=== PATIENT | female | born 1940 | race Caucasian/White ===

== ENCOUNTER 2018-03-05 08:48 | Inpatient (IN) | payer OTHER, SELFPAY ==
[2018-03-05] VITALS (18 sets, daily range): BP systolic 125–211; BP diastolic 62–101; PULSE 65–90; RESP 11–24; TEMP 36.2–37.3; O2SAT 85–99
[2018-03-05] MEDS: Lactated Ringers 1,000 ML 80 ML IV (10:02)
[2018-03-05] MEDS: Lactated Ringers 1,000 ML 1000 ML IV (10:36)
[2018-03-05] MEDS: Hydrogen Peroxide 3% 480 ML BTL (11:59)
[2018-03-05] MEDS: Labetalol 100 MG/20 ML VIAL IVP (13:06)
[2018-03-05] MEDS: HYDROmorphone 2 MG/ML VIAL IVP ×2 (13:24→13:48)
[2018-03-05] MEDS: Normal Saline Flush 10 ML SYR IV ×2 (13:25→15:28)
--- NOTE | 2018-03-05 14:20 | ROE_ITS ---
DATE OF SURGERY: March 05, 2018 PREOPERATIVE DIAGNOSIS: Infected right total knee arthroplasty. POSTOPERATIVE DIAGNOSIS: Same. PROCEDURE: Irrigation and debridement, right total knee arthroplasty with polyethylene exchange. SURGEON: Thaddeus Lakhani M.D. MORTUARY OPERATIONS MANAGER: Moisés Elkins ANESTHETIC: General endotracheal by Tory Flores C.R.N.A. PREP: ChloraPrep. INDICATIONS: This patient is 3 weeks and 2 days, S/P Right total knee arthroplasty. She had an unr emarkable postoperative course. However, approximately 5 days ago, she started draining from her inc ision at the junction of the proximal and middle thirds. This was after her coleen had been removed approximately 5-6 days before. I saw her in the office 48 hours ago. The drainage was clear sero us fluid but it was worrisome that it represented a deep-seated infection. There was minimal celluli tic changes in the incision. Nonetheless, I felt that the wound needed to be opened in order to try to salvage the knee as it is under the 4-week time frame which the [facility] has demonstrated can b e successfully managed with irrigation, debridement and polyethylene exchange. I discussed the pro cedure with the patient 2 days ago and reiterated it this morning with her and her . They un derstood and wished to proceed. The patient had culture results from the drainage through the skin and despite my attempts to cleanse the skin and then try to get a arborist representative deep-seated culture, the fluid showed Group B Strep bu t also other skin contaminants. I did not know if this was a legitimate infection by Group B Strep o r could have been some other organism. My plan was therefore to have the patient have deep cultures , including sending tissue to be cultured to guide appropriate antibiotic therapy. I also plan to u se Vancomycin powder as it has recently been shown to have good success topically on total joints. The patient was taken to the operating suite and underwent successful induction of general anesthesia by endotracheal tube. She had stopped her Plavix just 4 hours ago and therefore it was felt that s he could not have an adductor canal block, nor could she have a spinal anesthetic. The previous in cision really had a fairly benign appearance but there was a small opening about 2 millimeter where s ynovial fluid was leaking. The incision was opened after prepping the entire right lower extremity w ith ChloraPrep. A pneumatic tourniquet was applied to the proximal thigh. Prior to inflating the t ourniquet, the leg was elevated to exsanguinate it. The previous incision was opened without diffic ulty. At first it was felt that the infection was just in the subcutaneous tissues but at the juncti on of the proximal 1/3 of the quadriceps tendon and the distal 2/3's, there was an opening into the j oint. This confirmed a deep seated infection. The wound was carefully debrided with sharp and blunt technique, using large rongeurs and instruments. The patella was everted and the knee was flexed t o 90 degrees. All synovium which appeared to have any type of potential infection was debrided to elen ham tissue. I then sent tissue out for culture and sensitivity. I also did a tissue swab and a naerobic cultures. The swab was in case there were any problems with culturing the synovial tissue t hat was sent. The patient was then given 2 grams of Ancef so as to not have any false negative cult ures. We proceeded then to irrigate the wound, first with 3000 cc's of Betadine and saline solution, accord ing to protocol. Dilute Betadine was placed, 100 cc's in 3000 ml of saline and irrigated throughout the wound in a pulsatile jet lavage. This was followed by 6000 cc's of sterile saline in a pulsatile jet lavage technique. The tissues looked healthy following irrigation. At this point, the tourniquet was deflated. Hemostasis was under good control. I waited an appropr iate amount of time to make sure that there was no untoward bleeding. I then used Vancomycin powder topically throughout the incision. This was 1 gram according to protocol. The arthrotomy was then closed with sutures of # 1 Vicryl in a [id number]-[id number] fashion. Subcutaneous tissues were closed wi th 2-0 Vicryl and the skin was closed with 3-0 Ethilon placed in alternating simple sutures and near- far, far-near retention sutures. The wound was dressed with Xeroform gauze 4 x 4's, ABD pads, 6 conforming gauze bandage, a 6 Reece wr ap and a Cryo/Cuff . The patient will be admitted to the inpatient service. Culture results will be checked daily. I am going to keep her provisionally on Ancef. I felt that the Vancomycin powder would cover Group B St rep and I may ultimately switch her to IV Vancomycin but I want to make sure the deep cultures correl ate with the appropriate antibiotic therapy. Estimated blood loss was approximately 75-100 cc's. The patient's vital signs were stable throughout the procedure.
[2018-03-05] MEDS: Acetaminophen 325 MG TAB 650 MG PO (15:27)
[2018-03-05] MEDS: oxyCODONE 5 MG TAB PO ×3 (15:28→22:22)
[2018-03-05] MEDS: POTASSIUM CHLORIDE/0.9% NACL 1,000 ML 100 MEQ IV (15:30)
[2018-03-05] MEDS: Atorvastatin 10 MG TAB PO (20:08)
[2018-03-05] MEDS: Gabapentin 600 MG TAB PO (20:09)
[2018-03-05] MEDS: traMADol 50 MG TAB PO (21:48)
[2018-03-05] MEDS: Mirtazapine 15 MG TAB PO (21:49)
[2018-03-05] MEDS: Oxybutynin 5 MG TAB PO (21:49)
[2018-03-05] MEDS: DULoxetine 30 MG CAP 90 MG PO (21:49)
[2018-03-06] VITALS (7 sets, daily range): BP systolic 124–160; BP diastolic 67–77; PULSE 90–110; RESP 17–20; TEMP 36.6–38.1; O2SAT 88–94
[2018-03-06] MEDS: POTASSIUM CHLORIDE/0.9% NACL 1,000 ML 100 MEQ IV ×2 (01:44→18:07)
--- NOTE | 2018-03-06 07:10 | PDOC.CMIN ---
Care Management Initial Assess REASON FOR HOSPITALIZATION:: Infection R TKA PAST MEDICAL HISTORY/PAST SURGICAL HISTORY:: Status post Angelito fundoplication, s/p left ORIF of femur fracture, s/p lumber laminectomy with fusion of 3,4, 5, s/p left great toe surgery, s/p L TKA, dilation and curettage, laparascopic paraesophageal hernia repair, three TIAs last one 12 years ago, asthma, anxiety and depression, migraines, idiopathic peripheral neuropathy, hearing loss, fibromyalgia, RLS attends [facility] infusion for iron, GERD, Prophylaxis. PREVIOUS FUNCTIONAL STATUS/SOCIAL/FAMILY SUPPORTS:: Aster resides in [place] with her Anish. Aster shares when she Anish she inherited 2 sons, now also has 2 daughter in-laws and 5 grandchildren. Aster does not have family in the area but reports having many good friends. 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 The couple remain independent in the community, drives and manages their own needs. She attends the [facility] [employer] [facility] in [place] on Tuesdays and and also does independent PT at [facility] on Mondays and Fridays. She enjoys quilting and knitting. CURRENT FUNCTIONAL STATUS:: Aster was sitting up in her chair when CM met with her. She was pleasant and reported being in good spirits. CM reviewed options for penitentiary IV ABX, if needed. Aster reported she would prefer attending [facility] infusion room if possible. CM will await determination of sensitivities of culture and MD recommendations to inform discharge needs. ADVANCE DIRECTIVES:: On file at [facility]: Anish as Agent. Has patient been provided with information about the portal?: Yes Did the patient sign up for the portal?: Yes (Previously) CODE STATUS:: Full Code INSURANCE COVERAGE / FINANCIAL ISSUES:: Aetna, Medicare replacement policy. CURRENT HOME/COMMUNITY SERVICES/EQUIPMENT:: Walker, rollator, shower chair, raised toilet, as well as a stair chair that will assist her in getting to the second floor of her house. Aster reports she attends OP/PT at [facility] which includes [place]. She also reports going to the local pool with her friend on Wednesdays. PRIMARY CARE PHYSICIAN:: Romel Torres MD. POTENTIAL DISCHARGE NEEDS:: Follow up appointment with PCP, Surgical services. PATIENT/FAMILY EDUCATION NEEDS:: Review of discharge instructions, Ask Me Three. ANTICIPATED BARRIERS TO DISCHARGE:: None identfied at this time. TRANSPORTATION:: Via private vehicle with Anish. PLAN:: Aster will be evaluated for further needs. She may need penitentiary IV ABX for which her insurance will not cover in the home setting, Aster may attend Infusion room at [facility] or transfer to [facility] dependent on sensitivities of her infection and frequency of IV ABX. CM will continue to monitor clinical progress and support discharge planning considerations.
[2018-03-06 07:15] LABS: HCT 32.2 % (36.0-46.0); HGB 9.9 g/dL (12.0-15.5); Mean Corp. HGB Concentration 30.7 g/dL (32.0-36.0); Mean Corpuscular Hemoglobin 29.4 pg (27.0-33.0); Mean Corpuscular Volume 95.5 fL (80-95); Mean Platelet Volume 10.6 fL (8.0-11.0); Platelet Count 153 x1000/uL (130-400); RBC 3.37 m/cumm (4.00-5.20); RBC Distribution Width 18.5 % (11.7-14.6); White Blood Cell Count 8.04 k/cumm (4.4-10.8)
--- NOTE | 2018-03-06 07:15 | INITIAL_ITS ---
Care Management Initial Assess REASON FOR HOSPITALIZATION:: Infection R TKA PAST MEDICAL HISTORY/PAST SURGICAL HISTORY:: Status post Angelito fundoplication, s/p left ORIF of femur fracture, s/p lumber laminectomy with fusion of 3,4, 5, s /p left great toe surgery, s/p L TKA, dilation and curettage, laparascopic paraesophageal hernia repair, three TIAs last one 12 years ago, asthma, anxiety and depression, migraines, idiopathic peripheral neuropathy, hearing loss, fibromyalgia, RLS attends [facility] infusion for iron, GERD, Prophylaxis. PREVIOUS FUNCTIONAL STATUS/SOCIAL/FAMILY SUPPORTS:: Aster resides in [place] with her Anish. Aster shares when she Anish she inherited 2 sons , now also has 2 daughter in-laws and 5 grandchildren. Aster does not have family in the area but reports having many good friends. 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 The couple remain independent in the community, drives and manages their own needs. She attends the [facility] [employer] group in [place] on Tuesdays and and also does independent PT at [facility] on Mondays and Fridays. She enjoys quilting and knitting. CURRENT FUNCTIONAL STATUS:: Aster was sitting up in her chair when CM met with her. She was pleasant and reported being in good spirits. CM reviewed options for retirement IV ABX, if needed. Aster reported she would prefer attending [facility] infusion room if possible. CM will await determination of sensitivities of culture and MD recommendations to inform discharge needs. ADVANCE DIRECTIVES:: On file at [facility]: Anish as Agent. Has patient been provided with information about the portal?: Yes Did the patient sign up for the portal?: Yes (Previously) CODE STATUS:: Full Code INSURANCE COVERAGE / FINANCIAL ISSUES:: Aetna, Medicare replacement policy. CURRENT HOME/COMMUNITY SERVICES/EQUIPMENT:: Walker, rollator, shower chair, raised toilet, as well as a stair chair that will assist her in getting to the second floor of her house. Aster reports she attends OP/PT at [facility] which includes [facility] [employer] [facility] on Mondays. She also reports going to the local pool with her friend on Wednesdays. PRIMARY CARE PHYSICIAN:: Romel Torres MD. POTENTIAL DISCHARGE NEEDS:: Follow up appointment with PCP, Surgical services. PATIENT/FAMILY EDUCATION NEEDS:: Review of discharge instructions, Ask Me Three . ANTICIPATED BARRIERS TO DISCHARGE:: None identfied at this time. TRANSPORTATION:: Via private vehicle with Anish. PLAN:: Aster will be evaluated for further needs. She may need terminal clerk IV ABX for which her insurance will not cover in the home setting, Aster may attend Infusion room at [facility] or transfer to [facility] dependent on sensitivities of her infection and frequency of IV ABX. CM will continue to monitor clinical progress and support discharge planning considerations.
[2018-03-06 07:21] LABS: Anion Gap 6.8 mmol/L (3-11); BUN 13 mg/dL (7-18); CO2 28.2 mmol/L (21.0-32.0); CREATININE 1.01 mg/dL (0.55-1.02); Calcium 8.5 mg/dL (8.5-10.1); Chloride 104 mmol/L (98-107); Estimated GFR 53.01 (mL/min/1.73m2); Glucose 186 mg/dL (70-100); Potassium 4.9 mmol/L (3.5-5.1); Sodium 139 mmol/L (136-145)
[2018-03-06] MEDS: Acetaminophen 325 MG TAB 650 MG PO (07:46)
[2018-03-06] MEDS: Multivitamin w/Minerals TAB 1 TAB PO (07:48)
[2018-03-06] MEDS: Hyoscyamine 0.125 MG SL/ORAL/CHEW PO (07:48)
[2018-03-06] MEDS: Docusate Sodium 100 MG CAP PO (07:48)
[2018-03-06] MEDS: Gabapentin 300 MG CAP PO (07:48)
[2018-03-06] MEDS: oxyCODONE 5 MG TAB PO ×3 (07:48→22:06)
[2018-03-06] MEDS: Pantoprazole 40 MG TABCR PO (07:49)
--- NOTE | 2018-03-06 09:55 | PGE_ITS ---
Date of Service: 03/06/2018 Subjective: Feeling remarkably well despite having had significant surgery without the assist of adjunctive nerve blocks because the patient was on Plavix 48 hours prior to the surgery. She is sitting in the chair . The catheter is bothering her. Objective: Temperature max of 37.8; she is 37.3. Blood pressure 138/70, pulse 93. Pain score of 8. Oxygen sat uration 94%. Hemoglobin is 9.9, platelet count 153,000. Chemistries unremarkable other than a mildl y elevated glucose. Culture results from the lab show no growth on the cultures which are approximately 22 hours old. Pr evious cultures in the office from 03/03/2018 show group B strep. No further workup is done but I am going to have the lab send them off to see whether or not there is clindamycin resistance. If that is the case, then the patient would need treatment with vancomycin even though current cultures are n ot growing anything. She did have vancomycin powder placed in the wound and I will continue her on A ncef. Overall status post irrigation and debridement of infected total knee arthroplasty with current cultu re negative results which were taken without any antibiotic coverage. I will continue her Ancef and perhaps change her antibiotic regimen depending on what the culture results reveal. Patient understa nds current treatment plan. She is awake and alert and oriented. Will check her CBC and chemistries again tomorrow. Will discontinue the King today.
--- NOTE | 2018-03-06 09:55 | PHARADMIT ---
Addendum entered by Nahomy Cooper 03/08/18 12:06: Pharmacy Note Subjective Objective VS ok, pain 06/11, Micro: R knee shows Clostirium Perfringes-?contaminent Assessment dc'd Cefazolin and changing to 2 weeks of Ceftriaxone no other med changes, OxyIR, Tramadol, Gabapentin and APAP for pain Plan Plan is for 2 weeks of Anbx..possibly in our infusion room with discharge planned for Friday 03/09 Central line being placed today Follow C-reactive protein level Original Note: Addendum entered by Celeste Dominguez 03/07/18 10:09: Pharmacy Note Subjective pt ambulating, eating well, Objective pain 04/11, vs ok, Assessment morphine IV prn active, IVF stopped, cefazolin continues awaiting culture results Plan awaiting final culture results and switch to all PO meds Original Note: Admission Pharmacy Clinical Review INFECTION RIGHT TKA Code Status Full Code Current Weight 74.8 kg Renally Cleared and Narrow Therapeutic Index Meds CRCL ~40ML/MIN QTc Value / Action Taken 425 BP Control, Fever 138/70 AFEBRILE Electrolytes reviewed OK DVT Prophylaxis NO Opiate Usage / Scheduled Bowel Regimen Ordered PRN/PRN Plt/SCr for Heparin / Enoxaparin 153/1.01 INR for Warfarin NA H/H stable, WBC/Bands 9.9/32.2 WBC 8.04 Antibiotic appropriateness CEFAZOLIN Cultures and Sensitivities PENDING Surgical ABX d/c within 24 hr NO DM control / Insulin Dosing NA Heart Failure (Check EF%) (ROXANNE's, B-Block, Diuretics) NA IV to PO Switch Home Meds Reviewed Home Meds Not Ordered Albuterol Sulfate [Proair Hfa] 2 puff IH PRN PRN 11/13/15 Celecoxib [CeleBREX] 200 mg PO DAILY 11/13/15 Clopidogrel Bisulfate [Plavix] 75 mg PO HS 11/13/15 L.acidoph,Paracasei, B.lactis [Probiotic] 1 each PO DAILY 11/13/15 Topricin 1 ea TP DAILY PRN 11/13/15 Calcium Carbonate/Vitamin D3 [Calcium 600-Vit D3 200 Tablet] Phenylephrine HCl [Nasal Decongestant PE] 10 mg PO PRN PRN 05/27/17 Sulfameth/Trimeth Ds [Bactrim Ds Tablet] 1 each PO BID 03/04/18 Comments
--- NOTE | 2018-03-06 10:38 | IN_ITS ---
INPATIENT PHYSICAL THERAPY EVALUATION Date: 03/06/18 Referring Doctor: Thaddeus Lakhani MD PT Orders:Manage Follow per spec Precautions: WBAT on Right, Standard PATIENT PROFILE/ADMITTING DIAGNOSIS: Patient is a 77 year old female admitted to this facility on orders of Dr. Lakhani after receiving I and D and poly swab for her right TKA, s/p 3 weeks. Patient had been doing quite well for the first 2 weeks after surgery but a few days ago she was noted to have significant serous drainage from the wound where it had opened slightly. It was recommended by Dr. Lakhani and per current treatment guidelines to proceed with Irrigation, debridement and poly swab. She has been admitted for recovery and rehab. PMHX: Left TKA, Fibromyalgia, Distal clavicle resection, Hearing loss, mild cognitive impairment, Depression, Migraines, GERD Social History/Home Situation: Patient lives with in 2 level home that she does not need to utilize the 2nd floor currently. She is independent at baseline without assistive device. Current Functional Limitations: Use of 4 wheel walker prior to admission with limited ambulation tolerance. Equipment owned/DME: 2 WW, 4WW SUBJECTIVE: I was just up with nursing and sat up for awhile and I can not get back out of bed today. OBJECTIVE: General Observation: Tired elderly woman who looks of stated age lying supine in bed with HOB to 10 degrees. King catheter just removed from nursing and IV lines in place on left UE. Cryo cuff to right knee. Mental Status: Alert and oriented x 3 to person, place, and time Pain: 8/10 currently at right knee Vital Signs: stable ROM: RUE WNL LUE WNL RLE WFL LLE Right hip to 90 degrees, Right knee to 45 degrees of flexion and she comes to 10 degrees of full extension before pain limits further active or passive motion. STRENGTH: RUE 5/5 grossly LUE 5/5 grossly RLE Hip flexion 4/5, quads 3/5 (pain) , HS 4/5, DF and PF 5/5 LLE 5/5 grossly SENSATION: Patient intact to light touch and sensation through upper and lower extremity dermatomes. Motor control appears intact to functional myotomes and patient demonstrates appropriate proprioception and kinesthetic awareness. BED MOBILITY/TRANSFERS: Patient was able to demonstrate light bed rolling with min assistance. She refused out of bed, however per nursing she required min assist. GAIT: Refused out of bed, per nursing min assist to chair this morning with 2 WW. SPECIAL TESTS: Mobility Limitations Standardized Measure [facility] AM -PAC 6 clicks Basic Mobility Inpatient Short Form: raw score: 16 standardized score: 40.78 CMS score: 54.16% [facility] modifier: CK Patient performed quad sets x 10, hamstring sets x 10, gluteal sets x 10. Ankle pumps for 1 min, and shoulder flexion and shoulder rows for 2 sets of 10 INFORMED CONSENT/EDUCATION: Pt instructed in purpose of PT Consult and plan of care ASSESSMENT: Patient is a 77 year old female referred to physical therapy services with diagnosis of being s/p 3 weeks TKA with recent evidence of possible infection and subsequent I and D with poly swab from right knee . Patient presents with clinical signs and symptoms consistent with this diagnosisi as demonstrated by the following impairment level findings: deficits with transfers, pain limiting out of bed activity, ambulation intolerance, Decreased ROM and decreased strength through the right. . Impairments are contributing to the following functional limitations: AMPAC score 54.16% Patient is assessed as a Low 74268 Moderate 10682 __X__ high 77397 complexity based on the following: History: See above PHM Examination: See above impairment findings. Presentation: Evolving Decision Making: Moderate based on AMPAC of 54.16% Skilled physical therapy services are required for this patient in order to address and remediate her functional limitations and return to pre-morbid level of function. GOALS Goals x1 week 1. Supine-sit SUpervision with 2. Sit-Supine SUpervision with 3. Sit-Stand SUpervision with 4. Stand-sit SUpervision with 5. Bed-chair SUpervision with 6. Chair-bed SUpervision with 7. Gait With 2WW up to 200 feet and with SUpervision with PLAN OF CARE/TREATMENT PLAN: 1-2x/day, 7 days/ week x 1 week Plan of care has been reviewed with the PRESCHOOL ASSISTANT providing the service under Physical therapy direction. Initiate physical therapy intervention for strengthening, bed mobility, transfers, gait, stairs, balance training, use of assistive device. DISCHARGE RECOMMENDATIONS To home once medically stable in care of . TREATMENT TIME/MINUTES/[place]ES [place] [address] 15 min 1015am G Codes in the area mobility of walking and moving around: current status [id number] ___CK____projected status GP [id number]___SV .
[2018-03-06] MEDS: Gabapentin 600 MG TAB PO (19:40)
[2018-03-06] MEDS: Atorvastatin 10 MG TAB PO (19:40)
[2018-03-06] MEDS: DULoxetine 30 MG CAP 90 MG PO (22:05)
[2018-03-06] MEDS: Mirtazapine 15 MG TAB PO (22:06)
[2018-03-06] MEDS: Oxybutynin 5 MG TAB PO (22:06)
[2018-03-07 04:14] VITALS: BP 133/67; PULSE 110; RESP 22; TEMP 36.8; O2SAT 95
--- NOTE | 2018-03-07 07:25 | CMPROGNOTE_ITS ---
Date of Service: 03/07/18 Time of Service: 07:23 Care Management Progress Note SO: CM met with patient, and reviewed clinical chart. Pt continues to be treated with IV antibiotics for the next 48 hours, is monitoring cultures to determine ongoing antibiotic treatment. A Aster is a 77-year-old woman admitted with infected right TKA. P:Aster will be evaluated for further needs. She may need marine oil terminal superintendent IV ABX for which her insurance will not cover in the home setting, Aster may attend Infusion room at [facility] or transfer to [facility] dependent on sensitivities of her infection and frequency of IV ABX. CM will continue to monitor clinical progress and support discharge planning considerations.
[2018-03-07 07:31] VITALS: BP 130/62; PULSE 88; RESP 18; TEMP 36.2; O2SAT 93
[2018-03-07 07:41] LABS: HCT 32.2 % (36.0-46.0); HGB 9.9 g/dL (12.0-15.5); Mean Corp. HGB Concentration 30.7 g/dL (32.0-36.0); Mean Corpuscular Hemoglobin 29.5 pg (27.0-33.0); Mean Corpuscular Volume 95.8 fL (80-95); Mean Platelet Volume 11.5 fL (8.0-11.0); Platelet Count 119 x1000/uL (130-400); RBC 3.36 m/cumm (4.00-5.20); RBC Distribution Width 18.1 % (11.7-14.6); White Blood Cell Count 7.07 k/cumm (4.4-10.8)
[2018-03-07] MEDS: Gabapentin 300 MG CAP PO (07:42)
[2018-03-07] MEDS: traMADol 50 MG TAB PO ×2 (07:43→23:20)
[2018-03-07] MEDS: Pantoprazole 40 MG TABCR PO (07:43)
[2018-03-07] MEDS: Multivitamin w/Minerals TAB 1 TAB PO (07:43)
[2018-03-07] MEDS: Hyoscyamine 0.125 MG SL/ORAL/CHEW PO (07:43)
[2018-03-07 07:59] LABS: BUN 15 mg/dL (7-18); CREATININE 1.07 mg/dL (0.55-1.02); Calcium 8.7 mg/dL (8.5-10.1); Chloride 105 mmol/L (98-107); Glucose 154 mg/dL (70-100); Potassium 4.5 mmol/L (3.5-5.1); Sodium 140 mmol/L (136-145)
[2018-03-07] MEDS: Docusate Sodium 100 MG CAP PO ×2 (08:02→21:17)
[2018-03-07] MEDS: oxyCODONE 5 MG TAB PO ×2 (09:10→10:07)
[2018-03-07] MEDS: Polyethylene Glycol 3350 17 GM PACKET PO (10:08)
--- NOTE | 2018-03-07 10:42 | PGE_ITS ---
DATE: March 07, 2018 ASSESSMENT: Overall the patient is definitely improved. She is still not as good as she was before surgery, but she is alert, oriented, and showing no signs of postanesthesia confusion or delirium, an d is aware of the clinical situation including the bacteriology. PLAN: Continue with IV Ancef for at least 48 more hours until more definitive cultures are obtained. SUBJECTIVE: Feeling better today. Sitting up in a chair, comfortably eating breakfast. OBJECTIVE: She has been afebrile. T-max was 37.8, currently 36.2. Blood pressure 130/62. Saturati ons are 93% on room air. Respirations 18. Hemoglobin unchanged at 9.9. Platelet count 115,000. Electrolytes are normal except for slightly el evated glucose. The wound is carefully examined today. There is no unusual swelling. No drainage on the gauze. She has no changes in her neurovascular exam of both lower extremity. I went to the lab and reviewed the bacteriology. There is no growth on the routine broth or plates. On the anaerobic culture there is one colony on the blood which perhaps could represent a potential pathogen, although an anaerobic infection of a total knee is uncommon. It is going to be Gram staine d today and I will have further identification tomorrow. I think because this is a relatively unusua l cause for infection, I am going to forego holding off of using Flagyl. The patient obviously canno t take penicillin which covers more anaerobes. I also noted that the group B Strep, specifically Str ep agalactiae has the ability to be a facilitative anaerobe. However, the technologist does not feel that this has the appearance of a Strep agalactiae on the anaerobic plates.
--- NOTE | 2018-03-07 11:10 | INPTTR_ITS ---
PHYSICAL THERAPY PROGRESS NOTE Date: 03/07/18 PRECAUTIONS: WBAT on right SUBJECTIVE: Indicated she was willing to walk to commode and chair but does not want to walk any further, too sore. Stated just doing the little activities that she performed causes her knee to ache. OBJECTIVE PAIN: Aching in right knee with activity. BED MOBILITY/TRANSFERS Supine-sit: SBA Sit-supine: SBA Sit-stand: SBA Stand-sit: SBA Bed-Chair: SBA with FWW Chair-bed: SBA with FWW GAIT Assistive Device FWW Weightbearing WBAT on the right Assist: SBA Distance: 3 steps to bed to commode, 8 steps commode to recliner THEREX: Performed AP, QS,GS, seated hip flexion, seated hip abduction, bilateral UE horizontal abd/add and shoulder flexion to 90 degrees, as per flow sheet. Actively flexing knee to approximately 70 degrees and extending to 15 degrees while in seated position. ASSESSMENT: Tolerated transfers very well and appeared comfortable while up in chair with right leg resting on stool and pillow as per her instructions via Dr. Lakhani. PLAN: Continue with strengthening and functional mobility training as per supervising PT's POC. TREATMENT CODES/TIME: TP, GT, 11:10 to 11:40 (30 minutes)
[2018-03-07] MEDS: Normal Saline Flush 10 ML SYR IV ×3 (11:33→23:20)
[2018-03-07 11:40] VITALS: BP 113/70; PULSE 96; RESP 18; TEMP 36; O2SAT 95
[2018-03-07] MEDS: Acetaminophen 325 MG TAB 650 MG PO (13:09)
[2018-03-07 16:30] VITALS: BP 113/65; PULSE 88; RESP 18; TEMP 36.5; O2SAT 93
[2018-03-07] MEDS: Atorvastatin 10 MG TAB PO (19:19)
[2018-03-07] MEDS: Gabapentin 600 MG TAB PO (19:19)
[2018-03-07 19:38] VITALS: BP 117/66; PULSE 91; RESP 18; TEMP 36.7; O2SAT 92
[2018-03-07] MEDS: DULoxetine 30 MG CAP 90 MG PO (21:16)
[2018-03-07] MEDS: Mirtazapine 15 MG TAB PO (21:17)
[2018-03-07] MEDS: Oxybutynin 5 MG TAB PO (21:17)
[2018-03-07 23:53] VITALS: BP 161/76; PULSE 92; RESP 20; TEMP 36.8; O2SAT 93
[2018-03-08] MEDS: oxyCODONE 5 MG TAB PO ×5 (00:20→23:48)
[2018-03-08 04:09] VITALS: BP 142/79; PULSE 105; RESP 19; TEMP 37.1; O2SAT 94
[2018-03-08] MEDS: Normal Saline Flush 10 ML SYR IV ×3 (06:17→13:02)
[2018-03-08] MEDS: Acetaminophen 325 MG TAB 650 MG PO ×2 (06:56→11:41)
[2018-03-08 07:15] VITALS: BP 125/75; PULSE 82; RESP 19; TEMP 36.7; O2SAT 95
--- NOTE | 2018-03-08 07:50 | PGE_ITS ---
DATE: MARCH 08, 2018 @07:50 ASSESSMENT: I reviewed all her culture results in the lab this morning. There was one colony on the anaerobic plate which was gram stain. It did not appear to be a Propionibacterium species but rather a Clostridium species. This is does not fit clinically with the patient's examination or clinical course and I suspect that this could be a contaminant. The other plates are all negative including the tissue that was harvested deep prior to giving the patient her antibiotic Ancef. PLAN: According to Up To Date protocol, I am going to treat this with two weeks of IV Rocephin. If the patient is doing well and her C-reactive protein is close to normal range, then I would switch her to oral antibiotics. If not I would keep her on IV Rocephin until C-reactive protein normalizes. I have discussed this with the patient in detail and with her via the speaker phone in her room today. I have discussed the case in detail with Marsha Jefferson who is going to be doing the Central Line and she will assist me with that along with calculation of the appropriate dosing of Rocephin which will be done every 24 hours with the patient's transporting the patient to [facility]. SUBJECTIVE: She is feeling well. She had a good night. She is able to do a straight leg raise. OBJECTIVE: She has been afebrile with maximum temperature of 37.8 at midnight on 03/06. Last night her T-max was 37.1. Blood pressure 142/79, pulse 105 ranging from 90 to 105. Sat is 94% on room air. Overall feels pain is better.
[2018-03-08] MEDS: Gabapentin 300 MG CAP PO (07:56)
[2018-03-08] MEDS: Pantoprazole 40 MG TABCR PO (07:56)
[2018-03-08] MEDS: Multivitamin w/Minerals TAB 1 TAB PO (07:57)
[2018-03-08] MEDS: Hyoscyamine 0.125 MG SL/ORAL/CHEW PO (07:57)
[2018-03-08] MEDS: Docusate Sodium 100 MG CAP PO (08:03)
--- NOTE | 2018-03-08 09:06 | INPTTR_ITS ---
PHYSICAL THERAPY PROGRESS NOTE Date: 03/08/18 PRECAUTIONS: WBAT R LE SUBJECTIVE: Pt sitting in chair after breakfast, states she has only been walking bed to commode over weekend. Pt agreeable to PT session and encouraged to mobilize to bathroom and hallway this morning. OBJECTIVE: PAIN c/o pain right knee, not rated. cryocuff applied post session BED MOBILITY/TRANSFERS Sit-supine: independent, pt able to lift R leg into bed Sit-stand: independent from chair and toilet with FWW Stand-sit: independent Bed-Chair: supervision with FWW Chair-bed: supervision with FWW GAIT Assistive Device FWW Weightbearing as tolerated Assist: supervision Distance: 35ftx2 Deviation step to gait pattern with decreased stride and promise, pt able to mobilize out in hallway and use regular bathroom for toileting this morning. Pt returned to bed after session completed with cryocuff applied to right knee THEREX: Pt independent with TKA exercise program, this morning focused on quad sets to increase right knee extension. R knee AROM ~ -15-70. ASSESSMENT: Improved gait mobility with FWW, improved transfers. R knee ROM a concern, needs continued focus on extension, hopefully this will improve with continued treatment. Pt states plan is for her to go home tomorrow, pt issued a tube worker to assist with picking items up from floor. PLAN: Progress gait distance Progress R knee ROM Progress strengthening TREATMENT CODES/TIME: 23min TAx1 TP x1 [address] Mon PT
--- NOTE | 2018-03-08 10:45 | DI.REPORT_ITS ---
SYMPTOMS/DIAGNOSIS: POST PICC INSERTION PORTABLE AP CHEST: Comparison 02/04/18. The heart size and pulmonary vasculature are within normal limits. No infiltrates or effusions are seen. There has been interval placement of a left PICC line. The tip of the catheter is in good position in the superior vena cava. IMPRESSION: Left PICC line placement. The tip of the catheter is seen in the superior vena cava.
[2018-03-08 11:25] VITALS: BP 128/76; PULSE 90; RESP 20; TEMP 36.3; O2SAT 93
--- NOTE | 2018-03-08 12:35 | PDOC.CMPRO ---
Care Management Progress Note S/O: Aster was laying in bed, her at her side when JUAN ALBERTO met with her. She was pleasant in interaction and reported no concerns at this time. She was well aware of her discharge plan-liz met with Dr. Campbell this morning. Aster will discharge home tomorrow after her IV ABX. She will have a PICC line placed today and on Thursday will return to [facility] to attend the Infusion room for her daily IV ABX treatment of her infected R TKA. A: 77 female admitted to [facility] 03/05/18 for infection (R) TKA P: Aster will likely discharge home tomorrow. She will have a PICC line placed today. She will discharge home, and return to [facility] daily for infusion of her IV ABX. Aster will transport home via private vehicle with her .
--- NOTE | 2018-03-08 12:40 | CMPROGNOTE_ITS ---
Care Management Progress Note S/O: Aster was laying in bed, her at her side when JUAN ALBERTO met with her. She was pleasant in interaction and reported no concerns at this time. She was well aware of her discharge plan-liz met with Dr. Campbell this morning. Aster will discharge home tomorrow after her IV ABX. She will have a PICC line placed today and on Thursday will return to [facility] to attend the Infusion room for her daily IV ABX treatment of her infected R TKA. A: 77 female admitted to [facility] 03/05/18 for infection (R) TKA P: Aster will likely discharge home tomorrow. She will have a PICC line placed today. She will discharge home, and return to [facility] daily for infusion of her IV ABX. Aster will transport home via private vehicle with her .
--- NOTE | 2018-03-08 14:43 | INPTTR_ITS ---
PHYSICAL THERAPY PROGRESS NOTE Date: 03/08/18 PRECAUTIONS: WBAT R LE SUBJECTIVE: Pt in bed visiting with , agreeable to PT Session. OBJECTIVE: PAIN c/o pain right knee, not rated. cryocuff applied post session BED MOBILITY/TRANSFERS Supine-sit: independent Sit-supine: independent, pt able to lift R leg into bed Sit-stand: independent Stand-sit: independent GAIT Assistive Device FWW Weightbearing as tolerated Assist: supervision Distance: 35ftx2 Deviation step to gait pattern with decreased stride and promise THEREX: Bilateral ankle pumps, quad sets, glute sets x 20, R SLR x 10 ASSESSMENT: Able to perform second gait session to hallway today, using bathroom consistently instead of bedside commode. Treatment focused on quad contraction R LE and knee extension. Pt plans to go home tomorrow, recommend continued PT at discharge to improve ROM, strength and functional mobility. PLAN: Progress gait distance Progress R knee ROM Progress strengthening TREATMENT CODES/TIME: 24min TAx1 TP x1 [address] Mon PT
[2018-03-08 15:45] VITALS: BP 110/70; PULSE 86; RESP 19; TEMP 36.1; O2SAT 92
[2018-03-08] MEDS: Atorvastatin 10 MG TAB PO (19:34)
[2018-03-08] MEDS: Gabapentin 600 MG TAB PO (19:34)
[2018-03-08 19:39] VITALS: BP 134/77; PULSE 93; RESP 18; TEMP 36.5; O2SAT 92
[2018-03-08] MEDS: DULoxetine 30 MG CAP 90 MG PO (21:02)
[2018-03-08] MEDS: Oxybutynin 5 MG TAB PO (21:02)
[2018-03-08] MEDS: Mirtazapine 15 MG TAB PO (21:02)
[2018-03-09 00:18] VITALS: BP 159/84; PULSE 94; RESP 20; TEMP 36.9; O2SAT 94
[2018-03-09 03:56] VITALS: BP 165/81; PULSE 96; RESP 18; TEMP 37.6; O2SAT 93
[2018-03-09 07:20] VITALS: BP 143/82; PULSE 87; RESP 17; TEMP 36.6; O2SAT 93
--- NOTE | 2018-03-09 08:02 | PGE_ITS ---
DATE: MARCH 09, 2018 @08:02 PLAN: Will send her home on IV Rocephin and will follow a minimum of two week IV course depending on clinical response and any further bacteriological work-up. I will obtain a C-reactive protein at that time. Arrangements were made to have her IVs and Rocephin given 2 grams every 24 hours through her PICC line which was successfully inserted yesterday. The chest x-ray post PICC line insertion was normal with the line in good position. SUBJECTIVE: She had a good night. She is able to straight leg raise. Currently sitting in a chair waiting for breakfast. OBJECTIVE: She has been afebrile. T-max was 37.6 at 4:00 a.m. Blood pressure 165/81. Pulse 96 and sat is 93% on room air. I reviewed culture plates from the lab. There has been no further growth of the anaerobic resub from broth. All aerobic plates are negative. There is one colony of possible Clostridium perfringens which I think is not likely to be valid but I am having it worked up anyway. The Group B Strep was Clindamycin resistant. This was from drainage on the skin taken on 03/03/18.
--- NOTE | 2018-03-09 08:03 | DISCHARGE ---
Discharge - Discharge Orders - Discharge Plan Disposition: HOME Condition: Improving Diet:: Carb Counting Equipment/Supplies:: Walker Activity:: Activity as Tolerated - Instructions Additional Instructions: CONTINUE TO USE YOUR NEW KNEE. IN ADDITION TO FLEXION, WORK ON EXTENSION BY PLACING YOUR HEEL ON A PILLOW OR BOLSTER TO TRY TO ENCOURAGE KNEE EXTENSION. YOU MAY GET YOUR STITCHES WET IN THE SHOWER WITH SOAP AND WATER. GENTLY PAT THE STITCHES DRY AND LEAVE THEM OPEN TO THE AIR. IF THE STITCHES CATCH ON YOUR CLOTHING, YOU MAY COVER THEM WITH A LIGHT LAYER OF GAUZE AND PAPER TAPE. RESUME YOUR REGULAR MEDICATIONS BEFORE. THIS INCLUDES USING YOUR PLAVIX TODAY. TAKE TYLENOL FOR MILDER PAIN. TAKE OXYCODONE 5MG 1-2 EVERY 4 -6 HOUR FOR MORE SERIOUS PAIN. [facility] STATE REGULATIONS LIMIT THE AMOUNT OF OXYCODONE THAT CAN BE PRESCRIBED. RETURN EVERY DAY AT NOON FOR INFUSIONS OF ROCEPHIN THRU YOUR PICC LINE. FOLLOW-UP WITH DR. EVANS IN 7-10 DAYS FOR STITCH REMOVAL.
--- NOTE | 2018-03-09 08:09 | PDOC.DISCH_ITS ---
Discharge - Discharge Orders - Discharge Plan Disposition: HOME Condition: Improving Diet:: Carb Counting Equipment/Supplies:: Walker Activity:: Activity as Tolerated - Instructions Additional Instructions: CONTINUE TO USE YOUR NEW KNEE. IN ADDITION TO FLEXION, WORK ON EXTENSION BY PLACING YOUR HEEL ON A PILLOW OR BOLSTER TO TRY TO ENCOURAGE KNEE EXTENSION. YOU MAY GET YOUR STITCHES WET IN THE SHOWER WITH SOAP AND WATER. GENTLY PAT THE STITCHES DRY AND LEAVE THEM OPEN TO THE AIR. IF THE STITCHES CATCH ON YOUR CLOTHING, YOU MAY COVER THEM WITH A LIGHT LAYER OF GAUZE AND PAPER TAPE. RESUME YOUR REGULAR MEDICATIONS BEFORE. THIS INCLUDES USING YOUR PLAVIX TODAY. TAKE TYLENOL FOR MILDER PAIN. TAKE OXYCODONE 5MG 1-2 EVERY 4 -6 HOUR FOR MORE SERIOUS PAIN. [facility] STATE REGULATIONS LIMIT THE AMOUNT OF OXYCODONE THAT CAN BE PRESCRIBED. RETURN EVERY DAY AT NOON FOR INFUSIONS OF ROCEPHIN THRU YOUR PICC LINE. FOLLOW-UP WITH DR. EVANS IN 7-10 DAYS FOR STITCH REMOVAL.
[2018-03-09] MEDS: Acetaminophen 325 MG TAB 650 MG PO (08:17)
[2018-03-09] MEDS: Gabapentin 300 MG CAP PO (08:17)
[2018-03-09] MEDS: Multivitamin w/Minerals TAB 1 TAB PO (08:17)
[2018-03-09] MEDS: Pantoprazole 40 MG TABCR PO (08:17)
[2018-03-09] MEDS: Hyoscyamine 0.125 MG SL/ORAL/CHEW PO (08:17)
[2018-03-09] MEDS: Docusate Sodium 100 MG CAP PO (08:21)
--- NOTE | 2018-03-09 09:24 | DSE_ITS ---
DATE OF ADMISSION: March 05, 2018 DATE OF DISCHARGE: March 09, 2018 HISTORY: See written History. PHYSICAL EXAM: See written Physical Exam. HOSPITAL COURSE: Mrs. Kumar was discharged from [facility] on 02/15/18 after undergoing a right total kn ee arthroplasty. Her initial postoperative course post-discharge was unremarkable. However she deve loped drainage from her wound approximately a week ago. I saw her in the office and she had serous f luid coming from a 3 mm opening in the central portion of her incision at the junction of the proxima l and distal thirds. This was cultured, but I felt that it was an ominous sign which would require d ebridement. The culture showed some contamination and ultimately grew a Group B Strep. It was worke d up for sensitivities and was found to be resistant to Clindamycin. No other sensitivities are done normally on Strep. I felt that this was not probably insurance follow up representative of her true infection. I recom mended to the patient and her that she undergo irrigation and debridement of the total knee i ncision, polyethylene exchange and placement on IV antibiotics until definitive deep cultures were pe rformed. The patient and her consented. She was taken to surgery in the a.m. of 03/05/18 where she underwent arthrotomy of the right total knee and explantation of the polyethylene component. There was no overt pus within the knee. Complete d ebridement was done. Tissue from the debridement was sent to a lab for culture and sensitivities, in cluding aerobic and anaerobic cultures. She was then given 2 grams of Ancef. The knee was irrigated out with three liters of Betadine solution, followed by six liters of sterile saline. Vancomycin po wder was then placed on the arthrotomy site and the wound was closed. All of her routine deep cultures done at the time of surgery on 03/05/18 have shown no growth so far. There was one colony on the anaerobic culture that looked like a possible Clostridium perfringens. T his did not clinically fit with the patient's picture. The material was re-subbed onto broth for a r epeat anaerobic culture and nothing has grown at this point. Nonetheless the suspected Clostridium species will be worked up at the [facility]. Based on the most-recent up-to-date literat ure, my plan is to keep the patient at a minimum on two weeks of Rocephin 2 grams every 24 hours. Th is was done via a PICC line, which was inserted on 03/08/2018. During her hospital course following the polyethylene exchange and irrigation and debridement, the bobbi bishop's course was essentially unremarkable. She had the procedure done under general anesthesia, bu t showed no obvious consequences of the general anesthesia, such as postoperative delirium. She had serial hemoglobin and hematocrit studies for 48 hours; they were unchanged with a hemoglobin of 9.1, platelet count was within normal limits; electrolytes were essentially within normal limits. Blood s ugars were slightly elevated, reflecting the patient's mild diabetes. She resumed PT and made good progress. After PICC line insertion she will receive her second dose of Rocephin today and then will be discharged home and return every 24 hours. DISCHARGE DIAGNOSIS: 1. 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 2. Status post successful left total knee arthroplasty in 2015. 3. Status post right rotator cuff repair in 2016. 4. 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 5. History of depression. 6. Restless leg syndrome. 7. Migraines with aura. 8. Idiopathic peripheral neuropathy. 9. Fibromyalgia. 10. Chronic back pain with sciatica from spinal stenosis. OPERATIONS AND PROCEDURES: 1. Previous Angelito fundoplication. 2. D and C. 3. Hysteroscopy. 4. Left ankle fracture. 5. Great toe surgery. 6. Open reduction of femoral neck fracture. 7. Total knee arthroplasty on the left. 8. Rotator cuff repair on the right. 9. Distal clavicle resection on the right with the rotator cuff repair. 10. Lumbar decompression and laminectomy in 2000. MEDICATIONS: 1. Oxycodone 5 to 10 mg every 4 to 6 hours for serious pain. 2. Protonix 40 mg daily. 3. Celebrex 200 mg daily. 4. Neurontin 300 mg in the a.m., 600 mg q.p.m. 5. Calcium 600 mg daily. 6. Colace 100 mg daily. 7. Oxybutynin 5 mg daily. 8. Cymbalta 90 mg q.p.m. 9. Plavix 75 mg daily to resume today. 10. Tizanidine 2 mg for muscle spasms. 11. Lipitor 10 mg q.h.s. 12. Remeron 15 mg for insomnia and depression. 13. Albuterol inhaler two puffs q4-6h p.r.n. 14. Hyoscyamine 125 mg p.r.n. stomach cramping. 15. Ultram 50 mg p.o. t.i.d. 16. Tylenol p.r.n.
[2018-03-09] MEDS: traMADol 50 MG TAB PO (09:51)
--- NOTE | 2018-03-09 10:25 | INPTTR_ITS ---
PHYSICAL THERAPY PROGRESS NOTE Date: 03/09/18 PRECAUTIONS: WBAT on R SUBJECTIVE: Aster states that she is feeling good today and feels that she is ready to return home this afternoon. She also reports that she has been moving around her room independently, which she feels safe doing so. OBJECTIVE PAIN: Patient c/o discomfort in her R knee with gait training, she reports her pain as a 6/10. BED MOBILITY/TRANSFERS Supine-sit: I Sit-supine: I Sit-stand: I Stand-sit: I Chair-bed: I GAIT Assistive Device FWW Weightbearing WBAT on R Assist: I Distance: 100' THEREX: Patient completed a seated ther ex program for LE strength and stabilization, as per flow sheet. ASSESSMENT: Patient demonstrates independence and safety with transfers and short-distance gait training. Patient would benefit from continued gait training to improve endurance, as well as continued participation in a ther ex program for LE strengthening. PLAN: As per primary PT TREATMENT CODES/TIME: 25 minutes; TAx1, TPx1
[2018-03-09] MEDS: oxyCODONE 5 MG TAB PO (10:40)
[2018-03-09 11:00] VITALS: BP 132/73; PULSE 87; RESP 18; TEMP 36.4; O2SAT 93
[2018-03-09] MEDS: Normal Saline Flush 10 ML SYR IV (11:49)
--- NOTE | 2018-03-09 13:06 | PDOC.CMDIS ---
LACE Index Scoring Tool - Questions: Length of Stay (in days): 4 - 6 Acuity (Admit via E.D.?): No E.D. Visits: 1 - Answers: Total Score: 5 Risk of Readmission: Low Risk Care Management Discharge Reason for Hospitalization: Infection R TKA Discharge Plan: Aster will return home when ready per MD. She will discharge after her dose of IV ABX and return tomorrow to [facility] Infusion room to continue her daily treatment of IV ABX. She will also attend OP/PT at [facility]. She will transport home via private vehicle with her , Anish. Patient/Family Education Needs: Review of discharge instructions, discussed Ask Me Three. Services Needed at Discharge: Infusion Therapy ([facility]; Daily. ), Physical Therapy (Outpatient with [facility] )
--- NOTE | 2018-03-09 13:10 | CMDISCH_ITS ---
LACE Index Scoring Tool - Questions: Length of Stay (in days): 4 - 6 Acuity (Admit via E.D.?): No E.D. Visits: 1 - Answers: Total Score: 5 Risk of Readmission: Low Risk Care Management Discharge Reason for Hospitalization: Infection R TKA Discharge Plan: Aster will return home when ready per MD. She will discharge after her dose of IV ABX and return tomorrow to [facility] Infusion room to continue her daily treatment of IV ABX. She will also attend OP/PT at [facility]. She will transport home via private vehicle with her , Anish. Patient/Family Education Needs: Review of discharge instructions, discussed Ask Me Three. Services Needed at Discharge: Infusion Therapy ([facility]; Daily. ), Physical Therapy (Outpatient with [facility] )
--- NOTE | 2018-03-11 07:50 | INDS_ITS ---
PHYSICAL THERAPY INPATIENT DISCHARGE NOTE Date:03/11/18 for Dates of Service: 03/06/18-03/09/18 SUBJECTIVE: NT OBJECTIVE 03/06/18-03/09/18 BED MOBILITY/TRANSFERS: Supine-sit independent Sit-supine independent Sit-stand independent Stand-sit independent Bed-Chair independent Chair-bed independent GAIT: independent with FWW 100ft BALANCE: Static sitting normal Dynamic sitting normal Static standing good Dynamic standing good ASSESSMENT: Pt was seen for 6 PT visits. Progressed from SBA transfers to independent, from SBA gait with FWW 3 steps to independent gait with FWW 100ft. Pt was discharged to home setting, outpatient PT recommended. GOALS Goals x1 week 1. Supine-sit SUpervision with 2. Sit-Supine SUpervision with 3. Sit-Stand SUpervision with 4. Stand-sit SUpervision with 5. Bed-chair SUpervision with 6. Chair-bed SUpervision with 7. Gait With 2WW up to 200 feet and with SUpervision with Pt met goals # 1-7 DISCHARGE RECOMMENDATIONS home, outpatient PT recommended G Codes in the area mobility of walking and moving around: _projected status GP [id number]___[id number]___, discharges status GP [id number] based on functional mobility Court Mon PT
--- NOTE | 2018-03-12 11:20 | PDOC.CMPRO ---
Date of Service: 03/12/18 Time of Service: 11:20 Care Management Progress Note CM contacted patient she has decided to have home health PT services due to pain and weakness related to acute illness. PT is scheduled to meet with patient today at 4:00 pm this afternoon. CM contacted home health and spoke with Malaika in intake confirmed that pt is a patient through [facility].
--- NOTE | 2018-03-12 11:23 | CMPROGNOTE_ITS ---
Date of Service: 03/12/18 Time of Service: 11:20 Care Management Progress Note CM contacted patient she has decided to have home health PT services due to pain and weakness related to acute illness. PT is scheduled to meet with patient today at 4:00 pm this afternoon. CM contacted home health and spoke with Malaika in intake confirmed that pt is a patient through [facility].
--- NOTE | 2018-03-18 13:23 | PDOC.CMPRO ---
Care Management Progress Note CM rec'd call from Tracey: RNCM at [facility] who reported Tracey was requesting home infusion as she feels it has become a hardship since discharge to commute to [facility] daily for her infusions. Aster shared that JUAN ALBERTO reviewed process and prior discharge planning, and offered to coordinate this service with [facility], [facility] or [facility] (requested Tracey confirm in network providers), and Dr. Lakhani. Tracey reported she would connect with Aster tomorrow morning to confirm she would like home infusion coordinated, and will follow up with this newspaper writer.
--- NOTE | 2018-03-18 13:34 | CMPROGNOTE_ITS ---
Care Management Progress Note CM rec'd call from Tracey: RNCM at [facility] who reported Tracey was requesting home infusion as she feels it has become a hardship since discharge to commute to [facility] daily for her infusions. Aster shared that JUAN ALBERTO reviewed process and prior discharge planning, and offered to coordinate this service with [facility], [facility] or [facility] (requested Tracey confirm in network providers), and Dr. Lakhani. Tracey reported she would connect with Aster tomorrow morning to confirm she would like home infusion coordinated, and will follow up with this freelance writer.
== END 2018-03-09 13:05 | disposition home or self-care (01) | DRG 465 ==
PROVIDERS: Admitting Provider Orthopaedic Surgery; Visit Provider Orthopaedic Surgery
DX: T84.53XA Infection and inflammatory reaction due to internal right knee prosthesis, initial encounter (principal); B95.1 Streptococcus, group B, as the cause of diseases classified elsewhere; Z16.29 Resistance to other single specified antibiotic; Z96.652 Presence of left artificial knee joint; F32.9 Major depressive disorder, single episode, unspecified; G25.81 Restless legs syndrome; G60.9 Hereditary and idiopathic neuropathy, unspecified; M48.00 Spinal stenosis, site unspecified; Z79.02 Long term (current) use of antithrombotics/antiplatelets
CPT/HCPCS: 27486; 36415; 36569; 71045; 80048; 85027; 87070; 87181; 97110; 97116; 97162; 97530; 87075; 87205; G8978; J0131; J0360; J0690; J0696; J2405; J3010; J3490

== ENCOUNTER 2018-06-24 13:30 | Outpatient (RCR) | payer OTHER, SELFPAY ==
--- NOTE | 2018-06-01 11:11 | PTTR_ITS ---
DATE: 06/01/18 SUBJECTIVE: Aster stating that her pain is a 4/10 improved from a 5/10 and continues to be localized to the (L) low back. Her knee is feeling well and she decided to ambulate without a cane today and she went to the grocery store today and decided to use just the cart where she normally utilizes the scooter. She got through 10 minutes of her grocery shopping before she had to rest. OBJECTIVE: Manual therapy: ([id number]). (B) double knee to chest mobilizations (L) lumbosacral stretching via double knee to chest and rotation as well as (L) supine twist and figure 4 stretching. (R) side lying log roll and grade 4 -- oscillations. STM throughout the (L) lumbar paraspinals, lumbar fascia, (L) QL and iliac brim. She was then seen by Cat Garg PTA per my instruction for completion of intrinsic stabilization as well as total knee rehab. Direct treatment time: 30 minutes Total treatment time: 30 minutes
--- NOTE | 2018-06-08 11:11 | PTTR_ITS ---
DATE: 06/08/18 SUBJECTIVE: Aster stating that she had been doing well up until today for some reson she is experiencing a 5/10 pain in the (L) QL. She has been trying to go without her cane as much as she can. OBJECTIVE: * X_ Neuro Re-education - (14422 x2): Due to pt persistent (L) QL strain complete further intrinsic assessment today: * Intrinsic Strength of TrA: poor with inability to maintain stable pelvis with hooklying march and requires great deal of instruction for proper TrA contraction. * Glute Strength: (B) 3+/5 strength with over recruitment of paraspinals, inability to activate lower trap assist due to shoulder mobility deficits. 1.Hooklying TrA lower trap, glute, deep neck flexor, isometrics x 3 minutes cueing throughout for proper recruitment. 2. Number 1 repeated with isometric glute contraction x 10 secs x 2 3. Posterior pelvic tilt with isolation of glutes to perform rock x 20 4. Prone alternate leg extension x 10 with proper intrinsic recruitment. Exercises added to HEP please see chart. Pt then completes 20 minutes of Nustep activity for (R) knee loosening otherwise, she is very fatigued. Her (R) knee is very achy today so she requires request of not completing further ther ex. Direct treatment time: 30 minutes Total treatment time: 30 minutes ASSESSMENT: Aster demonstrating very poor intrinsic body awareness and strength likely allowing for over strain of her QL as she also accommodates to the (R) TKR. Her movement pattern and core recruitment is likely contributing to over strain and I am hopeful that with initiation of intrinsic core strengthening today that this will allow for a more permanent relief while soft tissue efforts offer good symptomatic relief. Intrinsic strengthening will be more important today in hopes that it will inhibit the (L) QL. She responded favorably to this and was very optimistic by end of tx. PLAN: Proceed per POC for both (R) knee mobilization strengthening, intrinsic strengthening with soft tissue efforts to (L) QL and spinal mobilization as needed.
--- NOTE | 2018-06-10 10:54 | PTTR_ITS ---
DATE: 06/10/18 SUBJECTIVE: Practicing her Kegel activities compliantly and of high frequency. Her L QL has diminished to a 3/10, and she feels working her core has helped reduce her pain. Her knee is feeling stiff today. OBJECTIVE: KX applied to all codes N/A Manual therapy: ([id number]). R knee: TF mobilization, AP/PA, grade 4 PF mobs all planes Extension over pressure proximally at the distal femur and proximal tibia, grade 4, as well as via hyperextension lever at the ankle. SLR extension over pressure with prolonged HS stretch ROM: pre rx 10* extension, post rx 2* Back: Supine twist of L LE, for QL stretch. Restricted initially to 20* adduction, progressing to 40* as QL discomfort allows. R sidelying, log roll mobilization with cavitation, and then with more force for QL fascia stretching. R sidelying, myokinematic QL stretch, via L thoracic rotation, L glute med activation and L leg lengthening, kegel activation. This was added to her HEP. She was then seen by Cat Garg PTA for treatment per directions, see her note. Direct treatment time: 30 minutes Total treatment time: 30 minutes Assessment: Reduced QL discomfort, with positive response to intrinsic stabilization efforts. Plan: Proceed with strengthening and mobilization of R knee, intrinsic strengthening, and mobilization of the spine and QL fascia.
--- NOTE | 2018-06-10 11:04 | PTTR_ITS ---
DATE: 06/10/18 OBJECTIVE: Co Treatment with PT Coleen Brown Manual therapy: ([id number]). Pt received DTM and trigger point release techniques throughout the left QL and glute med region while in prone. Therapeutic procedures ([id number]). * X Provided skilled instruction in proper exercise performance: Pt completed intrinsic core stabilization ther ex consisting of kegal with leg fall out, iso ABD/ADD, marching, and iso glute/ham. This was completed 5 reps/ 10sec Pt then completed the remainder of her program with the wellness with Nils Arevalo as per stuart. Direct treatment time: 30 Total treatment time: 60
--- NOTE | 2018-06-15 09:48 | PTTR_ITS ---
DATE: 06/15/18 SUBJECTIVE: Pt reports that on she wasn't paying attention to where she was walking and missed a step and fell. She states that her right knee hurts and isn't able to bend as well from it and her back is sore as well. She states that she has been in contact with ortho and she is going to see if they will x-ray it. OBJECTIVE: Manual therapy: ([id number]). I reported the new info to PT Coleen Brown and she would like to have pt hold on ther ex and just complete light pain relief therapy today. Pt while in supine received single knee to chest, hamstring stretching, ITB stretching, and double knee to chest stretching. Pt then transitioned into the prone position and received STM and light trigger point release techniques throughout the lower lumbar para spinals,QL, and glute med regions. Pt ended today's session with MHP to the entire back while in the prone position for 10 min un attended. Direct treatment time: 30 Total treatment time: 40
--- NOTE | 2018-06-17 12:07 | PTTR_ITS ---
DATE: 06/17/18 OBJECTIVE: Co-treatment with primary therapist, GORDON Field. Please see her note for specifics. Therapeutic procedures ([id number]). * [X] See flow sheet: Patient completed a LE strengthening and stabilization program with a focus on improved ROM in extension on R, as well as glute strengthening, as per flow sheet. Patient tolerated a progression in her program today, modifications made to exercises and reps are noted on flow sheet. * [X] Provided skilled instruction in proper exercise performance * [X] Provided skilled manual cues to facilitate proper muscle recruitment and/or movement pattern: Consistent tactile cuing for TrA and core activation throughout, as well as for glute activation with standing exercsies. * [X] Other: Patient ends with NuStep biking via [facility]. Direct treatment time: 30 minutes Total treatment time: 40 minutes
--- NOTE | 2018-06-17 13:50 | PTTR_ITS ---
DATE: 06/17/18 SUBJECTIVE: Aster stating she has been having alot of R ribcage pain since the time of a fall that she took about 1 week ago. Otherwise, has no complaints. Her L low back is not bothering her today and overall is 50% improved since starting PT. R knee is about a 3-4/10 more along the medial and lateral joint compartment, but this is consistent for her, she feels her knee continues to make gains weekly. OBJECTIVE: Manual therapy: ([id number]).Complete R knee tibiofemoral anterior and posterior mobilizations of grade IV, patellofemoral mobes all planes. Knee extension overpressure with towel roll under the ankle of a grade IV, followed by prolonged hamstring stretching to about 80 degrees. She then goes into knee extension to almost 0 degrees. 90/90 knee flexion oscillations of grade IV+ reaching 120 degrees. Complete supine twist for stretching of the L lumbosacral fascia, allowing for QL isolation stretch. Attempt to put her into R side lying to complete some mobilization of her L low back, but her R ribcage could not handle this with palpation to the ribcage. She is tender but demonstrating no other pathologies. If she continues to have persistent pain through the R ribcage, which just started today, we will seek out PT consult, but I anticipate that if we wait 1 or 2 days, this will resolve on its own. Pt is in agreement with this plan. She is then seen by Karley Bowers PTA for intrinsic lumbopelvic femoral strengthening and R LE strengthening per my instruction. Please see her note. Direct treatment time: 30 min Total treatment time: 30 min JOE/jennifer
--- NOTE | 2018-06-22 13:30 | PTTR_ITS ---
DATE: 06/22/18 SUBJECTIVE: Aster stating no longer having rib pain. Her knee has been feeling well. Her L thoracic pain has also remarkably improved with pain rating to a 2-3/10 currently a 0/10. This is episodic. Manual therapy: ([id number]). STM throughout the L QL in shortened as well as tension position to manipulate the tissue as best I can, complete L QL stretching and over pressure mobilization through her L flank. She is then seen by Cat Garg PTA for treatment per my direction (see her note for specifics) Direct treatment time: 10 mins Total treatment time: 10 mins, no charge. JOE/triston
--- NOTE | 2018-06-22 14:31 | PTTR_ITS ---
DATE: 06/22/18 OBJECTIVE: Co Treatment with PT Coleen Brown Therapeutic procedures ([id number]). * X Provided skilled instruction in proper exercise performance: Pt completed core stabilization ther ex, glute strengthening, LE strengthening, and cardio on the Nu Step. Pt was able to tolerate a slight increase in her program today. Please see flow sheet for specifics. Direct treatment time: 25 Total treatment time: 35
--- NOTE | 2018-06-24 13:30 | PTTR_ITS ---
DATE: 06/24/18 SUBJECTIVE: Aster stating that she was very sore following last treatment mainly due to soft tissue work, this was quite helpful, however she continues to report 3/10 pain today. R knee is really unchanged, but does feel week to week she continues to have slow improvement. She is now ascending and descending stairs reciprocally, 2 steps in and out of her home. She uses her mechanical chair lift to do her flight of stairs as she always has. Has no pain essentially in the a.m. hours, pain in the back, presents more throughout the day and the more she weight bears. OBJECTIVE: In supine, complete L lumbosacral soft tissue stretching with supine twist mobilization, L unilateral knee to chest, cross body stretching L knee to R shoulder. Prolonged SLR. R sidelying I complete long roll mobilization, retraction overpressure which isolates the L QL tissue well, as well as 90/90 leg drop over edge of the plinth. Manual therapy: ([id number]). Neuro Re-education - (47792 x1): Assess hip girdle strength with very weak R glut identified with only 3/5 strength compared to 4+/5 at the L. She is demonstrating better intrinsic activation of her TRA and gluts, but continues to require some cueing to breath while performing this. Due to my findings today, I proceed with hook lying intrinsic isometric activation with R glut isometric with R heel push. Her program is then continued with Cat Garg PTA for further R glut isolation activity as well as L oblique isolation activities all designed to inhibit the L QL * Direct treatment time: 30 mins Total treatment time: 30 mins A: Strength testing today revealing L QL maybe over facilitated due to weakness through its synergistic R glut. This certainly makes sense considering her R TKA which would allow for shut down of her R glut. The shut down of the R glut has likely allowed for over facilitation of the L QL, also initiated some anterior sling strengthening exercises for inhibition of L QL as well. Will see how she responds to this, and hopefully she has improved R glut control contributing to L QL inhibition. P: Proceed with neuromuscular reeducation of above mentioned muscles, general core strengthening and TKA rehab. JOE/triston
--- NOTE | 2018-06-24 14:49 | PTTR_ITS ---
DATE: 06/24/18 OBJECTIVE: Co Treatment with PT Coleen Brown Therapeutic procedures ([id number]). * X Provided skilled instruction in proper exercise performance: Pt completed glute strengthening, core stabilization ther ex, and open and closed chain LE strengthening. We focussed more on R glute strengthening today as per PT Coleen Dumas request. Pt completed the Nu Step for cardio. Direct treatment time: 30 Total treatment time: 40
== END 2018-07-02 23:59 | disposition home or self-care (01) ==
LOC: PT 13:30
PROVIDERS: Referring Provider Internal Medicine; Visit Provider Internal Medicine
DX: M54.5 Low back pain (principal); Z96.651 Presence of right artificial knee joint; Z47.1 Aftercare following joint replacement surgery
CPT/HCPCS: 97110; 97112; 97140

== ENCOUNTER → 2018-07-08 12:57 | Outpatient (BNVA) | payer OTHER, SELFPAY | PROVIDERS: Visit Provider Psychiatry & Neurology Neurology | DX: G25.81 Restless legs syndrome (principal); G43.009 Migraine without aura, not intractable, without status migrainosus; G60.9 Hereditary and idiopathic neuropathy, unspecified | CPT/HCPCS: 99214 ==

== ENCOUNTER 2018-10-11 14:14 | Outpatient (CLI) | payer OTHER, SELFPAY ==
--- NOTE | 2018-10-11 14:23 | DI.RAD_ITS ---
SYMPTOMS/DIAGNOSIS: PAIN, S/P RT TOTAL KNEE RIGHT KNEE: Comparison is made with [id number]. There has been no change in the appearance of the right total knee prosthesis or surrounding bone.
== END 2018-10-11 14:34 ==
PROVIDERS: Visit Provider Orthopaedic Surgery
DX: G89.18 Other acute postprocedural pain (principal); M25.561 Pain in right knee; Z96.651 Presence of right artificial knee joint
CPT/HCPCS: 99211; 99213; 73560

== ENCOUNTER → 2018-11-23 10:57 | Outpatient (BNVA) | payer OTHER, SELFPAY | PROVIDERS: Visit Provider Orthopaedic Surgery | DX: Z47.1 Aftercare following joint replacement surgery (principal); Z96.651 Presence of right artificial knee joint; M25.561 Pain in right knee | CPT/HCPCS: 99213 ==

== ENCOUNTER → 2019-01-06 14:03 | Outpatient (BNVA) | payer OTHER, SELFPAY | PROVIDERS: Visit Provider Psychiatry & Neurology Neurology | DX: G25.81 Restless legs syndrome (principal); G43.009 Migraine without aura, not intractable, without status migrainosus; G60.9 Hereditary and idiopathic neuropathy, unspecified; R41.3 Other amnesia; G47.00 Insomnia, unspecified; E11.40 Type 2 diabetes mellitus with diabetic neuropathy, unspecified | CPT/HCPCS: 99214 ==

== ENCOUNTER → 2019-04-12 10:29 | Outpatient (BNVA) | payer OTHER, SELFPAY | PROVIDERS: Visit Provider Orthopaedic Surgery | DX: M79.7 Fibromyalgia (principal); G43.009 Migraine without aura, not intractable, without status migrainosus; E11.9 Type 2 diabetes mellitus without complications | CPT/HCPCS: 99211; 99213 ==

== ENCOUNTER 2019-04-22 14:14 | Outpatient (REF) | payer OTHER, SELFPAY ==
[2019-04-22 21:46] LABS: Anion Gap 15.5 mmol/L (3-11); BUN 31 mg/dL (7-18); CO2 21.5 mmol/L (21.0-32.0); CREATININE 1.17 mg/dL (0.55-1.02); Calcium 9.5 mg/dL (8.5-10.1); Chloride 101 mmol/L (98-107); Estimated GFR 44.62 (mL/min/1.73m2); Glucose 128 mg/dL (70-100); Sodium 138 mmol/L (136-145)
== END 2019-04-22 14:34 ==
LOC: NCHCN 14:14
PROVIDERS: Visit Provider Internal Medicine
DX: E11.9 Type 2 diabetes mellitus without complications (principal); I10 Essential (primary) hypertension; M79.7 Fibromyalgia; F32.9 Major depressive disorder, single episode, unspecified; R13.13 Dysphagia, pharyngeal phase
CPT/HCPCS: 80048

== ENCOUNTER 2019-05-03 01:10 | Outpatient (CLI) | payer OTHER, SELFPAY ==
--- NOTE | 2019-05-03 09:39 | DI.RAD_ITS ---
SYMPTOM/DIAGNOSIS: DYSPHAGIA PHARYNGEAL PHASE RT 13.13 GERD REFLEX K21.9 BARIUM SWALLOW: The registered nurse maternity view of the chest is compared with 08 Mar 2018. The heart size is normal. There is minimal scarring or atelectasis at the left lung base. The lateral registered nurse maternity view of the neck shows severe degenerative changes at C5-6 and C6-7. The patient swallowed barium without difficulty. No aspiration was identified. There is mild narrowing of the upper esophagus due to a prominent cricopharyngeus impression. There is a small hiatal hernia. No para esophageal hernia is seen on today's exam. There is narrowing of the distal esophagus. The barium tablet stuck at this location was washed down with additional swallows of water. There is severe gastroesophageal reflux. Tertiary contractions were also seen after the swallow. IMPRESSION: Small hiatal hernia, narrowing of the GE junction and severe gastroesophageal reflux.
[2019-05-03] MEDS: Barium Sulfate 60% W/V 355 ML BTL PO (09:49)
[2019-05-03] MEDS: Barium Sulfate 700 MG TAB PO (09:51)
== END 2019-05-03 01:30 ==
PROVIDERS: Visit Provider Internal Medicine
DX: R13.10 Dysphagia, unspecified (principal); K21.9 Gastro-esophageal reflux disease without esophagitis; K44.9 Diaphragmatic hernia without obstruction or gangrene; K22.4 Dyskinesia of esophagus
CPT/HCPCS: 74220; J3490

== ENCOUNTER → 2019-06-23 11:12 | Outpatient (BNVA) | payer OTHER, SELFPAY | PROVIDERS: Visit Provider Orthopaedic Surgery | DX: Z47.1 Aftercare following joint replacement surgery (principal); Z96.653 Presence of artificial knee joint, bilateral | CPT/HCPCS: 99211; 99213 ==

== ENCOUNTER 2019-07-21 15:28 | Outpatient (CLI) | payer OTHER, SELFPAY ==
--- NOTE | 2019-07-21 12:35 | DI.CT_ITS ---
EXAM: CT HEAD WO CLINICAL HISTORY: CONCUSSION WITHOUT LOC, S06.0X0A, RECENT HEAD TRAUMA, HEADACHE, BLURRED VISION. COMPARISON: HEAD AND C SPINE W/O CONTRAST from 02/22/2016 FINDINGS: Noncontrast cranial CT was performed. There is moderate generalized cerebral atrophy particularly inv olving the frontal lobes. There are mild patchy areas of decreased attenuation in periventricular whi te matter consistent with microvascular ischemic changes. No evidence of acute intracranial hemorrhag e, mass effect or midline shift. The orbital and temporal bone structures appear intact. Paranasal si nuses and mastoid air cells appear clear as visualized. IMPRESSION: No evidence of acute intracranial process.
== END 2019-07-21 15:48 ==
PROVIDERS: PCP Internal Medicine; Visit Provider Internal Medicine
DX: R51 Headache (principal); S06.0X0A Concussion without loss of consciousness, initial encounter; H53.8 Other visual disturbances
CPT/HCPCS: 70450

== ENCOUNTER 2019-07-25 13:22 | Outpatient (REF) | payer OTHER, SELFPAY ==
[2019-07-27 11:44] LABS: Campylobacter PCR SEE COMMENTS; Salmonella PCR SEE COMMENTS; Shiga Toxin PCR SEE COMMENTS; Shigella/Enteroinvasive Ecoli SEE COMMENTS
== END 2019-07-25 13:42 ==
LOC: NCHCN 13:22
PROVIDERS: PCP Internal Medicine; Visit Provider Internal Medicine
DX: R19.7 Diarrhea, unspecified (principal)
CPT/HCPCS: 87329; 87505; 83630; 87324

== ENCOUNTER 2019-07-28 00:38 | Observation (INO) | payer OTHER, SELFPAY ==
[2019-07-28] VITALS (49 sets, daily range): BP systolic 79–134; BP diastolic 37–100; PULSE 72–84; RESP 16–18; TEMP 36.6–37.3; O2SAT 90–100
--- NOTE | 2019-07-28 00:48 | ED.GENADUL_ITS ---
Discharge Plan Disposition Patient Disposition: [facility] INPATIENT Condition: Stable Discharge Details Chief Complaint: Orthopedic Clinical Impression: Closed fracture of left distal femur, Dehydration Primary Care Provider: Romel Torres ED Provider: Vinay Vides [place] Meds and New Rx's Prescriptions: No Action calcium carbonate-vitamin D3 1 EACH tablet 1 ea PO BID RF: 0 tizanidine 4 MG capsule 2 mg PO HS PRN (Reason: muscle spasticity) Qty: 0.5 RF: 3 clopidogrel [Plavix] 75 MG tablet 75 mg PO HS RF: 0 tramadol [Ultram] 50 MG tablet 50 mg PO TID PRN PRNRF: 0 celecoxib [Celebrex] 200 MG capsule 200 mg PO DAILY RF: 0 albuterol sulfate [ProAir HFA] 8.5 GM HFA aerosol inhaler 2 puff Inhalation PRN PRNRF: 0 L.acidoph, paracasei,B. lactis 1 EACH capsule 1 ea PO DAILY RF: 0 Topricin 1 ea Topical DAILY PRNRF: 0 duloxetine [Cymbalta] 30 mg capsule,delayed release(DR/EC) 60 mg PO HS RF: 0 acetaminophen 500 MG tablet 2 tab PO Q6H PRNRF: 0 atorvastatin [Lipitor] 10 MG tablet 10 mg PO QPM Qty: 30 RF: 0 docusate sodium 100 mg capsule 100 mg PO BID RF: 0 gabapentin 300 MG capsule 600 mg PO HS RF: 0 pantoprazole [Protonix] 20 MG tablet,delayed release (DR/EC) 40 mg PO DAILY RF: 0 gabapentin [Neurontin] 300 MG capsule 300 mg PO QAM RF: 0 hyoscyamine sulfate 125 MCG/5 ML elixir 125 mg PO PRN PRNRF: 0 Phenylephrine HCl [Nasal Decongestant PE] 10 MG tablet 10 mg PO PRN PRNRF: 0 oxycodone 5 MG tablet 1 - 2 tab PO PRN PRNRF: 0 metformin 500 mg Tablet 500 mg PO DAILY RF: 0 duloxetine [Cymbalta] 30 mg Capsule,Delayed Release(Dr/Ec) 30 mg PO DAILY RF: 0 magnesium oxide 400 mg magnesium Tablet 400 mg PO DAILY RF: 0 Medical Decision Making Patient here status post fall at home due to lightheadedness, presumably from some dehydration due to all the diarrhea. She did not have chest pain or syncope. She did strike her head but had no loss of consciousness, has no headache or neck pain and is neuro intact. Suspect distal femur fracture possibly involving her prosthetic knee given location of pain and deformity on exam.. She is neurovascularly intact distal with DP pulse found with Doppler. IV in place and she did receive fentanyl in route. Will treat with aliquots of morphine here. Laboratory studies, EKG, chest x-ray, femur/knee x-ray all ordered. Patient's EKG with some T wave inversion in 1 and aVL. Laboratory studies show an anemia with a hemoglobin of 10.8. Chemistries significant for some mild renal insufficiency with a creatinine up to 1.76. Electrolytes are okay. Calcium when corrected for albumin is within normal range. Troponin is negative. X-rays reveal a comminuted distal femur fracture just above the prosthesis. Hip is intact. Chest x-ray unremarkable. Patient has had some soft blood pressures but after about a liter and a half of normal saline between EMS and us her systolics are now above 110. She has required morphine for pain control. She remains neurovascularly intact. Call placed to orthopedics, Dr. Morgan. He has reviewed the films. His recommendation is transfer to a tertiary center as the fracture is very low and near the prosthesis leaving him no real room to plate. Patient and aware of the need for transfer. I spoke to orthopedics, Dr. Awan, at [facility]. They will accept the patient in transfer but will need to have her later this morning. They do not have a bed available right now. She is in a knee immobilizer. She has had a King placed. Will keep NPO and hold her Plavix. She did take that last night. Case discussed with hospitalist here, Dr. Dixon. Patient will go upstairs until bed available at [facility] to transfer. In regards to the patient's diarrhea, she had provided a sample to primary care. I have reviewed the results from lab. She is C. difficile negative, bacterial PCR all negative and Giardia/Cryptosporidium antigens negative. Lab Data Lab results reviewed: Yes I reviewed the patient's lab results. ECG Data Attestation: I personally reviewed and interpreted this ECG (s) as follows: Prior ECG tracings: available for review Interpretation: Sinus rhythm at 78. Normal axis. Normal intervals. T wave inversions in I and aVL which are new compared to EKG 02/04/2018. No acute ST elevation or depression. HPI General Mode of arrival: EMS . Date/Time Provider Initiated Documentation: 07/28/19 00:47 . Limitations to Documentation: no limitations . Information obtained by: patient, EMS and RN notes reviewed . HPI Narrative: Patient presents to ED with complaint of left leg pain status post fall at home. Patient has been dealing with diarrhea for the last week. She is not having abdominal pain. She has not having nausea/vomiting. She has seen her primary care and has had stool samples sent for study. She continues to have diarrhea but is able to hydrate. However, tonight she was lightheaded while trying to go to the bathroom. She did not pass out but she did fall. She got up, felt lightheaded and fell again and this time had pain in the left leg. She hit her head but did not have loss of consciousness. She is on Plavix but not anticoagulation. She does not have head pain or neck pain. She has no neuro changes. She had no chest pain, syncope, shortness of breath. She is transported in by ambulance and is received a couple of doses of fentanyl. Related Data Home Medications Medication Instructions Recorded Confirmed L.acidoph, paracasei,B. lactis 1 ea PO DAILY 11/13/15 07/28/19 Topricin 1 ea TOPICAL DAILY PRN 11/13/15 07/28/19 albuterol sulfate [ProAir HFA] 2 puff INHALATION PRN PRN 11/13/15 07/28/19 celecoxib [Celebrex] 200 mg PO DAILY 11/13/15 07/28/19 clopidogrel [Plavix] 75 mg PO HS 11/13/15 07/28/19 tramadol [Ultram] 50 mg PO TID PRN PRN 11/13/15 07/28/19 acetaminophen 2 tab PO Q6H PRN 02/22/16 07/28/19 calcium carbonate-vitamin D3 1 ea PO BID 02/26/16 07/28/19 gabapentin [Neurontin] 300 mg PO QAM 04/03/17 07/28/19 pantoprazole [Protonix] 40 mg PO DAILY 04/03/17 07/28/19 Phenylephrine HCl [Nasal 10 mg PO PRN PRN 05/27/17 07/28/19 Decongestant PE] hyoscyamine sulfate 125 mg PO PRN PRN 05/27/17 07/28/19 oxycodone 1 - 2 tab PO PRN PRN 05/27/17 04/12/19 tizanidine 4 mg capsule 2 mg PO HS PRN #0.5 tab-cap 07/14/17 07/28/19 atorvastatin [Lipitor] 10 mg PO QPM #30 tab 12/07/17 07/28/19 gabapentin 600 mg PO HS 02/04/18 07/28/19 docusate sodium 100 mg capsule 100 mg PO BID 07/08/18 07/28/19 duloxetine 30 mg capsule,delayed 60 mg PO HS cap 01/06/19 07/28/19 release duloxetine [Cymbalta] 30 mg PO DAILY 07/28/19 07/28/19 magnesium oxide 400 mg PO DAILY 07/28/19 07/28/19 metformin 500 mg PO DAILY 07/28/19 07/28/19 Previous Rx's Medication Instructions Recorded tizanidine 4 mg capsule 2 mg PO HS PRN #0.5 tab-cap 07/14/17 atorvastatin [Lipitor] 10 mg PO QPM #30 tab 12/07/17 Allergies Allergy/AdvReac Type Severity Reaction Status Date / Time codeine AdvReac Intermediate Nausea Unverified 07/28/19 00:41 Penicillins AdvReac Intermediate Skin Rash Unverified 07/28/19 00:41 Latex, Natural Rubber AdvReac Unverified 07/28/19 00:41 shellfish AdvReac Intermediate Uncoded 07/28/19 00:41 Band Aids AdvReac Skin Rash Uncoded 07/28/19 00:41 General Stated Complaint: Orthopedic ESEQUIEL: 2 Review of Systems Review of Systems Narrative: 08/15 Review of Systems completed and is negative except as stated above in HPI (Systems reviewed: Const, Eyes, ENT, Resp, CV, GI, , MSK, Skin, Neuro) PFSH Medical History Depression (Chronic) Fibromyalgia (Chronic) GERD (gastroesophageal reflux disease) (Chronic) 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 (Chronic) Idiopathic peripheral neuropathy (Chronic 06/24/16) Insomnia (Chronic) Low back pain (Chronic) Lumbar stenosis without neurogenic claudication (Chronic) Memory loss (Chronic 06/24/16) Migraine without aura and without status migrainosus, not intractable (Chronic 06/15/17) Osteoarthritis of knee (Chronic 10/06/13) Restless leg syndrome (Chronic 08/11/17) Sensorineural hearing loss, bilateral (Chronic 11/27/16) TIA (transient ischemic attack) (Chronic) Type 2 diabetes mellitus (Chronic) Urinary frequency (Chronic) Surgical History Fracture of left hip requiring operative repair (Chronic) 2011 H/O toe surgery (Chronic) H/O total knee replacement (Chronic) H/O: hysterectomy (Chronic) History of ankle surgery (Chronic) History of cataract extraction (Chronic) May 2018 at [facility], complicated by increased IOP 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 EVASN; right; right TKA cleaned out in 2018 due to infection S/P dilatation and curettage (Chronic) S/P rotator cuff repair (Chronic) 2017 Status post lumbar spine surgery for decompression of spinal cord (Chronic) L4-S1 decompression and fusion; 2000 Social History Smoking/Tobacco Use Status: Never Alcohol Intake: never Drug use: Never Substance use type: does not use Household members: spouse Housing: house Do you feel safe at home: Yes Do you feel safe in your relationship?: Yes Additional Social history: She was born in [place]. 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 She is to her second Demarco (since ~1989?). She has 2 stepsons. She drinks one glass of wine per week. Exam Narrative Exam Narrative: Vitals: Afebrile. Elevated blood pressure but normal heart rate. Room air saturation a little low in the 90s so placed on supplemental oxygen. Const: WDWN elderly female in NAD. HEENT: NC/AT. Normal facial exam. Eyes: Normal conjunctiva and sclera. Neck: Supple. Trachea midline. Normal ROM without tenderness. Lungs: Normal respiratory effort. Lungs are clear. No chest wall tenderness. Cor: RRR without murmur/gallop. Good radial pulses. GI: Soft. NT/ND. No guarding or rebound. Neuro: A+O x 3. CN grossly in tact. Good strength and no focal deficit. Ext: No C/C/E. LLE rotated and under RLE. LLE pulled out to extension with crepitus/crunching felt distal femur/knee. LLE is angulated and externally rotated just above the knee. DP pulse found with doppler. Motor in tact distal. Chronic numbness previously. Skin: Warm and dry without wounds. Course Vital Signs Vital signs: Vital Signs Temperature 98.1 F 07/28/19 00:28 Pulse 79 07/28/19 00:28 Respiratory Rate 18 07/28/19 00:28 Blood Pressure 132/100 H 07/28/19 00:28 Temperature 98.1 F 07/28/19 00:28 Temperature Source Skin 07/28/19 00:28 Pulse 79 07/28/19 00:28 Respiratory Rate 18 07/28/19 00:28 Blood Pressure 132/100 H 07/28/19 00:28 Blood Pressure Position Supine 07/28/19 00:28 Oxygen Delivery Method Room Air 07/28/19 00:28 Oxygen Flow Rate 0 07/28/19 00:28 Pain Level 7 07/28/19 00:28
[2019-07-28] MEDS: Normal Saline 1,000 ML 150 ML IV (01:11)
[2019-07-28] MEDS: MORPHine 10 MG/ML VIAL 2 MG IVP ×7 (01:11→04:40)
[2019-07-28 01:12] LABS: Abs Immature Grans 0.02 k/cumm (0.0-0.09); HCT 34.4 % (36.0-46.0); HGB 10.8 g/dL (12.0-15.5); Mean Corp. HGB Concentration 31.4 g/dL (32.0-36.0); Mean Corpuscular Hemoglobin 27.8 pg (27.0-33.0); Mean Corpuscular Volume 88.4 fL (80-95); Mean Platelet Volume 11.5 fL (8.0-11.0); Platelet Count 167 x1000/uL (130-400); RBC 3.89 m/cumm (4.00-5.20); RBC Distribution Width 14.9 % (11.7-14.6); White Blood Cell Count 11.97 k/cumm (4.4-10.8)
[2019-07-28 01:22] LABS: ALT 19 U/L (14-59); AST 24 U/L (15-37); Albumin 3.1 g/dL (3.4-5.0); Alkaline Phosphatase 82 U/L (46-116); BUN 19 mg/dL (7-18); Bilirubin, Total 0.5 mg/dL (0.2-1.0); CREATININE 1.76 mg/dL (0.55-1.02); Calcium 7.7 mg/dL (8.5-10.1); Chloride 104 mmol/L (98-107); Estimated GFR 27.85 (mL/min/1.73m2); Glucose 151 mg/dL (70-100); Potassium 3.6 mmol/L (3.5-5.1); Sodium 138 mmol/L (136-145); Total Protein 6.8 g/dL (6.4-8.2)
[2019-07-28 01:27] LABS: Absolute Lymphocyte Count 1.44 k/cumm (1.2-3.4); Absolute Neutrophil Count 9.22 k/cumm (1.2-6.7)
[2019-07-28 01:28] LABS: Absolute Monocyte Count 1.32 k/cumm (0.11-0.7); Diff Comment Manual Differential; RBC Morphology Normal
[2019-07-28 01:37] LABS: INR 1.1 (0.9-1.1); PTT Activated 22.4 sec (21.0-31.4)
[2019-07-28] MEDS: Normal Saline 500 ML IV (01:54)
--- NOTE | 2019-07-28 02:15 | NUR.NOTE ---
07/28/19 0130-Dr Vides notified of low BP (see vital sign flow sheet) NS bolus administered as ordered. pt with no sx of hypotension noted. pt taken to xray via stretcher. Nursing Note:
--- NOTE | 2019-07-28 02:22 | DI.RAD_ITS ---
EXAM: XR KNEE LT 2V AP,LAT INDICATION: trauma/fall. COMPARISON: XR knee RT 2V AP,lat from 10/11/2018 TECHNIQUE: 2D digital imaging was performed. FINDINGS: A comminuted impacted distal left femoral fracture involves the distal shaft and supracondylar region . The soft tissues are normal.
--- NOTE | 2019-07-28 02:22 | DI.RAD_ITS ---
EXAM: XR FEMUR LT INDICATION: trauma/fall. COMPARISON: XR KNEE LT 2V AP,LAT from 07/28/2019 TECHNIQUE: 2D digital imaging was performed. FINDINGS: Femoral neck screws are noted in position. There is a comminuted impacted and slightly displaced frac ture of the distal left femur above the level of the femoral component of a total left knee prosthesi s. The soft tissues are unremarkable. IMPRESSION: Comminuted, impacted, slightly displaced fracture of the distal femur at the level of the femoral com ponent of a total left knee prosthesis.
--- NOTE | 2019-07-28 02:22 | DI.RAD_ITS ---
EXAM: XR CHEST 1V IN DI DEPT INDICATION: trauma/fall. COMPARISON: RF barium swallow from 05/03/2019 TECHNIQUE: 2D digital imaging was performed. FINDINGS: AP chest: The lungs are well expanded and free of infiltrate. There is no evidence of a pleural effu dennis or pneumothorax. Heart is not enlarged. No acute bony abnormality is seen. IMPRESSION: No evidence of acute cardiopulmonary disease.
[2019-07-28 02:30] LABS: Troponin I < 0.05 ng/mL (0.00-0.06)
--- NOTE | 2019-07-28 02:55 | DI.VRAD_ITS ---
PROCEDURE INFORMATION: Exam: XR Left Femur Exam date and time: 07/28/2019 2:17 AM Clinical history: 78 years old, female; Injury or trauma; Fall; Initial encounter; Blunt trauma; Knee; Left; Injury date: 07/28/2019; Prior surgery; Surgery date: 6+ months; Surgery type: Hip nail, tkr TECHNIQUE: Imaging protocol: XR Left femur. Views: 2 views. COMPARISON: CR LEFT KNEE LIMITED 1 OR 2 VIEWS 11/21/2015 10:30 AM FINDINGS: Bones/joints: Femoral neck screws in place Comminuted impacted and slightly displaced fracture of the distal left femur above the level of the femoral component of a total left knee replacement. Soft tissues: Unremarkable. IMPRESSION: Comminuted impacted and slightly displaced fracture of the distal left femur above the level of the femoral component of a total left knee replacement. Dictated and Authenticated by: Jus Myrick MD. Ordering:JAX Mclean MD
--- NOTE | 2019-07-28 03:01 | DI.VRAD_ITS ---
PROCEDURE INFORMATION: Exam: XR Chest, 1 View Exam date and time: 07/28/2019 2:17 AM Clinical history: 78 years old, female; Injury or trauma; Fall; Initial encounter; Blunt trauma (contusions or hematomas); Injury date: 07/28/2019 TECHNIQUE: Imaging protocol: XR of the chest Views: 1 view. COMPARISON: No relevant prior studies available. FINDINGS: Lungs: Unremarkable. No consolidation. Pleural space: Unremarkable. No pleural effusion. No pneumothorax. Heart/Mediastinum: Unremarkable. No cardiomegaly. Bones/joints: Unremarkable. IMPRESSION: No acute findings. Dictated and Authenticated by: Jus Myrick MD. Ordering:JAX Mclean MD
--- NOTE | 2019-07-28 03:03 | DI.VRAD_ITS ---
PROCEDURE INFORMATION: Exam: XR Left Knee Exam date and time: 07/28/2019 2:17 AM Clinical history: 78 years old, female; Injury or trauma; Fall; Initial encounter; Blunt trauma; Knee; Left; Injury date: 07/28/2019; Prior surgery; Surgery date: 6+ months; Surgery type: Tkr TECHNIQUE: Imaging protocol: XR Left knee. Views: 1 or 2 views. COMPARISON: CR LEFT KNEE LIMITED 1 OR 2 VIEWS 11/21/2015 10:30 AM FINDINGS: Bones/joints: Comminuted impacted distal left femoral fracture involves the distal shaft and supracondylar region. Soft tissues: Normal. IMPRESSION: Comminuted impacted distal left femoral fracture involves the distal shaft and supracondylar region. Dictated and Authenticated by: Jus Myrick MD. Ordering:JAX Mclean MD
--- NOTE | 2019-07-28 05:13 | NUR.NOTE ---
Pt has been NPO while in ED. Nursing Note:
[2019-07-28] MEDS: MORPHine 2 MG/ML SYR IVP ×5 (05:55→17:48)
--- NOTE | 2019-07-28 09:34 | PDOC.CMIN ---
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 Past Surgical History: Fracture of left hip requiring operative repair, 2011, h/o toe surgery, h/o total knee replacement, h/o hysterectomy, history of ankle surgery, history of cataract extraction, May 2018 at [facility], complicated by increased IOP, replacement of total knee joint, LEFT/DR. EVANS; right; right TKA cleaned out in 2017 due to infection, S/P dilatation and curettage, S/P rotator cuff repair, 2016, status post lumbar spine surgery for decompression of spinal cord, L4-S1 decompression and fusion, 2000. PREVIOUS FUNCTIONAL STATUS/SOCIAL/FAMILY SUPPORTS:: Aster resides in [place] with her Anish. Aster shares when she Anish she inherited 2 sons, now also has 2 daughter in-laws and 5 grandchildren. Aster does not have family in the area but reports having many good friends. 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 The couple remain independent in the community, drives and manages their own needs. She enjoys quilting and knitting. CURRENT FUNCTIONAL STATUS:: Aster is lying in bed when meets with her. Her , Anish, is present in the room. Aster is pleasant and wonders when she will be transferred to [facility]. She talks about a recent trip for her anniversary during which she became ill with stomach issues. ADVANCE DIRECTIVES:: On file at [facility]: Kalen as Agent. Has patient been provided with information about the portal?: Yes Did the patient sign up for the portal?: Yes CODE STATUS:: Full Code INSURANCE COVERAGE / FINANCIAL ISSUES:: [employer], Medicare replacement policy. CURRENT HOME/COMMUNITY SERVICES/EQUIPMENT:: Per previous assessment: walker, rollator, shower chair, raised toilet, as well as a stair chair that will assist her in getting to the second floor of her house. Aster reports she attends OP/PT at [facility] which includes [facility] [employer] on Mondays. She also reports going to the local pool with her friend on Wednesdays. PRIMARY CARE PHYSICIAN:: Romel Torres MD. POTENTIAL DISCHARGE NEEDS:: None at this time as Aster is transferring to [facility] for orthopedic needs. PATIENT/FAMILY EDUCATION NEEDS:: Discuss transfer recommendations. ANTICIPATED BARRIERS TO DISCHARGE:: Bed availability. TRANSPORTATION:: Via ambulance. PLAN:: Aster is transferring to [facility] for orthopedic follow-up.
[2019-07-28] MEDS: Normal Saline 1,000 ML 125 ML IV (09:49)
--- NOTE | 2019-07-28 10:42 | HPE_ITS ---
Date of service: 07/28/19 Time of Service: 10:42 Assessment and Plan Assessment and plan (1) Femur fracture, left: Status: Acute Assessment and plan: Comminuted, impacted fracture of the distal left fe mur. This is just above the total knee replacement. It is a complicated repair and the recommendation is to transfer to a tertiary care center. Knee immobilizer is placed. She has IV morphine for pain control. She is in p.o. The plan is to transfer to [facility] when a bed becomes available which is presumed to occur around noontime today. (2) S/p total knee replacement, bilateral: Status: Acute Assessment and plan: She has had both knees replaced. The right knee replacement was complicated by a postop infection. She underwent a cleanout and replacement of the spacers. There is no sign of infection of the right knee at this time. The left knee is immobilized because of the acute fracture. (3) Type 2 diabetes mellitus: Status: Chronic Assessment and plan: Type II diabetic. She should be on a diabetic diet and manage her blood sugars closely. History of Present Illness History of Present Illness Chief Complaint: Left comminuted distal femur fracture/diarrhea with dehydration Narrative: This is a 78-year-old woman who lives in [place] with her . She has been troubled by severe diarrhea for about a week now. The work-up has thus far been negative for a significant pathogen. This last evening she was getting up to go to the bathroom when she fell onto her left knee. She was complaining of severe left knee pain and EMS was summoned. In the emergency room x-rays revealed a compacted, comminuted fracture of the distal left femur at the level of the total knee replacement. Dr. Vides discussed the case with Dr. Neves from orthopedics who reviewed the films. The feeling was this was a complicated fracture that may require rebuilding/replacing the knee replacement. It was recommended that this be treated at a tertiary care center. Dr. Vides contacted [facility] and they accepted her in transfer but the transfer is delayed until later today. Review of Systems Constitutional Constitutional: Denies excessive sweating, Denies frequent falls, Denies headache(s) and Reports weight loss (9 pounds) ENT Ears, Nose, Mouth, and Throat: Denies dizziness, Denies headache(s) and Denies throat swelling Cardiovascular Cardiovascular: Denies chest pain, Denies edema, Denies lightheadedness, Denies dyspnea, Denies dyspnea on exertion and Denies orthopnea Respiratory Respiratory: Denies change in phlegm color, Denies cough, Denies excessive phlegm production, Denies dyspnea and Denies dyspnea on exertion Gastrointestinal Gastrointestinal: Denies hematochezia, Reports change in bowel habits, Reports diarrhea, Denies nausea and Denies vomiting Comments: Stool has been black in color since using Pepto-Bismol. She is also tried Imodium without help. Stool studies have been negative including C. difficile, bacterial PCR, Giardia, Cryptosporidium. Genitourinary Genitourinary: Denies urinary frequency and Reports urinary incontinence Musculoskeletal Musculoskeletal: Reports back pain (Chronic back pain including spinal stenosis with a fusion of L4-L5) and Denies deformity Integumentary/Breasts Skin/Breast: Denies rash, Denies sores and Denies wounds Neurologic Neurologic: Denies confusion, Denies dizziness, Denies frequent falls, Denies headache(s), Denies focal weakness, Denies sensory deficit and Denies paresthesias Psychiatric Psychiatric: Denies confusion, Reports depression and Denies suicidal ideation Endocrine Endocrine: Denies cold intolerance and Denies excessive sweating Hematologic/Lymphatic Hematologic/Lymphatic: Denies easy bleeding and Denies easy bruising Allergic/Immunologic Allergic/Immunologic: Denies urticaria and Denies throat swelling [facility] Medical History Depression (Chronic) Fibromyalgia (Chronic) GERD (gastroesophageal reflux disease) (Chronic) 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 (Chronic) Idiopathic peripheral neuropathy (Chronic 06/24/16) Insomnia (Chronic) Low back pain (Chronic) Lumbar stenosis without neurogenic claudication (Chronic) Memory loss (Chronic 06/24/16) Migraine without aura and without status migrainosus, not intractable (Chronic 06/15/17) Osteoarthritis of knee (Chronic 10/06/13) Restless leg syndrome (Chronic 08/11/17) Sensorineural hearing loss, bilateral (Chronic 11/27/16) TIA (transient ischemic attack) (Chronic) Type 2 diabetes mellitus (Chronic) Urinary frequency (Chronic) Surgical History Fracture of left hip requiring operative repair (Chronic) 2012 H/O toe surgery (Chronic) H/O total knee replacement (Chronic) H/O: hysterectomy (Chronic) History of ankle surgery (Chronic) History of cataract extraction (Chronic) May 2018 at [facility], complicated by increased IOP 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 EVANS; right; right TKA cleaned out in 2018 due to infection S/P dilatation and curettage (Chronic) S/P rotator cuff repair (Chronic) 2017 Status post lumbar spine surgery for decompression of spinal cord (Chronic) L4-S1 decompression and fusion; 2000 Family History Mother Alzheimer disease Father Stroke Social History Smoking/Tobacco Use Status: Never Alcohol Intake: never Drug use: Never Substance use type: does not use Household members: spouse Housing: house Do you feel safe at home: Yes Do you feel safe in your relationship?: Yes Additional Social history: She was born in [place]. 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 She is to her second Demarco (since ~1989?). She has 2 stepsons. She drinks one glass of wine per week. Meds Home Medications and Allergies Home Medications Medication Instructions Recorded Confirmed Type natividad Soto B. lactis 1 ea PO DAILY 11/13/15 07/28/19 History Topricin 1 ea TOPICAL DAILY PRN 11/13/15 07/28/19 History albuterol sulfate [ProAir HFA] 2 puff INHALATION PRN PRN 11/13/15 07/28/19 History celecoxib [Celebrex] 200 mg PO DAILY 11/13/15 07/28/19 History clopidogrel [Plavix] 75 mg PO HS 11/13/15 07/28/19 History tramadol [Ultram] 50 mg PO TID PRN PRN 11/13/15 07/28/19 History acetaminophen 2 tab PO Q6H PRN 02/22/16 07/28/19 History calcium carbonate-vitamin D3 1 ea PO BID 02/26/16 07/28/19 History gabapentin [Neurontin] 300 mg PO QAM 04/03/17 07/28/19 History pantoprazole [Protonix] 40 mg PO DAILY 04/03/17 07/28/19 History Phenylephrine HCl [Nasal 10 mg PO PRN PRN 05/27/17 07/28/19 History Decongestant PE] hyoscyamine sulfate 125 mg PO PRN PRN 05/27/17 07/28/19 History oxycodone 1 - 2 tab PO PRN PRN 05/27/17 04/12/19 History tizanidine 4 mg capsule 2 mg PO HS PRN #0.5 tab-cap 07/14/17 07/28/19 Rx atorvastatin [Lipitor] 10 mg PO QPM #30 tab 12/07/17 07/28/19 Rx gabapentin 600 mg PO HS 02/04/18 07/28/19 History docusate sodium 100 mg capsule 100 mg PO BID 07/08/18 07/28/19 History duloxetine 30 mg capsule,delayed 60 mg PO HS cap 01/06/19 07/28/19 History release duloxetine [Cymbalta] 30 mg PO DAILY 07/28/19 07/28/19 History magnesium oxide 400 mg PO DAILY 07/28/19 07/28/19 History metformin 500 mg PO DAILY 07/28/19 07/28/19 History Allergies Allergy/AdvReac Type Severity Reaction Status Date / Time codeine AdvReac Intermediate Nausea Unverified 07/28/19 00:41 Penicillins AdvReac Intermediate Skin Rash Unverified 07/28/19 00:41 Latex, Natural Rubber AdvReac Unverified 07/28/19 00:41 shellfish AdvReac Intermediate Uncoded 07/28/19 00:41 Band Aids AdvReac Skin Rash Uncoded 07/28/19 00:41 Exam Narrative Exam Narrative: She is alert, mildly sedated, fully oriented. Const General: cooperative, no acute distress (Pain 7 out of 10 after getting medicated) and well groomed Nutritional Appearance: overweight Orientation: alert, awake and oriented x3 HENMT Head: normal to inspection Ears: hearing grossly normal bilaterally General nose exam: external nose normal Face and sinus: face symmetric Mouth: oropharynx normal Eyes General: appearance normal, both eyes and all related structures Neck Neck: normal visual inspection Thyroid: symmetrical Lymphatic: no lymphadenopathy noted Chest Chest: normal inspection of the chest Resp Effort & Inspection: normal respiratory effort Auscultation: clear to auscultation bilaterally Cardio Jugular venous pressure: no JVD Rate: regular rate Rhythm: regular rhythm Heart Sounds: S1 normal, S2 normal and no murmurs GI Inspection: normal to inspection Palpation: soft, no hepatosplenomegaly and nontender External Female Exam: external appearance normal Back/Spine/Pelvis Back: no CVA tenderness Cervical Spine: normal cervical lordosis Thoracic/Lumbar Spine: thoracic and lumbar spine normal to inspection Skin General skin exam: no rashes or lesions noted Wounds: no wounds Neuro General: alert, awake, oriented x3, moves all extremities and no focal motor deficits Cranial Nerves: CN's II-XI intact bilaterally Cognition: normal cognition Speech: speech normal Extrem General: normal to inspection and no clubbing, cyanosis or edema Left lower extremity: normal to inspection (Knee immobilizer in place, distal pulse is adequate) Psych Appearance: grossly normal Mental Status: mental status grossly normal Speech and Movement: speech and movement normal Mood: congruent mood Affect: normal affect Attitude: cooperative Thought Process: normal Thought Content: normal Insight: insight good Results Labs Result diagrams: 07/28/19 00:50 07/28/19 00:50 Labs: Laboratory Results - last 24 hr 07/28/19 07/28/19 07/28/19 00:50 00:50 00:50 WBC 11.97 H RBC 3.89 L Hgb 10.8 L Hct 34.4 L MCV 88.4 MCH 27.8 MCHC 31.4 L RDW 14.9 H Plt Count 167 MPV 11.5 H Immature Gran % 0.0 Neutrophils % 62.0 Band Neutrophils % 15.0 Lymphocytes % 12.0 Monocytes % 11.0 Eosinophils % 0.0 Basophils % 0.0 Absolute Neutrophils 9.22 H Absolute Lymphocytes 1.44 Absolute Monocytes 1.32 H Absolute Eosinophils 0.00 Absolute Basophils 0.00 Differential Comment Manual differential RBC Morphology Normal PT INR APTT Sodium 138 Potassium 3.6 Chloride 104 Carbon Dioxide 22.0 Anion Gap 12.0 H BUN 19 H Creatinine 1.76 H Estimated GFR/1.73 m2 27.85 Glucose 151 H Calcium 7.7 L Total Bilirubin 0.5 AST 24 ALT 19 Alkaline Phosphatase 82 Troponin I Total Protein 6.8 Albumin 3.1 L Patient ABO/Rh O Positive Antibody Screen Negative 07/28/19 07/28/19 07/28/19 00:50 00:50 04:30 WBC RBC Hgb Hct MCV MCH MCHC RDW Plt Count MPV Immature Gran % Neutrophils % Band Neutrophils % Lymphocytes % Monocytes % Eosinophils % Basophils % Absolute Neutrophils Absolute Lymphocytes Absolute Monocytes Absolute Eosinophils Absolute Basophils Differential Comment RBC Morphology PT 11.0 INR 1.1 APTT 22.4 Sodium Potassium Chloride Carbon Dioxide Anion Gap BUN Creatinine Estimated GFR/1.73 m2 Glucose Calcium Total Bilirubin AST ALT Alkaline Phosphatase Troponin I < 0.05 Cancelled Total Protein Albumin Patient ABO/Rh Antibody Screen Last Vital Signs Temp 37.3 C 07/28/19 08:38 Pulse 84 07/28/19 08:38 Resp 18 07/28/19 08:38 BP 134/87 07/28/19 08:38 Pulse Ox 98 07/28/19 08:38
--- NOTE | 2019-07-28 11:45 | DI.CT_ITS ---
EXAM: CT HEAD WO CLINICAL HISTORY: s/p multiple falls, confusion. TECHNIQUE: COMPARISON: No exams were available for comparison FINDINGS: There is moderate generalized cerebral atrophy. There is no evidence of acute intracranial hemorrhag e, mass effect, or midline shift. The orbital and temporal bone structures appear intact. Visualize d paranasal sinuses and mastoid air cells are clear. IMPRESSION: No evidence of acute process
--- NOTE | 2019-07-28 12:35 | PHARADMIT ---
Admission Pharmacy Clinical Review DISTAL LEFT FEMUR FRACTURE Code Status Full Code Current Weight 69.853 kg Renally Cleared and Narrow Therapeutic Index Meds CrCl ~30.5 based on ABW QTc Value / Action Taken QTc 460 BP Control, Fever BP 134/87, afebrile Electrolytes reviewed Na 138, k+ 3.6, Mag -- DVT Prophylaxis None Opiate Usage / Scheduled Bowel Regimen Ordered Morphine prn, NO Plt/SCr for Heparin / Enoxaparin Plt 167, Scr 1.76 INR for Warfarin H/H stable, WBC/Bands H/H 10.8/34.4 Antibiotic appropriateness Cultures and Sensitivities Surgical ABX d/c within 24 hr DM control / Insulin Dosing Heart Failure (Check EF%) (ROXANNE's, B-Block, Diuretics) IV to PO Switch Home Meds Reviewed Home Meds Not Ordered Currently NPO Atorvastatin, Celebrex, clopidogrel, duloxetine, gabapentin, magnesium, metformin, protonix, tizanidine, tramadol, hyoscyamine Comments Complicated repair -- awaiting bed at tertiary facility but per morning meeting, surgeon may take on case here
--- NOTE | 2019-07-28 14:45 | W.ORTHOCONSU ---
Date of service: 07/28/19 Time of Service: 14:45 History of Present Illness Narrative: Chief complaint: Left knee pain 78-year-old female status post mechanical fall at home overnight with sudden onset left thigh and knee pain. Unable to bear weight. Evaluated in the emergency room and found to have a periprosthetic distal femur fracture. Surgical history includes left hip cannulated screw internal fixation for prior femoral neck fracture and left knee replacement both by Dr. Evans. Consults Consult date: 07/28/19 Requesting physician: Humberto Dixon Consult Reason Orthopedic evaluation Assessment and Plan Assessment and plan (1) Periprosthetic fracture around internal prosthetic left knee joint, initial encounter: Status: Acute Assessment and plan: 78-year-old female with a new periprosthetic distal femoral shaft fracture. Unfortunately, this fracture is complicated by significant comminution and extension nearly adjacent to the femoral component of her prior knee replacement. I had the pleasure of meeting the patient and her . I explained to them the complexity of her fracture. They both voiced understanding and agree with the plan for transfer to a tertiary care facility, likely [facility], for surgical management of this fracture. I discussed that this may involve an open reduction internal fixation with specialized hardware that can be secured to the small amount of bone that remains attached to her femoral knee prosthesis. I also discussed the option for a distal femoral replacement which may be done if her implant is loose or there is not enough bone for stable fixation. The appropriate management will be determined by her orthopedic surgeon. I recommend CT for more precise visualization of fracture lines above her knee prosthesis to be done at the facility providing definitive surgical management. The patient is remarkably comfortable as she awaits transfer to [facility]. There are no signs of acute distress or compartment syndrome. I gave the patient and my business card so that they can arrange for postoperative care with me here at [facility] if they wish as it is more convenient. All questions were answered. The patient and are very happy with the above treatment plan. 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) Idiopathic peripheral neuropathy (Chronic 06/24/16) Insomnia (Chronic) Low back pain (Chronic) Lumbar stenosis without neurogenic claudication (Chronic) Memory loss (Chronic 06/24/16) Migraine without aura and without status migrainosus, not intractable (Chronic 06/15/17) Osteoarthritis of knee (Chronic 10/06/13) Restless leg syndrome (Chronic 08/11/17) Sensorineural hearing loss, bilateral (Chronic 11/27/16) TIA (transient ischemic attack) (Chronic) Type 2 diabetes mellitus (Chronic) Urinary frequency (Chronic) Surgical History Fracture of left hip requiring operative repair (Chronic) 2011 H/O toe surgery (Chronic) H/O total knee replacement (Chronic) H/O: hysterectomy (Chronic) History of ankle surgery (Chronic) History of cataract extraction (Chronic) May 2018 at [facility] [place], complicated by increased IOP 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 EVANS; right; right TKA cleaned out in 2018 due to infection S/P dilatation and curettage (Chronic) S/P rotator cuff repair (Chronic) 2017 Status post lumbar spine surgery for decompression of spinal cord (Chronic) L4-S1 decompression and fusion; 2000 Family History Mother Alzheimer disease Father Stroke Social History Smoking/Tobacco Use Status: Never Alcohol Intake: never Drug use: Never Substance use type: does not use Household members: spouse Housing: house Do you feel safe at home: Yes Do you feel safe in your relationship?: Yes Additional Social history: She was born in [place]. 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 She is to her second Demarco (since ~1989?). She has 2 stepsons. She drinks one glass of wine per week. Exam Narrative Exam Narrative: Awake, alert, comfortable, cooperative, and in no distress Left thigh with well-padded long-leg knee immobilizer in place. Brisk cap refill to all toes. Motor grossly intact to pain, gastrocsoleus, EHL, FHL. Sensation diminished throughout bilateral legs ankles and feet secondary to diabetic neuropathy. All thigh and leg compartments soft. No wounds or skin breakdown. Results Last Vital Signs Temp 37.3 C 07/28/19 08:38 Pulse 84 07/28/19 08:38 Resp 16 07/28/19 13:18 BP 134/87 07/28/19 08:38 Pulse Ox 98 07/28/19 08:38 Labs Result diagrams: 07/28/19 00:50 07/28/19 00:50 Labs: Laboratory Results - last 24 hr 07/28/19 07/28/19 07/28/19 00:50 00:50 00:50 WBC 11.97 H RBC 3.89 L Hgb 10.8 L Hct 34.4 L MCV 88.4 MCH 27.8 MCHC 31.4 L RDW 14.9 H Plt Count 167 MPV 11.5 H Immature Gran % 0.0 Neutrophils % 62.0 Band Neutrophils % 15.0 Lymphocytes % 12.0 Monocytes % 11.0 Eosinophils % 0.0 Basophils % 0.0 Absolute Neutrophils 9.22 H Absolute Lymphocytes 1.44 Absolute Monocytes 1.32 H Absolute Eosinophils 0.00 Absolute Basophils 0.00 Differential Comment Manual differential RBC Morphology Normal PT INR APTT Sodium 138 Potassium 3.6 Chloride 104 Carbon Dioxide 22.0 Anion Gap 12.0 H BUN 19 H Creatinine 1.76 H Estimated GFR/1.73 m2 27.85 Glucose 151 H Calcium 7.7 L Total Bilirubin 0.5 AST 24 ALT 19 Alkaline Phosphatase 82 Troponin I Total Protein 6.8 Albumin 3.1 L Patient ABO/Rh O Positive Antibody Screen Negative 07/28/19 07/28/19 07/28/19 00:50 00:50 04:30 WBC RBC Hgb Hct MCV MCH MCHC RDW Plt Count MPV Immature Gran % Neutrophils % Band Neutrophils % Lymphocytes % Monocytes % Eosinophils % Basophils % Absolute Neutrophils Absolute Lymphocytes Absolute Monocytes Absolute Eosinophils Absolute Basophils Differential Comment RBC Morphology PT 11.0 INR 1.1 APTT 22.4 Sodium Potassium Chloride Carbon Dioxide Anion Gap BUN Creatinine Estimated GFR/1.73 m2 Glucose Calcium Total Bilirubin AST ALT Alkaline Phosphatase Troponin I < 0.05 Cancelled Total Protein Albumin Patient ABO/Rh Antibody Screen Imaging Additional studies: Left femur and knee x-rays reviewed and independently interpreted: Mildly displaced highly comminuted distal femur fracture at the level of a prior knee replacement prosthesis. Prior cannulated screws and washer femoral neck hardware fixation. The fracture line extends very distal and close to the femoral component of her knee replacement. Her knee replacement appears stable.
[2019-07-28 15:31] LABS: Creatine Kinase 60 U/L (26-192)
--- NOTE | 2019-07-28 15:56 | W.PM.PROGNOT ---
Date of Service Date of service: 07/28/19 Time of Service: 15:56 Subjective Subjective Interval history since last seen: Patient is accepted at [facility] by Dr Woods on the hospitalist service with orthopedics in consultation. There is now a bed. The patient is medically stable for transfer. Objective Objective Clinical Data: Abnormal lab results 07/28/19 07/28/19 Range/Units 00:50 00:50 WBC 11.97 H (4.4-10.8) k/cumm RBC 3.89 L (4.00-5.20) m/cumm Hgb 10.8 L (12.0-15.5) g/dL Hct 34.4 L (36.0-46.0) % MCHC 31.4 L (32.0-36.0) g/dL RDW 14.9 H (11.7-14.6) % MPV 11.5 H (8.0-11.0) fL Absolute Neutrophils 9.22 H (1.2-6.7) k/cumm Absolute Monocytes 1.32 H (0.11-0.7) k/cumm Anion Gap 12.0 H (3-11) mmol/L BUN 19 H (7-18) mg/dL Creatinine 1.76 H (0.55-1.02) mg/dL Glucose 151 H (70-100) mg/dL Calcium 7.7 L (8.5-10.1) mg/dL Albumin 3.1 L (3.4-5.0) g/dL Vital Signs Temperature 37.3 C 07/28/19 08:38 Temperature Source Tympanic 07/28/19 08:38 Pulse 84 07/28/19 08:38 Pulse Rhythm Regular 07/28/19 07:50 Respiratory Rate 16 07/28/19 13:18 Respiratory Effort Non-Labored 07/28/19 07:50 Respiratory Depth Normal 07/28/19 07:50 Respiratory Pattern Normal 07/28/19 07:50 Blood Pressure 134/87 07/28/19 08:38 Blood Pressure Mean 67 07/28/19 04:46 Blood Pressure Position Supine 07/28/19 00:28 Pulse Oximetry 98 07/28/19 08:38 Oxygen Delivery Method Nasal Cannula 07/28/19 08:38 Oxygen Flow Rate 3 07/28/19 08:38 Pain Level 4 07/28/19 13:18 Intake & Output 07/27/19 07/28/19 07/28/19 23:59 11:59 23:59 Intake Total 1500.0 / 1500.0 Output Total 200 / 200 Balance 1300.0 / 1300.0 Weight 69.853 kg Intake: IV 1500.0 / 1500.0 Output: Urine 200 / 200 Other: Urine Color Yellow Urine Appearance Clear Laboratory Results WBC 11.97 k/cumm (4.4-10.8) H 07/28/19 00:50 RBC 3.89 m/cumm (4.00-5.20) L 07/28/19 00:50 Hgb 10.8 g/dL (12.0-15.5) L 07/28/19 00:50 Hct 34.4 % (36.0-46.0) L 07/28/19 00:50 MCV 88.4 fL (80-95) 07/28/19 00:50 MCH 27.8 pg (27.0-33.0) 07/28/19 00:50 MCHC 31.4 g/dL (32.0-36.0) L 07/28/19 00:50 RDW 14.9 % (11.7-14.6) H 07/28/19 00:50 Plt Count 167 x1000/uL (130-400) 07/28/19 00:50 MPV 11.5 fL (8.0-11.0) H 07/28/19 00:50 Immature Gran % 0.0 07/28/19 00:50 Neutrophils % 62.0 07/28/19 00:50 Band Neutrophils % 15.0 % 07/28/19 00:50 Lymphocytes % 12.0 07/28/19 00:50 Monocytes % 11.0 07/28/19 00:50 Eosinophils % 0.0 07/28/19 00:50 Basophils % 0.0 07/28/19 00:50 Absolute Neutrophils 9.22 k/cumm (1.2-6.7) H 07/28/19 00:50 Absolute Lymphocytes 1.44 k/cumm (1.2-3.4) 07/28/19 00:50 Absolute Monocytes 1.32 k/cumm (0.11-0.7) H 07/28/19 00:50 Absolute Eosinophils 0.00 k/cumm (0.0-0.7) 07/28/19 00:50 Absolute Basophils 0.00 k/cumm (0.0-0.2) 07/28/19 00:50 Differential Comment Manual differential 07/28/19 00:50 RBC Morphology Normal 07/28/19 00:50 PT 11.0 sec (9.3-11.0) 07/28/19 00:50 INR 1.1 (0.9-1.1) 07/28/19 00:50 APTT 22.4 sec (21.0-31.4) 07/28/19 00:50 Sodium 138 mmol/L (136-145) 07/28/19 00:50 Potassium 3.6 mmol/L (3.5-5.1) 07/28/19 00:50 Chloride 104 mmol/L (98-107) 07/28/19 00:50 Carbon Dioxide 22.0 mmol/L (21.0-32.0) 07/28/19 00:50 Anion Gap 12.0 mmol/L (3-11) H 07/28/19 00:50 BUN 19 mg/dL (7-18) H 07/28/19 00:50 Creatinine 1.76 mg/dL (0.55-1.02) H 07/28/19 00:50 Estimated GFR/1.73 m2 27.85 (mL/min/1.73m2) 07/28/19 00:50 Glucose 151 mg/dL (70-100) H 07/28/19 00:50 Calcium 7.7 mg/dL (8.5-10.1) L 07/28/19 00:50 Total Bilirubin 0.5 mg/dL (0.2-1.0) 07/28/19 00:50 AST 24 U/L (15-37) 07/28/19 00:50 ALT 19 U/L (14-59) 07/28/19 00:50 Alkaline Phosphatase 82 U/L (46-116) 07/28/19 00:50 Creatine Kinase 60 U/L (26-192) 07/28/19 00:50 Troponin I Cancelled 07/28/19 04:30 Total Protein 6.8 g/dL (6.4-8.2) 07/28/19 00:50 Albumin 3.1 g/dL (3.4-5.0) L 07/28/19 00:50 Patient ABO/Rh O Positive 07/28/19 00:50 Antibody Screen Negative 07/28/19 00:50
--- NOTE | 2019-07-29 15:01 | CHAPLAIN ---
Yesterday when I visited Aster, she told me about her fall and plans to be [place] [facility] [place]. She said her pain was controlled and she was comfortable. Her Anish was with her. Aster was optimistic about getting through the surgery and recovering smoothly.
== END 2019-07-28 18:30 | disposition short-term general hospital (02) ==
LOC: ER 04:03 → MS 05:37
PROVIDERS: Admitting Provider Family Medicine; Emergency Provider Emergency Medicine; PCP Internal Medicine; Visit Provider Family Medicine
DX: S72.352A Displaced comminuted fracture of shaft of left femur, initial encounter for closed fracture (principal); M97.12XA Periprosthetic fracture around internal prosthetic left knee joint, initial encounter; W19.XXXA Unspecified fall, initial encounter; Y92.019 Unspecified place in single-family (private) house as the place of occurrence of the external cause; R19.7 Diarrhea, unspecified; E86.0 Dehydration; K21.9 Gastro-esophageal reflux disease without esophagitis; G25.81 Restless legs syndrome; E11.42 Type 2 diabetes mellitus with diabetic polyneuropathy; F32.9 Major depressive disorder, single episode, unspecified
CPT/HCPCS: 36415; 73552; 80053; 82550; 86850; 86900; 86901; 93005; 96361; 96374; 96376; 99215; 99220; 99285; NC; 70450; 71045; 73560; 84484; 85025; 85610; 85730; 93010; G0378; J2270; L1830

== ENCOUNTER 2019-08-17 13:15 | Outpatient (CLI) | payer OTHER, SELFPAY ==
--- NOTE | 2019-08-17 11:30 | DI.RAD_ITS ---
EXAM: XR FEMUR LT INDICATION: f/u surgery. COMPARISON: XR KNEE LT 2V AP,LAT from 07/28/2019 XR FEMUR LT from 07/28/2019 TECHNIQUE: 2D digital imaging was performed. FINDINGS: A fixation plate is noted along the lateral aspect of the mid through distal femur for fixation of t he previously noted fracture. Pre-existing knee prosthesis is again noted.
== END 2019-08-17 13:35 ==
PROVIDERS: PCP Internal Medicine; Referring Provider Internal Medicine; Visit Provider Student in an Organized Health Care Education/Training Program
DX: M97.12XA Periprosthetic fracture around internal prosthetic left knee joint, initial encounter (principal); Z96.652 Presence of left artificial knee joint; E11.9 Type 2 diabetes mellitus without complications; Z79.84 Long term (current) use of oral hypoglycemic drugs
CPT/HCPCS: 73552; 99214

== ENCOUNTER 2019-08-23 12:34 | Outpatient (REF) | payer OTHER, SELFPAY ==
[2019-08-23 13:46] LABS: HCT 38.2 % (36.0-46.0); HGB 11.7 g/dL (12.0-15.5); Mean Corp. HGB Concentration 30.6 g/dL (32.0-36.0); Mean Corpuscular Hemoglobin 28.6 pg (27.0-33.0); Mean Corpuscular Volume 93.4 fL (80-95); Platelet Count 229 x1000/uL (130-400); RBC 4.09 m/cumm (4.00-5.20); RBC Distribution Width 18.2 % (11.7-14.6); White Blood Cell Count 8.21 k/cumm (4.4-10.8)
== END 2019-08-23 12:54 ==
LOC: NCHCN 12:34
PROVIDERS: PCP Internal Medicine; Visit Provider Internal Medicine
DX: E11.9 Type 2 diabetes mellitus without complications (principal); I10 Essential (primary) hypertension; K21.9 Gastro-esophageal reflux disease without esophagitis; G89.29 Other chronic pain
CPT/HCPCS: 85027

== ENCOUNTER → 2019-09-14 | Outpatient (CLI) | payer OTHER, SELFPAY ==
--- NOTE | 2019-09-14 10:32 | DI.RAD_ITS ---
EXAM: XR FEMUR LT INDICATION: f/u and pain. COMPARISON: XR FEMUR LT from 07/28/2019 XR FEMUR LT from 08/17/2019 TECHNIQUE: 2D digital imaging was performed. FINDINGS: There is again seen a sideplate and screws transfixing the comminuted fracture of the distal femoral metaphysis. There is no change in alignment of the fracture or orthopedic hardware. There are again seen 3 screws transfixing the subcapital fracture of the left femur. The patient has a left total k nee replacement. Atherosclerosis.
== END ==
PROVIDERS: PCP Internal Medicine; Visit Provider Student in an Organized Health Care Education/Training Program
DX: Z96.652 Presence of left artificial knee joint; M97.12XD Periprosthetic fracture around internal prosthetic left knee joint, subsequent encounter
CPT/HCPCS: 73552; 99214

== ENCOUNTER → 2019-09-27 13:02 | Outpatient (BNVA) | payer OTHER, SELFPAY | PROVIDERS: PCP Internal Medicine; Referring Provider Internal Medicine; Visit Provider Student in an Organized Health Care Education/Training Program | DX: Z47.89 Encounter for other orthopedic aftercare (principal); M97.12XD Periprosthetic fracture around internal prosthetic left knee joint, subsequent encounter | CPT/HCPCS: 99213 ==

== ENCOUNTER 2019-10-11 13:25 | Outpatient (CLI) | payer OTHER, SELFPAY ==
--- NOTE | 2019-10-11 13:25 | DI.RAD_ITS ---
EXAM: XR FEMUR LT INDICATION: f/u fracture. COMPARISON: XR FEMUR LT from 09/14/2019 TECHNIQUE: 2D digital imaging was performed. FINDINGS: There has been no change in the alignment of the orthopedic hardware or distal femoral fracture. The re has been some increased healing when compared with the previous exam. No new abnormalities are se en.
== END 2019-10-11 13:45 ==
PROVIDERS: PCP Internal Medicine; Referring Provider Internal Medicine; Visit Provider Student in an Organized Health Care Education/Training Program
DX: M97.12XD Periprosthetic fracture around internal prosthetic left knee joint, subsequent encounter (principal); Z96.652 Presence of left artificial knee joint
CPT/HCPCS: 73552; 99213

== ENCOUNTER → 2019-11-15 13:07 | Outpatient (BNVA) | payer OTHER, SELFPAY | PROVIDERS: PCP Internal Medicine; Referring Provider Internal Medicine; Visit Provider Nurse Practitioner Adult Health | DX: R26.81 Unsteadiness on feet (principal); G62.9 Polyneuropathy, unspecified; H53.2 Diplopia | CPT/HCPCS: 99213 ==

== ENCOUNTER 2019-11-25 11:49 | Outpatient (REF) | payer OTHER, SELFPAY ==
[2019-11-25 20:30] LABS: Anion Gap 11.8 mmol/L (3-11); BUN 28 mg/dL (7-18); CO2 22.2 mmol/L (21.0-32.0); CREATININE 1.21 mg/dL (0.55-1.02); Calcium 9.1 mg/dL (8.5-10.1); Chloride 101 mmol/L (98-107); Estimated GFR 42.92 (mL/min/1.73m2); Glucose 203 mg/dL (74-106); Potassium 5.3 mmol/L (3.5-5.1); Sodium 135 mmol/L (136-145)
== END 2019-11-25 12:09 ==
LOC: NCHCN 11:49
PROVIDERS: PCP Internal Medicine; Visit Provider Internal Medicine
DX: E11.9 Type 2 diabetes mellitus without complications (principal); I10 Essential (primary) hypertension
CPT/HCPCS: 80048

== ENCOUNTER 2019-11-29 13:34 | Outpatient (CLI) | payer OTHER, SELFPAY ==
--- NOTE | 2019-11-29 13:55 | DI.RAD_ITS ---
EXAM: XR FEMUR LT INDICATION: F/U FRACTURE. COMPARISON: XR FEMUR LT from 10/11/2019 TECHNIQUE: 2D digital imaging was performed. FINDINGS: Three partially threaded screws are again noted in the left femoral neck. A fixation plate is again noted along the mid to distal femur for fracture fixation. There has been increased healing at the d istal femoral fracture. The knee prosthesis appears unchanged.
== END 2019-11-29 13:54 ==
PROVIDERS: PCP Internal Medicine; Referring Provider Internal Medicine; Visit Provider Student in an Organized Health Care Education/Training Program
DX: Z96.652 Presence of left artificial knee joint; M97.12XD Periprosthetic fracture around internal prosthetic left knee joint, subsequent encounter; I10 Essential (primary) hypertension; E11.9 Type 2 diabetes mellitus without complications; Z79.84 Long term (current) use of oral hypoglycemic drugs
CPT/HCPCS: 73552; 99213

== ENCOUNTER 2020-03-20 12:26 | Outpatient (CLI) | payer OTHER, SELFPAY ==
--- NOTE | 2020-03-20 12:10 | DI.RAD_ITS ---
EXAM: XR FEMUR LT CLINICAL HISTORY: fu healing fracture. TECHNIQUE: 2D digital imaging was performed. COMPARISON: CR XR FEMUR LT from 11/29/2019 FINDINGS: BONES: There are again seen 3 partially threaded screws transfixing the subcapital left femoral neck fracture. There has been no change in alignment of the orthopedic hardware or fracture components. There is also again seen a sideplate and screws transfixing the distal left femoral fracture. No peggy nge in alignment of the orthopedic hardware or fracture components is noted. Note is made of a left total knee replacement which is partially visualized on this examination. No new fracture or disloca tion is seen. SOFT TISSUE: Vascular calcifications are seen in the soft tissues. IMPRESSION: Stable appearance of the left femur. DATA REPOSITORY: RADIATION DOSE DELIVERED:
== END 2020-03-20 12:46 ==
PROVIDERS: PCP Internal Medicine; Referring Provider Internal Medicine; Visit Provider Student in an Organized Health Care Education/Training Program
DX: S72.352D Displaced comminuted fracture of shaft of left femur, subsequent encounter for closed fracture with routine healing (principal); Z96.652 Presence of left artificial knee joint; M97.12XD Periprosthetic fracture around internal prosthetic left knee joint, subsequent encounter; R29.6 Repeated falls; I10 Essential (primary) hypertension; E11.9 Type 2 diabetes mellitus without complications
CPT/HCPCS: 73552; 99213

== ENCOUNTER → 2020-05-15 12:26 | Outpatient (BNVA) | payer OTHER, SELFPAY | PROVIDERS: PCP Internal Medicine; Referring Provider Internal Medicine; Visit Provider Nurse Practitioner Adult Health | DX: G31.84 Mild cognitive impairment of uncertain or unknown etiology; E11.43 Type 2 diabetes mellitus with diabetic autonomic (poly)neuropathy | CPT/HCPCS: 99213 ==

== ENCOUNTER 2020-06-05 00:58 | Outpatient (CLI) | payer OTHER, SELFPAY ==
--- NOTE | 2020-06-05 | DI.RAD_ITS ---
EXAM: RF BARIUM SWALLOW CLINICAL HISTORY: DYSPHAGIA, R13.10 TECHNIQUE: COMPARISON: No exams were available for comparison FINDINGS: Preliminary films of chest and cervical region show no specific abnormality apart from prominent hype rtrophic degenerative changes of lower cervical spine. Barium was ingested and showed predominantly normal esophageal motility and mucosal appearance with no evidence of obstruction.. However, at the gastroesophageal junction there appear to be a couple small areas of mucosal irregularity which may l ie in the distal most portion of the esophagus or the gastric fundus, possibility of ulceration is r aised, additional evaluation with endoscopy recommended. IMPRESSION: RADIATION DOSE DELIVERED: Total DLP
[2020-06-05] MEDS: Barium Sulfate 60% W/V 355 ML BTL 300 ML PO (09:28)
== END 2020-06-05 01:18 ==
PROVIDERS: PCP Internal Medicine; Visit Provider Internal Medicine
DX: R13.10 Dysphagia, unspecified (principal); K22.8 Other specified diseases of esophagus
CPT/HCPCS: 74221

== ENCOUNTER 2020-09-26 01:33 | Outpatient (RCR) | payer OTHER, SELFPAY ==
[2020-09-26] MEDS: Normal Saline Flush 10 ML SYR IVP (12:30)
[2020-09-26] MEDS: IRON SUCROSE COMPLEX 300 MG in Normal Saline 250 ML 176.667 MG IVPB (12:30)
== END 2020-10-01 23:59 | disposition home or self-care (01) ==
LOC: INF 01:33
PROVIDERS: PCP Internal Medicine; Visit Provider Nurse Practitioner Family
DX: D50.9 Iron deficiency anemia, unspecified (principal)
CPT/HCPCS: 96365; J1756

== ENCOUNTER 2020-10-08 17:04 | Outpatient (REF) | payer OTHER, SELFPAY ==
[2020-10-08 18:52] LABS: HCT 26.3 % (36.0-46.0); HGB 7.7 g/dL (11.2-15.7)
== END 2020-10-08 17:24 ==
LOC: NCHCN 17:04
PROVIDERS: PCP Internal Medicine; Visit Provider Internal Medicine
DX: Z47.33 Aftercare following explantation of knee joint prosthesis (principal); M17.0 Bilateral primary osteoarthritis of knee; Z96.652 Presence of left artificial knee joint
CPT/HCPCS: 85014; 85018

== ENCOUNTER → 2020-11-13 07:52 | Outpatient (BNVA) | payer OTHER, SELFPAY | PROVIDERS: PCP Internal Medicine; Referring Provider Internal Medicine; Visit Provider Nurse Practitioner Adult Health | DX: G31.84 Mild cognitive impairment of uncertain or unknown etiology (principal); E11.42 Type 2 diabetes mellitus with diabetic polyneuropathy; Z79.84 Long term (current) use of oral hypoglycemic drugs | CPT/HCPCS: 99212; 99213 ==

== ENCOUNTER 2020-11-26 10:42 | Emergency (ER) | payer OTHER, SELFPAY ==
[2020-11-26 10:54] VITALS: BP 137/81; PULSE 90; RESP 18; TEMP 36.4; O2SAT 96
--- NOTE | 2020-11-26 11:25 | ED.GENADUL_ITS ---
Discharge Plan Disposition Patient Disposition: HOME Condition: Stable Discharge Details Clinical Impression: Fall, Foot sprain Primary Care Provider: Romel Torres ED Provider: Mary Allen Home Meds and New Rx's Prescriptions: Continued mirtazapine 15 mg tablet 15 mg PO DAILY RF: 0 acetaminophen 650 mg tablet extended release 650 mg PO Q12H RF: 0 Probiotic 20 billion cell capsule 30,000 cell PO DAILY RF: 0 calcium carbonate-vitamin D3 1 EACH tablet 1 ea PO DAILY RF: 0 tramadol 50 mg tablet 50 mg PO TID PRNRF: 0 clopidogrel [Plavix] 75 MG tablet 75 mg PO HS RF: 0 albuterol sulfate [ProAir HFA] 8.5 GM HFA aerosol inhaler 2 puff Inhalation PRN PRNRF: 0 celecoxib [Celebrex] 200 mg capsule 200 mg PO .qod RF: 0 duloxetine [Cymbalta] 30 mg capsule,delayed release(DR/EC) 60 mg PO DAILY RF: 0 atorvastatin [Lipitor] 10 MG tablet 10 mg PO QPM Qty: 30 RF: 0 docusate sodium 100 mg capsule 100 mg PO BID RF: 0 pantoprazole [Protonix] 20 MG tablet,delayed release (DR/EC) 40 mg PO BID RF: 0 hyoscyamine sulfate 125 MCG/5 ML elixir 0.125 mg PO PRN PRNRF: 0 duloxetine [Cymbalta] 30 mg Capsule,Delayed Release(Dr/Ec) 30 mg PO DAILY RF: 0 metformin 500 mg tablet 1,000 mg PO BID RF: 0 magnesium oxide 400 mg magnesium tablet 500 mg PO DAILY RF: 0 Discharge Instructions Instructions: Foot Sprain (ED), Fall Prevention (ED) Additional Instructions: Follow up with primary care provider in 3-5 days. Return to ED sooner if any worsening or concerns. Increase oral fluids. Please take Tylenol with food every 4-6 hours as needed for pain and swelling. Thank you for allowing us to be involved in your care today. May alternate ice and heat if needed. Referrals: Romel Torres MD [Primary Care Provider] - Medical Decision Making 79-year-old female presents the ER with chief complaint of left foot pain, left knee pain, tailbone pain, and headache status post fall 2 days ago. Patient states that she had a mechanical fall falling backwards onto her tailbone, hitting the back of her head. She has some distal phalanges tenderness to her left toes and foot, some left knee tenderness, toxic tenderness and reports mild headache since the fall. She is on Plavix, she is alert and oriented upon arrival she did take some Tylenol prior to arrival. She is status post left k nee replacement at [facility] on July 2019. X-ray of foot, knee, coccyx and head CT ordered to rule out fracture or internal bleeding. There is no evidence of acute fracture or diastasis of the Reny ellie joint. There is wedge-shaped radiopaque density in the lateral aspect of the metatarsophalangeal joint of the great toe with evidence of resection of the base of the proximal phalanx of the great toe. There are no prominent osteophytes at the metatarsophalangeal joint. Degenerative changes are noted in the interphalangeal joint. Other toes appear unremarkable with exception of flexion deformities at interphalangeal joints. Benign-appearing protrude) of navicular tuberosity on the medial aspect of foot is noted. There are no lytic osseous lesions identified. EXAM: XR KNEE LT 3V AP,LAT,MIGDALIA CLINICAL HISTORY: Pain, s/p knee surgery. TECHNIQUE: 2D digital imaging was performed. COMPARISON: CR XR FEMUR LT from 08/17/2019 FINDINGS: There has been interval revision with resection the distal femur and replacement of the components of the knee prosthesis, now replaced by longer components. There is a single circumferential wire around the femur diaphysis component. Recently placed components appear to be in satisfactory position. No fractures. EXAM: XR SACRUM COCCYX CLINICAL HISTORY: fall, pain. TECHNIQUE: 2D digital imaging was performed. COMPARISON: No exams were available for comparison FINDINGS: There are 3 screws in the left femoral neck. No evidence of obvious sacral fracture. No obvious coccyx fracture. Anterolisthesis of L4 upon L5 with advanced disc space narrowing at this level as well as L5-S1 disc space level. Amount of slippage of L4 upon L5 is 1.5 cm. Sacroiliac joints appear age-appropriate. There appears to be possible bone graft material in the lower lumbar spine. EXAM: CT HEAD WO CLINICAL HISTORY: Fall, on blood thinner. TECHNIQUE: Imaging Protocol: Axial computed tomography images with coronal and sagittal reformatted images were created and reviewed COMPARISON: CT CT HEAD WO from 07/28/2019 FINDINGS: There are no skull fractures. However, there is now significant mucosal disease and fluid in the left maxillary sinus and what appears to be a surgical defect in the medial wall the left submaxillary sinus. Opposite-right maxillary sinus is clear as are the sphenoid and frontal sinuses and ethmoidal air cells. Mastoid air cells are also well aerated as are the middle ear cavities. There is no evidence of intracranial hemorrhage, mass effect, or shift of midline structures. There are no extra-axial fluid collections. The ventricles are not enlarged or shifted and there is no blood within the ventricular system nor within the basal cisterns. Bifrontal atrophy is again noted, unchanged. Heavy calcification in the internal carotid arteries at the skull base is again noted.. IMPRESSION: No acute intracranial findings on this noninfused CT scan of the brain. Compared to the prior CT scan July 1019 there is now abundant mucosal thickening and some fluid in the left maxillary sinus, not previously present. There appears to be a surgical defect in the medial wall of the left maxillary sinus. Called to ER provider Discussed imaging results with patient who verbalized understanding. To request radiology department to forward the knee x-rays to her orthopedic doctor Dr. Keys at [facility]. Patient remains hemodynamically stable alert and oriented discuss strict return instructions and home care, verbalized understanding. HPI General Mode of arrival: wheelchair . Date/Time Provider Initiated Documentation: 11/26/20 11:18 . Limitations to Documentation: no limitations . Information obtained by: patient . HPI Narrative: 79-year-old female presents the ER with chief complaint of left foot pain, left knee pain, tailbone pain, and headache status post fall 2 days ago. Patient states that she had a mechanical fall falling backwards onto her tailbone, hitting the back of her head. She has some distal phalanges tenderness to her left toes and foot, some left knee tenderness, toxic tenderness and reports mild headache since the fall. She is on Plavix, she is alert and oriented upon arrival she did take some Tylenol prior to arrival. She is status post left knee replacement at [facility] on July 2019. Related Data Home Medications Medication Instructions Recorded Confirmed albuterol sulfate [ProAir HFA] 2 puff INHALATION PRN PRN 11/13/15 11/26/20 clopidogrel [Plavix] 75 mg PO HS 11/13/15 11/26/20 calcium carbonate-vitamin D3 1 ea PO DAILY 02/26/16 11/26/20 pantoprazole [Protonix] 40 mg PO BID 04/03/17 11/26/20 hyoscyamine sulfate 0.125 mg PO PRN PRN 05/27/17 11/26/20 atorvastatin [Lipitor] 10 mg PO QPM #30 tab 12/07/17 11/26/20 docusate sodium 100 mg capsule 100 mg PO BID 07/08/18 11/26/20 duloxetine [Cymbalta] 30 mg PO DAILY 07/28/19 11/26/20 tramadol 50 mg tablet 50 mg PO TID PRN 11/03/19 11/26/20 acetaminophen 650 mg 650 mg PO Q12H 11/15/19 11/26/20 tablet,extended release lactobacillus comb no.10 20 30,000 cell PO DAILY cap 11/15/19 11/26/20 billion cell capsule metformin 500 mg tablet 1,000 mg PO BID tab 03/20/20 11/26/20 celecoxib 200 mg capsule 200 mg PO .qod cap 11/13/20 11/26/20 duloxetine 30 mg capsule,delayed 60 mg PO DAILY cap 11/13/20 11/26/20 release magnesium oxide 500 mg PO DAILY tab 11/13/20 11/26/20 mirtazapine 15 mg tablet 15 mg PO DAILY 11/13/20 11/26/20 Previous Rx's Medication Instructions Recorded atorvastatin [Lipitor] 10 mg PO QPM #30 tab 12/07/17 Allergies Allergy/AdvReac Type Severity Reaction Status Date / Time glucosamine Allergy Intermediate Verified 11/26/20 11:00 codeine AdvReac Intermediate Nausea Verified 11/26/20 11:00 Penicillins AdvReac Intermediate Skin Rash Verified 11/26/20 11:00 Latex, Natural Rubber AdvReac Verified 11/26/20 11:00 shellfish AdvReac Intermediate Uncoded 11/26/20 11:00 Band Aids AdvReac Skin Rash Uncoded 11/26/20 11:00 General Stated Complaint: Orthopedic ESEQUIEL: 3 Review of Systems Narrative: Constitutional: Negative for weight loss, alert and oriented, well groomed, normal body habitus, appears comfortable. HEENT: Denies blurry vision, nasal discharge, sore throat, trouble swallowing. Reports hitting the back of her head approximately 2 days ago and having a frontal and posterior headache. Chest: Denies chest pain, palpitations, irregular rhythm, hypertension. Respiratory: Denies Shortness of breath, cough, hemoptysis. GI: Denies abdominal pain, nausea, vomiting, diarrhea, constipation. : Denies dysuria, hematuria, flank pain, rectal bleeding. Neuro: Denies dizziness, blurry vision, weakness, syncope, or facial numbness. Musculoskeletal: Complaining of left foot pain and left knee pain. She is status post left knee replacement in July 2019. She does have a healing scar noted. Also complains of tailbone pain. Hematologic: Denies easy bruising, intolerance to heat or cold, hair loss. 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 Hiatal hernia Hypertension Idiopathic peripheral neuropathy (06/24/16) Insomnia Low back pain Lumbar stenosis without neurogenic claudication Macrocytosis Memory loss (06/24/16) Migraine without aura and without status migrainosus, not intractable (06/15/17) Mild cognitive impairment Monocular diplopia of both eyes Osteoarthritis of knee (10/06/13) Osteopenia Peripheral neuropathy Restless leg syndrome (08/11/17) Sensorineural hearing loss, bilateral (11/27/16) Skin lesion TIA (transient ischemic attack) Type 2 diabetes mellitus Urinary frequency Surgical History Fracture of left hip requiring operative repair 2011 H/O toe surgery H/O total knee replacement H/O: hysterectomy History of ankle surgery History of cataract extraction May 2018 at [facility], complicated by increased IOP Periprosthetic fracture around internal prosthetic left knee joint, initial encounter (07/28/19) S/P ORIF 07/28/2019 Replacement of total knee joint (11/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 EVANS; right; right TKA cleaned out in 2018 due to infection S/P dilatation and curettage S/P rotator cuff repair 2017 Status post lumbar spine surgery for decompression of spinal cord L4-S1 decompression and fusion; 2000 Family History Mother Alzheimer disease Father Stroke Social History Smoking/Tobacco Use Status: Never Smoking risk assessment performed?: Yes Alcohol Intake: never Drug use: Never Substance use type: does not use Household members: spouse Housing: house Current gender identity: female Do you feel safe at home: Yes Do you feel safe in your relationship?: Yes Additional Social history: She was born in [place]. 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 She is to her second Demarco (since ~1989?). She has 2 stepsons. She drinks one glass of wine per week. Exam Narrative Exam Narrative: Constitutional: Alert and oriented x3. Appears stated age. Normal body habitus. Head: Normocephalic, small hematoma noted to posterior occipital scalp. Eyes: Pupils PERRLA, Red reflex noted, EOM's intact. Eyelids symmetrical without lesions, discharge, or swelling. ENT: Bilateral TM's WNL, External ear normal to inspection, no mastoid TTP, swelling, or erythema, Nasal turbinates WNL, no nasal discharge. Normal dentition, Posterior pharynx WNL, no exudate. Chest: RRR, Normal S1, S2, distal pulses intact. Resp: Lungs clear to auscultation bilaterally, no wheezes, rales, or rhonchi. Musculoskeletal: Left healing surgical scar noted to left knee, has some tenderness and contusion noted to the distal foot, fourth toe is swollen. Skin: No suspicious rashes or lesions. Capillary refill less than 2 sec. Neurologic: Cranial nerves II-XII intact. Alert and oriented x 3. DTR's intact. Hematologic/Lymphatic: No ecchymosis, no lymphadenopathy. Course Vital Signs Vital signs: Vital Signs Temperature 36.4 C L 11/26/20 10:54 Pulse 90 11/26/20 10:54 Respiratory Rate 18 11/26/20 10:54 Blood Pressure 137/81 11/26/20 10:54 Pulse Oximetry 96 11/26/20 10:54 Temperature 36.4 C L 11/26/20 10:54 Temperature Source Temporal Artery Scan 11/26/20 10:54 Pulse 90 11/26/20 10:54 Respiratory Rate 18 11/26/20 10:54 Respiratory Effort Non-Labored 11/26/20 11:00 Blood Pressure 137/81 11/26/20 10:54 Blood Pressure Position Sitting 11/26/20 10:54 Pulse Oximetry 96 11/26/20 10:54 Oxygen Delivery Method Room Air 11/26/20 10:54 Oxygen Flow Rate 0 11/26/20 10:54 Pain Level 5 11/26/20 10:54
--- NOTE | 2020-11-26 11:57 | DI.CT_ITS ---
EXAM: CT HEAD WO CLINICAL HISTORY: Fall, on blood thinner. TECHNIQUE: Imaging Protocol: Axial computed tomography images with coronal and sagittal reformatted images were created and reviewed COMPARISON: CT CT HEAD WO from 07/28/2019 FINDINGS: There are no skull fractures. However, there is now significant mucosal disease and fluid in the le ft maxillary sinus and what appears to be a surgical defect in the medial wall the left submaxillary sinus. Opposite-right maxillary sinus is clear as are the sphenoid and frontal sinuses and ethmoidal air cells. Mastoid air cells are also well aerated as are the middle ear cavities. There is no evidence of intracranial hemorrhage, mass effect, or shift of midline structures. There are no extra-axial fluid collections. The ventricles are not enlarged or shifted and there is no blo od within the ventricular system nor within the basal cisterns. Bifrontal atrophy is again noted, unchanged. Heavy calcification in the internal carotid arteries at the skull base is again noted.. IMPRESSION: No acute intracranial findings on this noninfused CT scan of the brain. Compared to the prior CT scan July 1019 there is now abundant mucosal thickening and some fluid in the left maxillary sinus, not previously present. There appears to be a surgical defect in the me dial wall of the left maxillary sinus. Called to ER provider RADIATION DOSE DELIVERED: 711.76mGy.cm Total DLP DATA REPOSITORY: All CT scans at this facility are submitted to the National Radiology Data Registry (NRDR) Dose Index Registry (DIR) with the [employer] ([employer]). RADIATION OPTIMIZATION: All CT scans at this facility use at least one of these dose optimization te chniques: automated exposure control; mA and/or kV adjustment per patient size (includes targeted exa ms where dose is matched to clinical indication); or iterative reconstruction.
--- NOTE | 2020-11-26 12:46 | DI.RAD_ITS ---
EXAM: XR FOOT LT COMPLETE CLINICAL HISTORY: Fall. TECHNIQUE: 2D digital imaging was performed. COMPARISON: No exams were available for comparison FINDINGS: There is no evidence of acute fracture or diastasis of the Reny ellie joint. There is wedge-shaped ra diopaque density in the lateral aspect of the metatarsophalangeal joint of the great toe with evidenc e of resection of the base of the proximal phalanx of the great toe. There are no prominent osteophy yaniv at the metatarsophalangeal joint. Degenerative changes are noted in the interphalangeal joint. Other toes appear unremarkable with exception of flexion deformities at interphalangeal joints. Satish gn-appearing protrude) of navicular tuberosity on the medial aspect of foot is noted. There are no l ytic osseous lesions identified. IMPRESSION: DATA REPOSITORY: RADIATION DOSE DELIVERED:
--- NOTE | 2020-11-26 12:46 | DI.RAD_ITS ---
EXAM: XR SACRUM COCCYX CLINICAL HISTORY: fall, pain. TECHNIQUE: 2D digital imaging was performed. COMPARISON: No exams were available for comparison FINDINGS: There are 3 screws in the left femoral neck. No evidence of obvious sacral fracture. No obvious dia cyx fracture. Anterolisthesis of L4 upon L5 with advanced disc space narrowing at this level as well as L5-S1 disc space level. Amount of slippage of L4 upon L5 is 1.5 cm. Sacroiliac joints appear ag e-appropriate. There appears to be possible bone graft material in the lower lumbar spine. IMPRESSION: DATA REPOSITORY: RADIATION DOSE DELIVERED:
--- NOTE | 2020-11-26 12:47 | DI.RAD_ITS ---
EXAM: XR KNEE LT 3V AP,LAT,MIGDALIA CLINICAL HISTORY: Pain, s/p knee surgery. TECHNIQUE: 2D digital imaging was performed. COMPARISON: CR XR FEMUR LT from 08/17/2019 FINDINGS: There has been interval revision with resection the distal femur and replacement of the components of the knee prosthesis, now replaced by longer components. There is a single circumferential wire arou nd the femur diaphysis component. Recently placed components appear to be in satisfactory position. No fractures. IMPRESSION: DATA REPOSITORY: RADIATION DOSE DELIVERED:
[2020-11-26 13:12] VITALS: BP 111/78; PULSE 86; RESP 18; O2SAT 95
== END 2020-11-26 13:45 | disposition home or self-care (01) ==
PROVIDERS: Emergency Provider Registered Nurse Emergency; PCP Internal Medicine
DX: S93.692A Other sprain of left foot, initial encounter (principal); M25.562 Pain in left knee; M53.3 Sacrococcygeal disorders, not elsewhere classified; R51.9 Headache, unspecified; W19.XXXA Unspecified fall, initial encounter; Z96.652 Presence of left artificial knee joint; I10 Essential (primary) hypertension; E11.9 Type 2 diabetes mellitus without complications; Z79.84 Long term (current) use of oral hypoglycemic drugs
CPT/HCPCS: 73562; 99284; 70450; 72220; 73630

== ENCOUNTER 2021-01-17 10:38 | Outpatient (REF) | payer OTHER, SELFPAY ==
[2021-01-17 13:53] LABS: HCT 34.4 % (36.0-46.0); HGB 10.2 g/dL (11.2-15.7); MCH 23.9 pg (27.0-33.0); MCHC 29.7 % (32.0-36.0); MCV 80.8 fL (80-95); Platelet Count 247 10^3/uL (130-400); RBC 4.26 10^6/uL (3.93-5.22); RDW 16.2 % (11.7-14.6); RDW-SD 47.3 fL
[2021-01-17 14:12] LABS: Anion Gap 11.8 mmol/L (3-11); BUN 22 mg/dL (7-18); CO2 23.2 mmol/L (21.0-32.0); CREATININE 1.1 mg/dL (0.55-1.02); Calcium 9.3 mg/dL (8.5-10.1); Chloride 100 mmol/L (98-107); Estimated GFR 47.67 (mL/min/1.73m2); Glucose 257 mg/dL (74-106); Potassium 4.7 mmol/L (3.5-5.1); Sodium 135 mmol/L (136-145)
[2021-01-17 14:19] LABS: Hemoglobin A1C 9.7 % (<5.7)
== END 2021-01-17 10:39 | disposition home or self-care (01) ==
LOC: NCHCN 10:38
PROVIDERS: PCP Internal Medicine; Visit Provider Internal Medicine
DX: E11.9 Type 2 diabetes mellitus without complications (principal); I10 Essential (primary) hypertension
CPT/HCPCS: 80048; 85027; 83036

== ENCOUNTER → 2021-11-28 13:09 | Outpatient (BNVA) | payer OTHER, SELFPAY | PROVIDERS: PCP Internal Medicine; Referring Provider Internal Medicine; Visit Provider Psychiatry & Neurology Neurology | DX: G60.9 Hereditary and idiopathic neuropathy, unspecified (principal); G31.84 Mild cognitive impairment of uncertain or unknown etiology; G47.00 Insomnia, unspecified | CPT/HCPCS: 99214 ==

== ENCOUNTER 2022-01-27 14:54 | Outpatient (REF) | payer OTHER, SELFPAY ==
[2022-01-27 20:48] LABS: HCT 34.3 % (36.0-46.0); HGB 9.6 g/dL (11.2-15.7); MCH 21.8 pg (27.0-33.0); MPV 10.3 fL (8.0-11.0); Platelet Count 306 10^3/uL (130-400); RDW 18.4 % (11.7-14.6); RDW-SD 51.6 fL; WBC 8.92 10^3/uL (4.4-10.8)
[2022-01-27 21:13] LABS: ALT 18 U/L (14-59); AST 11 U/L (15-37); Albumin 4.2 g/dL (3.4-5.0); Alkaline Phosphatase 84 U/L (46-116); Anion Gap 13.8 mmol/L (3-11); BUN 33 mg/dL (7-18); Bilirubin, Total 0.3 mg/dL (0.2-1.0); CO2 20.2 mmol/L (21.0-32.0); CREATININE 1.5 mg/dL (0.55-1.02); Calcium 9.4 mg/dL (8.5-10.1); Chloride 103 mmol/L (98-107); Estimated GFR 33.25 (mL/min/1.73m2); Ferritin 12 ng/mL (8-252); Glucose 105 mg/dL (74-106); Potassium 5.4 mmol/L (3.5-5.1); Sodium 137 mmol/L (136-145); Total Protein 8.1 g/dL (6.4-8.2)
== END 2022-01-27 14:55 | disposition home or self-care (01) ==
LOC: NCHCN 14:54
PROVIDERS: PCP Internal Medicine; Visit Provider Family Medicine
DX: D50.9 Iron deficiency anemia, unspecified (principal); I10 Essential (primary) hypertension
CPT/HCPCS: 80053; 85027; 82728; 85025

== ENCOUNTER 2022-02-18 01:23 | Outpatient (RCR) | payer OTHER, SELFPAY ==
[2022-02-07] MEDS: Normal Saline Flush 10 ML SYR IVP (11:14)
[2022-02-07] MEDS: IRON SUCROSE COMPLEX 200 MG in Normal Saline 100 ML 440 MG IVPB (11:24)
[2022-02-11] MEDS: IRON SUCROSE COMPLEX 200 MG in Normal Saline 100 ML 440 MG IVPB (11:25)
[2022-02-14] MEDS: Normal Saline Flush 10 ML SYR IVP (13:12)
[2022-02-14] MEDS: IRON SUCROSE COMPLEX 200 MG in Normal Saline 100 ML 440 MG IVPB (13:14)
[2022-02-18] MEDS: Normal Saline Flush 10 ML SYR IVP (11:06)
[2022-02-18] MEDS: IRON SUCROSE COMPLEX 200 MG in Normal Saline 100 ML 440 MG IVPB (11:10)
== END 2022-03-01 23:59 | disposition home or self-care (01) ==
LOC: INF 01:23
PROVIDERS: PCP Internal Medicine; Visit Provider Internal Medicine
DX: D50.9 Iron deficiency anemia, unspecified (principal)
CPT/HCPCS: 96365; J1756

== ENCOUNTER 2022-04-23 17:40 | Outpatient (REF) | payer OTHER, SELFPAY ==
[2022-04-23 20:42] LABS: HCT 40.1 % (36.0-46.0); HGB 12.6 g/dL (11.2-15.7); MCH 29.5 pg (27.0-33.0); MCHC 31.4 % (32.0-36.0); MCV 94 fL (80-95); MPV 11.3 fL (8.0-11.0); Platelet Count 212 10^3/uL (130-400); RBC 4.27 10^6/uL (3.93-5.22); RDW 19.1 % (11.7-14.6); RDW-SD 67.2 fL; WBC 6.75 10^3/uL (4.4-10.8)
[2022-04-23 21:06] LABS: Ferritin 97 ng/mL (8-252)
== END 2022-04-23 17:41 | disposition home or self-care (01) ==
LOC: NCHCN 17:40
PROVIDERS: PCP Internal Medicine; Visit Provider Family Medicine
DX: D50.9 Iron deficiency anemia, unspecified (principal)
CPT/HCPCS: 85027; 82728

== ENCOUNTER 2022-06-20 10:32 | Outpatient (CLI) | payer OTHER, SELFPAY ==
[2022-06-20 10:48] LABS: ESR 41 mm/hr (0-30)
[2022-06-20 10:55] LABS: C-Reactive Protein 0.32 mg/dL (0.0-0.3)
== END 2022-06-20 10:33 | disposition home or self-care (01) ==
LOC: LBO 10:32
PROVIDERS: PCP Internal Medicine; Visit Provider Orthopaedic Surgery Foot and Ankle Surgery
DX: S72.402K Unspecified fracture of lower end of left femur, subsequent encounter for closed fracture with nonunion (principal)
CPT/HCPCS: 36415; 85652; 86140

== ENCOUNTER 2022-07-25 15:38 | Inpatient (IN) | payer OTHER, SELFPAY ==
--- NOTE | 2022-07-25 | DI.RAD_ITS ---
Exam(s) XR PORTABLE CHEST AP EXAM: XR PORTABLE CHEST AP CLINICAL HISTORY: preop clearance. TECHNIQUE: 2D digital imaging was performed. COMPARISON: CR RF BARIUM SWALLOW from 06/05/2020 FINDINGS: LUNGS: Clear. No pleural abnormality seen. HEART: Normal. MEDIASTINUM: Normal. OTHER FINDINGS: None. IMPRESSION: No acute pulmonary findings. DATA REPOSITORY: RADIATION DOSE DELIVERED: Total DLP
[2022-07-25 15:36] VITALS: BP 137/62; PULSE 79; RESP 18; TEMP 36.8; O2SAT 97
--- NOTE | 2022-07-25 15:45 | DI.RAD_ITS ---
Exam(s) XR FEMUR RT XR HIP RT COMPLETE AP PELVIS EXAM: XR FEMUR RT CLINICAL HISTORY: Fall, lateral pain. TECHNIQUE: 2D digital imaging was performed. AP and lateral views COMPARISON: CR XR knee RT 2V AP,lat from 10/11/2018 FINDINGS: BONES: There is a subcapital fracture of the right proximal femur with slight impaction and a few adj acent comminuted fragments. No significant angulation. No additional acute fractures are noted dist ally. There is a right total knee prosthesis which appears unchanged from the prior exam. Screws ar e noted in the left proximal femur. There are degenerative changes in the SI joints and lower lumbar spine. The sacrum is not well seen due to overlying stool and bowel gas as well as osteopenia. IMPRESSION: Subcapital fracture of the right proximal femur. DATA REPOSITORY: RADIATION DOSE DELIVERED:
--- NOTE | 2022-07-25 15:47 | ED.GENADUL_ITS ---
Discharge Plan Disposition Patient Disposition: [facility] INPATIENT Condition: Improving Discharge Details Chief Complaint: Orthopedic Clinical Impression: Closed right hip fracture Primary Care Provider: Romel Torres ED Provider: Leonardo Mckenzie Home Meds and New Rx's Prescriptions: No Action mirtazapine 15 mg tablet 15 mg PO DAILY Farxiga 5 mg tablet 5 mg PO DAILY acetaminophen 650 mg tablet extended release 650 mg PO Q12H Probiotic 20 billion cell capsule 30,000 cell PO DAILY calcium carbonate-vitamin D3 1 EACH tablet 1 ea PO DAILY tramadol 50 mg tablet 50 mg PO TID PRN clopidogrel [Plavix] 75 MG tablet 75 mg PO HS albuterol sulfate [ProAir HFA] 8.5 GM HFA aerosol inhaler 2 puff Inhalation PRN PRN celecoxib [Celebrex] 200 mg capsule 200 mg PO .qod duloxetine [Cymbalta] 30 mg capsule,delayed release(DR/EC) 60 mg PO DAILY atorvastatin [Lipitor] 10 MG tablet 10 mg PO QPM Qty: 30 0RF docusate sodium 100 mg capsule 100 mg PO BID pantoprazole [Protonix] 20 MG tablet,delayed release (DR/EC) 40 mg PO BID duloxetine [Cymbalta] 30 mg Capsule,Delayed Release(Dr/Ec) 30 mg PO DAILY metformin 500 mg tablet 1,000 mg PO BID magnesium oxide 400 mg magnesium tablet 500 mg PO DAILY Medical Decision Making 81-year-old female presents from home via EMS. She moved her cane to stop a blowing piece of garbage when she fell on her right side striking her hip and thigh. She had pain with attempts at standing. EMS was called and the patient was brought to the ER. She did not have a loss of consciousness or other injury. She has had previous knee arthroplasty. On exam she is tender at the mid to distal femur on the right. Patient given acetaminophen and referred for x-ray: There is a subcapital fracture of the proximal femur with slight impaction. Case discussed with Dr. Mag ZARATE General Mode of arrival: EMS . Date/Time Provider Initiated Documentation: 07/25/22 15:45 . Limitations to Documentation: no limitations . Information obtained by: patient and EMS . History of Present Illness 81 year old F presents to the emergency department with the chief complaint of Right hip and thigh pain after ground-level fall, described as moderate, Quality is described as dull and constant, and is localized to the right and lower extremity. Patient reports no radiation. Patient started experiencing this hour(s) and it has been constant. Rest improves symptom(s), Patient notes denies chest pain, headaches, shortness of breath and syncope. Patient did receive the following treatments prior to arrival, none Related Data Home Medications Medication Instructions Recorded Confirmed albuterol sulfate 90 mcg/actuation 2 puff inhalation PRN PRN 11/13/15 07/25/22 aerosol inhaler (ProAir HFA) clopidogrel 75 mg tablet (Plavix) 75 mg PO HS 11/13/15 07/25/22 calcium carbonate 600 mg-vitamin 1 ea PO DAILY 02/26/16 07/25/22 D3 5 mcg (200 unit) tablet pantoprazole 20 mg tablet,delayed 40 mg PO BID 04/03/17 07/25/22 release (Protonix) atorvastatin 10 mg tablet (Lipitor) 10 mg PO QPM #30 tabs 12/07/17 07/25/22 docusate sodium 100 mg capsule 100 mg PO BID 07/08/18 07/25/22 duloxetine 30 mg capsule,delayed 30 mg PO DAILY 07/28/19 07/25/22 release (Cymbalta) tramadol 50 mg tablet 50 mg PO TID PRN 11/03/19 07/25/22 acetaminophen 650 mg 650 mg PO Q12H 11/15/19 07/25/22 tablet,extended release lactobacillus comb no.10 20 30,000 cell PO DAILY 11/15/19 07/25/22 billion cell capsule (Probiotic) metformin 500 mg tablet 1,000 mg PO BID 03/20/20 07/25/22 celecoxib 200 mg capsule (Celebrex) 200 mg PO .qod 11/13/20 07/25/22 duloxetine 30 mg capsule,delayed 60 mg PO DAILY 11/13/20 07/25/22 release (Cymbalta) magnesium oxide 500 mg PO DAILY 11/13/20 07/25/22 mirtazapine 15 mg tablet 15 mg PO DAILY 11/13/20 07/25/22 dapagliflozin 5 mg tablet (Farxiga) 5 mg PO DAILY 11/28/21 07/25/22 Previous Rx's Medication Instructions Recorded atorvastatin 10 mg tablet (Lipitor) 10 mg PO QPM #30 tabs 12/07/17 Allergies Allergy/AdvReac Type Severity Reaction Status Date / Time Penicillins AdvReac Intermediate Skin Rash Verified 11/28/21 13:14 General Stated Complaint: Orthopedic ESEQUIEL: 3 Review of Systems Narrative: No loss of conscious, no neck or back pain. No motor weakness. Pain with movement. 7 systems reviewed and otherwise negative. PFSH All Active Problems (Updated 07/25/22 @ 16:29 by Leonardo Mckenzie MD) Closed right hip fracture (Acute) Mild cognitive impairment (Acute) Periprosthetic fracture around internal prosthetic left knee joint, initial encounter (Acute 07/28/19) S/P ORIF 07/28/2019 Peripheral neuropathy (Acute) Monocular diplopia of both eyes (Acute) Femur fracture, left (Acute) S/p total knee replacement, bilateral (Acute) History of cataract extraction (Chronic) May 2018 at [facility] [place], complicated by increased IOP S/P rotator cuff repair (Chronic) 2016 History of ankle surgery (Chronic) H/O toe surgery (Chronic) Fracture of left hip requiring operative repair (Chronic) 2011 Status post lumbar spine surgery for decompression of spinal cord (Chronic) L4-S1 decompression and fusion; 2000 H/O: hysterectomy (Chronic) S/P dilatation and curettage (Chronic) H/O total knee replacement (Chronic) Urinary frequency (Chronic) Type 2 diabetes mellitus (Chronic) Insomnia (Chronic) TIA (transient ischemic attack) (Chronic) GERD (gastroesophageal reflux disease) (Chronic) Fibromyalgia (Chronic) Depression (Chronic) Low back pain (Chronic) Lumbar stenosis without neurogenic claudication (Chronic) 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) Medical History Anemia, iron deficiency Dysphagia Hiatal hernia Hypertension Macrocytosis Osteopenia Skin lesion Family History Mother Alzheimer disease Father Stroke Social History Smoking/Tobacco Use Status: Never Smoking risk assessment performed?: Yes Alcohol Intake: never Drug use: Never Substance use type: does not use Household members: spouse Housing: house Current gender identity: female Do you feel safe at home: Yes Do you feel safe in your relationship?: Yes Additional Social history: She was born in [place]. 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 She is to her second Demarco (since ~1989?). She has 2 stepsons. She drinks one glass of wine per week. Exam Narrative Exam Narrative: GEN: awake, alert, oriented 3. Pleasant, well groomed, interactive. HEAD: Normocephalic, atraumatic ENT: Mucous membranes moist, External ear exam unremarkable EYES: PERRL, EOMI NECK: Full ROM, no RAEGAN, no menigismus CHEST/RESP: Nontender, clear to auscultation bilateral, no wheeze/rhonchi/rales CARDIOVASCULAR: RRR, no murmur, rub joseline. 2+ Rad pulse bilateral ABDOMEN: Soft, nontender, no mass. +Bowel sounds EXT: Tenderness right mid to distal femur. Patient's demonstrates 5 out of 5 motor function of the lower extremity. Sensation is intact throughout. Neuro: Grossly normal neurologic exam, conversant, interactive. Psych: Speech fluent, thoughts congruent, affect normal Course Vital Signs Vital signs: Vital Signs Temperature 36.8 C 07/25/22 15:36 Pulse 79 07/25/22 15:36 Respiratory Rate 18 07/25/22 15:36 Blood Pressure 137/62 07/25/22 15:36 Pulse Oximetry 97 07/25/22 15:36 Temperature 36.8 C 07/25/22 15:36 Temperature Source Temporal Artery Scan 07/25/22 15:36 Pulse 79 07/25/22 15:36 Respiratory Rate 18 07/25/22 15:36 Blood Pressure 137/62 07/25/22 15:36 Blood Pressure Position Supine 07/25/22 15:36 Pulse Oximetry 97 07/25/22 15:36 Oxygen Delivery Method Room Air 07/25/22 15:36 Oxygen Flow Rate 0 07/25/22 15:36 Pain Level 6 07/25/22 15:36
--- NOTE | 2022-07-25 16:15 | RT.EKG_ITS ---
APPROVED REPORT Exam: Resting ECG Reason for Exam: Hip fracture, pain Patient Location: E HR:72 bpm ECG Measurements Heart Rate 72 AXIS MA 142 P 28 QRSd 83 QRS -30 QT 397 T 79 QTc 436 Conclusion Sinus rhythm
[2022-07-25] MEDS: Acetaminophen 500 MG TAB 1000 MG PO ×2 (16:16→23:14)
--- NOTE | 2022-07-25 16:59 | W.PM.HP.N ---
Date of service: 07/25/22 Time of Service: 16:59 Assessment and Plan Assessment and plan (1) Closed right hip fracture: Status: Acute Assessment and plan: C/s orthopedic surgery. C/s anesthesia for a regional nerve block. Andrade. Encourage pulmonary toilet. Pain control: scheduled tylenol, prn ultram and morphine. NPO after midnight. (2) Type 2 diabetes mellitus: Status: Chronic Assessment and plan: Hold oral medications. Cover with SSI. (3) H/O TIA (transient ischemic attack) and stroke: Status: Chronic Assessment and plan: On plavix. Hold in anticipation of surgery. (4) Anemia, iron deficiency: Assessment and plan: Will monitor H/H cecelia/post-operatively (5) DVT prophylaxis: Status: Acute Assessment and plan: SC heparin in anticipation of surgery (6) Discharge planning issues: Status: Acute Assessment and plan: Full code History of Present Illness History of Present Illness Chief Complaint: Fall, hip pain Narrative: Ms Kumar is an 81 year old female with PMHx of NIDDM2 with neuropathy, TIAs on plavix, anemia, depression, who had sustained a mechanical fall today while in her garden when trying to catch a fly-away napkin and suffered a subcapital fracture of the right proximal femur. Hospitalist admission was requested in anticipation of surgery tomorrow morning. Review of Systems All systems reviewed & are unremarkable except as noted in HPI and below PFSH All Active Problems (Updated 07/25/22 @ 20:12 by Karen Ferreira MD) H/O TIA (transient ischemic attack) and stroke (Chronic) Discharge planning issues (Acute) DVT prophylaxis (Acute) Closed right hip fracture (Acute) Mild cognitive impairment (Acute) Periprosthetic fracture around internal prosthetic left knee joint, initial encounter (Acute 07/28/19) S/P ORIF 07/28/2019 Peripheral neuropathy (Acute) Monocular diplopia of both eyes (Acute) Femur fracture, left (Acute) S/p total knee replacement, bilateral (Acute) History of cataract extraction (Chronic) [place] [facility] [place] by increased IOP S/P rotator cuff repair (Chronic) 2016 History of ankle surgery (Chronic) H/O toe surgery (Chronic) Fracture of left hip requiring operative repair (Chronic) 2011 Status post lumbar spine surgery for decompression of spinal cord (Chronic) L4-S1 decompression and fusion; 2000 H/O: hysterectomy (Chronic) S/P dilatation and curettage (Chronic) H/O total knee replacement (Chronic) Urinary frequency (Chronic) Type 2 diabetes mellitus (Chronic) Insomnia (Chronic) TIA (transient ischemic attack) (Chronic) GERD (gastroesophageal reflux disease) (Chronic) Fibromyalgia (Chronic) Depression (Chronic) Low back pain (Chronic) Lumbar stenosis without neurogenic claudication (Chronic) 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) Medical History Anemia, iron deficiency Dysphagia Hiatal hernia Hypertension Macrocytosis Osteopenia Skin lesion Family History Mother Alzheimer disease Father Stroke Social History Smoking/Tobacco Use Status: Never Smoking risk assessment performed?: Yes Alcohol Intake: never Drug use: Never Substance use type: does not use Household members: spouse Housing: house Current gender identity: female Do you feel safe at home: Yes Do you feel safe in your relationship?: Yes Additional Social history: She was born in [place]. 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 She is to her second Demarco (since ~1989?). She has 2 stepsons. She drinks one glass of wine per week. Meds Allergies and Home Medications Allergies Allergy/AdvReac Type Severity Reaction Status Date / Time Penicillins AdvReac Intermediate Skin Rash Verified 11/28/21 13:14 Home Medications Medication Instructions Recorded Confirmed Type albuterol sulfate 90 mcg/actuation 2 puff inhalation PRN PRN 11/13/15 07/25/22 History aerosol inhaler (ProAir HFA) clopidogrel 75 mg tablet (Plavix) 75 mg PO HS 11/13/15 07/25/22 History calcium carbonate 600 mg-vitamin 1 ea PO DAILY 02/26/16 07/25/22 History D3 5 mcg (200 unit) tablet pantoprazole 20 mg tablet,delayed 40 mg PO BID 04/03/17 07/25/22 History release (Protonix) atorvastatin 10 mg tablet (Lipitor) 10 mg PO QPM #30 tabs 12/07/17 07/25/22 Rx docusate sodium 100 mg capsule 100 mg PO BID 07/08/18 07/25/22 History duloxetine 30 mg capsule,delayed 30 mg PO DAILY 07/28/19 07/25/22 History release (Cymbalta) tramadol 50 mg tablet 50 mg PO TID PRN 11/03/19 07/25/22 History acetaminophen 650 mg 650 mg PO Q12H 11/15/19 07/25/22 History tablet,extended release lactobacillus comb no.10 20 30,000 cell PO DAILY 11/15/19 07/25/22 History billion cell capsule (Probiotic) metformin 500 mg tablet 1,000 mg PO BID 03/20/20 07/25/22 History celecoxib 200 mg capsule (Celebrex) 200 mg PO .qod 11/13/20 07/25/22 History duloxetine 30 mg capsule,delayed 60 mg PO DAILY 11/13/20 07/25/22 History release (Cymbalta) magnesium oxide 500 mg PO DAILY 11/13/20 07/25/22 History mirtazapine 15 mg tablet 15 mg PO DAILY 11/13/20 07/25/22 History dapagliflozin 5 mg tablet (Farxiga) 5 mg PO DAILY 11/28/21 07/25/22 History Exam Narrative Exam Narrative: General: Pleasant elderly female who appears to be relatively comfortable laying flat in bed Neurological: A&Ox3, no focal deficits Psychiatric: Appropriate speech pattern/content Skin: Visible skin intact HEENT: Atraumatic, normocephalic, EOMI, MMM, clear oropharynx, no submandibular or cervical lymphadenopathy, no goiter or JVD Cardiovascular: RRR, no m/r/g Lungs: CTAB Gastrointestinal: soft, nontender, nondistended Genitourinary: has a andrade Extremities: shortened and externally rotated RLE; +1 pedal pulses B, no lesions on B feet Results Imaging Additional studies: XR R hip/femur; Subcapital fracture of the right proximal femur. CXR: official read pending. Per my read, normal. EKG: HR 72, NSR, no acute ischemia Labs Result diagrams: 07/25/22 16:53 07/25/22 16:53 Last Vital Signs Temp 36.8 C 07/25/22 15:36 Pulse 79 07/25/22 15:36 Resp 18 07/25/22 15:36 BP 137/62 07/25/22 15:36 Pulse Ox 97 07/25/22 15:36
[2022-07-25 17:01] LABS: Abs Immature Grans 0.06 10^3/uL (0.0-0.06); Absolute Basophil Count 0.04 10^3/uL (0.0-0.2); Absolute Eosinophil Count 0.19 10^3/uL (0.0-0.7); Absolute Monocyte Count 0.57 10^3/uL (0.1-0.8); Absolute Neutrophil Count 5.37 10^3/uL (1.2-6.7); Basophils % 0.5; Eosinophils % 2.4; HCT 38.2 % (36.0-46.0); HGB 12.1 g/dL (11.2-15.7); Immature Grans % 0.8; Lymphocytes % 20.4; MCH 31.9 pg (27.0-33.0); MCHC 31.7 % (32.0-36.0); MCV 101 fL (80-95); MPV 10.3 fL (8.0-11.0); Monocytes % 7.3; Neutrophils % 68.6; Platelet Count 211 10^3/uL (130-400); RBC 3.79 10^6/uL (3.93-5.22); RDW 13.6 % (11.7-14.6); RDW-SD 50.4 fL; WBC 7.83 10^3/uL (4.4-10.8)
[2022-07-25 17:19] LABS: ALT 29 U/L (14-59); AST 16 U/L (15-37); Albumin 3.8 g/dL (3.4-5.0); Alkaline Phosphatase 81 U/L (46-116); Anion Gap 10.8 mmol/L (3-11); BUN 36 mg/dL (7-18); Bilirubin, Total 0.1 mg/dL (0.2-1.0); CO2 26.2 mmol/L (21.0-32.0); CREATININE 1.3 mg/dL (0.55-1.02); Calcium 9.7 mg/dL (8.5-10.1); Chloride 102 mmol/L (98-107); Estimated GFR 41.06 (mL/min/1.73m2); Glucose 143 mg/dL (74-106); Potassium 4.5 mmol/L (3.5-5.1); Sodium 139 mmol/L (136-145); Total Protein 7.9 g/dL (6.4-8.2)
[2022-07-25] MEDS: traMADol 50 MG TAB PO ×2 (17:24→23:16)
[2022-07-25 17:50] LABS: Source Nasal/Nares
[2022-07-25 18:10] VITALS: BP 132/78; PULSE 80; RESP 18; TEMP 37; O2SAT 98
[2022-07-25 18:15] VITALS: BP 129/66; PULSE 73; RESP 18; TEMP 36.5; O2SAT 97
[2022-07-25 18:22] LABS: COVID-19 PCR Negative (Negative)
[2022-07-25 18:26] VITALS: BP 129/66; PULSE 73; RESP 15; TEMP 36.5; O2SAT 97
--- NOTE | 2022-07-25 18:27 | NUR.NOTE ---
Nursing Note: Admitted from ER due to fall at dinner, A?O x4, pleasant, pain on movement, slid over to bed from stretcher using hover mat, tolerated well, andrade intact, patent, draining clear yellow urine. VSS. tolerating clear liquids at this time
--- NOTE | 2022-07-25 19:51 | DI.VRAD_ITS ---
PROCEDURE INFORMATION: Exam: XR Chest Exam date and time: 07/25/2022 7:08 PM Age: 81 years old Clinical indication: Screening exam; Pre-operative exam; Other: FX hip TECHNIQUE: Imaging protocol: Radiologic exam of the chest. Views: 1 view. COMPARISON: XR CHEST 1V IN DI DEPT 07/28/2019 2:03 AM FINDINGS: Lungs: Clear lungs Pleural spaces: clear pleural space. Heart/Mediastinum: Normal heart size. Bones/joints: Degenerative thoracic spine changes. Previous right shoulder rotator cuff reattachment surgery. IMPRESSION: 1. Clear lungs and pleural space. 2. Degenerative thoracic spine. 3. Previous right shoulder rotator cuff reattachment surgery. Dictated and Authenticated by: Lenny Miranda MD. Ordering:ESTELLE Jones MD
[2022-07-25] MEDS: Heparin 5,000 UNITS/ML VIAL 5000 UNITS SC (20:03)
[2022-07-25] MEDS: Docusate Sodium 100 MG CAP PO (20:04)
[2022-07-25] MEDS: Atorvastatin 10 MG TAB PO (20:04)
[2022-07-25] MEDS: Normal Saline Flush 10 ML SYR IVP (20:04)
[2022-07-25] MEDS: Pantoprazole 20 MG TABCR 40 MG PO (20:10)
[2022-07-25] MEDS: MORPHine 2 MG/ML SYR IVP (20:11)
--- NOTE | 2022-07-25 21:34 | OCONE_ITS ---
Date of service: 07/25/22 Time of Service: 18:30 History of Present Illness History of Present Illness Chief Complaint: Right Hip Pain Narrative: Tracey is an 81-year-old active female who fell earlier today. It was mechanical fall she denies any lightheadedness or loss of consciousness. She does use a cane at her baseline due to issues with the left leg, status post distal femoral periprosthetic fracture which eventually required distal femoral replacement. She fell directly onto the right side. She had immediate pain. She tried to stand up and had pain and then at that point decided to seek care. She was seen in the emergency department and diagnosed with an impacted, subcapital femoral neck fracture of the right side. She denies any numbness or tingling. She reports minimal pain if not moving. She denies any premorbid right hip pain. She does report some baseline peripheral neuropathy and numbness in her feet. S he also has had a knee replacement on the right side which was complicated by infection with multiple procedures but according to x-rays at least no secondary revision. She is on no suppressive antibiotics. Consults Consult date: 07/25/22 Requesting physician: Leonardo Mckenzie Consult Reason Right femoral neck fracture Assessment and Plan Assessment and plan (1) Closed right hip fracture: Status: Acute Assessment and plan: Aster is a 81-year-old active female who has a valgus impacted femoral neck fracture, Garden 1. There may be some subtle signs of early arthritis on the right hip. However, she denies any significant premorbid pain. I am concerned about the fracture fragments which are adjacent to the femoral neck but I do not see any significant angulation. In reviewing the literature posterior angulation is a poor prognostic indicator for success with cannulated screw fixation but otherwise she theoretically could be treated with cannulated screws. This is her dominant leg and therefore we want to try to avoid any potential complication or need for further intervention. However, with a history of periprosthetic fracture of the left distal femur and the infection on the right knee I think less may be more. My plan would be to move forward with cannulated screw fixation of the right hip. However, I would thoroughly evaluate this on the fracture table to ensure there is no sign of posterior angulation, increased displacement, or fragmentation of the femoral head. If none of that is present I will proceed with cannulated screw fixation. However, if any of those poor prognostic indicators are visible on the x-rays on the fracture table then I would proceed to an anterior hip replaced. I discussed both these options with Aster. She is agreeable to both and just wants the hip fixed so that she may be able to ambulate and go home. I discussed the risk of both procedures. I reviewed these in detail to include bleeding, infection, pain, stiffness, shortening or malunion, hardware prominence, heart failure, hardware loosening, dislocation, instability, weakness, damage nerves and vessels, blood clot. Despite these risk, she elects to proceed. Review of Systems All systems reviewed & are unremarkable except as noted in HPI and below PFSH All Active Problems H/O TIA (transient ischemic attack) and stroke (Chronic) Discharge planning issues (Acute) DVT prophylaxis (Acute) Closed right hip fracture (Acute) Mild cognitive impairment (Acute) Periprosthetic fracture around internal prosthetic left knee joint, initial encounter (Acute 07/28/19) S/P ORIF 07/28/2019 Peripheral neuropathy (Acute) Monocular diplopia of both eyes (Acute) Femur fracture, left (Acute) S/p total knee replacement, bilateral (Acute) History of cataract extraction (Chronic) May 2018 at [facility] [place], complicated by increased IOP S/P rotator cuff repair (Chronic) 2016 History of ankle surgery (Chronic) H/O toe surgery (Chronic) Fracture of left hip requiring operative repair (Chronic) 2011 Status post lumbar spine surgery for decompression of spinal cord (Chronic) L4-S1 decompression and fusion; 2000 H/O: hysterectomy (Chronic) S/P dilatation and curettage (Chronic) H/O total knee replacement (Chronic) Urinary frequency (Chronic) Type 2 diabetes mellitus (Chronic) Insomnia (Chronic) TIA (transient ischemic attack) (Chronic) GERD (gastroesophageal reflux disease) (Chronic) Fibromyalgia (Chronic) Depression (Chronic) Low back pain (Chronic) Lumbar stenosis without neurogenic claudication (Chronic) 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) Medical History Anemia, iron deficiency Dysphagia Hiatal hernia Hypertension Macrocytosis Osteopenia Skin lesion Family History Mother Alzheimer disease Father Stroke Social History Smoking/Tobacco Use Status: Never Smoking risk assessment performed?: Yes Alcohol Intake: never Drug use: Never Substance use type: does not use Household members: spouse Housing: house Current gender identity: female Do you feel safe at home: Yes Do you feel safe in your relationship?: Yes Additional Social history: She was born in [place]. 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 She is to her second Demarco (since ~1989?). She has 2 stepsons. She drinks one glass of wine per week. Exam Narrative Exam Narrative: Supine in the hospital bed. No acute distress. Alert and oriented x3. Right leg shows some mild external rotation. No significant shortening. There are no overlying skin abrasions or lacerations about the right leg. No ecchymosis. No significant swelling. She is able to tolerate some internal and external rotation of the right hip with minimal pain except for the extremes. Further range of motion testing was not performed. She does have sensitivity along the IT band down the lateral aspect of the right thigh. However, manipulation of the distal femur does not necessarily cause her any pain. She is able to actively flex and extend the toes and ankle without limitation. She does report dysesthesias of the feet. No pain to palpation of the knee with a well-healed incision about the midline of the right knee. Results Labs Result diagrams: 07/26/22 05:31 07/26/22 05:31 Labs: Laboratory Results - last 24 hr 07/25/22 07/25/22 07/25/22 16:53 16:53 16:53 WBC 7.83 RBC 3.79 L Hgb 12.1 Hct 38.2 MCV 101 H MCH 31.9 MCHC 31.7 L RDW 13.6 Plt Count 211 MPV 10.3 Immature Gran % 0.8 Neutrophils % 68.6 Lymphocytes % 20.4 Monocytes % 7.3 Eosinophils % 2.4 Basophils % 0.5 Nucleated RBC % 0.0 Absolute Neutrophils 5.37 Absolute Lymphocytes 1.60 Absolute Monocytes 0.57 Absolute Eosinophils 0.19 Absolute Basophils 0.04 Sodium 139 Potassium 4.5 Chloride 102 Carbon Dioxide 26.2 Anion Gap 10.8 BUN 36 H Creatinine 1.3 H Est GFR (CKD-EPI 2020) 41.06 Glucose 143 H Calcium 9.7 Magnesium Total Bilirubin 0.1 L AST 16 ALT 29 Alkaline Phosphatase 81 Total Protein 7.9 Albumin 3.8 COVID-19 Source SARS-CoV-2 (PCR) Patient ABO/Rh O Positive Antibody Screen NEGATIVE 07/25/22 17:45 WBC RBC Hgb Hct MCV MCH MCHC RDW Plt Count MPV Immature Gran % Neutrophils % Lymphocytes % Monocytes % Eosinophils % Basophils % Nucleated RBC % Absolute Neutrophils Absolute Lymphocytes Absolute Monocytes Absolute Eosinophils Absolute Basophils Sodium Potassium Chloride Carbon Dioxide Anion Gap BUN Creatinine Est GFR (CKD-EPI 2020) Glucose Calcium Magnesium Total Bilirubin AST ALT Alkaline Phosphatase Total Protein Albumin COVID-19 Source Nasal/Nares SARS-CoV-2 (PCR) Negative Patient ABO/Rh Antibody Screen Imaging Imaging Studies: X-ray of the right femur and pelvis reviewed. This demonstrates an valgus impacted subcapital femoral neck fracture on the right side. There is no appreciable angulation in the lateral view to suggest posterior rolloff. There is some fragmentation seen from the shortening in the periphery of the femoral neck. The fracture appears to exit obliquely through the midportion of the femoral neck. She has significant valgus angles to both hips. Previous fixation of the left hip fracture is seen on the left side.
[2022-07-25 23:25] VITALS: BP 133/69; PULSE 86; RESP 16; TEMP 36.6; O2SAT 94
[2022-07-26] VITALS (15 sets, daily range): BP systolic 105–170; BP diastolic 54–77; PULSE 71–85; RESP 12–18; TEMP 36.4–37; O2SAT 92–97; BMI 24.3
[2022-07-26] MEDS: MORPHine 2 MG/ML SYR IVP (06:19)
[2022-07-26] MEDS: Normal Saline Flush 10 ML SYR IVP ×3 (06:19→12:05)
[2022-07-26 06:41] LABS: Abs Immature Grans 0.02 10^3/uL (0.0-0.06); Absolute Basophil Count 0.05 10^3/uL (0.0-0.2); Absolute Eosinophil Count 0.27 10^3/uL (0.0-0.7); Absolute Lymphocyte Count 1.73 10^3/uL (1.2-3.4); Absolute Monocyte Count 0.64 10^3/uL (0.1-0.8); Absolute Neutrophil Count 4.15 10^3/uL (1.2-6.7); Basophils % 0.7; Eosinophils % 3.9; HCT 34.9 % (36.0-46.0); HGB 11.1 g/dL (11.2-15.7); Immature Grans % 0.3; Lymphocytes % 25.2; MCH 31.4 pg (27.0-33.0); MCHC 31.8 % (32.0-36.0); MCV 99 fL (80-95); MPV 10.4 fL (8.0-11.0); Monocytes % 9.3; Neutrophils % 60.6; Platelet Count 188 10^3/uL (130-400); RBC 3.54 10^6/uL (3.93-5.22); RDW 13.4 % (11.7-14.6); RDW-SD 48.7 fL; WBC 6.86 10^3/uL (4.4-10.8)
[2022-07-26 06:57] LABS: Anion Gap 10.1 mmol/L (3-11); BUN 32 mg/dL (7-18); CO2 24.9 mmol/L (21.0-32.0); CREATININE 1.1 mg/dL (0.55-1.02); Calcium 9.4 mg/dL (8.5-10.1); Chloride 101 mmol/L (98-107); Estimated GFR 50.17 (mL/min/1.73m2); Glucose 128 mg/dL (74-106); Magnesium 2.3 mg/dL (1.8-2.4); Potassium 4.5 mmol/L (3.5-5.1); Sodium 136 mmol/L (136-145)
--- NOTE | 2022-07-26 07:15 | DI.RAD_ITS ---
Exam(s) XR HIP RT IN OR EXAM: XR HIP RT IN OR CLINICAL HISTORY: RIGHT HIP FRACTURE TECHNIQUE: 2D and realtime digital imaging was performed. COMPARISON: CR XR HIP RT COMPLETE AP PELVIS from 07/25/2022 CR XR FEMUR RT from 07/25/2022 FINDINGS: C-arm fluoroscopy was utilized by Dr. Hathaway during open reduction and internal fixation of right f emoral fracture. Hard copy shows 3 lag screws transfixing the fracture fragments. IMPRESSION: RADIATION DOSE DELIVERED: victorino Curtis=6.59 mGy
--- NOTE | 2022-07-26 07:17 | W.ANESPRE ---
General Info Date of Service Date Performed: 07/26/22 Height: 5 ft 4 in Weight: 64.4 kg Body Mass Index (BMI): 24.3 Surgical Procedure: Operation Date: 07/26/22 08:00 Proposed Procedure Side Surgeon p Hip Cannulated Fx Right Omar Hathaway MD Meds Allergies and Home Medications Allergies Allergy/AdvReac Type Severity Reaction Status Date / Time Penicillins AdvReac Intermediate Skin Rash Verified 11/28/21 13:14 Home Medication Medication Instructions Recorded albuterol sulfate 90 mcg/actuation 2 puff inhalation PRN PRN 11/13/15 aerosol inhaler (ProAir HFA) clopidogrel 75 mg tablet (Plavix) 75 mg PO HS 11/13/15 calcium carbonate 600 mg-vitamin 1 ea PO DAILY 02/26/16 D3 5 mcg (200 unit) tablet pantoprazole 20 mg tablet,delayed 40 mg PO BID 04/03/17 release (Protonix) atorvastatin 10 mg tablet (Lipitor) 10 mg PO QPM #30 tabs 12/07/17 docusate sodium 100 mg capsule 100 mg PO BID 07/08/18 duloxetine 30 mg capsule,delayed 30 mg PO DAILY 07/28/19 release (Cymbalta) tramadol 50 mg tablet 50 mg PO TID PRN 11/03/19 acetaminophen 650 mg 650 mg PO Q12H 11/15/19 tablet,extended release lactobacillus comb no.10 20 30,000 cell PO DAILY 11/15/19 billion cell capsule (Probiotic) metformin 500 mg tablet 1,000 mg PO BID 03/20/20 celecoxib 200 mg capsule (Celebrex) 200 mg PO .qod 11/13/20 duloxetine 30 mg capsule,delayed 60 mg PO DAILY 11/13/20 release (Cymbalta) magnesium oxide 500 mg PO DAILY 11/13/20 mirtazapine 15 mg tablet 15 mg PO DAILY 11/13/20 dapagliflozin 5 mg tablet (Farxiga) 5 mg PO DAILY 11/28/21 Current Visit Medications: Current Medications Generic Name Dose Route Start Last Admin Trade Name Freq PRN Reason Stop Dose Admin Acetaminophen 1,000 mg 07/26/22 00:00 07/25/22 23:14 Acetaminophen 500 Mg Tab PO 1,000 mg Q8H DALE Administration Acidophilus/Pectin 1 cap 07/26/22 08:30 Lactobacillus Acidophilus Cap PO DAILY DALE Al Hydrox/Mg Hydrox/Simethicone 30 ml 07/25/22 16:54 Mylanta Suspension 30 Ml Cup PO Q2H PRN PRN Albuterol Sulfate 2 puff 07/25/22 19:49 Albuterol Hfa 8 Gm 60 Puff Inh IH PRN PRN Atorvastatin Calcium 10 mg 07/25/22 20:00 07/25/22 20:04 Atorvastatin 10 Mg Tab PO 10 mg QPM DALE Administration Calcium/Vitamin D 1 tab 07/26/22 08:30 Calcium 600mg/Vit D 200u Tab PO DAILY [facility] Celecoxib 200 mg 07/26/22 08:30 Celecoxib 200 Mg Cap PO DAILY [facility] Device 1 each 07/25/22 20:00 Inhaler, Assist Device MC DIRECTED [facility] Dextrose 0 gm 07/25/22 16:57 Glucose 40% Oral Solution 15 Gm/37.5 Gm Tube PO DIRECTED PRN Dextrose/Water 0 gm 07/25/22 16:57 Dextrose 50%-Water 25 Gm/50 Ml Syr IVP DIRECTED PRN Dimethicone/Zinc Oxide 0 gm 07/25/22 16:54 John Protect Cream 142 Gm Tube TP PRN PRN Docusate Sodium 100 mg 07/25/22 16:54 Docusate Sodium 100 Mg Cap PO TID PRN PRN Docusate Sodium 100 mg 07/25/22 20:00 07/25/22 20:04 Docusate Sodium 100 Mg Cap PO 100 mg BID DALE Administration Duloxetine HCl 90 mg 07/26/22 08:30 Duloxetine 30 Mg Cap PO DAILY [facility] Heparin Sodium (Porcine) 5,000 units 07/25/22 20:00 07/25/22 20:03 Heparin 5,000 Units/Ml Vial SC 5,000 units Q8H DALE Administration Sodium Chloride 500 mls @ 0 mls/hr 07/25/22 16:54 Saline 500ml Bag IV PRN PRN As Directed Tranexamic Acid 1,000 mg/ 60 mls @ 360 mls/hr 07/26/22 06:00 Sodium Chloride IVPB PREOP [facility] Cefazolin Sodium/Dextrose 2 gm in 50 mls @ 100 mls/hr 07/26/22 06:00 Ancef Duplex IVPB PREOP [facility] IV Miscellaneous Supplies 1 each 07/25/22 17:00 Iv Access IV DIRECTED [facility] Insulin Aspart 0 units 07/25/22 17:00 07/25/22 21:33 Insulin Aspart 300 Units/3 Ml Pen SC Not Given 0800,1200,1700,2200 [facility] Protocol Magnesium Hydroxide 30 ml 07/25/22 16:54 Milk Of Magnesia 30 Ml Cup PO DAILY PRN PRN Mirtazapine 15 mg 07/26/22 08:30 Mirtazapine 15 Mg Tab PO DAILY DALE Morphine Sulfate 2 mg 07/25/22 19:48 07/26/22 06:19 Morphine 2 Mg/Ml Syr IVP 2 mg Q4H PRN PRN Administration Non-Formulary Medication 650 mg 07/25/22 20:00 Acetaminophen PO Q12H DALE Non-Formulary Medication 500 mg 07/26/22 08:30 Magnesium Oxide PO DAILY DALE Pantoprazole Sodium 40 mg 07/25/22 20:00 07/25/22 20:10 Pantoprazole 20 Mg Tabcr PO 40 mg BID DALE Administration Sodium Chloride 0 ml 07/25/22 16:54 07/26/22 06:19 Normal Saline Flush 10 Ml Syr IVP 10 ml PRN PRN Administration Tramadol HCl 50 mg 07/25/22 19:49 07/25/22 23:16 Tramadol 50 Mg Tab PO 50 mg TID PRN PRN Administration PFSH Active Problems Active Problems: Problem Status Onset Code H/O TIA (transient ischemic attack) and stroke Z86.73 Discharge planning issues Z02.9 DVT prophylaxis Z29.9 Closed right hip fracture S72.001A Mild cognitive impairment G31.84 Periprosthetic fracture around internal prosthetic left knee joint, initial encounter 07/28/19 M97.12XA Peripheral neuropathy G62.9 Monocular diplopia of both eyes H53.2 Femur fracture, left S72.92XA S/p total knee replacement, 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 History of cataract extraction Z98.49 S/P rotator cuff repair Z98.890 History of ankle surgery Z98.890 H/O toe surgery Z98.890 Fracture of left hip requiring operative repair S72.002A Status post lumbar spine surgery for decompression of spinal cord Z98.890 H/O: hysterectomy Z90.710 S/P dilatation and curettage Z98.890 H/O total knee replacement Z96.659 Urinary frequency R35.0 Type 2 diabetes mellitus E11.9 Insomnia G47.00 TIA (transient ischemic attack) G45.9 GERD (gastroesophageal reflux disease) K21.9 Fibromyalgia M79.7 Depression F32.9 Low back pain M54.5 Lumbar stenosis without neurogenic claudication M48.061 Replacement of total knee joint 11/21/15 Sensorineural hearing loss, bilateral 11/27/16 H90.3 Restless leg syndrome 08/11/17 G25.81 Osteoarthritis of knee 10/06/13 M17.10 Migraine without aura and without status migrainosus, not intractable 06/15/17 G43.009 Memory loss 06/24/16 R41.3 Idiopathic peripheral neuropathy 06/24/16 G60.9 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 M51.24 Medical History Medical History Anemia, iron deficiency Dysphagia Hiatal hernia Hypertension Macrocytosis Osteopenia Skin lesion Tobacco Smoking/Tobacco Use Status: Never Alcohol Alcohol Intake: never Substance Use Substance use: Never Substance use type: does not use Vital Signs and Lab Results Vital Signs Most Recent Vital Signs in EMR: Most Recent Vital Signs Temp Pulse Resp BP Pulse Ox 37 C 79 16 132/73 94 07/26/22 06:35 07/26/22 06:35 07/26/22 06:35 07/26/22 06:35 07/26/22 06:35 Point of Care Results Point of Care Results: Finger Stick Blood Glucose 139 07/25/22 21:33 Lab Results Result Diagrams: 07/26/22 05:31 07/26/22 05:31 Blood Type / Crossmatch: Patient ABO/Rh O Positive 07/25/22 Antibody Screen NEGATIVE 07/25/22 Complete Blood Count: White Blood Count 6.86 10^3/uL (4.4-10.8) 07/26/22 05:31 Red Blood Count 3.54 10^6/uL (3.93-5.22) L 07/26/22 05:31 Hemoglobin 11.1 g/dL (11.2-15.7) L 07/26/22 05:31 Hematocrit 34.9 % (36.0-46.0) L 07/26/22 05:31 Platelet Count 188 10^3/uL (130-400) 07/26/22 05:31 Complete Metabolic Panel: Sodium Level 136 mmol/L (136-145) 07/26/22 05:31 Potassium Level 4.5 mmol/L (3.5-5.1) 07/26/22 05:31 Chloride Level 101 mmol/L (98-107) 07/26/22 05:31 Carbon Dioxide Level 24.9 mmol/L (21.0-32.0) 07/26/22 05:31 Blood Urea Nitrogen 32 mg/dL (7-18) H 07/26/22 05:31 Creatinine 1.1 mg/dL (0.55-1.02) H 07/26/22 05:31 Magnesium Level 2.3 mg/dL (1.8-2.4) 07/26/22 05:31 Calcium Level 9.4 mg/dL (8.5-10.1) 07/26/22 05:31 Albumin 3.8 g/dL (3.4-5.0) 07/25/22 16:53 Glucose Level 128 mg/dL (74-106) H 07/26/22 05:31 Liver Function Panel: Alanine Aminotransferase (ALT/SGPT) 29 U/L (14-59) 07/25/22 16:53 Aspartate Amino Transf (AST/SGOT) 16 U/L (15-37) 07/25/22 16:53 Coagulation Panel: No Data to Display Cardiac Panel: No Data to Display Arterial Blood Gas: No Data to Display Venous Blood Gas: No Data to Display Pancreas Panel: No Data to Display Thyroid Panel: No Data to Display Infectious Disease: Coronavirus (COVID-19)(PCR) Negative (Negative) 07/25/22 17:45 Coronavirus 2019 Source Nasal/Nares 07/25/22 17:45 Blood Cultures: No Data to Display Toxicology Panel: No Data to Display Imaging and Studies Imaging and Studies Study information below may be from another EMR and interpreted by another provider. Please see original notes in EMR for more complete details. EKG Summary: 07/25/2022: Exam: Resting ECG Reason for Exam: Hip fracture, pain Patient Location: E HR:72 bpm ECG Measurements Heart Rate 72 AXIS KS 142 P 28 QRSd 83 QRS -30 QT 397 T79 QTc 436 Conclusion Sinus rhythm Echocardiogram Summary: 04/23/2017: *STUDY CONCLUSIONS* Summary: 1. Left ventricle: The cavity size was normal. Wall thickness was increased in a pattern of mild LVH. Systolic function was hyperdynamic. The estimated ejection fraction was 65-70%. Wall motion was normal; there were no regional wall motion abnormalities. The outflow tract showed mild obstruction, 36 mmHg rest, 38 mmHg valsava. 2. Aortic valve: There was mild regurgitation. 3. Right ventricle: The cavity size was normal. Wall thickness was normal. Systolic function was normal. 4. Atrial septum: No defect or patent foramen ovale was identified. 5. Pulmonary arteries: Pulmonary systolic pressure was in the range of 20mm Hg to 30mm Hg. 6. Inferior vena cava: The vessel was normal in size. The respirophasic diameter changes were in the normal range (greater than or equal to 50%), consistent with normal central venous pressure. Carotid Artery Summary:: 06/23/2017: Exam(s) [id number] US:Carotid SYMPTOMS/DIAGNOSIS: RIGHT VISION LOSS, H53.121, TRANSIENT VISUAL LOSS, SHADE DRAWN OVER EYE, ? AMAUROSIS FUGAX CAROTID ULTRASOUND: A mild amount of calcific plaque is seen in the distal right common carotid artery and common carotid bulb. Minimal plaque is visible in the left common carotid bulb. The velocity measurements in the internal and common carotid arteries are within the normal range. There is mildly elevated systolic velocity in both external carotid arteries. The vertebral arteries show antegrade flow. IMPRESSION: Mild plaque in the common carotid bulbs. No significant internal carotid artery stenosis. Anesthesia Assessment and Plan Anesthesia History Personal History: No History of Anesthesia Complications Family History: No Family History of Anesthesia Complications Exercise Tolerance Exercise Tolerance: Metabolic Equivalents>4 Pertinent Negatives Pertinent Negatives: No Symptoms of GERD Cardiac & Pulmonary Exam Cardiac Exam: Normal S1/S2 Heart Sounds Pulmonary Exam: Clear Bilateral Breath Sounds Implantable Cardiac Device Does patient have a Pacemaker or an ICD?: No Airway Exam Known Difficult Airway: No Mallampati Class: 3 Mouth Opening: Narrow (< 3cm) Thyromental Distance: Greater than 3 cm Neck Range of Motion: Full ROM Neck Circumference: Normal Teeth Condition: Normal Dentition and Removable Dentures/Plates Lower ASA Classification ASA Score: ASA 3 Emergency Case?: Yes NPO Status NPO Status: NPO Clears >2 hours, Solids >8 hours Anesthesia Plan Resuscitation Status: Full Code Anesthesia Technique: General Anesthesia Airway Planned: Endotracheal Tube Monitors Used: Standard Monitors
--- NOTE | 2022-07-26 07:49 | PGE_ITS ---
Date of Service Date of service: 07/26/22 Time of Service: 07:20 Assessment and Plan Assessment and plan (1) Closed right hip fracture: Status: Acute Assessment and plan: Aster is an 81-year-old with a subcapital femoral neck fracture of the right side. Once again I reviewed the treatment plan with Aster. I recommend operative treatment and she agrees to proceed with this. I do think she is amenable to percutaneous cannulated screw fixation but it does have its risk, most notably would be a vast necrosis, shortening, worsening arthritis, all of which would need revision surgery. While this is her dominant side I am slightly reluctant to proceed straight to a total or Simon arthroplasty of the hip given her history of periprosthetic fracture as well as periprosthetic infection. Furthermore, her valgus angle of the hip makes caodaism of offset and leg length challenging, a difficulty which would not be present for cannulated screw fixation. I reviewed all this with her once again and she agrees to proceed with surgery today with the plan for cannulated screw fixation unless radiographic findings when she is positioned indicate that a replacement would be a better option. Consent for both procedures was obtained and we will proceed this morning for surgical fixation. Subjective Subjective Interval history since last seen: Tracey is doing well. She was able to rest some last night. She reports no significant change in her symptoms. She denies chest pain or shortness of breath. She is anxious to proceed with surgery. Exam Narrative Exam Narrative: Right leg is externally rotated. No other changes are seen. Pain with manipulation of the right hip. Objective Last Vital Signs Temp 37.0 C 07/26/22 07:28 Pulse 85 07/26/22 07:28 Resp 16 07/26/22 07:28 BP 125/77 07/26/22 07:28 Pulse Ox 93 07/26/22 07:28 Laboratory Results - last 24 hr 07/25/22 07/25/22 07/25/22 16:53 16:53 16:53 WBC 7.83 RBC 3.79 L Hgb 12.1 Hct 38.2 MCV 101 H MCH 31.9 MCHC 31.7 L RDW 13.6 Plt Count 211 MPV 10.3 Immature Gran % 0.8 Neutrophils % 68.6 Lymphocytes % 20.4 Monocytes % 7.3 Eosinophils % 2.4 Basophils % 0.5 Nucleated RBC % 0.0 Absolute Neutrophils 5.37 Absolute Lymphocytes 1.60 Absolute Monocytes 0.57 Absolute Eosinophils 0.19 Absolute Basophils 0.04 Sodium 139 Potassium 4.5 Chloride 102 Carbon Dioxide 26.2 Anion Gap 10.8 BUN 36 H Creatinine 1.3 H Est GFR (CKD-EPI 2020) 41.06 Glucose 143 H Calcium 9.7 Magnesium Total Bilirubin 0.1 L AST 16 ALT 29 Alkaline Phosphatase 81 Total Protein 7.9 Albumin 3.8 COVID-19 Source SARS-CoV-2 (PCR) Patient ABO/Rh O Positive Antibody Screen NEGATIVE 07/25/22 07/26/22 07/26/22 17:45 05:31 05:31 WBC 6.86 RBC 3.54 L Hgb 11.1 L Hct 34.9 L MCV 99 H MCH 31.4 MCHC 31.8 L RDW 13.4 Plt Count 188 MPV 10.4 Immature Gran % 0.3 Neutrophils % 60.6 Lymphocytes % 25.2 Monocytes % 9.3 Eosinophils % 3.9 Basophils % 0.7 Nucleated RBC % 0.0 Absolute Neutrophils 4.15 Absolute Lymphocytes 1.73 Absolute Monocytes 0.64 Absolute Eosinophils 0.27 Absolute Basophils 0.05 Sodium 136 Potassium 4.5 Chloride 101 Carbon Dioxide 24.9 Anion Gap 10.1 BUN 32 H Creatinine 1.1 H Est GFR (CKD-EPI 2020) 50.17 Glucose 128 H Calcium 9.4 Magnesium 2.3 Total Bilirubin AST ALT Alkaline Phosphatase Total Protein Albumin COVID-19 Source Nasal/Nares SARS-CoV-2 (PCR) Negative Patient ABO/Rh Antibody Screen
[2022-07-26] MEDS: Lactated Ringers 1,000 ML 30 ML IV (08:05)
--- NOTE | 2022-07-26 09:13 | W.PM.OP ---
Date of service: 07/26/22 Time of Service: 09:00 Operative Note Operative Note DATE OF PROCEDURE: 07/26/22 PRE-OP DIAGNOSIS: Right Femoral Neck Femur Fracture POST-OP DIAGNOSIS: same PROCEDURE: Cannulated Screw Fixation of Proximal Femur Fracture - RIGHT SURGEON: Oamr Hathaway TECHNICIAN SUPPORT [employer]IATION: Karley Gore Refer to Anesthesia Record ESTIMATED BLOOD LOSS: 10 PATHOLOGY: none sent COMPLICATIONS: None Patient was transported to: PACU Patient's condition: stable Implants: Synthes 7.3mm cannulated screws (x3) Indications: Aster is a 81 year old female who presented to the Emergency Department after a fall. X-rays confirmed the diagnosis of a femoral neck fracture of the proximal femur without significant displacement or comminution. I reviewed the possible treatment options and given the fracture of the femur, I recommended operative fixation. I discussed the technical details of the surgery. I reviewed the risks such as bleeding, infection, pain, stiffness, malunion, nonunion, hardware prominence, hardware faiilure, malrotation, avascular necrosis, blood clot. Despite these risks, she agreed to proceed. Findings: A femoral neck fracture was confirmed to be stable and thus secured with 3 7.3mm cannulated screws in a percutaneous fashion. Procedure Description: Aster was taken back to the operating room. A genearl anesthetic was administered. The feet were wrapped with cast padding and Coban and then placed into the boot liners and then into the boots. Care was taken to protect the skin and make sure the heels were fully down and the boots were stable. The patient was then positioned onto the HANA table. Both legs were held in a neutral position. SCDs were applied. The patient was then slid down onto a perineal post. The arm of the operative side was then placed across the chest and secured. The nonoperative leg was scissored. Fluoroscopy was utilized to evaluate the femoral neck fracture. It was confirmed to be of a stable variety without significant posterior rotation or angulation nor fragmentation. Prophylactic antibiotics in the form of Cefazolin were administered. The right leg was then prepped with Chloraprep and draped in a standard fashion with shower-curtain type drape with Iodine impregnated skin protection. A timeout to confirm correct identity, side and site, procedure, allergies, anesthesia, and medical concerns was performed. Using fluoroscopy, the starting point was marked over the lateral hip. The first pin was placed into a posterior?inferior position to form an inverted triangle. This was made sure to start proximal of the lesser trochanter. It was advanced into the femoral head and confirmed to be in a good position both on the AP and the lateral. 2 additional pins from the 7.3 mm cannulated system replaced, both superior, 1 anterior 1 posterior. These were once again confirmed to be in good position on fluoroscopy. They were advanced to the appropriate position in the path of the pin was cut with a knife. The pin length was measured and the lateral cortex was opened with a drill. The appropriate sized screws were then placed loosely. Once all 3 were in position I then proceeded circumferentially tightening each screw by 1 or 2 turns into each were tightened. These had excellent fixation. There is no screw penetration in the head and no penetration within the lateral cortex. AP and lateral x-rays were once again obtained to confirm appropriate positioning throughout both planes and without displacement nor fracture propagation. The wounds were thoroughly irrigated. A cocktail consisting of 123mg of Ropivacaine, 0.25mg of Epinephrine, 0.04mg of Clonidine, and 15mg of Ketorolac, diluted to 50cc was injected throughout the wounds both deep and superficially. The deep fascia of the proximal two wounds was reapproximated with a 0 Vicryl. The deep tisses were closed with a 2-0 Vicryl and the skin was closed with a running subcuticular Monocryl. The wounds were dressed with a Mepilex silver dressing. At the end of the case, all counts were correct. Aster tolerated the procedure well without known complication and was taken to the PACU for recovery. Physical therapy will start post-operatively, weigh-bearing as tolerated with assistive devices. Anticoagulation will start within 12-24 hours. 3 doses of post-operative antibitiocis for prophylaxis will be administered.
--- NOTE | 2022-07-26 09:56 | INITIAL_ITS ---
- If Service Date Differs Date of service: 07/26/22 Time of Service: 09:56 Care Management Initial Assess REASON FOR HOSPITALIZATION:: Closed right hip fracture PAST MEDICAL HISTORY/PAST SURGICAL HISTORY:: All Active Problems (Updated 07/25/22 @ 20:12 by Karen Ferreira MD). H/O TIA (transient ischemic attack) and stroke (Chronic). Discharge planning issues (Acute). DVT prophylaxis (Acute). Closed right hip fracture (Acute). Mild cognitive impairment (Acute). Periprosthetic fracture around internal prosthetic left knee joint, initial encounter (Acute 07/28/19). S/P ORIF 07/28/2019. Peripheral neuropathy (Acute). Monocular diplopia of both eyes (Acute). Femur fracture, left (Acute). S/p total knee replacement, bilateral (Acute). History of cataract extraction (Chronic). May 2018 at [facility], complicated by increased IOP. S/P rotator cuff repair (Chronic). 2016. History of ankle surgery (Chronic). H/O toe surgery (Chronic). Fracture of left hip requiring operative repair (Chronic). 2011. Status post lumbar spine surgery for decompression of spinal cord (Chronic). L4-S1 decompression and fusion; 2000. H/O: hysterectomy (Chronic). S/P dilatation and curettage (Chronic). H/O total knee replacement (Chronic). Urinary frequency (Chronic). Type 2 diabetes mellitus (Chronic). Insomnia (Chronic). TIA (transient ischemic attack) (Chronic). GERD (gastroesophageal reflux disease) (Chronic). Fibromyalgia (Chronic). Depression (Chronic). Low back pain (Chronic). Lumbar stenosis without neurogenic claudication (Chronic). 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 LEFT/DR. EVANS; right; right TKA cleaned out in 2018 due to infection. Sensorineural hearing loss, bilateral (Chronic 11/27/16). Restless leg syndrome (Chronic 08/11/17). Osteoarthritis of knee (Chronic 10/06/13). Migraine without aura and without status migrainosus, not intractable (Chronic 06/15/17). Memory loss (Chronic 06/24/16). Idiopathic peripheral neuropathy (Chronic 06/24/16). 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 (Chronic). Medical History . Anemia, iron deficiency. Dysphagia. Hiatal hernia. Hypertension. Macrocytosis. Osteopenia. Skin lesion PREVIOUS FUNCTIONAL STATUS/SOCIAL/FAMILY SUPPORTS:: Aster resides in [place] with her Anish. Aster shares when she Anish she inherited 2 sons. She is very proud of her grandchildren and their academic achievements. 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 The couple remain independent in the community, drives and manages their own needs. Aster routinely goes to outpatient PT at [facility]. Aster enjoys quilting and knitting. CURRENT FUNCTIONAL STATUS:: Aster was lying in bed with the HOB elevated when CM met with her. She is accompanied by her Anish. She was pleasant and reported being in good spirits and doing quite well for being in her 80's. ADVANCE DIRECTIVES:: On file at [facility]: [facility] is Demar[facility] Has patient been provided with info about the portal/API?: Yes Did the patient sign up for the portal?: Yes (Prior to admission) CODE STATUS:: Full Code INSURANCE COVERAGE / FINANCIAL ISSUES:: [employer] CURRENT HOME/COMMUNITY SERVICES/EQUIPMENT:: Walker, rollator, shower chair, raised toilet, as well as a stair chair that will assist her in getting to the second floor of her house. Uses [employer] for meals. Aster goes to [facility]. PRIMARY CARE PHYSICIAN:: Romel Torres MD. POTENTIAL DISCHARGE NEEDS:: Follow up appointment with PCP, New [facility] services, if indicated. RX's: [facility] (Mail Order), [facility](local). PATIENT/FAMILY EDUCATION NEEDS:: Review discharge instructions, limitations, medications and plan to follow up with community providers. Review ask me three. ANTICIPATED BARRIERS TO DISCHARGE:: None identified TRANSPORTATION:: Via private vehicle with Anish. PLAN:: Aster went to the OR today for R hip fracture fixation. Anticipate, she will discharge home via privte vehicle with when medically ready. Per Dr. Hathaway, Aster will need new home health services. Aster is agreeable to [facility] PT, initally however she is a patient of [facility] and wants schedule there when when able.
[2022-07-26] MEDS: Docusate Sodium 100 MG CAP PO ×2 (10:09→21:57)
[2022-07-26] MEDS: Mirtazapine 15 MG TAB PO (10:09)
[2022-07-26] MEDS: Calcium 600mg/Vit D 200U TAB 1 TAB PO (10:09)
[2022-07-26] MEDS: Pantoprazole 20 MG TABCR 40 MG PO ×2 (10:09→21:46)
[2022-07-26] MEDS: traMADol 50 MG TAB PO (10:10)
[2022-07-26] MEDS: Lactobacillus Acidophilus CAP 1 CAP PO (10:10)
[2022-07-26] MEDS: DULoxetine 30 MG CAP 90 MG PO (10:10)
[2022-07-26] MEDS: Celecoxib 200 MG CAP PO (10:15)
--- NOTE | 2022-07-26 10:49 | W.ANESPOSTOP ---
Postoperative Evaluation Date, Time and Location Date Performed: 07/26/22 Time Performed: 09:37 Patient Location: PACU Vital Signs Most Recent Imported Vital Signs: Most Recent Vital Signs Temp Pulse Resp BP Pulse Ox 36.4 C L 80 16 138/74 97 07/26/22 10:30 07/26/22 10:30 07/26/22 10:30 07/26/22 10:30 07/26/22 10:30 Pain Score Most Recent Pain Score: Most Recent Pain Score Pain Level 6 07/26/22 10:30 Assessment Mental Status: Awake (Alert & Oriented to Patient Baseline) Airway and Respiratory Function: Patent airway with normal (patient baseline) respiratory exam Cardiovascular Function: Hemodynamically Stable Hydration Status: Adequately Hydrated Nausea & Vomiting: No Nausea or Vomiting Pain: Pain is tolerable per patient Peripheral Nerve Block: Patient did not receive a nerve block
--- NOTE | 2022-07-26 11:27 | IN_ITS ---
PT Notes Visit Reasons: Subcapital fracture R proximal femur Physical Therapy Inpatient Initial Evaluation Date: 07/26/22 Referring Doctor: Omar Hathaway MD PT Orders: PT CONSULT: s/p ortho surgery Precautions: Fall. Standard. R LE WBAT. Patient Profile/Admitting Diagnosis: Aster is an 81 yo female that presented to the ER on 07/25/22 after fall in parking lot. She reports napkins blew off the pizza box and she tried to stop with cane, but fell forward. Suffered right hip fracture and underwent cannulated screw fixation of right femoral neck fracture. Patient is POD 0. PMHX: See EMR Social History/Home Situation: Lives in 2 story home with Anish. Has stair lift inside. 2 BAIRON from garage. Uses FWW and cane or 4WW outside. Prior left femur fracture with pooe surgical outcomes. Right shoulder has been hurting recently. Equipment Owned/DME: Cane, FWW, 4WW, stair lift Subjective: Cleared by nursing to see patient and patient is agreeable to PT. Patient is resting in bed at time of consult with King catheter and IV. Objective: General Observation: Pleasant Mental Status: A&O x3 Pain: 6/10 right hip with burning sensation ROM: Right Upper Extremity: Shoulder Flexion WFL. Shoulder abduction WFL. Elbow flexion WFL. Wrist flexion WFL. Opening and closing of hand WFL. Left Upper Extremity: Shoulder Flexion Moderate. Shoulder abduction Moderate. Elbow flexion WFL. Wrist flexion WFL. Opening and closing of hand WFL. Right Lower Extremity: Hip flexion WFL. Hip abduction WFL. Knee flexion WFL. Knee extension Moderate. Ankle dorsiflexion WFL. Ankle plantarflexion WFL. Left Lower Extremity: Hip flexion Moderate. Hip abduction Moderate. Knee flexion WFL. Knee extenison Mild. Ankle dorsiflexion WFL. Ankle plantarflexion WFL. Strength: Right Upper Extremity: Shoulder flexors 5/5. Shoulder abductors 5/5. Elbow flexors 5/5. Elbow extensors 5/5. Tester Rocket Engine strong. Left Upper Extremity: Shoulder flexors 4/5. Shoulder abductors 4/5. Elbow flexors 5/5. Elbow extensors 5/5. Tester Rocket Engine strong. Right Lower Extremity: Hip flexors 5/5. Knee flexors 5/5. Knee extensors 5/5. Ankle dorsiflexors 5/5. Ankle plantarflexors 5/5. Left Lower Extremity: Hip flexors 2/5. Knee flexors 3/5. Knee extensors 3/5. Ankle dorsiflexors 5/5. Ankle plantarflexors 5/5. Sensation: Intact as to pain and pressure on bilateral lower extremities. Bed Mobility/Transfers: Supine to sit: SBA Sit to supine: Min A - needs help to get higher in bed Sit to stand: Min A Stand to sit: SBA Gait: 3 side steps to right toward head of bed with FWW Stairs: Not assessed Balance: Static Sitting: Normal Dynamic Sitting: Good Static Standing: Good Dynamic Standing: Poor Special Tests: Mobility Limitations Standardized Measure [facility]-P[facility] 6 clicks Basic Mobility Inpatient Short Form: Raw Score: 9 CMS Score: 81% Informed Consent/Education: Patient instructed in purpose of PT consult and plan of care. Assessment: Patient presents with clinical signs and symptoms consistent with curren t/admitting diagnoses that have resulted to mobility limitations, gait instability, generalized weakness, and impairment of motor control as demonstrated by the following impairment level findings: 1. Decreased strength to right hip and shoulder major muscle groups 2. Impaired sitting/standing balance 3. Impaired activity tolerance 4. Limitation of joint range of motion in right hip and shoulder Impairments are contributing to the following functional limitations: 1. Dependent bed mobility skills 2. Increased dependence with transfers 3. Inability to safely ambulate without assistive device and physical assistance 4. Increase completion time for mobility ADL performance 5. Increased fall risk 6. Inability to negotiate steps alone safely Patient slow, but fairly independent with bed mobility today. Some assist needed with sit to stand. Did not ambulate this session. Patient is assessed as a Low complexity based on the following: History: 81 year old female with impairment level findings, functional limitations, and past medical history as indicated above Examination: Demonstrable impairment in strength, balance, and mobility level with underlying impairments and functional limitations as documented above Presentation: Stable Decision Making: Low complexity Goals: Goals x1 week 1. Supine-Sit: independent 2. Sit-Supine: independent 3. Sit-Stand: independent 4. Stand-Sit: independent 5. Bed-Chair: independent 6. Chair-Bed: independent 7. Independent gait on level surface with use of least restrictive device for at least 300 feet without report of pain nor dyspnea 8. Good static and dynamic standing balance/tolerance 9. Independent with home exercise program 10. Independent stair negotiation while holding onto bilateral rails for at least 4 steps without report of pain nor dyspnea Plan of Care/Treatment Plan: 1-2x/day, 7 days/week x1 week. Plan of care has been reviewed with the BRANCH MECHANIC providing the service under Physical Therapy direction. Initiate Physical Therapy intervention for strengthening, bed mobility, transfers, gait, stairs, balance training, and use of assistive device. Discharge Plan DISCHARGE RECOMMENDATIONS: Home with outpatient PT TREATMENT CODE/TIME: 10:52-11:25 (33 minutes), [id number] Thank you for the opportunity to participate in the care of this patient. Laney Cabrera, PT, DPT, OCS [facility] [place], [place]
[2022-07-26] MEDS: ceFAZolin 1 GM/50 ML BAG IVPB ×2 (12:04→21:47)
[2022-07-26] MEDS: Acetaminophen 500 MG TAB PO ×2 (12:04→21:46)
[2022-07-26] MEDS: Magnesium Oxide 400 MG TAB PO (12:04)
[2022-07-26] MEDS: Ketorolac 15 MG/ML VIAL IVP (12:05)
[2022-07-26] MEDS: Insulin Aspart 300 UNITS/3 ML PEN SC ×3 (13:30→21:47)
--- NOTE | 2022-07-26 14:20 | W.PM.PROGNOT ---
Date of Service Date of service: 07/26/22 Time of Service: 14:21 Assessment and Plan Assessment and plan (1) Closed right hip fracture: Status: Acute Assessment and plan: S/p cannulated screw fixation today, tolerated well. Continue andrade. PT. IS. Bowel regimen. Defer post-op care to orthopedics. (2) Type 2 diabetes mellitus: Status: Chronic Assessment and plan: Hold oral medications. Cover with SSI. (3) H/O TIA (transient ischemic attack) and stroke: Status: Chronic Assessment and plan: Plavix to be resumed tonight. (4) Anemia, iron deficiency: Assessment and plan: Will monitor H/H cecelia/post-operatively (5) DVT prophylaxis: Status: Acute Assessment and plan: SCDS while chemical DVT ppx on hold. Will discuss with Dr Hathaway when it is safe to resume. (6) Discharge planning issues: Status: Acute Assessment and plan: Full code Continues to require hospitalization Subjective Subjective Interval history since last seen: Ms Kumar is s/p cannulated Screw Fixation of right proximal femoral fracture today, uncomplicated. The patient states that she feels well. She denies dizziness, chest pain, shortness of breath, nausea. Her pain is controlled. She already got up with PT and sat the edge of the bed. Exam Narrative Exam Narrative: General: Pleasant elderly female, resting comfortably in bed, does look pale HEENT: EOMI, MMM Cardiovascular: RRR, no m/r/g Lungs: CTAB Gastrointestinal: soft, nontender, nondistended Genitourinary: has a andrade Extremities: able to move both BLEs, Does keep R foot externally rotated Objective Last Vital Signs Temp 36.7 C 07/26/22 11:11 Pulse 82 07/26/22 11:11 Resp 16 07/26/22 11:11 BP 127/75 07/26/22 11:11 Pulse Ox 94 07/26/22 11:11 Laboratory Results - last 24 hr 07/25/22 07/25/22 07/25/22 16:53 16:53 16:53 WBC 7.83 RBC 3.79 L Hgb 12.1 Hct 38.2 MCV 101 H MCH 31.9 MCHC 31.7 L RDW 13.6 Plt Count 211 MPV 10.3 Immature Gran % 0.8 Neutrophils % 68.6 Lymphocytes % 20.4 Monocytes % 7.3 Eosinophils % 2.4 Basophils % 0.5 Nucleated RBC % 0.0 Absolute Neutrophils 5.37 Absolute Lymphocytes 1.60 Absolute Monocytes 0.57 Absolute Eosinophils 0.19 Absolute Basophils 0.04 Sodium 139 Potassium 4.5 Chloride 102 Carbon Dioxide 26.2 Anion Gap 10.8 BUN 36 H Creatinine 1.3 H Est GFR (CKD-EPI 2020) 41.06 Glucose 143 H Calcium 9.7 Magnesium Total Bilirubin 0.1 L AST 16 ALT 29 Alkaline Phosphatase 81 Total Protein 7.9 Albumin 3.8 COVID-19 Source SARS-CoV-2 (PCR) Patient ABO/Rh O Positive Antibody Screen NEGATIVE 07/25/22 07/26/22 07/26/22 17:45 05:31 05:31 WBC 6.86 RBC 3.54 L Hgb 11.1 L Hct 34.9 L MCV 99 H MCH 31.4 MCHC 31.8 L RDW 13.4 Plt Count 188 MPV 10.4 Immature Gran % 0.3 Neutrophils % 60.6 Lymphocytes % 25.2 Monocytes % 9.3 Eosinophils % 3.9 Basophils % 0.7 Nucleated RBC % 0.0 Absolute Neutrophils 4.15 Absolute Lymphocytes 1.73 Absolute Monocytes 0.64 Absolute Eosinophils 0.27 Absolute Basophils 0.05 Sodium 136 Potassium 4.5 Chloride 101 Carbon Dioxide 24.9 Anion Gap 10.1 BUN 32 H Creatinine 1.1 H Est GFR (CKD-EPI 2020) 50.17 Glucose 128 H Calcium 9.4 Magnesium 2.3 Total Bilirubin AST ALT Alkaline Phosphatase Total Protein Albumin COVID-19 Source Nasal/Nares SARS-CoV-2 (PCR) Negative Patient ABO/Rh Antibody Screen
[2022-07-26] MEDS: Heparin 5,000 UNITS/ML VIAL 5000 UNITS SC (18:35)
[2022-07-26] MEDS: Clopidogrel 75 MG TAB PO (21:46)
[2022-07-26] MEDS: Atorvastatin 10 MG TAB PO (21:46)
[2022-07-27 03:13] VITALS: BP 114/67; PULSE 77; RESP 16; TEMP 36.7; O2SAT 94
[2022-07-27] MEDS: ceFAZolin 1 GM/50 ML BAG IVPB (06:08)
[2022-07-27] MEDS: Acetaminophen 500 MG TAB PO ×2 (06:09→13:03)
[2022-07-27] MEDS: Heparin 5,000 UNITS/ML VIAL 5000 UNITS SC (06:09)
[2022-07-27 06:43] LABS: Abs Immature Grans 0.05 10^3/uL (0.0-0.06); Absolute Basophil Count 0.04 10^3/uL (0.0-0.2); Absolute Eosinophil Count 0.36 10^3/uL (0.0-0.7); Absolute Lymphocyte Count 1.66 10^3/uL (1.2-3.4); Absolute Monocyte Count 0.55 10^3/uL (0.1-0.8); Absolute Neutrophil Count 6.33 10^3/uL (1.2-6.7); Basophils % 0.4; HCT 32.2 % (36.0-46.0); HGB 10.3 g/dL (11.2-15.7); Immature Grans % 0.6; Lymphocytes % 18.5; MCH 31.4 pg (27.0-33.0); MCV 98 fL (80-95); MPV 10.4 fL (8.0-11.0); Monocytes % 6.1; Neutrophils % 70.4; Platelet Count 144 10^3/uL (130-400); RBC 3.28 10^6/uL (3.93-5.22); RDW 13.2 % (11.7-14.6); RDW-SD 47.3 fL; WBC 8.99 10^3/uL (4.4-10.8)
[2022-07-27 06:49] LABS: Anion Gap 8.7 mmol/L (3-11); BUN 30 mg/dL (7-18); CO2 26.3 mmol/L (21.0-32.0); CREATININE 1.3 mg/dL (0.55-1.02); Calcium 8.8 mg/dL (8.5-10.1); Chloride 100 mmol/L (98-107); Estimated GFR 41.06 (mL/min/1.73m2); Glucose 166 mg/dL (74-106); Magnesium 2.3 mg/dL (1.8-2.4); Potassium 4.5 mmol/L (3.5-5.1); Sodium 135 mmol/L (136-145)
[2022-07-27 07:33] VITALS: BP 113/70; PULSE 73; RESP 16; TEMP 36.9; O2SAT 94
[2022-07-27] MEDS: Lactobacillus Acidophilus CAP 1 CAP PO (08:17)
[2022-07-27] MEDS: Calcium 600mg/Vit D 200U TAB 1 TAB PO (08:17)
[2022-07-27] MEDS: Pantoprazole 20 MG TABCR 40 MG PO (08:17)
[2022-07-27] MEDS: DULoxetine 30 MG CAP 90 MG PO (08:18)
[2022-07-27] MEDS: Celecoxib 200 MG CAP PO (08:18)
[2022-07-27] MEDS: Docusate Sodium 100 MG CAP PO (08:18)
[2022-07-27] MEDS: Magnesium Oxide 400 MG TAB PO (08:18)
[2022-07-27] MEDS: Mirtazapine 15 MG TAB PO (08:18)
--- NOTE | 2022-07-27 08:46 | DSE_ITS ---
Date of service: 07/27/22 Time of Service: 08:47 DS: Diagnosis Discharge Diagnosis (1) Closed right hip fracture: Status: Acute (2) Type 2 diabetes mellitus: Status: Chronic (3) H/O TIA (transient ischemic attack) and stroke: Status: Chronic (4) Anemia, iron deficiency: (5) DVT prophylaxis: Status: Acute (6) Discharge planning issues: Status: Acute (7) Blood loss anemia: Status: Acute Discharge Plan Disposition Patient Disposition: HOME W/HOME HEALTH SERVICE Condition: Improving Discharge Details Reason For Visit: Subcapital fracture R proximal femur Admit Date/Time: 07/25/22 16:55 Admit Provider: Karen Ferreira Attending Provider: Karen Ferreira Primary Care Provider: Romel Torres Hospital Course Hospital Course: Patient was admitted to the medical/surgical floor from the ED for management of her right subcapital femoral neck fracture. She underwent surgery on HD#2 and was brought back to the med/surg floor following the procedure. The surgery was tolerated well without any notable medical, surgical, or anesthetic complications. Mobilization began postoperatively. She was voiding spontaneously. Vitals were stable. Physical therapy worked with the patient and was cleared for discharge home. No acute medical issues. Pain was controlled on oral regimen. Home Meds and New Rx's Prescriptions: Continued mirtazapine 15 mg tablet 15 mg PO DAILY Farxiga 5 mg tablet 5 mg PO DAILY Probiotic 20 billion cell capsule 30,000 cell PO DAILY calcium carbonate-vitamin D3 1 EACH tablet 1 ea PO DAILY clopidogrel [Plavix] 75 MG tablet 75 mg PO HS albuterol sulfate [ProAir HFA] 8.5 GM HFA aerosol inhaler 2 puff Inhalation PRN PRN duloxetine [Cymbalta] 30 mg capsule,delayed release(DR/EC) 60 mg PO DAILY atorvastatin [Lipitor] 10 MG tablet 10 mg PO QPM Qty: 30 0RF docusate sodium 100 mg capsule 100 mg PO BID tramadol 50 mg tablet 50 mg PO TID PRNQty: 10 0RF pantoprazole [Protonix] 20 MG tablet,delayed release (DR/EC) 40 mg PO BID duloxetine [Cymbalta] 30 mg Capsule,Delayed Release(Dr/Ec) 30 mg PO DAILY metformin 500 mg tablet 1,000 mg PO BID magnesium oxide 400 mg magnesium tablet 500 mg PO DAILY Changed acetaminophen 650 mg tablet extended release 650 mg PO Q6H PRN (Reason: Pain) Qty: 0 0RF celecoxib [Celebrex] 200 mg capsule 200 mg PO BID PRN (Reason: Pain) Qty: 60 0RF Rx Instructions: Take once or twice per day as needed for acute post-operative pain. Discharge Instructions Additional Instructions: Hip Fracture Discharge Instructions Activity: The most important activity is to move. You should try to take short walks a few times a day or at least move your leg while you are in a chair or in bed. You have no restrictions on movement or positioning, but do not try to force what you do and don't try to advance too quickly. The fracture must heal. You will find some stiffness and weakness with hip flexion (lifting your knee), this is normal. Utilize the walker to assist with your ambulation. - Home health physical therapy can be helpful to help return you to a normal gait and improve your flexibility and strength, so this has been ordered. You may require outpatient physical therapy following this. - You should wear the TRAY hose on both legs for 2 weeks. Dressing: Keep the surgical dressing in place for at least one week. After the first week it may be removed and replace with light gauze and tape or nothing. You may take a shower starting tomorrow (07/28/22), but I recommend you cover the dressing with a ClingWrap. If it gets soaked wit will need to be removed and replaced with gauze or bandaid. Medications: - You should take Tylenol and an anti-inflammatory Celebrex as your primary pain control medications. You may increase your frequency of the Tylenol and Celebrex for this acute pain period (up to 4 times per day for the Tylenol 650mg ER and 2 times per day for the Celebrex 200mg). - You have been prescribed a stronger pain medication Tramadol for breakthrough pain, take as needed as prescribed. - You should continue your stomach acid reduction agent [Pantoprozole] to help reduce stomach acid and reflux. - You will continue to take Plavix as per baseline. - If you have constipation you should take Colace or Miralax (both [id number]). It takes most people 3-4 days to have a bowel movement. Follow-up: 2 weeks If you have any acute concerns or questions, please do not hesitate to contact the office at [phone]. You may contact Dr. Hathaway with any questions after hours through the hospital at [phone] or on his cell phone at [phone]. 1. Encounter Date and Reason I certify that Aster Kumar was seen by Omar Hathaway MD on 07/27/22 and that I had a [id number] encounter with this patient that meets the physician face to face encounter requirements. 2. Clinical Findings Supporting Skilled Need and Homebound Status I certify that home health services are medically necessary, include either intermittent custodial and/or physical/speech therapy, and that this patient is homebound in that absences from the home require considerable and taxing effort and are infrequent or of short duration, or are attributable to the need to receive medical care. [X] (a) Attached documentation from encounter provides clinical findings supporting skilled need and homebound status (including what assistance patient requires to leave the home). The encounter with the patient was in whole, or in part, for the following medical condition, which is the primary reason for home health care: Subcapital fracture R proximal femur Assisted: Physical Therapy: Aster will benefit from home health physical therapy due to her weakness and ambulatory dysfunction following a right hip fracture. She is s/p cannulated screw fixation of the fracture and is weight bearing as tolerated with assisitve devices and wihtout restriction. She has long-standing dysfnction of the left leg which will impair recovery of the right side. Speech Therapy: Homebound: Aster is unable to leave her home unassisted. She has weakness, pain, and gait dysfunction preventing her from leaving unassisted. 3. Certification and Authentication I certify that I composed the above information based on my clinical judgement relating to this patient's medical condition and, if applicable, clinical findings communicated to me by the NPP or inpatient physician who performed the Home Health Referral. All further orders will be obtained through Dr. Hathaway Referrals: Omar Hathaway MD [ [facility] STAFF PHYSICIAN] - Activity:: Activity as Tolerated Equipment/Supplies:: Walker Diet:: Carb Counting Discharge Orders Discharge Orders: Discharge Order (Routine); Ordered 07/27/22 Ordered By: Omar Hathaway DS: Summary Time Spent with Patient providing and/or coordinating discharge services: Less than 30 minutes Status at Discharge Functional status at discharge: uses cane/walker Overall status at discharge: patient is progressing back to baseline Mental Status: mental status grossly normal Speech and Movement: speech and movement normal Mood: congruent mood Affect: normal affect Exam Narrative Exam Narrative: Sitting up in the chair. NAD. AAOx3. R hip dressing with a small area of sanguinous discharge. Minimal swelling and mild ecchymosis. No significant pain with ER/IR of the right hip. Able to extend the right knee with minimal discomfort. +ADF/APF/EHL/FHL. Psych Mental Status: mental status grossly normal Speech and Movement: speech and movement normal Mood: congruent mood Affect: normal affect DS: Data Vitals/I&O Vitals and I&O: Vital Signs Temperature 36.9 C 07/27/22 07:33 Temperature Source Tympanic 07/27/22 07:33 Pulse 73 07/27/22 07:33 Pulse Rhythm Regular 07/27/22 00:20 Respiratory Rate 16 07/27/22 07:33 Respiratory Effort Non-Labored 07/27/22 00:20 Respiratory Depth Normal 07/27/22 00:20 Respiratory Pattern Normal 07/27/22 00:20 Blood Pressure 113/70 07/27/22 07:33 Blood Pressure Position Supine 07/25/22 15:36 Pulse Oximetry 94 07/27/22 07:33 Respiratory End-tidal CO2 34 07/26/22 09:37 Oxygen Delivery Method Room Air 07/27/22 07:33 Oxygen Flow Rate 0 07/27/22 07:33 Pain Level 5 07/27/22 07:33 Intake & Output 07/26/22 07/26/22 07/27/22 11:59 23:59 11:59 Intake Total 700 / 1250 550 / 1250 Output Total 1600 / 2450 850 / 2450 1400 / 1400 Balance -900 / -1200 -300 / -1200 -1400 / -1400 Weight 64.4 kg Intake: IV 300 / 450 150 / 450 Oral 400 / 800 400 / 800 Output: Urine 1600 / 2450 850 / 2450 1400 / 1400 Other: Urine Color Yellow Light Erendria Yellow Urine Appearance Clear Clear Clear Emesis Description None Data Completed and Pending Labs on day of discharge: Labs from last 24 hours 07/27/22 07/27/22 07/27/22 06:08 06:08 06:08 WBC 8.99 RBC 3.28 L Hgb 10.3 L Hct 32.2 L MCV 98 H MCH 31.4 MCHC 32.0 RDW 13.2 Plt Count 144 MPV 10.4 Immature Gran % 0.6 Neutrophils % 70.4 Lymphocytes % 18.5 Monocytes % 6.1 Eosinophils % 4.0 Basophils % 0.4 Nucleated RBC % 0.0 Absolute Neutrophils 6.33 Absolute Lymphocytes 1.66 Absolute Monocytes 0.55 Absolute Eosinophils 0.36 Absolute Basophils 0.04 Sodium 135 L Potassium 4.5 Chloride 100 Carbon Dioxide 26.3 Anion Gap 8.7 BUN 30 H Creatinine 1.3 H Est GFR (CKD-EPI 2020) 41.06 Glucose 166 H Calcium 8.8 Magnesium 2.3 Cancelled PFSH All Active Problems (Updated 07/27/22 @ 09:01 by Omar Hathaway MD) Blood loss anemia (Acute) H/O TIA (transient ischemic attack) and stroke (Chronic) Discharge planning issues (Acute) DVT prophylaxis (Acute) Closed right hip fracture (Acute) Mild cognitive impairment (Acute) Periprosthetic fracture around internal prosthetic left knee joint, initial encounter (Acute 07/28/19) S/P ORIF 07/28/2019 Peripheral neuropathy (Acute) Monocular diplopia of both eyes (Acute) Femur fracture, left (Acute) S/p total knee replacement, bilateral (Acute) History of cataract extraction (Chronic) May 2018 at [facility], complicated by increased IOP S/P rotator cuff repair (Chronic) 2016 History of ankle surgery (Chronic) H/O toe surgery (Chronic) Fracture of left hip requiring operative repair (Chronic) 2011 Status post lumbar spine surgery for decompression of spinal cord (Chronic) L4-S1 decompression and fusion; 2000 H/O: hysterectomy (Chronic) S/P dilatation and curettage (Chronic) H/O total knee replacement (Chronic) Urinary frequency (Chronic) Type 2 diabetes mellitus (Chronic) Insomnia (Chronic) TIA (transient ischemic attack) (Chronic) GERD (gastroesophageal reflux disease) (Chronic) Fibromyalgia (Chronic) Depression (Chronic) Low back pain (Chronic) Lumbar stenosis without neurogenic claudication (Chronic) 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) Medical History Anemia, iron deficiency Dysphagia Hiatal hernia Hypertension Macrocytosis Osteopenia Skin lesion Family History Mother Alzheimer disease Father Stroke Social History Smoking/Tobacco Use Status: Never Smoking risk assessment performed?: Yes Alcohol Intake: never Drug use: Never Substance use type: does not use Household members: spouse Housing: house Current gender identity: female Do you feel safe at home: Yes Do you feel safe in your relationship?: Yes Additional Social history: She was born in [place]. 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 She is to her second Demarco (since ~1989?). She has 2 stepsons. She drinks one glass of wine per week.
[2022-07-27] MEDS: traMADol 50 MG TAB PO (09:45)
[2022-07-27 11:40] VITALS: BP 100/64; PULSE 87; RESP 16; TEMP 36.8; O2SAT 93
--- NOTE | 2022-07-27 13:37 | PTTR_ITS ---
PT Notes Visit Reasons: Subcapital fracture R proximal femur SUBJECTIVE: Pt in recliner when approached for therapy this morning. Pt reports 7/10 for rhip and knee pain this morning. pt agreed to participating with therapy. pt reports that she feels strong enough to go home. OBJECTIVE: ? PAIN: 7/10 for right hip and knee pain ? BED MOBILITY/TRANSFERS? Sit-stand: CGA? Stand-sit: CGA ? GAIT? Assistive Device: FWW ? Weight bearing: Full Assist: CGA ? Distance: 70'x2? Deviation: slight antalgic gait STAIRS: Up/down 2x6 step and 3x4 step using B rails and a step-to pattern with CGA? THEREX: Patient was instructed in a LE strengthening program, to include: seated marching, hip ab/ad, knee flexion/extension, ankle dorsi/plantar, inversion/eversion [id number], seated bilateral UE shoulder flexion/extension, abduaction/adduction, internal/external rotation, elbow flexion/extension, pronation/supination, wrist flexion/extension, radial/ulnar deviation [id number], sit to stand from room chair 5x1set, static standing 30secs x2.? ? ? ASSESSMENT:? Pt tolerated activity well with pt reportiung pain has gone down from 7/10 to 5/10 for pain. hospice spiritual care coordinator informed and updated of pt status post therapy session. PLAN: Pt is going home this afternoon and will continue with HHPT. TREATMENT CODE/TIME: Session 1: 40 minutes; 33634 x3 (11:55)
--- NOTE | 2022-07-27 14:36 | CMDISCH_ITS ---
- If Service Date Differs Date of service: 07/27/22 Time of Service: 14:36 LACE Index Scoring Tool - Questions: Length of Stay (in days): 2 Acuity (Admit via E.D.?): Yes Comorbidities: Cerebrovascular Disease (HX of TIA), Diabetes w/o Complication E.D. Visits: 1 - Answers: Total Score: 8 Risk of Readmission: Low Risk Care Management Discharge Reason for Hospitalization: Closed right hip fracture Discharge Plan: Aster is discharged home via private vehicle with family. Aster will follow up with community providers and discharge plan of care as prescribed. Aster will call the office of Dr. Hathaway on Thursday to schedule a 2 week follow up appointment. In addition, new [facility] PT services are ordered. Patient/Family Education Needs: Review discharge instructions, limitations, medications and plan to follow up with community providers. Discuss ask me three. Services Needed at Discharge: Home Health Care Services (H PT, CM Faxed D/C summary which includes face to face and order. CM notified Ally from .)
== END 2022-07-27 14:07 | disposition home health service (06) | DRG 481 ==
LOC: ER 16:29 → MS 18:05
PROVIDERS: Student in an Organized Health Care Education/Training Program; Admitting Provider Internal Medicine; Emergency Provider Emergency Medicine; PCP Internal Medicine; Visit Provider Internal Medicine
PROC: 0QS634Z Reposition Right Upper Femur with Internal Fixation Device, Percutaneous Approach (ICD-10-PCS; CPT 27235; principal; 2022-07-26 08:00)
DX: S72.001A Fracture of unspecified part of neck of right femur, initial encounter for closed fracture (principal); D62 Acute posthemorrhagic anemia; Z86.73 Personal history of transient ischemic attack (TIA), and cerebral infarction without residual deficits; D50.9 Iron deficiency anemia, unspecified; Z79.01 Long term (current) use of anticoagulants; W18.39XA Other fall on same level, initial encounter; G31.84 Mild cognitive impairment of uncertain or unknown etiology; E11.42 Type 2 diabetes mellitus with diabetic polyneuropathy; R35.0 Frequency of micturition; K21.9 Gastro-esophageal reflux disease without esophagitis; M79.7 Fibromyalgia; F32.A Depression, unspecified; G25.81 Restless legs syndrome; G43.009 Migraine without aura, not intractable, without status migrainosus; Z96.653 Presence of artificial knee joint, bilateral; F51.04 Psychophysiologic insomnia; I10 Essential (primary) hypertension; K44.9 Diaphragmatic hernia without obstruction or gangrene; M85.80 Other specified disorders of bone density and structure, unspecified site; M48.061 Spinal stenosis, lumbar region without neurogenic claudication
CPT/HCPCS: 27235; 36415; 51702; 73552; 80048; 80053; 86850; 86900; 86901; 87635; 93005; 97161; 99223; 99284; 99285; 71045; 73501; 73502; 83735; 85025; 93010; 99232; J0690; J1100; J1644; J1885; J2270; J2370; J2405

== ENCOUNTER 2022-08-11 12:04 | Outpatient (CLI) | payer OTHER, SELFPAY ==
--- NOTE | 2022-08-11 10:15 | DI.RAD_ITS ---
Exam(s) XR HIP RT AP LAT ONLY EXAM: XR HIP RT AP LAT ONLY INDICATION: R hip fx. COMPARISON: CR XR FEMUR LT from 08/17/2019 CR XR FEMUR RT from 07/25/2022 XA XR HIP RT IN OR from 07/26/2022 TECHNIQUE: 2D digital imaging was performed. Two views. FINDINGS: There has been no change in alignment of the hardware or subcapital fracture. No new abnormalities a re seen. DATA REPOSITORY: RADIATION DOSE DELIVERED:
== END 2022-08-11 12:05 | disposition home or self-care (01) ==
LOC: DIORS 12:05
PROVIDERS: PCP Internal Medicine; Referring Provider Internal Medicine; Visit Provider Physician Assistant
DX: S72.001A Fracture of unspecified part of neck of right femur, initial encounter for closed fracture (principal); Z47.89 Encounter for other orthopedic aftercare; X58.XXXA Exposure to other specified factors, initial encounter
CPT/HCPCS: 73502

== ENCOUNTER 2022-08-28 10:59 | Outpatient (CLI) | payer OTHER, SELFPAY ==
--- NOTE | 2022-08-28 10:30 | DI.RAD_ITS ---
Exam(s) XR HIP RT AP LAT ONLY EXAM: XR HIP RT AP LAT ONLY CLINICAL HISTORY: RIGHT HIP PAIN. TECHNIQUE: 2D digital imaging was performed. Two images were obtained. AP and lateral views were ob tained. COMPARISON: CR XR HIP RT AP LAT ONLY from 08/11/2022 FINDINGS: BONES: There are stable post operative changes present. No new fracture or dislocation. JOINTS: The joint spaces are well maintained. No joint effusion is present. SOFT TISSUE: Atherosclerosis is present. IMPRESSION: Stable postoperative changes. DATA REPOSITORY: RADIATION DOSE DELIVERED:
== END 2022-08-28 11:00 | disposition home or self-care (01) ==
LOC: DIORS 10:59
PROVIDERS: PCP Family Medicine; Referring Provider Family Medicine; Visit Provider Student in an Organized Health Care Education/Training Program
DX: S72.001D Fracture of unspecified part of neck of right femur, subsequent encounter for closed fracture with routine healing (principal); X58.XXXD Exposure to other specified factors, subsequent encounter
CPT/HCPCS: 73502

== ENCOUNTER 2022-09-22 11:12 | Outpatient (CLI) | payer OTHER, SELFPAY ==
--- NOTE | 2022-09-22 10:45 | DI.RAD_ITS ---
Exam(s) XR HIP RT AP LAT ONLY EXAM: XR HIP RT AP LAT ONLY INDICATION: F/U R HIP FRACTURE. COMPARISON: CR XR HIP RT AP LAT ONLY from 08/28/2022 TECHNIQUE: 2D digital imaging was performed. Two views. FINDINGS: Three partially threaded screws are again noted through the proximal right femur for fracture fixati on. There has been no change in fracture alignment. No new abnormalities are seen. DATA REPOSITORY: RADIATION DOSE DELIVERED:
--- NOTE | 2022-09-22 11:00 | DI.RAD_ITS ---
Exam(s) XR KNEE RT 2V AP,LAT EXAM: XR KNEE RT 2V AP,LAT INDICATION: pain of both knees. COMPARISON: CR XR FEMUR RT from 07/25/2022 TECHNIQUE: 2D digital imaging was performed. Two views. FINDINGS: There is a total knee prosthesis. The alignment appears satisfactory. There are no abnormal surroun ding bony lucencies. DATA REPOSITORY: RADIATION DOSE DELIVERED:
--- NOTE | 2022-09-22 11:00 | DI.RAD_ITS ---
Exam(s) XR KNEE LT 2V AP,LAT EXAM: XR KNEE LT 2V AP,LAT INDICATION: pain of both knees. COMPARISON: CR XR FEMUR LT from 03/20/2020 CR XR KNEE LT 3V AP,LAT,MIGDALIA from 11/26/2020 TECHNIQUE: 2D digital imaging was performed. Two views. FINDINGS: There has been no change in the appearance of the left knee prosthesis. No suspicious surrounding hui ny lucencies. The inferior portion of the tibial component superior portion of the femoral component are not included in the field of view. DATA REPOSITORY: RADIATION DOSE DELIVERED:
== END 2022-09-22 11:13 | disposition home or self-care (01) ==
LOC: DIORS 11:12
PROVIDERS: PCP Family Medicine; Referring Provider Family Medicine; Visit Provider Student in an Organized Health Care Education/Training Program
DX: S72.001D Fracture of unspecified part of neck of right femur, subsequent encounter for closed fracture with routine healing (principal); Z96.653 Presence of artificial knee joint, bilateral; R60.0 Localized edema; X58.XXXD Exposure to other specified factors, subsequent encounter
CPT/HCPCS: 73502; 73560

== ENCOUNTER 2022-09-22 12:54 | Observation (INO) | payer MEDICARE, SELFPAY ==
[2022-09-22] VITALS (50 sets, daily range): BP systolic 102–162; BP diastolic 50–91; PULSE 70–97; RESP 14–30; TEMP 36.6–38.1; O2SAT 90–99
--- NOTE | 2022-09-22 12:45 | RT.EKG_ITS ---
APPROVED REPORT Exam: Resting ECG Reason for Exam: sob Patient Location: E HR:85 bpm ECG Measurements Heart Rate 85 AXIS ND 127 P 25 QRSd 86 QRS -42 QT 351 T 58 QTc 418 Conclusion Sinus rhythm...normal P axis, V-rate 60- 99 Ventricular premature complex...V complex w/ short R-R interval Aberrant conduction of SV complex(es)...aberrant shape, ND 80-220 Left axis deviation...QRS axis (-30,-90) sinus rhythm at 85, left axis, no STEMI, nondiagnostic EKG
--- NOTE | 2022-09-22 13:36 | ED.GENADUL_ITS ---
Discharge Plan Discharge Details Chief Complaint: Chest Pain Primary Care Provider: Riky Gaitan ED Provider: Gina Hernandez Home Meds and New Rx's Prescriptions: No Action mirtazapine 15 mg tablet 15 mg PO DAILY Farxiga 5 mg tablet 5 mg PO DAILY Probiotic 20 billion cell capsule 30,000 cell PO DAILY calcium carbonate-vitamin D3 1 EACH tablet 1 ea PO DAILY tramadol 50 mg tablet 50 mg PO TID PRN (Reason: pain) Qty: 10 0RF clopidogrel [Plavix] 75 MG tablet 75 mg PO HS albuterol sulfate [ProAir HFA] 8.5 GM HFA aerosol inhaler 2 puff Inhalation PRN PRN duloxetine [Cymbalta] 30 mg capsule,delayed release(DR/EC) 60 mg PO DAILY atorvastatin [Lipitor] 10 MG tablet 10 mg PO QPM Qty: 30 0RF docusate sodium 100 mg capsule 100 mg PO BID acetaminophen 650 mg tablet extended release 650 mg PO Q6H PRN (Reason: Pain) Qty: 0 0RF celecoxib [Celebrex] 200 mg capsule 200 mg PO BID PRN (Reason: Pain) Qty: 60 0RF Rx Instructions: Take once or twice per day as needed for acute post-operative pain. pantoprazole [Protonix] 20 MG tablet,delayed release (DR/EC) 40 mg PO BID duloxetine [Cymbalta] 30 mg Capsule,Delayed Release(Dr/Ec) 30 mg PO DAILY metformin 500 mg tablet 1,000 mg PO BID magnesium oxide 400 mg magnesium tablet 500 mg PO DAILY Medical Decision Making Concern for bacterial pneumonia, viral pneumonia, metabolic/electrolyte derangement, DVTs, PE, other. Doubt acute coronary syndrome. Exam/history at this time is not consistent with acute aortic pathology, acute arterial pathology, CVA, spinal cord compression/pathology, sepsis. Plan for EKG, chest x-ray, screening labs, flu/COVID/RSV swab, telemetry. Will monitor and reassess. Labs reviewed, WBC 11.23, hemoglobin 11.7, D-dimer 1630, sodium 133, anion gap 11.8, creatinine 1.3, troponin negative. Plan for CT chest, ultrasound bilateral lower extremities. I discussed patient with Dr. Darby for admission given that patient has been unable to walk on her own for the past 3 days and has been getting around her house in a wheelchair which is a sudden significant change from her baseline of the past few weeks which has been walking either on her own or with assistance of a walker. Dr. Darby requests call back after ultrasound/CT chest resulted. Patient signed out to Dr. Melendez at time of shift change with CT chest, ultrasound pending, UA, anticipate admission. Medical Records Medical records reviewed: Yes I reviewed the patient's medical records. Lab Data Lab results reviewed: Yes I reviewed the patient's lab results. ECG Data Attestation: I personally reviewed and interpreted this ECG (s) as follows: Interpretation: EKG shows sinus rhythm at 85, left axis, no STEMI, nondiagnostic EKG Sign Out Yes HPI General Mode of arrival: ambulatory . Date/Time Provider Initiated Documentation: 09/22/22 13:05 . Limitations to Documentation: no limitations . Information obtained by: patient, RN/MD, RN notes reviewed and old records reviewed . HPI Narrative: Aster Kumar is an 81-year-old woman with a history of peripheral neuropathy, diabetes, TIA, GERD, mild cognitive impairment, anemia, hypertension, status post bilateral knee replacements and 6 weeks status post right hip fracture repair presenting to emergency department with bilateral leg pain. Dr. Hathaway called, and reported that patient was seen in his office this morning for bilateral leg pain. He states that she has been doing very well after surgery until several days ago and pain is unlikely to be related to postoperative course. He reports that he sent patient to her PCP today for evaluation of possible viral illness/systemic process resulting in diffuse bilateral leg pain. Patient reports that her PCP sent her to the emergency department to rule out a pulmonary embolism. Patient reports that after surgery she has been doing quite well and has had minimal pain. She reports that 3 days ago she developed diffuse bilateral leg pain from bilateral hips to bilateral ankles. She reports that pain is worse in different areas at different times, and is currently worse in both knees. Patient reports that she has had intermittent joint pain in the past, but it is unusual for her to have concurrent bilateral pain. She reports that she has also had cough that began 3 days ago, as well as generalized weakness. She reports that she has central chest pain with coughing, otherwise has no chest pain. She denies any pain other than leg pain as previously described. Denies fevers, vomiting, diarrhea, shortness of breath, focal weakness. She reports chronic numbness in her feet that is unchanged, denies any other numbness. Reports decreased appetite since 3 days ago. Denies trauma or known inciting event, other than the fact the patient used her rolling walker through snow just prior to symptom onset (this was more physical work for her than his typical). Related Data Home Medications Medication Instructions Recorded Confirmed albuterol sulfate 90 mcg/actuation 2 puff inhalation PRN PRN 11/13/15 09/22/22 aerosol inhaler (ProAir HFA) clopidogrel 75 mg tablet (Plavix) 75 mg PO HS 11/13/15 09/22/22 calcium carbonate 600 mg-vitamin 1 ea PO DAILY 02/26/16 09/22/22 D3 5 mcg (200 unit) tablet pantoprazole 20 mg tablet,delayed 40 mg PO BID 04/03/17 09/22/22 release (Protonix) atorvastatin 10 mg tablet (Lipitor) 10 mg PO QPM #30 tabs 12/07/17 09/22/22 docusate sodium 100 mg capsule 100 mg PO BID 07/08/18 09/22/22 duloxetine 30 mg capsule,delayed 30 mg PO DAILY 07/28/19 09/22/22 release (Cymbalta) lactobacillus comb no.10 20 30,000 cell PO DAILY 11/15/19 09/22/22 billion cell capsule (Probiotic) metformin 500 mg tablet 1,000 mg PO BID 03/20/20 09/22/22 duloxetine 30 mg capsule,delayed 60 mg PO DAILY 11/13/20 09/22/22 release (Cymbalta) magnesium oxide 500 mg PO DAILY 11/13/20 09/22/22 mirtazapine 15 mg tablet 15 mg PO DAILY 11/13/20 09/22/22 dapagliflozin 5 mg tablet (Farxiga) 5 mg PO DAILY 11/28/21 09/22/22 acetaminophen 650 mg 650 mg PO Q6H PRN Pain #0 tabs 07/27/22 09/22/22 tablet,extended release celecoxib 200 mg capsule (Celebrex) 200 mg PO BID PRN Pain #60 caps 07/27/22 09/22/22 tramadol 50 mg tablet 50 mg PO TID PRN pain #10 tabs 08/27/22 09/22/22 Previous Rx's Medication Instructions Recorded atorvastatin 10 mg tablet (Lipitor) 10 mg PO QPM #30 tabs 12/07/17 acetaminophen 650 mg 650 mg PO Q6H PRN Pain #0 tabs 07/27/22 tablet,extended release celecoxib 200 mg capsule (Celebrex) 200 mg PO BID PRN Pain #60 caps 07/27/22 tramadol 50 mg tablet 50 mg PO TID PRN pain #10 tabs 08/27/22 Allergies Allergy/AdvReac Type Severity Reaction Status Date / Time No Known Drug Allergies Allergy Verified 09/22/22 13:40 General Stated Complaint: Chest Pain ESEQUIEL: 2 Review of Systems Narrative: Constitutional: denies fevers, reports generalized weakness Eyes: denies eye pain ENT: denies ear pain, dental pain, sore throat Cardiovascular: denies edema, reports chest pain only with coughing Respiratory: denies SOB, reports cough GI: denies abdominal pain, vomiting, diarrhea : denies flank pain MSK: denies back pain, neck pain, joint swelling reports diffuse arthralgias and myalgias Skin: denies rash Neuro: denies headaches, numbness, focal weakness PFSH All Active Problems Nail dystrophy (Acute) Blood loss anemia (Acute) Closed right hip fracture (Acute 07/25/22) S/P cannulated screw fixation: 07/26/2022 Mild cognitive impairment (Acute) Periprosthetic fracture around internal prosthetic left knee joint, initial encounter (Acute 07/28/19) S/P ORIF 07/28/2019 Peripheral neuropathy (Acute) Monocular diplopia of both eyes (Acute) Femur fracture, left (Acute) S/p total knee replacement, bilateral (Acute) History of cataract extraction (Chronic) May 2018 at [facility] [place], complicated by increased IOP S/P rotator cuff repair (Chronic) 2016 History of ankle surgery (Chronic) H/O toe surgery (Chronic) Fracture of left hip requiring operative repair (Chronic) 2011 Status post lumbar spine surgery for decompression of spinal cord (Chronic) L4-S1 decompression and fusion; 2000 H/O: hysterectomy (Chronic) S/P dilatation and curettage (Chronic) H/O total knee replacement (Chronic) Urinary frequency (Chronic) Type 2 diabetes mellitus (Chronic) Insomnia (Chronic) TIA (transient ischemic attack) (Chronic) GERD (gastroesophageal reflux disease) (Chronic) Fibromyalgia (Chronic) Depression (Chronic) Low back pain (Chronic) Lumbar stenosis without neurogenic claudication (Chronic) 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) Medical History Anemia, iron deficiency Dysphagia H/O TIA (transient ischemic attack) and stroke Hiatal hernia Hypertension Macrocytosis Osteopenia Skin lesion Family History Mother Alzheimer disease Father Stroke Social History Smoking/Tobacco Use Status: Never Smoking risk assessment performed?: Yes Alcohol Intake: never Drug use: Never Substance use type: does not use Household members: spouse Housing: house Current gender identity: female Do you feel safe at home: Yes Do you feel safe in your relationship?: Yes Additional Social history: She was born in [place]. 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 She is to her second Demarco (since ~1989?). She has 2 stepsons. She drinks one glass of wine per week. Exam Narrative Exam Narrative: Constitutional: well and [id number], pleasant, conversing normally HENT: head atraumatic/normocephalic/normal inspection, mucous membranes moist Eyes: conjunctiva normal, sclera normal, pupils 3mm b/l Neck: no stridor, normal ROM, trachea midline Chest: normal inspection, mild tenderness to palpation over the sternum without deformity/crepitus/overlying skin changes Resp: normal work of breathing, speaking in full sentences Cardio: normal rate, normal rhythm GI: abdomen soft, non-tender, non-distended Skin: warm, dry, normal color, no rash Neuro: alert, not altered, grossly non-focal, normal tone Ext: no edema Psych: normal mood, normal affect, normal behavior Course Vital Signs Vital signs: Vital Signs Temperature 36.8 C 09/22/22 12:59 Pulse 86 09/22/22 12:59 Respiratory Rate 16 09/22/22 12:59 Blood Pressure 146/65 H 09/22/22 12:59 Pulse Oximetry 96 09/22/22 12:59 Temperature 36.8 C 09/22/22 12:59 Temperature Source Oral 09/22/22 12:59 Pulse 86 09/22/22 12:59 Respiratory Rate 16 09/22/22 12:59 Respiratory Effort Non-Labored 09/22/22 13:06 Blood Pressure 146/65 H 09/22/22 12:59 Blood Pressure Position Sitting 09/22/22 12:59 Pulse Oximetry 96 09/22/22 12:59 Oxygen Delivery Method Room Air 09/22/22 12:59 Oxygen Flow Rate 0 09/22/22 12:59 Pain Level 0 09/22/22 12:59
[2022-09-22 14:06] LABS: Abs Immature Grans 0.04 10^3/uL (0.0-0.06); Absolute Basophil Count 0.07 10^3/uL (0.0-0.2); Absolute Eosinophil Count 0.18 10^3/uL (0.0-0.7); Absolute Lymphocyte Count 2.22 10^3/uL (1.2-3.4); Absolute Monocyte Count 1.19 10^3/uL (0.1-0.8); Absolute Neutrophil Count 7.52 10^3/uL (1.2-6.7); Basophils % 0.6; Eosinophils % 1.6; HCT 37.7 % (36.0-46.0); HGB 11.7 g/dL (11.2-15.7); Immature Grans % 0.4; Lymphocytes % 19.8; MCH 30.3 pg (27.0-33.0); MCV 98 fL (80-95); MPV 10.7 fL (8.0-11.0); Monocytes % 10.6; Platelet Count 187 10^3/uL (130-400); RBC 3.86 10^6/uL (3.93-5.22); RDW 13.5 % (11.7-14.6); RDW-SD 48.5 fL; WBC 11.23 10^3/uL (4.4-10.8)
[2022-09-22 14:27] LABS: ALT 17 U/L (14-59); AST 14 U/L (15-37); Albumin 3.5 g/dL (3.4-5.0); Alkaline Phosphatase 96 U/L (46-116); Anion Gap 11.8 mmol/L (3-11); BUN 24 mg/dL (7-18); Bilirubin, Total 0.4 mg/dL (0.2-1.0); CO2 25.2 mmol/L (21.0-32.0); CREATININE 1.3 mg/dL (0.55-1.02); Calcium 9.9 mg/dL (8.5-10.1); Chloride 96 mmol/L (98-107); Estimated GFR 41.06 (mL/min/1.73m2); Glucose 127 mg/dL (74-106); Potassium 3.9 mmol/L (3.5-5.1); Sodium 133 mmol/L (136-145); Total Protein 8.6 g/dL (6.4-8.2); Troponin I < 50 ng/L (<or=60)
--- NOTE | 2022-09-22 14:35 | DI.RAD_ITS ---
Exam(s) XR PORTABLE CHEST AP EXAM: XR PORTABLE CHEST AP CLINICAL HISTORY: cough TECHNIQUE: 2D digital imaging was performed. COMPARISON: No exams were available for comparison FINDINGS: Exam limited by poor pulmonary inflation. LUNGS: Grossly clear. No pleural abnormality seen. HEART: Normal. AORTA: Normal. BONES: Degenerative changes of the thoracic spine. Soft tissues: Unremarkable. IMPRESSION: No acute findings. DATA REPOSITORY: RADIATION DOSE DELIVERED:
[2022-09-22 14:36] LABS: D-Dimer 1630 ng/mlFEU (<500)
[2022-09-22 14:38] LABS: Creatine Kinase 23 U/L (26-192)
--- NOTE | 2022-09-22 14:45 | DI.US_ITS ---
Exam(s) US EXTREMITY VENOUS BI EXAM: US EXTREMITY VENOUS BI CLINICAL HISTORY: b/l leg pain. TECHNIQUE: Bilateral lower extremity venous ultrasound performed using grayscale, color-flow, and sp ectral Doppler analysis. COMPARISON: No exams were available for comparison FINDINGS: The bilateral common femoral, femoral and popliteal veins demonstrate normal compressibility, augment ation, and color Doppler. The posterior tibial veins are patent. IMPRESSION: Right: Negative for DVT Left: Negative for DVT DATA REPOSITORY:
--- NOTE | 2022-09-22 15:00 | DI.CT_ITS ---
Exam(s) CT CHEST PE CTA EXAM: CT CHEST PE CTA CLINICAL HISTORY: chest pain, cough. TECHNIQUE: Imaging Protocol: Axial CT angiography was performed with multi-slice acquisition and mu lti-planar reconstructions as well as axial, coronal and sagittal MIP reconstructions. CONTRAST MATERIAL: Intravenous: Omnipaque 350 Contrast volume:62 ml COMPARISON: CT CHEST FOR PULMONARY EMBOLUS from 12/03/2017 CR XR PORTABLE CHEST AP from 09/22/2022 FINDINGS: Pulmonary Arteries: No evidence of filling defect to suggest pulmonary emboli. Tracheobronchial tree: Patent where visualized. Mediastinum and Nataly: No dominant adenopathy or fluid collection. Pulmonary parenchyma: Limited evaluation due to respiratory motion. No consolidation or dominant terrance surable mass. Pleura: No effusion or pneumothorax. Heart: The heart is mildly dilated. Mild coronary artery calcifications are seen. Aorta: Thoracic aorta non-dilated. No aneurysm. No dissection. Atherosclerotic changes. Tortuosit y. Upper abdomen: Moderate size hiatal hernia. Bones: Degenerative disc changes. Syndesmophyte formation mid thoracic spine. Tubes, Catheters, and Lines: None IMPRESSION: No evidence of pulmonary embolism or other acute abnormality.. Results were called to the emergency department provider. RADIATION DOSE DELIVERED: Total DLP DATA REPOSITORY: All CT scans at this facility are submitted to the National Radiology Data Registry (NRDR) Dose Index Registry (DIR) with the [employer] (ACR). RADIATION OPTIMIZATION: All CT scans at this facility use at least one of these dose optimization te chniques: automated exposure control; mA and/or kV adjustment per patient size (includes targeted exa ms where dose is matched to clinical indication); or iterative reconstruction.
--- NOTE | 2022-09-22 15:11 | NUR.NOTE ---
Nursing Note: Assisted pt to bedside toilet and went through clean catch procedure, pt unable to give urine sample, BARBARA
[2022-09-22 15:40] LABS: COVID-19 PCR Negative (Negative); Influenza A PCR Negative (Negative); Influenza B PCR Negative (Negative); RSV PCR Negative (Negative)
[2022-09-22 15:52] LABS: Source Nasopharynx
[2022-09-22] MEDS: Omnipaque 350 MG/ML 500 ML BTL-Imaging package IJ (16:54)
--- NOTE | 2022-09-22 17:29 | ED.PROG_ITS ---
Date of service: 09/22/22 Time of Service: 16:30 Medical Decision Making 1630 --please see Dr. Gina Hernandez's note for initial presentation, exam and plan. Case endorsed to follow-up on imaging results and to follow-up with hospitalist for admission. 1730 --CT chest negative for PE or consolidation. Bilateral lower extremity ultrasounds negative for DVT. Case discussed with hospitalist who accepts patient for admission. Pt assessed by me at bedside --she endorses that she developed a dry cough, chest congestion and intermittent shortness of breath along with bilateral leg pain extending from her hips to her feet for the past 3 days. She denies any known fever and states she has been eating and drinking normally. She states prior to her hip surgery she has been using a cane and since her hip surgery she has been using a walker up until 3 days ago when she has had increased bilateral leg pain requiring the use of a wheelchair. No cauda equina symptoms. Patient appears comfortable and nontoxic. Her lungs are clear bilaterally. Oxygen saturations 96% on room air. She is moving all extremities but has pain in her bilateral legs with passive and active range of motion. Skin was warm to touch and a rectal temperature obtained is 100.5. IV fluids and IV Tylenol ordered. Her fluvid was negative but still consider COVID, influenza, bronchitis. UA negative for infection. Do not suspect epidural abscess as her leg weakness appears to be most likely a component of pain and she has respiratory symptoms. Medical Records Medical records reviewed: Yes I reviewed the patient's medical records. Imaging Data Radiologic Study: Radiologist's impression: CT CHEST PE CTA CLINICAL HISTORY: ? chest pain, cough. TECHNIQUE:? Imaging Protocol:? Axial CT angiography was performed with multi- slice acquisition and multi-planar reconstructions as well as axial, coronal and sagittal MIP reconstructions. CONTRAST MATERIAL:? Intravenous: Omnipaque 350 Contrast volume:62 ml COMPARISON:? CT CHEST FOR PULMONARY EMBOLUS from 12/03/2017 CR XR PORTABLE CHEST AP from 09/22/2022 FINDINGS: Pulmonary Arteries: No evidence of filling defect to suggest pulmonary emboli. Tracheobronchial tree: Patent where visualized. Mediastinum and Nataly: No dominant adenopathy or fluid collection. Pulmonary parenchyma: Limited evaluation due to respiratory motion.? No consolidation or dominant measurable mass. Pleura: No effusion or pneumothorax. Heart: The heart is mildly dilated.? Mild coronary artery calcifications are seen. Aorta: Thoracic aorta non-dilated.? No aneurysm.? No dissection.? Atherosclerotic changes.? Tortuosity.? Upper abdomen:? Moderate size hiatal hernia. Bones: Degenerative disc changes.? Syndesmophyte formation mid thoracic spine. Tubes, Catheters, and Lines: None IMPRESSION: No evidence of pulmonary embolism or other acute abnormality.? US EXTREMITY VENOUS BI CLINICAL HISTORY: ? b/l leg pain.? TECHNIQUE:? Bilateral lower extremity venous ultrasound performed using grayscale, color-flow, and spectral Doppler analysis. COMPARISON:? No exams were available for comparison FINDINGS: The bilateral common femoral, femoral and popliteal veins demonstrate normal compressibility, augmentation, and color Doppler. The posterior tibial veins are patent. IMPRESSION: Right: Negative for DVT Left: Negative for DVT Lab Data Lab results reviewed: Yes I reviewed the patient's lab results. Labs: Laboratory Tests Range/Units 09/22/22 09/22/22 09/22/22 13:30 13:30 13:30 WBC (4.4-10.8) 10^3/uL 11.23 H RBC (3.93-5.22) 10^6/uL 3.86 L Hgb (11.2-15.7) g/dL 11.7 Hct (36.0-46.0) % 37.7 MCV (80-95) fL 98 H MCH (27.0-33.0) pg 30.3 MCHC (32.0-36.0) % 31.0 L RDW (11.7-14.6) % 13.5 Plt Count (130-400) 10^3/uL 187 MPV (8.0-11.0) fL 10.7 Immature Gran % 0.4 Neutrophils % 67.0 Lymphocytes % 19.8 Monocytes % 10.6 Eosinophils % 1.6 Basophils % 0.6 Nucleated RBC % (0.0-0.3) % 0.0 Absolute Neutrophils (1.2-6.7) 10^3/uL 7.52 H Absolute Lymphocytes (1.2-3.4) 10^3/uL 2.22 Absolute Monocytes (0.1-0.8) 10^3/uL 1.19 H Absolute Eosinophils (0.0-0.7) 10^3/uL 0.18 Absolute Basophils (0.0-0.2) 10^3/uL 0.07 D-Dimer (<500) ng/mlFEU 1630 H Sodium (136-145) mmol/L 133 L Potassium (3.5-5.1) mmol/L 3.9 Chloride (98-107) mmol/L 96 L Carbon Dioxide (21.0-32.0) mmol/L 25.2 Anion Gap (3-11) mmol/L 11.8 H BUN (7-18) mg/dL 24 H Creatinine (0.55-1.02) mg/dL 1.3 H Est GFR (CKD-EPI 2020) (mL/min/1.73m2) 41.06 Glucose (74-106) mg/dL 127 H Calcium (8.5-10.1) mg/dL 9.9 Magnesium (1.8-2.4) mg/dL 2.0 Total Bilirubin (0.2-1.0) mg/dL 0.4 AST (15-37) U/L 14 L ALT (14-59) U/L 17 Alkaline Phosphatase (46-116) U/L 96 Creatine Kinase (26-192) U/L Troponin I (<or=60) ng/L < 50 Total Protein (6.4-8.2) g/dL 8.6 H Albumin (3.4-5.0) g/dL 3.5 Urine Color (Yellow) Urine Clarity (Clear) Urine pH (5-8) Ur Specific [place] (1.005-1.025) Urine Protein (Negative) mg/dL Urine Ketones (Negative) mg/dL Urine Blood (Negative) Urine Nitrite (Negative) Urine Bilirubin (Negative) Urine Urobilinogen (Up TO 0.2) EU/dL Ur Leukocyte Esterase (Negative) Urine RBC (0-2) HPF Urine WBC (0-5) HPF Ur Epithelial Cells (Negative) HPF Urine Crystals (Negative) HPF Urine Bacteria (Negative) HPF Urine Casts (Negative) LPF Urine Mucus (Negative) Ur Culture Indicated? Urine Glucose (Negative) mg/dL COVID-19 Source SARS-CoV-2 (PCR) (Negative) Influenza Type A (PCR) (Negative) Influenza Type B (PCR) (Negative) RSV (PCR) (Negative) Range/Units 09/22/22 09/22/22 09/22/22 13:30 14:55 17:28 WBC (4.4-10.8) 10^3/uL RBC (3.93-5.22) 10^6/uL Hgb (11.2-15.7) g/dL Hct (36.0-46.0) % MCV (80-95) fL MCH (27.0-33.0) pg MCHC (32.0-36.0) % RDW (11.7-14.6) % Plt Count (130-400) 10^3/uL MPV (8.0-11.0) fL Immature Gran % Neutrophils % Lymphocytes % Monocytes % Eosinophils % Basophils % Nucleated RBC % (0.0-0.3) % Absolute Neutrophils (1.2-6.7) 10^3/uL Absolute Lymphocytes (1.2-3.4) 10^3/uL Absolute Monocytes (0.1-0.8) 10^3/uL Absolute Eosinophils (0.0-0.7) 10^3/uL Absolute Basophils (0.0-0.2) 10^3/uL D-Dimer (<500) ng/mlFEU Sodium (136-145) mmol/L Potassium (3.5-5.1) mmol/L Chloride (98-107) mmol/L Carbon Dioxide (21.0-32.0) mmol/L Anion Gap (3-11) mmol/L BUN (7-18) mg/dL Creatinine (0.55-1.02) mg/dL Est GFR (CKD-EPI 2020) (mL/min/1.73m2) Glucose (74-106) mg/dL Calcium (8.5-10.1) mg/dL Magnesium (1.8-2.4) mg/dL Total Bilirubin (0.2-1.0) mg/dL AST (15-37) U/L ALT (14-59) U/L Alkaline Phosphatase (46-116) U/L Creatine Kinase (26-192) U/L 23 L Troponin I (<or=60) ng/L Total Protein (6.4-8.2) g/dL Albumin (3.4-5.0) g/dL Urine Color (Yellow) Yellow Urine Clarity (Clear) Clear Urine pH (5-8) 5.5 Ur Specific [place] (1.005-1.025) 1.020 Urine Protein (Negative) mg/dL 30 H Urine Ketones (Negative) mg/dL Negative Urine Blood (Negative) Negative Urine Nitrite (Negative) Negative Urine Bilirubin (Negative) Negative Urine Urobilinogen (Up TO 0.2) EU/dL 0.2 Ur Leukocyte Esterase (Negative) Negative Urine RBC (0-2) HPF Negative Urine WBC (0-5) HPF Negative Ur Epithelial Cells (Negative) HPF Few Urine Crystals (Negative) HPF Negative Urine Bacteria (Negative) HPF Negative Urine Casts (Negative) LPF 0-2 Hyaline Urine Mucus (Negative) Trace Ur Culture Indicated? No Urine Glucose (Negative) mg/dL 500 H COVID-19 Source Nasopharynx SARS-CoV-2 (PCR) (Negative) Negative Influenza Type A (PCR) (Negative) Negative Influenza Type B (PCR) (Negative) Negative RSV (PCR) (Negative) Negative Sign Out Yes Sign Out Sign Out Data: Sign Out Comment: Patient signed out to Dr. Melendez at time of shift change with ultrasound, CT, UA pending. Anticipate admission. Last updated by Gina Hernandez MD at 09/22/22 16:23 Discharge Plan Disposition Patient Disposition: Admit to [facility] Condition: Stable Discharge Details Clinical Impression: Viral URI with cough, Fever, Bilateral leg pain, Ambulatory dysfunction Admit Date/Time: 09/22/22 17:34 Admit Provider: Negrito Darby Attending Provider: Negrito Darby Primary Care Provider: Riky Gaitan ED Provider: Ghada Melendez Discharge Data Discharge Date/Time-TO BE ENTERED AT DEPARTURE: 09/22/22 18:41
[2022-09-22 17:34] LABS: Bilirubin Negative (Negative); Blood Negative (Negative); Clarity Clear (Clear); Glucose 500 mg/dL (Negative); Ketones Negative (Negative); Leukocyte Esterase Negative (Negative); Nitrite Negative (Negative); Urobilinogen 0.2 EU/dL (Up TO 0.2); pH 5.5 (5-8)
[2022-09-22 17:39] LABS: Bacteria Negative HPF (Negative); C & S Indicated? No; Casts 0-2 Hyaline LPF (Negative); Crystals Negative HPF (Negative); Epithelial Cells Few HPF (Negative); Mucus Trace (Negative); RBC Negative HPF (0-2); WBC Negative HPF (0-5)
[2022-09-22] MEDS: Normal Saline 250 ML IV (17:43)
[2022-09-22] MEDS: ACETAMINOPHEN 1,000 MG/100 ML BTL 400 MG IVPB (18:39)
--- NOTE | 2022-09-22 19:06 | HPE_ITS ---
Date of service: 09/23/22 Time of Service: 06:56 Assessment and Plan Assessment and plan (1) Bilateral leg pain: Status: Acute Assessment and plan: Acute, fluctuating and migrating pain in background of recent hip repair and known DJD of knees. Negative venous dopplers for DVT. No focal deficits on exam. Likely exertional given the onset was after walking through snow pushing her roller walker. PT to evaluate. Will schedule Celebrex BID now; takes prn at home daily but increased by PCP to BID prn recently. Cont prn acetaminophen. Tramadol prn. (2) Viral URI with cough: Status: Acute Assessment and plan: Appears to be causing costochondritis. Pain relief as above. PRN tessalon perls. (3) Closed right hip fracture: Status: Acute Assessment and plan: S/P recent repair. Dr Hathaway evaluated in office on the day of this admission and found no concerning evidence that the repair was implicated in her current complaints. (4) Peripheral neuropathy: Status: Acute Assessment and plan: Cont Duloxetine. Qualifiers: Peripheral neuropathy type: idiopathic neuropathy, unspecified Qualified Code(s): G60.9 - Hereditary and idiopathic neuropathy, unspecified (5) Costochondritis: Status: Acute Assessment and plan: As above. (6) Type 2 diabetes mellitus: Status: Chronic Assessment and plan: Hold metformin (s/p CTA chest with contrast). Cont dapagliflozin ACHS accuchecks. SS correction dosing of insulin. DM diet. History of Present Illness History of Present Illness Chief Complaint: bilateral leg pain Narrative: Aster Kumar is an 81-year-old woman with a history of peripheral neuropathy, diabetes, TIA, GERD, mild cognitive impairment, anemia, hypertension, status post bilateral knee replacements and 6 weeks status post right hip fracture repair presenting to emergency department with bilateral leg pain.? She was initially seen in Dr Hathaway's office on the morning of this presentation for bilateral leg pain.? He discussed his evaluation with the ED provider and stated that she hasdbeen doing very well after surgery until several days ago. He felt the pain was unlikely to be related to postoperative course.? He sent patient to her PCP for evaluation of possible viral illness/systemic process resulting in diffuse bilateral leg pain.? Patient reported that her PCP sent her to the emergency department to rule out a pulmonary embolism after she reported to him that 3 days ago she devloped a cough. She also endorsed to her PCP that 3 days ago she developed diffuse bilateral leg pain from bilateral hips to bilateral ankles.? She reported that pain is worse in different areas at different times, and is currently worse in both knees.? Patient reported that she has had intermittent joint pain in the past, but it is unusual for her to have concurrent bilateral pain.?She did mention that she has central chest pain with coughing, otherwise has no chest pain.?No fevers, vomiting, diarrhea, shortness of breath, focal weakness.? +chronic numbness in her feet that is unchanged.? +decreased appetite since 3 days ago.? Denies trauma or known inciting event, other than the fact that she used her rolling walker through snow just prior to symptom onset (this was more physical work for her than his typical). Review of Systems All systems reviewed & are unremarkable except as noted in HPI and below PFSH All Active Problems (Updated 09/23/22 @ 07:09 by Negrito Darby MD) Costochondritis (Acute) Bilateral leg pain (Acute) Viral URI with cough (Acute) Fever (Acute) Ambulatory dysfunction (Acute) Nail dystrophy (Acute) Blood loss anemia (Acute) Closed right hip fracture (Acute 07/25/22) S/P cannulated screw fixation: 07/26/2022 Mild cognitive impairment (Acute) Periprosthetic fracture around internal prosthetic left knee joint, initial encounter (Acute 07/28/19) S/P ORIF 07/28/2019 Peripheral neuropathy (Acute) Monocular diplopia of both eyes (Acute) Femur fracture, left (Acute) S/p total knee replacement, bilateral (Acute) History of cataract extraction (Chronic) May 2018 at [facility] [place], complicated by increased IOP S/P rotator cuff repair (Chronic) 2016 History of ankle surgery (Chronic) H/O toe surgery (Chronic) Fracture of left hip requiring operative repair (Chronic) 2011 Status post lumbar spine surgery for decompression of spinal cord (Chronic) L4-S1 decompression and fusion; 2000 H/O: hysterectomy (Chronic) S/P dilatation and curettage (Chronic) H/O total knee replacement (Chronic) Urinary frequency (Chronic) Type 2 diabetes mellitus (Chronic) Insomnia (Chronic) TIA (transient ischemic attack) (Chronic) GERD (gastroesophageal reflux disease) (Chronic) Fibromyalgia (Chronic) Depression (Chronic) Low back pain (Chronic) Lumbar stenosis without neurogenic claudication (Chronic) 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) Medical History Anemia, iron deficiency Dysphagia H/O TIA (transient ischemic attack) and stroke Hiatal hernia Hypertension Macrocytosis Osteopenia Skin lesion Family History Mother Alzheimer disease Father Stroke Social History Smoking/Tobacco Use Status: Never Smoking risk assessment performed?: Yes Alcohol Intake: never Drug use: Never Substance use type: does not use Household members: spouse Housing: house Current gender identity: female Do you feel safe at home: Yes Do you feel safe in your relationship?: Yes Additional Social history: She was born in [place]. 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 She is to her second Demarco (since ~1989?). She has 2 stepsons. She drinks one glass of wine per week. Meds Allergies and Home Medications Allergies Allergy/AdvReac Type Severity Reaction Status Date / Time No Known Drug Allergies Allergy Verified 09/22/22 13:40 Home Medications Medication Instructions Recorded Confirmed Type albuterol sulfate 90 mcg/actuation 2 puff inhalation PRN PRN 11/13/15 09/22/22 History aerosol inhaler (ProAir HFA) clopidogrel 75 mg tablet (Plavix) 75 mg PO HS 11/13/15 09/22/22 History calcium carbonate 600 mg-vitamin 1 ea PO DAILY 02/26/16 09/22/22 History D3 5 mcg (200 unit) tablet pantoprazole 20 mg tablet,delayed 40 mg PO BID 04/03/17 09/22/22 History release (Protonix) atorvastatin 10 mg tablet (Lipitor) 10 mg PO QPM #30 tabs 12/07/17 09/22/22 Rx docusate sodium 100 mg capsule 100 mg PO BID 07/08/18 09/22/22 History duloxetine 30 mg capsule,delayed 30 mg PO DAILY 07/28/19 09/22/22 History release (Cymbalta) lactobacillus comb no.10 20 30,000 cell PO DAILY 11/15/19 09/22/22 History billion cell capsule (Probiotic) metformin 500 mg tablet 1,000 mg PO BID 03/20/20 09/22/22 History duloxetine 30 mg capsule,delayed 60 mg PO DAILY 11/13/20 09/22/22 History release (Cymbalta) magnesium oxide 500 mg PO DAILY 11/13/20 09/22/22 History mirtazapine 15 mg tablet 15 mg PO DAILY 11/13/20 09/22/22 History dapagliflozin 5 mg tablet (Farxiga) 5 mg PO DAILY 11/28/21 09/22/22 History acetaminophen 650 mg 650 mg PO Q6H PRN Pain #0 tabs 07/27/22 09/22/22 Rx tablet,extended release celecoxib 200 mg capsule (Celebrex) 200 mg PO BID PRN Pain #60 caps 07/27/22 09/22/22 Rx tramadol 50 mg tablet 50 mg PO TID PRN pain #10 tabs 08/27/22 09/22/22 Rx Exam Narrative Exam Narrative: Very pleasant elderly female. Conversant. Lying in bed Const General: cooperative and no acute distress Nutritional Appearance: average body habitus Orientation: alert and oriented x3 HENMT Head: normocephalic and atraumatic Chest Chest: tenderness (mild with sternal compression. ) Resp Effort & Inspection: normal respiratory effort and able to speak in complete sentences Auscultation: clear to auscultation bilaterally Cardio Rate: regular rate Rhythm: regular rhythm Heart Sounds: S1 normal and S2 normal GI Inspection: non-distended Palpation: soft and nontender Skin General skin exam: no rashes or lesions noted Neuro General: no focal motor deficits Cranial Nerves: facial strength normal Speech: speech normal Extrem General: no pedal edema and no calf tenderness Right upper extremity: no joint enlargement Psych Appearance: grossly normal Affect: normal affect Attitude: cooperative Results Labs Result diagrams: 09/23/22 06:30 09/23/22 05:10 Labs: Laboratory Results - last 24 hr 09/22/22 09/22/22 09/22/22 13:30 13:30 13:30 WBC 11.23 H RBC 3.86 L Hgb 11.7 Hct 37.7 MCV 98 H MCH 30.3 MCHC 31.0 L RDW 13.5 Plt Count 187 MPV 10.7 Immature Gran % 0.4 Neutrophils % 67.0 Lymphocytes % 19.8 Monocytes % 10.6 Eosinophils % 1.6 Basophils % 0.6 Nucleated RBC % 0.0 Absolute Neutrophils 7.52 H Absolute Lymphocytes 2.22 Absolute Monocytes 1.19 H Absolute Eosinophils 0.18 Absolute Basophils 0.07 D-Dimer 1630 H Sodium 133 L Potassium 3.9 Chloride 96 L Carbon Dioxide 25.2 Anion Gap 11.8 H BUN 24 H Creatinine 1.3 H Est GFR (CKD-EPI 2020) 41.06 Glucose 127 H Calcium 9.9 Magnesium 2.0 Total Bilirubin 0.4 AST 14 L ALT 17 Alkaline Phosphatase 96 Creatine Kinase Troponin I < 50 Total Protein 8.6 H Albumin 3.5 Urine Color Urine Clarity Urine pH Ur Specific [place] Urine Protein Urine Ketones Urine Blood Urine Nitrite Urine Bilirubin Urine Urobilinogen Ur Leukocyte Esterase Urine RBC Urine WBC Ur Epithelial Cells Urine Crystals Urine Bacteria Urine Casts Urine Mucus Ur Culture Indicated? Urine Glucose COVID-19 Source SARS-CoV-2 (PCR) Influenza Type A (PCR) Influenza Type B (PCR) RSV (PCR) 09/22/22 09/22/22 09/22/22 13:30 14:55 17:28 WBC RBC Hgb Hct MCV MCH MCHC RDW Plt Count MPV Immature Gran % Neutrophils % Lymphocytes % Monocytes % Eosinophils % Basophils % Nucleated RBC % Absolute Neutrophils Absolute Lymphocytes Absolute Monocytes Absolute Eosinophils Absolute Basophils D-Dimer Sodium Potassium Chloride Carbon Dioxide Anion Gap BUN Creatinine Est GFR (CKD-EPI 2020) Glucose Calcium Magnesium Total Bilirubin AST ALT Alkaline Phosphatase Creatine Kinase 23 L Troponin I Total Protein Albumin Urine Color Yellow Urine Clarity Clear Urine pH 5.5 Ur Specific [place] 1.020 Urine Protein 30 H Urine Ketones Negative Urine Blood Negative Urine Nitrite Negative Urine Bilirubin Negative Urine Urobilinogen 0.2 Ur Leukocyte Esterase Negative Urine RBC Negative Urine WBC Negative Ur Epithelial Cells Few Urine Crystals Negative Urine Bacteria Negative Urine Casts 0-2 Hyaline Urine Mucus Trace Ur Culture Indicated? No Urine Glucose 500 H COVID-19 Source Nasopharynx SARS-CoV-2 (PCR) Negative Influenza Type A (PCR) Negative Influenza Type B (PCR) Negative RSV (PCR) Negative Last Vital Signs Temp 37.6 C H 09/22/22 19:00 Pulse 80 09/22/22 19:00 Resp 18 09/22/22 19:00 BP 134/67 09/22/22 19:00 Pulse Ox 97 09/22/22 19:00
[2022-09-22 19:30] LABS: Lab Add On Test DONE
[2022-09-22] MEDS: Celecoxib 200 MG CAP PO (19:45)
[2022-09-22] MEDS: Atorvastatin 10 MG TAB PO (19:45)
[2022-09-22] MEDS: Docusate Sodium 100 MG CAP PO (19:46)
[2022-09-22] MEDS: Normal Saline Flush 10 ML SYR IVP (19:47)
[2022-09-22] MEDS: Pantoprazole 40 MG TABCR PO (19:47)
[2022-09-22 19:59] LABS: C-Reactive Protein > 25.00 mg/dL (0.0-0.3)
[2022-09-22 20:20] LABS: Troponin I < 50 ng/L (<or=60)
[2022-09-22] MEDS: Clopidogrel 75 MG TAB PO (22:01)
[2022-09-23 06:19] LABS: Anion Gap 8.3 mmol/L (3-11); BUN 23 mg/dL (7-18); CO2 24.7 mmol/L (21.0-32.0); CREATININE 1.1 mg/dL (0.55-1.02); Calcium 9.4 mg/dL (8.5-10.1); Chloride 102 mmol/L (98-107); Estimated GFR 50.17 (mL/min/1.73m2); Glucose 136 mg/dL (74-106); Potassium 4.1 mmol/L (3.5-5.1); Sodium 135 mmol/L (136-145)
[2022-09-23 06:47] LABS: HCT 33.5 % (36.0-46.0); HGB 10.6 g/dL (11.2-15.7); MCH 30.8 pg (27.0-33.0); MCHC 31.6 % (32.0-36.0); MCV 97 fL (80-95); MPV 10.5 fL (8.0-11.0); Platelet Count 161 10^3/uL (130-400); RBC 3.44 10^6/uL (3.93-5.22); RDW 13.3 % (11.7-14.6); RDW-SD 47.8 fL; WBC 7.55 10^3/uL (4.4-10.8)
[2022-09-23 07:32] VITALS: BP 121/73; PULSE 77; RESP 18; TEMP 36.7; O2SAT 94
[2022-09-23] MEDS: DULoxetine 30 MG CAP 60 MG PO (08:22)
[2022-09-23] MEDS: Calcium 600mg/Vit D 200U TAB 1 TAB PO (08:23)
[2022-09-23] MEDS: DULoxetine 30 MG CAP PO (08:23)
[2022-09-23] MEDS: Mirtazapine 15 MG TAB PO (08:23)
[2022-09-23] MEDS: Magnesium Oxide 400 MG TAB PO (08:24)
[2022-09-23] MEDS: Pantoprazole 40 MG TABCR PO (08:24)
[2022-09-23] MEDS: Docusate Sodium 100 MG CAP PO (08:24)
[2022-09-23] MEDS: Celecoxib 200 MG CAP PO (08:24)
[2022-09-23] MEDS: Normal Saline Flush 10 ML SYR IVP (08:25)
--- NOTE | 2022-09-23 10:44 | IN_ITS ---
Date of service: 09/23/22 Time of Service: 10:44 PT Notes Visit Reasons: Chest Pain,Ambulatory Disfunction Physical Therapy Inpatient Initial Evaluation Date: 09/23/2022 Referring Doctor: Negrito Darby MD PT Orders: PT CONSULT: Eval/Treatr Precautions: Fall. Standard. Activity as tolerated. Patient Profile/Admitting Diagnosis: Keo Webb is an [age]-year-old female who presented to the ED on 09/22/2020 22- 2 complaints of dry cough, chest congestion, intermittent shortness of breath, and bilateral leg pain that starts from both her hips to her feet. Patient is diagnosed with viral URI with cough, closed right hip fracture and is status post repair on 07/26/22, peripheral neuropathy, costochondritis, and type 2 diabetes mellitus. PMHX: All Active Problems?(Updated 09/23/22 @ 07:09 by Negrito Darby MD) Costochondritis (Acute) Bilateral leg pain (Acute) Viral URI with cough (Acute) Fever (Acute) Ambulatory dysfunction (Acute) Nail dystrophy (Acute) Blood loss anemia (Acute) Closed right hip fracture (Acute 07/25/22) S/P cannulated screw fixation: 07/26/2022 . Mild cognitive impairment (Acute) Periprosthetic fracture around internal prosthetic left knee joint, initial encounter (Acute 07/28/19) S/P ORIF 07/28/2019 Peripheral neuropathy (Acute) Monocular diplopia of both eyes (Acute) Femur fracture, left (Acute) S/p total knee replacement, bilateral (Acute) History of cataract extraction (Chronic) May 2018 at [facility] [place] complicated by increased IOP S/P rotator cuff repair (Chronic) 2016 History of ankle surgery (Chronic) H/O toe surgery (Chronic) Fracture of left hip requiring operative repair (Chronic) 2011 Status post lumbar spine surgery for decompression of spinal cord (Chronic) L4-S1 decompression and fusion; 2000 H/O: hysterectomy (Chronic) S/P dilatation and curettage (Chronic) H/O total knee replacement (Chronic) Urinary frequency (Chronic) Type 2 diabetes mellitus (Chronic) Insomnia (Chronic) TIA (transient ischemic attack) (Chronic) GERD (gastroesophageal reflux disease) (Chronic) Fibromyalgia (Chronic) Depression (Chronic) Low back pain (Chronic) Lumbar stenosis without neurogenic claudication (Chronic) 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) Medical History? Anemia, iron deficiency Dysphagia H/O TIA (transient ischemic attack) and stroke Hiatal hernia Hypertension Macrocytosis Osteopenia Skin lesion UEs Social History/Home Situation: Lives with in a private home with a ramp to enter. Uses the 4[employer] for outdoor ambulation. Able to prepare own meals. Shares the laundry chore with . has been a good support. Equipment Owned/DME: 4[employer], FWW but already worn out and unsafe to be used Subjective: Stated that she had her PT session on a and started hurting Thursday. The next day on Thursday, patient and went to the cafe close to where they live in [place] and had quite the struggle through the snow-laden entrance way of the cafe. She began to have increasing pain in B her hips and knees since then and has had increasing difficulty walking which prompted a trip to the ED. On evaluation today, she stated that she still feels the pain but has started to ease up a bit. She agreed to getting out of bed. expressed concerns that has not had these symptoms with such intensity before. Objective: General Observation: Supine in bed. No lines. Deformity in L foot noted. Mental Status: Alert and oriented as to person, place, time, and purpose. Able to pay attention, focus, and respond appropriately. Pain: 2-3/10 pain in B hips and knees with L more affected than the R Vital Signs: WNL as closley monitored by nursing staff ROM: Right Upper Extremity: Shoulder Flexion WFL. Shoulder abduction WFL. Elbow flexion WFL. Wrist flexion WFL. Functional opening and closing of hand WFL. Left Upper Extremity: Shoulder Flexion WFL. Shoulder abduction WFL. Elbow flexion WFL. Wrist flexion WFL. Functional opening and closing of hand WFL. Right Lower Extremity: Hip flexion WFL. Hip abduction WFL. Knee flexion WFL. Ankle dorsiflexion WFL. Ankle plantarflexion WFL. Left Lower Extremity: Hip flexion WFL. SLR up to about 30 degrees with pain at end of range in the hip. Hip abduction WFL. Knee flexion 20 degrees to 90 degrees. Knee extension -20 degrees. Ankle dorsiflexion to neutral only. Ankle plantarflexion WFL. Strength: Right Upper Extremity: Shoulder flexors 4-/5. Shoulder abductors 4-/5. Elbow flexors 4/5. Elbow extensors 4/5. Customer Accounts Advisor strong. Left Upper Extremity: Shoulder flexors 4-/5. Shoulder abductors 4-/5. Elbow flexors 4/5. Elbow extensors 4/5. Customer Accounts Advisor strong. Right Lower Extremity: Hip flexors 4/5. Hip abductors 4/5. Knee flexors 4/5. Knee extensors 4/5. Ankle dorsiflexors 3/5. Ankle plantarflexors 4-/5. Left Lower Extremity: Hip flexors 3-/5. Hip abductors 4-/5. Knee flexors 3-/5. Knee extensors 3-/5. Ankle dorsiflexors 3-/5. Ankle plantarflexors 3-/5. Bed Mobility/Transfers: Supine to sit with supervision Sit to supine with supervision Sit to stand with supervision Stand to sit with supervision Bed to toliet seat supervision Gait: Instructed patient with level surface ambulation of 80 feet requiring supervision assist. Thoracic kyphosis. Debra decreased. Step height decreased. Step length decreased. No report of increased pain in B hips and knees. Denies headache, chest pain, and lightheadedness. Balance: Static Sitting: Normal Dynamic Sitting: Normal Static Standing: Fair Dynamic Standing: Fair Special Tests: Mobility Limitations Standardized Measure [facility] 6 clicks Basic Mobility Inpatient Short Form: Raw Score: 23 CMS Score: 11% deficit SLR: Weak on L side only up to 30 degrees with onset of pain but no radiation to leg/feet Pressure to B hips: No pain Tenderness B hips and B knees non TTP FABERE: Positive on L hip with minimla pain but not as intense as it did on admission Informed Consent/Education: Patient was instructed in purpose of PT consult and plan of care. Agreeable to proceed with established PT POC to achieve personal goals. Assessment: Patient presents with clinical signs and symptoms consistent with current/admitting diagnoses that have resulted to mobility limitations, gait instability, generalized weakness, and overall ADL decline as demonstrated by the following impairment level findings: 1. Decreased strength to L LE major muscle groups 2. Impaired sitting/standing balance 3. Impaired activity tolerance 4. Limitation of joint range of motion in L hip and knee Impairments are contributing to the following functional limitations: 1. Difficulty with ambulation without assistive device 2. Increased completion time for mobility ADL performance 3. Increased risk for falls 4. Difficulty with managing steps alone safely Patient is assessed as a [id number] low complexity based on the following: History: 81-year-old female with past medical history as indicated above Examination: Demonstrable impairment in strength, balance, and mobility level with underlying impairments and functional limitations as exhibited above as well as deficit score of 23% utilizing the [facility] Mobility Inpatient Short Form Presentation: Evolving Decision Makin low complexity Goals: Goals X1 week 1. Supine-Sit independent 2. Sit-Supine independent 3. Sit-Stand independent 4. Stand-Sit independent with FWW 5. Bed-Chair independent with FWW 6. Chair-Bed independent with FWW 7. Independent gait on level surface with use of FWW for at least 300 feet without report of pain nor dyspnea Plan of Care/Treatment Plan: 1-2x/day, 7 days/week x 1 week. Plan of care has been reviewed with the G[employer]ING BROKER providing the service under Physical Therapy direction. Initiate Physical Therapy intervention for pain management as needed, strengthening, bed mobility, transfers, gait, stairs, balance training, and use of assistive device. DISCHARGE RECOMMENDATIONS: [] Home with no services [] [] Home with services [specify] [] Home with outpatient PT [] [] SNF for continued rehabilitation [] [] Exhaust Equipment Operator Care [] [] SNF versus LTC based on ability to participate and progress [] [X] Continue with OP PT services as tolerated TREATMENT CODE/TIME: 04453 x 26 minutes beginning at 10:44 AM. Thank you for the opportunity to participate in the care of this patient. Jessy Perez PT, DPT, CLT [facility] [place], [place]
--- NOTE | 2022-09-23 12:24 | INITIAL_ITS ---
- If Service Date Differs Date of service: 09/23/22 Time of Service: 12:24 Care Management Initial Assess REASON FOR HOSPITALIZATION:: Chest pain, ambulatory disfunction PAST MEDICAL HISTORY/PAST SURGICAL HISTORY:: All Active Problems. Costochondritis (Acute). Bilateral leg pain (Acute). Viral URI with cough (Acute). Fever (Acute). Ambulatory dysfunction (Acute). Nail dystrophy (Acute). Blood loss anemia (Acute). Closed right hip fracture (Acute 07/25/22). S/P cannulated screw fixation: 07/26/2022. Mild cognitive impairment (Acute). Periprosthetic fracture around internal prosthetic left knee joint, initial encounter (Acute 07/28/19). S/P ORIF 07/28/2019. Peripheral neuropathy (Acute). Monocular diplopia of both eyes (Acute). Femur fracture, left (Acute). S/p total knee replacement, bilateral (Acute). History of cataract extraction (Chronic). May 2018 at [facility] [place], complicated by increased IOP. S/P rotator cuff repair (Chronic). 2016. History of ankle surgery (Chronic). H/O toe surgery (Chronic). Fracture of left hip requiring operative repair (Chronic). 2011. Status post lumbar spine surgery for decompression of spinal cord (Chronic). L4-S1 decompression and fusion; 2000. H/O: hysterectomy (Chronic). S/P dilatation and curettage (Chronic). H/O total knee replacement (Chronic). Urinary frequency (Chronic). Type 2 diabetes mellitus (Chronic). Insomnia (Chronic). TIA (transient ischemic attack) (Chronic). GERD (gastroesophageal reflux disease) (Chronic). Fibromyalgia (Chronic). Depression (Chronic). Low back pain (Chronic). Lumbar stenosis without neurogenic claudication (Chronic). 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 LEFT/DR. EVANS; right; right TKA cleaned out in 2018 due to infection. Sensorineural hearing loss, bilateral (Chronic 11/27/16). Restless leg syndrome (Chronic 08/11/17). Osteoarthritis of knee (Chronic 10/06/13). Migraine without aura and without status migrainosus, not intractable (Chronic 06/15/17). Memory loss (Chronic 06/24/16). Idiopathic peripheral neuropathy (Chronic 08/23/16). 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 (Chronic). Medical History. Anemia, iron deficiency. Dysphagia. H/O TIA (transient ischemic attack) and stroke. Hiatal hernia. Hypertension. Macrocytosis. Osteopenia. Skin lesion PREVIOUS FUNCTIONAL STATUS/SOCIAL/FAMILY SUPPORTS:: Aster resides in [place] with her Anish. Aster shares when she Anish she inherited 2 sons. She is very proud of her grandchildren and their academic achievements. 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 The couple remain independent in the community, drives and manages their own needs. Aster routinely goes to outpatient PT at [facility]. Aster enjoys quilting and knitting. CURRENT FUNCTIONAL STATUS:: Aster was sitting up in her chair when CM met with her. She stated that she has talked to the MD, who plans to discharge her home today. She reported that she is feeling much better today, and is looking forward to returning home. Her was visiting, and they discussed their Thanksgiving plans at the [place] [employer]. Aster reports that she is independent at baseline, and does not currently require any services in the community at this time. ADVANCE DIRECTIVES:: On file at [facility]: [facility] is Demarco Kumar Has patient been provided with info about the portal/API?: Yes Did the patient sign up for the portal?: Yes (active) CODE STATUS:: Full Code INSURANCE COVERAGE / FINANCIAL ISSUES:: [employer] commercial MCR replacement CURRENT HOME/COMMUNITY SERVICES/EQUIPMENT:: Walker, rollator, shower chair, raised toilet, as well as a stair chair that will assist her in getting to the second floor of her house. Uses [employer] for meals. Aster goes to [facility]. PRIMARY CARE PHYSICIAN:: Dr. Gaitan POTENTIAL DISCHARGE NEEDS:: Follow up appointment with PCP, New [facility] services, if indicated. RX's: [facility] (Mail Order), [facility](local). PATIENT/FAMILY EDUCATION NEEDS:: Review discharge instructions, limitations, medications and plan to follow up with community providers. Review ask me three. ANTICIPATED BARRIERS TO DISCHARGE:: None identified. TRANSPORTATION:: Via private vehicle by her . PLAN:: Aster will likely return home when medically cleared. Her , Anish, will drive him home via private vehicle. She will follow up with her PCP and discharge plan of care. CM will continue to follow.
--- NOTE | 2022-09-23 13:30 | DSE_ITS ---
Date of service: 09/23/22 Time of Service: 13:34 DS: Diagnosis Discharge Diagnosis (1) Bilateral leg pain: Status: Acute (2) Viral URI with cough: Status: Acute (3) Closed right hip fracture: Status: Acute (4) Peripheral neuropathy: Status: Acute (5) Costochondritis: Status: Acute (6) Type 2 diabetes mellitus: Status: Chronic Discharge Plan Disposition Patient Disposition: Home Condition: Improving Discharge Details Reason For Visit: Chest Pain,Ambulatory Disfunction Admit Date/Time: 09/22/22 17:34 Admit Provider: Negrito Darby Attending Provider: Negrito Darby Primary Care Provider: Riky Gaitan Hospital Course Hospital Course: Aster Kumar is an 81-year-old woman with a history of peripheral neuropathy, diabetes, TIA, GERD, mild cognitive impairment, anemia, hypertension, status post bilateral knee replacements and 6 weeks status post right hip fracture repair presenting to emergency department with bilateral leg pain.? She was initially seen in Dr Hathaway's office on the morning of this presentation for bilateral leg pain.? He discussed his evaluation with the ED provider and stated that she hasdbeen doing very well after surgery until several days ago. He felt the pain was unlikely to be related to postoperative course.? He sent patient to her PCP for evaluation of possible viral illness/systemic process resulting in diffuse bilateral leg pain.? Patient reported that her PCP sent her to the emergency department to rule out a pulmonary embolism after she reported to him that 3 days ago she devloped a cough. She also endorsed to her PCP that 3 days ago she developed diffuse bilateral leg pain from bilateral hips to bilateral ankles.? She reported that pain is worse in different areas at different times, and is currently worse in both knees.? Patient reported that she has had intermittent joint pain in the past, but it is unusual for her to have concurr ent bilateral pain.?She did mention that she has central chest pain with coughing, otherwise has no chest pain.?No fevers, vomiting, diarrhea, shortness of breath, focal weakness.? +chronic numbness in her feet that is unchanged.? +decreased appetite since 3 days ago.? Denies trauma or known inciting event, other than the fact that she used her rolling walker through snow just prior to symptom onset (this was more physical work for her than his typical). The following day she was feeling well; requesting to go home. PT evaluated and did recommend outpt PT. She had no significant respiratory symptoms; minimal cough w/o sputum. No hypoxia. PCP follow up in 1-2 weeks. Home Meds and New Rx's Prescriptions: Continued mirtazapine 15 mg tablet 15 mg PO DAILY Probiotic 20 billion cell capsule 30,000 cell PO DAILY calcium carbonate-vitamin D3 1 EACH tablet 1 ea PO DAILY tramadol 50 mg tablet 50 mg PO TID PRN (Reason: pain) Qty: 10 0RF clopidogrel [Plavix] 75 MG tablet 75 mg PO HS albuterol sulfate [ProAir HFA] 8.5 GM HFA aerosol inhaler 2 puff Inhalation PRN PRN duloxetine [Cymbalta] 30 mg capsule,delayed release(DR/EC) 60 mg PO DAILY atorvastatin [Lipitor] 10 MG tablet 10 mg PO QPM Qty: 30 0RF docusate sodium 100 mg capsule 100 mg PO BID acetaminophen 650 mg tablet extended release 650 mg PO Q6H PRN (Reason: Pain) Qty: 0 0RF celecoxib [Celebrex] 200 mg capsule 200 mg PO BID PRN (Reason: Pain) Qty: 60 0RF Rx Instructions: Take once or twice per day as needed for acute post-operative pain. pantoprazole [Protonix] 20 MG tablet,delayed release (DR/EC) 40 mg PO BID duloxetine [Cymbalta] 30 mg Capsule,Delayed Release(Dr/Ec) 30 mg PO DAILY metformin 500 mg tablet 1,000 mg PO BID magnesium oxide 400 mg magnesium tablet 500 mg PO DAILY Farxiga 10 mg tablet 10 mg PO DAILY Discharge Instructions Referrals: Agusto Collado,[facility] [OTHER] - (Pt with recent acute bilateral leg pain that is likely d/t an episode of more strenuous activity. Recent hip surgery, previous knee surgeries, peripheral neuropathy. ) Activity:: Activity as Tolerated Equipment/Supplies:: No Equipment Needed Diet:: Resume usual diet Discharge Orders Discharge Orders: Discharge Order (Routine); Ordered 09/23/22 Ordered By: Negrito Darby DS: Summary Time Spent with Patient providing and/or coordinating discharge services: Greater than 30 minutes Status at Discharge Functional status at discharge: uses cane/walker Overall status at discharge: patient is progressing back to baseline Mental Status: mental status grossly normal Speech and Movement: speech and movement normal Mood: congruent mood Affect: normal affect Exam Narrative Exam Narrative: Very pleasant elderly female. Conversant. Sitting in reclinder. Requesting to go home. Const General: cooperative and no acute distress Nutritional Appearance: average body habitus Orientation: alert and oriented x3 HENMT Head: normocephalic and atraumatic Chest Chest: tenderness (mild with sternal compression. ) Resp Effort & Inspection: normal respiratory effort and able to speak in complete sentences Auscultation: clear to auscultation bilaterally Cardio Rate: regular rate Rhythm: regular rhythm Heart Sounds: S1 normal and S2 normal GI Inspection: non-distended Palpation: soft and nontender Skin General skin exam: no rashes or lesions noted Neuro General: no focal motor deficits Cranial Nerves: facial strength normal Speech: speech normal Extrem General: no pedal edema and no calf tenderness Right upper extremity: no joint enlargement Psych Appearance: grossly normal Mental Status: mental status grossly normal Speech and Movement: speech and movement normal Mood: congruent mood Affect: normal affect Attitude: cooperative DS: Data Vitals/I&O Vitals and I&O: Vital Signs Temperature 36.7 C 09/23/22 07:32 Temperature Source Tympanic 09/23/22 07:32 Pulse 77 09/23/22 07:32 Pulse Rhythm Irregular 09/23/22 07:15 Pulse 85 09/22/22 18:31 Respiratory Rate 18 09/23/22 07:32 Respiratory Effort 09/23/22 08:36 Respiratory Depth Normal 09/23/22 07:15 Respiratory Pattern Normal 09/23/22 07:15 Blood Pressure 121/73 09/23/22 07:32 Blood Pressure Mean 88 09/22/22 18:31 Blood Pressure Position Sitting 09/22/22 12:59 Pulse Oximetry 94 09/23/22 07:32 Oxygen Delivery Method Room Air 09/23/22 07:32 Oxygen Flow Rate 0 09/23/22 07:32 Pain Level 0 09/23/22 07:32 Intake & Output 09/22/22 09/23/22 09/23/22 23:59 11:59 23:59 Intake Total 350 / 350 490 / 490 Output Total 100 / 100 2300 / 2300 Balance 250 / 250 -1810 / -1810 Weight 65.771 kg Intake: IV 350 / 350 10 / 10 Oral 480 / 480 Output: Urine 100 / 100 2300 / 2300 Other: Urine Color Yellow Yellow Urine Appearance Clear Clear Urine Odor Normal Normal Comment Night CIVIL CELEBRANT stated that pT was inconienent, very little but has been using bedpan through out the night. Voiding Methods Bedpan Bedside Commode Data Completed and Pending Labs on day of discharge: Labs from last 24 hours 09/23/22 09/23/22 09/22/22 06:30 05:10 19:52 WBC 7.55 RBC 3.44 L Hgb 10.6 L Hct 33.5 L MCV 97 H MCH 30.8 MCHC 31.6 L RDW 13.3 Plt Count 161 MPV 10.5 Immature Gran % Neutrophils % Lymphocytes % Monocytes % Eosinophils % Basophils % Nucleated RBC % Absolute Neutrophils Absolute Lymphocytes Absolute Monocytes Absolute Eosinophils Absolute Basophils D-Dimer Sodium 135 L Potassium 4.1 Chloride 102 Carbon Dioxide 24.7 Anion Gap 8.3 BUN 23 H Creatinine 1.1 H Est GFR (CKD-EPI 2020) 50.17 Glucose 136 H Calcium 9.4 Magnesium Total Bilirubin AST ALT Alkaline Phosphatase Creatine Kinase Troponin I < 50 C-Reactive Protein Total Protein Albumin Urine Color Urine Clarity Urine pH Ur Specific [place] Urine Protein Urine Ketones Urine Blood Urine Nitrite Urine Bilirubin Urine Urobilinogen Ur Leukocyte Esterase Urine RBC Urine WBC Ur Epithelial Cells Urine Crystals Urine Bacteria Urine Casts Urine Mucus Ur Culture Indicated? Urine Glucose COVID-19 Source SARS-CoV-2 (PCR) Influenza Type A (PCR) Influenza Type B (PCR) RSV (PCR) Add-On Test Request 09/22/22 09/22/22 09/22/22 19:28 17:28 14:55 WBC RBC Hgb Hct MCV MCH MCHC RDW Plt Count MPV Immature Gran % Neutrophils % Lymphocytes % Monocytes % Eosinophils % Basophils % Nucleated RBC % Absolute Neutrophils Absolute Lymphocytes Absolute Monocytes Absolute Eosinophils Absolute Basophils D-Dimer Sodium Potassium Chloride Carbon Dioxide Anion Gap BUN Creatinine Est GFR (CKD-EPI 2020) Glucose Calcium Magnesium Total Bilirubin AST ALT Alkaline Phosphatase Creatine Kinase Troponin I C-Reactive Protein Total Protein Albumin Urine Color Yellow Urine Clarity Clear Urine pH 5.5 Ur Specific [place] 1.020 Urine Protein 30 H Urine Ketones Negative Urine Blood Negative Urine Nitrite Negative Urine Bilirubin Negative Urine Urobilinogen 0.2 Ur Leukocyte Esterase Negative Urine RBC Negative Urine WBC Negative Ur Epithelial Cells Few Urine Crystals Negative Urine Bacteria Negative Urine Casts 0-2 Hyaline Urine Mucus Trace Ur Culture Indicated? No Urine Glucose 500 H COVID-19 Source Nasopharynx SARS-CoV-2 (PCR) Negative Influenza Type A (PCR) Negative Influenza Type B (PCR) Negative RSV (PCR) Negative Add-On Test Request DONE 09/22/22 09/22/22 09/22/22 13:30 13:30 13:30 WBC RBC Hgb Hct MCV MCH MCHC RDW Plt Count MPV Immature Gran % Neutrophils % Lymphocytes % Monocytes % Eosinophils % Basophils % Nucleated RBC % Absolute Neutrophils Absolute Lymphocytes Absolute Monocytes Absolute Eosinophils Absolute Basophils D-Dimer 1630 H Sodium Potassium Chloride Carbon Dioxide Anion Gap BUN Creatinine Est GFR (CKD-EPI 2020) Glucose Calcium Magnesium Total Bilirubin AST ALT Alkaline Phosphatase Creatine Kinase 23 L Troponin I C-Reactive Protein > 25.00 H Total Protein Albumin Urine Color Urine Clarity Urine pH Ur Specific [place] Urine Protein Urine Ketones Urine Blood Urine Nitrite Urine Bilirubin Urine Urobilinogen Ur Leukocyte Esterase Urine RBC Urine WBC Ur Epithelial Cells Urine Crystals Urine Bacteria Urine Casts Urine Mucus Ur Culture Indicated? Urine Glucose COVID-19 Source SARS-CoV-2 (PCR) Influenza Type A (PCR) Influenza Type B (PCR) RSV (PCR) Add-On Test Request 09/22/22 09/22/22 13:30 13:30 WBC 11.23 H RBC 3.86 L Hgb 11.7 Hct 37.7 MCV 98 H MCH 30.3 MCHC 31.0 L RDW 13.5 Plt Count 187 MPV 10.7 Immature Gran % 0.4 Neutrophils % 67.0 Lymphocytes % 19.8 Monocytes % 10.6 Eosinophils % 1.6 Basophils % 0.6 Nucleated RBC % 0.0 Absolute Neutrophils 7.52 H Absolute Lymphocytes 2.22 Absolute Monocytes 1.19 H Absolute Eosinophils 0.18 Absolute Basophils 0.07 D-Dimer Sodium 133 L Potassium 3.9 Chloride 96 L Carbon Dioxide 25.2 Anion Gap 11.8 H BUN 24 H Creatinine 1.3 H Est GFR (CKD-EPI 2020) 41.06 Glucose 127 H Calcium 9.9 Magnesium 2.0 Total Bilirubin 0.4 AST 14 L ALT 17 Alkaline Phosphatase 96 Creatine Kinase Troponin I < 50 C-Reactive Protein Total Protein 8.6 H Albumin 3.5 Urine Color Urine Clarity Urine pH Ur Specific [place] Urine Protein Urine Ketones Urine Blood Urine Nitrite Urine Bilirubin Urine Urobilinogen Ur Leukocyte Esterase Urine RBC Urine WBC Ur Epithelial Cells Urine Crystals Urine Bacteria Urine Casts Urine Mucus Ur Culture Indicated? Urine Glucose COVID-19 Source SARS-CoV-2 (PCR) Influenza Type A (PCR) Influenza Type B (PCR) RSV (PCR) Add-On Test Request PFSH All Active Problems Costochondritis (Acute) Bilateral leg pain (Acute) Viral URI with cough (Acute) Fever (Acute) Ambulatory dysfunction (Acute) Nail dystrophy (Acute) Blood loss anemia (Acute) Closed right hip fracture (Acute 07/25/22) S/P cannulated screw fixation: 07/26/2022 Mild cognitive impairment (Acute) Periprosthetic fracture around internal prosthetic left knee joint, initial encounter (Acute 07/28/19) S/P ORIF 07/28/2019 Peripheral neuropathy (Acute) Monocular diplopia of both eyes (Acute) Femur fracture, left (Acute) S/p total knee replacement, bilateral (Acute) History of cataract extraction (Chronic) May 2018 at [facility] [place], complicated by increased IOP S/P rotator cuff repair (Chronic) 2016 History of ankle surgery (Chronic) H/O toe surgery (Chronic) Fracture of left hip requiring operative repair (Chronic) 2011 Status post lumbar spine surgery for decompression of spinal cord (Chronic) L4-S1 decompression and fusion; 2000 H/O: hysterectomy (Chronic) S/P dilatation and curettage (Chronic) H/O total knee replacement (Chronic) Urinary frequency (Chronic) Type 2 diabetes mellitus (Chronic) Insomnia (Chronic) TIA (transient ischemic attack) (Chronic) GERD (gastroesophageal reflux disease) (Chronic) Fibromyalgia (Chronic) Depression (Chronic) Low back pain (Chronic) Lumbar stenosis without neurogenic claudication (Chronic) 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) Medical History Anemia, iron deficiency Dysphagia H/O TIA (transient ischemic attack) and stroke Hiatal hernia Hypertension Macrocytosis Osteopenia Skin lesion Family History Mother Alzheimer disease Father Stroke Social History Smoking/Tobacco Use Status: Never Smoking risk assessment performed?: Yes Alcohol Intake: never Drug use: Never Substance use type: does not use Household members: spouse Housing: house Current gender identity: female Do you feel safe at home: Yes Do you feel safe in your relationship?: Yes Additional Social history: She was born in [place]. 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 She is to her second Demarco (since ~1989?). She has 2 stepsons. She drinks one glass of wine per week.
--- NOTE | 2022-09-23 18:36 | PDOC.CMDIS ---
- If Service Date Differs Date of service: 09/23/22 Time of Service: 18:36 LACE Index Scoring Tool - Questions: Length of Stay (in days): 1 Acuity (Admit via E.D.?): Yes Comorbidities: Cerebrovascular Disease, Diabetes w/o Complication E.D. Visits: 1 - Answers: Total Score: 7 Risk of Readmission: Low Risk Care Management Discharge Reason for Hospitalization: Chest pain, ambulatory disfunction Discharge Plan: Aster returned home today after being medically cleared for discharge. Her was present for discharge and will transport her home via private vehicle. She will follow up with her PCP and discharge plan of care. She is happy to be going home. Patient/Family Education Needs: Review discharge instructions and limitations, discussion of self care needs including ask me three.
== END 2022-09-23 14:57 | disposition home or self-care (01) ==
LOC: ER 17:32 → MS 18:43
PROVIDERS: Student in an Organized Health Care Education/Training Program; Admitting Provider Family Medicine; Emergency Provider Physician Assistant; PCP Family Medicine; Visit Provider Family Medicine
DX: M79.604 Pain in right leg (principal); M79.605 Pain in left leg; J06.9 Acute upper respiratory infection, unspecified; Z20.822 Contact with and (suspected) exposure to COVID-19; Z79.899 Other long term (current) drug therapy; R05.1 Acute cough; S72.001D Fracture of unspecified part of neck of right femur, subsequent encounter for closed fracture with routine healing; X58.XXXD Exposure to other specified factors, subsequent encounter; M94.0 Chondrocostal junction syndrome [Tietze]; Z86.73 Personal history of transient ischemic attack (TIA), and cerebral infarction without residual deficits; K21.9 Gastro-esophageal reflux disease without esophagitis; D64.9 Anemia, unspecified; I10 Essential (primary) hypertension; Z96.653 Presence of artificial knee joint, bilateral; G60.9 Hereditary and idiopathic neuropathy, unspecified; E11.9 Type 2 diabetes mellitus without complications; G31.84 Mild cognitive impairment of uncertain or unknown etiology; Z79.84 Long term (current) use of oral hypoglycemic drugs
CPT/HCPCS: 36415; 71275; 80048; 80053; 82550; 85027; 87637; 93005; 96361; 96365; 96374; 97161; 99285; 71045; 81003; 81015; 83735; 84484; 85025; 85379; 86140; 93010; 93970; 99217; 99219; G0378; J0131

== ENCOUNTER 2022-10-20 11:47 | Outpatient (CLI) | payer OTHER, SELFPAY ==
--- NOTE | 2022-10-20 11:30 | DI.RAD_ITS ---
Exam(s) XR HIP RT AP LAT ONLY EXAM: XR HIP RT AP LAT ONLY INDICATION: f/u R FNF. COMPARISON: CR XR HIP RT AP LAT ONLY from 09/22/2022 TECHNIQUE: 2D digital imaging was performed. Two views. FINDINGS: There has been no change in fracture alignment. There has been some increased healing compared the p revious exam. There has been no change in position of the screws seen through the femoral neck. DATA REPOSITORY: RADIATION DOSE DELIVERED:
== END 2022-10-20 11:48 | disposition home or self-care (01) ==
LOC: DIORS 11:47
PROVIDERS: PCP Family Medicine; Referring Provider Family Medicine; Visit Provider Student in an Organized Health Care Education/Training Program
DX: S72.001D Fracture of unspecified part of neck of right femur, subsequent encounter for closed fracture with routine healing (principal); X58.XXXD Exposure to other specified factors, subsequent encounter; Z96.653 Presence of artificial knee joint, bilateral
CPT/HCPCS: 73502

== ENCOUNTER 2022-10-20 17:55 | Outpatient (REF) | payer OTHER, SELFPAY ==
[2022-10-20 21:08] LABS: HCT 39.2 % (36.0-46.0); HGB 12.1 g/dL (11.2-15.7); MCH 29.9 pg (27.0-33.0); MCHC 30.9 % (32.0-36.0); MCV 97 fL (80-95); MPV 10.8 fL (8.0-11.0); Platelet Count 230 10^3/uL (130-400); RBC 4.05 10^6/uL (3.93-5.22); RDW-SD 50.2 fL; WBC 8.99 10^3/uL (4.4-10.8)
[2022-10-20 21:31] LABS: Ferritin 28 ng/mL (8-252)
== END 2022-10-20 17:56 | disposition home or self-care (01) ==
LOC: NCHCN 17:55
PROVIDERS: PCP Family Medicine; Visit Provider Family Medicine
DX: D50.9 Iron deficiency anemia, unspecified (principal)
CPT/HCPCS: 85027; 82728

== ENCOUNTER 2022-10-28 03:23 | Outpatient (RCR) | payer OTHER, SELFPAY ==
[2022-10-22] MEDS: IRON SUCROSE COMPLEX 200 MG in Normal Saline 100 ML 440 MG IVPB (11:07)
[2022-10-22] MEDS: Normal Saline Flush 10 ML SYR IVP (11:08)
[2022-10-24] MEDS: Normal Saline Flush 10 ML SYR IVP (12:03)
[2022-10-24] MEDS: IRON SUCROSE COMPLEX 200 MG in Normal Saline 100 ML 440 MG IVPB (12:03)
[2022-10-28] MEDS: Normal Saline Flush 10 ML SYR IVP (14:04)
[2022-10-28] MEDS: IRON SUCROSE COMPLEX 200 MG in Normal Saline 100 ML 440 MG IVPB (14:04)
== END 2022-11-01 23:59 | disposition home or self-care (01) ==
LOC: INF 03:23
PROVIDERS: PCP Family Medicine; Visit Provider Family Medicine
DX: D50.9 Iron deficiency anemia, unspecified (principal)
CPT/HCPCS: 96365; J1756

== ENCOUNTER → 2022-11-27 13:09 | Outpatient (BNVA) | payer MEDICARE, SELFPAY | PROVIDERS: PCP Family Medicine; Referring Provider Family Medicine; Visit Provider Psychiatry & Neurology Neurology | DX: G62.9 Polyneuropathy, unspecified (principal); E11.9 Type 2 diabetes mellitus without complications; M48.061 Spinal stenosis, lumbar region without neurogenic claudication; I10 Essential (primary) hypertension; G47.00 Insomnia, unspecified; G31.84 Mild cognitive impairment of uncertain or unknown etiology | CPT/HCPCS: 99214 ==

== ENCOUNTER 2022-12-15 15:54 | Outpatient (CLI) | payer MEDICARE, SELFPAY ==
--- NOTE | 2022-12-15 14:52 | DI.RAD_ITS ---
Exam(s) XR SHOULDER RT COMPLETE 2+V EXAM: XR SHOULDER RT COMPLETE 2+V CLINICAL HISTORY: eval R shoulder pain. TECHNIQUE: 2D digital imaging was performed. Five views. COMPARISON: No exams were available for comparison FINDINGS: Prominent spurring at the tip of the acromion. Degenerative changes of the glenohumeral joint with l arge inferior spur from the humeral head. Mild spurring at the glenoid. Mild glenohumeral joint spa ce narrowing. Metallic anchor noted in humeral head related to prior rotator cuff repair. Humeral h ead appears high riding which may indicate a chronic rotator cuff tear. There is a density adjacent to the humeral head which could represent a loose body. IMPRESSION: Unremarkable radiographs of the right shoulder. Degenerative changes and probable loose body. Ques tion chronic rotator cuff tear. DATA REPOSITORY: RADIATION DOSE DELIVERED:
--- NOTE | 2022-12-15 14:52 | DI.RAD_ITS ---
Exam(s) XR HIP RT AP LAT ONLY EXAM: XR HIP RT AP LAT ONLY INDICATION: eval R hip s/p screw fixation of FNF. COMPARISON: CR XR HIP RT AP LAT ONLY from 10/20/2022 TECHNIQUE: 2D digital imaging was performed. Two views. FINDINGS: Three screws are again noted in the proximal right femur for fracture fixation. There has been no ch checo in fracture alignment. No new abnormalities are seen. DATA REPOSITORY: RADIATION DOSE DELIVERED:
== END 2022-12-15 15:55 | disposition home or self-care (01) ==
LOC: DIORS 15:55
PROVIDERS: PCP Family Medicine; Referring Provider Family Medicine; Visit Provider Student in an Organized Health Care Education/Training Program
DX: M12.811 Other specific arthropathies, not elsewhere classified, right shoulder (principal); S72.001D Fracture of unspecified part of neck of right femur, subsequent encounter for closed fracture with routine healing; X58.XXXD Exposure to other specified factors, subsequent encounter
CPT/HCPCS: 20610; 73030; 73502; J1030; J1040

== ENCOUNTER → 2023-01-26 12:58 | Outpatient (BNVA) | payer MEDICARE, SELFPAY | PROVIDERS: PCP Family Medicine; Referring Provider Family Medicine; Visit Provider Student in an Organized Health Care Education/Training Program | DX: M70.61 Trochanteric bursitis, right hip (principal); S72.001S Fracture of unspecified part of neck of right femur, sequela; M25.551 Pain in right hip; M12.811 Other specific arthropathies, not elsewhere classified, right shoulder | CPT/HCPCS: 20610; J1040 ==

== ENCOUNTER 2023-01-27 17:55 | Outpatient (REF) | payer MEDICARE, SELFPAY ==
[2023-01-27 16:07] LABS: Abs Immature Grans 0.05 10^3/uL (0.0-0.06); Absolute Basophil Count 0.08 10^3/uL (0.0-0.2); Absolute Eosinophil Count 0.07 10^3/uL (0.0-0.7); Absolute Lymphocyte Count 1.81 10^3/uL (1.2-3.4); Absolute Monocyte Count 0.67 10^3/uL (0.1-0.8); Absolute Neutrophil Count 5.19 10^3/uL (1.2-6.7); Eosinophils % 0.9; HCT 39.5 % (36.0-46.0); HGB 12.7 g/dL (11.2-15.7); Immature Grans % 0.6; MCH 31.1 pg (27.0-33.0); MCHC 32.2 % (32.0-36.0); MCV 97 fL (80-95); MPV 11.1 fL (8.0-11.0); Monocytes % 8.5; Platelet Count 212 10^3/uL (130-400); RBC 4.09 10^6/uL (3.93-5.22); RDW 13.1 % (11.7-14.6); RDW-SD 47.2 fL; WBC 7.87 10^3/uL (4.4-10.8)
[2023-01-27 17:53] LABS: Ferritin 68 ng/mL (8-252)
== END 2023-01-27 17:56 | disposition home or self-care (01) ==
LOC: NCHCN 17:55
PROVIDERS: PCP Family Medicine; Visit Provider Family Medicine
DX: N95.0 Postmenopausal bleeding (principal); E11.9 Type 2 diabetes mellitus without complications; I10 Essential (primary) hypertension
CPT/HCPCS: 82728; 85025

== ENCOUNTER → 2023-02-10 08:31 | Outpatient (BNVA) | payer MEDICARE, SELFPAY | PROVIDERS: PCP Family Medicine; Visit Provider Psychiatry & Neurology Neurology | DX: G31.84 Mild cognitive impairment of uncertain or unknown etiology (principal); G62.9 Polyneuropathy, unspecified; E11.9 Type 2 diabetes mellitus without complications; G47.00 Insomnia, unspecified | CPT/HCPCS: 99214 ==

== ENCOUNTER 2023-03-06 00:16 | Outpatient (CLI) | payer MEDICARE, SELFPAY ==
--- NOTE | 2023-03-06 06:45 | DI.MAMMO_ITS ---
Exam(s) MAMMO SCREENING EXAM: MAMMO SCREENING CLINICAL HISTORY: screening.Z12.39. TECHNIQUE: Bilateral full field digital CC and MLO mammographic images were obtained with 3D tomosyn thesis and utilizing computer aided detection (CAD). COMPARISON: Prior mammograms were reviewed. Most recent mammogram 2017. FINDINGS: There has been no significant change in the appearance and distribution of the fibroglandular tissue. There are no new spiculated masses nor malignant appearing microcalcification groups. There is no significant architectural distortion nor skin thickening-retraction. IMPRESSION: No radiographic evidence of malignancy. BI-RADS Category 1 - Negative Breast Density - Category A - Almost entirely fatty Breast density Category C or D implies that the patient has dense breast tissue. Dense breast tissue can make it harder to find cancer on a mammogram. Dense breast tissue is also associated with an incr eased risk of breast cancer. This information about the result of the mammogram report was provided to the patient to raise their awareness. Use this report when you speak with the patient about their risks for breast cancer, which includes their family history. At that time, you may recommend additional screening tests (Ultrasoun d or MRI) as these tests may add significant information. A negative radiographic report should not delay biopsy if a dominant or clinically suspicious mass is present. Up to ten percent of cancers are not identified on mammography. A negative report may reinforce clinical impression. Adenosis and dense breasts may obscure an underlying neoplasm. False positive reports average 6 to 10%. Patient will receive a letter notifying them of these results.
--- NOTE | 2023-03-06 06:45 | DI.US_ITS ---
Exam(s) US PELVIS TRANSVAGINAL EXAM: US PELVIS TRANSVAGINAL CLINICAL HISTORY: check stripe,POST MENOPAUSAL BLEEDING,N95.0 TECHNIQUE: Ultrasound of the pelvis was performed both transabdominal and transvaginal. COMPARISON: CT CT CHEST PE CTA from 09/22/2022 US US EXTREMITY VENOUS BI from 09/22/2022 FINDINGS: UTERUS: Measures 3.5 cm length x 1.5 cm AP x 3.3 cm wide. There are no uterine fibroids. Endometrial thickness measures 1.7 mm. There is trace fluid in the endometrial cavity. CERVIX: There are no obvious nabothian cysts. RIGHT OVARY: Measures 1.9 x 1.3 x 1.7 cm No significant cysts nor masses evident in the right ovary. LEFT OVARY: Not seen on this study. CUL-DE-SAC: No free fluid evident. IMPRESSION: 1. Age-appropriate size uterus. Non thickened endometrium. 2. Right ovary unremarkable. Left ovary not visualized. 3. No extraovarian adnexal mass nor free fluid. DATA REPOSITORY:
== END 2023-03-06 00:36 ==
LOC: DI 00:17
PROVIDERS: PCP Family Medicine; Visit Provider Obstetrics & Gynecology
DX: N95.0 Postmenopausal bleeding (principal); Z12.39 Encounter for other screening for malignant neoplasm of breast
CPT/HCPCS: 77063; 77067; 76830; 76856

== ENCOUNTER 2023-03-16 16:07 | Outpatient (CLI) | payer MEDICARE, SELFPAY ==
--- NOTE | 2023-03-16 14:30 | DI.RAD_ITS ---
Exam(s) XR KNEE RT 2V AP,LAT EXAM: XR KNEE RT 2V AP,LAT INDICATION: right knee pain. COMPARISON: CR XR KNEE LT 2V AP,LAT from 09/22/2022 CR XR KNEE RT 2V AP,LAT from 09/22/2022 TECHNIQUE: 2D digital imaging was performed. Two views. FINDINGS: There has been no change in the total knee prosthesis. No suspicious bony lucencies are seen. Vascu lar calcifications noted. DATA REPOSITORY: RADIATION DOSE DELIVERED:
--- NOTE | 2023-03-16 14:30 | DI.RAD_ITS ---
Exam(s) XR HIP RT AP LAT ONLY EXAM: XR HIP RT AP LAT ONLY INDICATION: right hip pain. COMPARISON: CR XR HIP RT AP LAT ONLY from 09/22/2022 CR XR HIP RT AP LAT ONLY from 10/20/2022 CR XR HIP RT AP LAT ONLY from 12/15/2022 TECHNIQUE: 2D digital imaging was performed. Two views. FINDINGS: Screws are again noted in the proximal femur for fracture fixation. The alignment appears unchanged. Hip joint space is maintained. No new seen. DATA REPOSITORY: RADIATION DOSE DELIVERED:
== END 2023-03-16 16:08 | disposition home or self-care (01) ==
LOC: DIORS 16:07
PROVIDERS: PCP Family Medicine; Referring Provider Family Medicine; Visit Provider Student in an Organized Health Care Education/Training Program
DX: M70.61 Trochanteric bursitis, right hip; X58.XXXA Exposure to other specified factors, initial encounter; T84.84XA Pain due to internal orthopedic prosthetic devices, implants and grafts, initial encounter; S72.001A Fracture of unspecified part of neck of right femur, initial encounter for closed fracture; Z96.651 Presence of right artificial knee joint
CPT/HCPCS: 99213; 73502; 73560

== ENCOUNTER 2023-03-31 03:01 | Outpatient (CLI) | payer MEDICARE, SELFPAY ==
--- NOTE | 2023-03-31 07:15 | DI.CT_ITS ---
Exam(s) CT LOWER EXTREMITY RT WO EXAM: CT LOWER EXTREMITY RT WO CLINICAL HISTORY: PAIN, EVAL FOR NONUNION-SURGICAL PLANNING,closed displaced fx,s72.001p. TECHNIQUE: Imaging Protocol: Axial computed tomography images with coronal and sagittal reformatted images were created and reviewed. CONTRAST MATERIAL: None COMPARISON: CR XR HIP RT AP LAT ONLY from 03/16/2023 FINDINGS: There are 3 screws in right femoral head-neck across the healing subcapital fracture site. Fracture line not visible. None of the screws extend beyond the femoral head cortex into the joint space. Mo st posterior screws eccentrically located. No evidence osteomyelitis. No prominent joint effusion. No pubic rami nor acetabular fractures. Incidentally noted in the field of view of this study span lesion in the left side of the sacral hal l measuring approximately 3 x 2 cm. This could be further studied with MRI. It there is a possibly that this may represent a large Tarlov cyst but more concerning pathology cannot be excluded. IMPRESSION: As above. RADIATION DOSE DELIVERED: 344.57mGy.cm Total DLP DATA REPOSITORY: All CT scans at this facility are submitted to the National Radiology Data Registry (NRDR) Dose Index Registry (DIR) with the [employer] ([employer]). RADIATION OPTIMIZATION: All CT scans at this facility use at least one of these dose optimization te chniques: automated exposure control; mA and/or kV adjustment per patient size (includes targeted exa ms where dose is matched to clinical indication); or iterative reconstruction.
== END 2023-03-31 03:21 ==
LOC: DI 03:01
PROVIDERS: PCP Family Medicine; Visit Provider Student in an Organized Health Care Education/Training Program
DX: S72.001D Fracture of unspecified part of neck of right femur, subsequent encounter for closed fracture with routine healing (principal); X58.XXXD Exposure to other specified factors, subsequent encounter; S34.13 Other and unspecified injury to sacral spinal cord; Z98.890 Other specified postprocedural states
CPT/HCPCS: 36415; 80048; 85027; 73700

== ENCOUNTER 2023-03-31 11:26 | Outpatient (CLI) | payer MEDICARE, SELFPAY ==
[2023-03-31 09:37] LABS: HCT 37.4 % (36.0-46.0); HGB 11.6 g/dL (11.2-15.7); MCH 31.1 pg (27.0-33.0); MCV 100 fL (80-95); MPV 9.7 fL (8.0-11.0); Platelet Count 249 10^3/uL (130-400); RBC 3.73 10^6/uL (3.93-5.22); RDW 13.2 % (11.7-14.6); RDW-SD 49.3 fL; WBC 6.91 10^3/uL (4.4-10.8)
[2023-03-31 10:32] LABS: Anion Gap 9.7 mmol/L (3-11); BUN 36 mg/dL (7-18); CO2 27.3 mmol/L (21.0-32.0); CREATININE 1.5 mg/dL (0.55-1.02); Calcium 9.7 mg/dL (8.5-10.1); Chloride 103 mmol/L (98-107); Estimated GFR 34.36 (mL/min/1.73m2); Glucose 149 mg/dL (74-106); Potassium 4.7 mmol/L (3.5-5.1); Sodium 140 mmol/L (136-145)
== END 2023-03-31 11:27 | disposition home or self-care (01) ==
LOC: LBO 11:27
PROVIDERS: PCP Family Medicine; Visit Provider Student in an Organized Health Care Education/Training Program
DX: S72.001P Fracture of unspecified part of neck of right femur, subsequent encounter for closed fracture with malunion (principal); T84.84XA Pain due to internal orthopedic prosthetic devices, implants and grafts, initial encounter; Z01.818 Encounter for other preprocedural examination; Z01.812 Encounter for preprocedural laboratory examination
CPT/HCPCS: 36415; 80048; 85027

== ENCOUNTER 2023-04-02 13:15 | Outpatient (CLI) | payer MEDICARE, SELFPAY ==
--- NOTE | 2023-04-02 13:03 | DI.RAD_ITS ---
Exam(s) XR PELVIS AP EXAM: XR PELVIS AP CLINICAL HISTORY: history of right hip fx. TECHNIQUE: 2D digital imaging was performed. COMPARISON: CR XR HIP RT COMPLETE AP PELVIS from 07/25/2022 CR XR HIP RT AP LAT ONLY from 03/16/2023 FINDINGS: Single view. There are 3 screws again noted across the subcapital fracture site in the right hip. Appears unchang ed. Three 3 screws again noted in the opposite-left hip. Intramedullary density in the left femur noted is probably cement. IMPRESSION: As above. DATA REPOSITORY: RADIATION DOSE DELIVERED:
== END 2023-04-02 13:16 | disposition home or self-care (01) ==
LOC: DIORS 13:15
PROVIDERS: PCP Family Medicine; Referring Provider Family Medicine
DX: Z01.818 Encounter for other preprocedural examination (principal); T84.84XA Pain due to internal orthopedic prosthetic devices, implants and grafts, initial encounter
CPT/HCPCS: 72170

== ENCOUNTER 2023-04-07 02:07 | Outpatient (CLI) | payer MEDICARE, SELFPAY ==
--- NOTE | 2023-04-07 07:45 | DI.MRI_ITS ---
Exam(s) MR PELVIS WO/W EXAM: MR PELVIS WO/W CLINICAL HISTORY: sacral lesion,closed fx rt femoral neck,s72.001p TECHNIQUE: Multiplanar multisequence MRI of Pelvis was performed. CONTRAST MATERIAL: IV Contrast: 14 mL of Dotarem contrast administered. COMPARISON: MR MRI - LUMBAR SPINE WO CONTRAST from 08/08/2013 MR MRI - LUMBAR SPINE WO CONTRAST from 09/19/2016 CR XR PELVIS AP from 04/02/2023 FINDINGS: Bones: There is artifact seen bilaterally in the femoral necks consistent with internal fixation of bilateral subcapital femoral fractures. No bone marrow edema is seen. There is again seen a simple c yst which is isointense to the CSF and enlarges the sacral neural foramen at the left 2nd sacral segm ent. This is unchanged dating back to the MRI of the lumbar spine from 08/08/2013. There is only thi n wall enhancement noted following contrast administration. 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 Musculotendinous structures: Musculotendinous structures demonstrate no abnormality. Intrapelvic str uctures demonstrate no significant abnormality. There is no evidence of suspicious enhancement. IMPRESSION: Stable simple cyst in the 2nd sacral segment enlarging the left neural foramen. This is unchanged da ting back to 08/08/2013. 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 DATA REPOSITORY:
[2023-04-07 14:39] LABS: CREATININE 1.3 mg/dL (0.55-1.02)
[2023-04-07] MEDS: Gadoterate meglumine 20 ML SYRINGE 14 ML IVP (14:47)
[2023-04-07] MEDS: Normal Saline Flush 10 ML SYR IVP (14:47)
== END 2023-04-07 02:27 ==
LOC: DI 02:08
PROVIDERS: Student in an Organized Health Care Education/Training Program; PCP Family Medicine; Visit Provider Physician Assistant
DX: S72.042D Displaced fracture of base of neck of left femur, subsequent encounter for closed fracture with routine healing (principal); X58.XXXD Exposure to other specified factors, subsequent encounter
CPT/HCPCS: 72197; 82565

== ENCOUNTER 2023-04-15 14:44 | Observation (INO) | payer MEDICARE, SELFPAY ==
[2023-04-15] VITALS (13 sets, daily range): BP systolic 90–163; BP diastolic 53–82; PULSE 76–94; RESP 16–20; TEMP 36.3–36.9; O2SAT 94–96; BMI 29.1
[2023-04-15] MEDS: Acetaminophen 500 MG TAB 1000 MG PO ×3 (09:03→20:41)
[2023-04-15] MEDS: Celecoxib 200 MG CAP 400 MG PO (09:04)
[2023-04-15] MEDS: Lactated Ringers 1,000 ML 80 ML IV ×2 (09:20→12:51)
--- NOTE | 2023-04-15 10:36 | ANES.PREOP_ITS ---
General Info Date of Service Date Performed: 04/15/23 Height: 5 ft 2 in Weight: 72.3 kg Body Mass Index (BMI): 29.1 Surgical Procedure: Operation Date: 04/15/23 11:20 Proposed Procedure Side Surgeon p Hip Total Hip Anterior Right Omar Hathaway MD s Hip Hardware Removal Right Omar Hathaway MD Meds Allergies and Home Medications Allergies Allergy/AdvReac Type Severity Reaction Status Date / Time NSAIDS (Non-Steroidal AdvReac Intermediate Verified 04/15/23 08:44 Anti-Inflamma Home Medication Medication Instructions Recorded albuterol sulfate 90 mcg/actuation 2 puff inhalation PRN PRN 11/13/15 aerosol inhaler (ProAir HFA) clopidogrel 75 mg tablet (Plavix) 75 mg PO HS 11/13/15 pantoprazole 20 mg tablet,delayed 40 mg PO BID 04/03/17 release (Protonix) atorvastatin 10 mg tablet (Lipitor) 10 mg PO QPM #30 tabs 12/07/17 docusate sodium 100 mg capsule 100 mg PO BID 07/08/18 duloxetine 30 mg capsule,delayed 30 mg PO HS 07/28/19 release (Cymbalta) lactobacillus comb no.10 20 30,000 cell PO DAILY 11/15/19 billion cell capsule (Probiotic) metformin 500 mg tablet 1,000 mg PO DAILY 03/20/20 duloxetine 30 mg capsule,delayed 60 mg PO HS 11/13/20 release (Cymbalta) acetaminophen 650 mg 650 mg PO Q6H PRN Pain #0 tabs 07/27/22 tablet,extended release dapagliflozin 10 mg tablet 5 mg PO HS 10/20/22 (Farxiga) CBD topical 12/14/22 celecoxib 200 mg capsule (Celebrex) 200 mg PO DAILY Pain 12/14/22 mirtazapine 15 mg tablet 30 mg PO HS 12/14/22 pregabalin 25 mg capsule 25 mg PO BID #180 caps 02/10/23 tramadol 50 mg tablet 50 mg PO Q6H PRN 03/16/23 calcium-magnesium 500 mg-250 mg 4 tab PO DAILY 04/14/23 tablet Current Visit Medications: Current Medications Generic Name Dose Route Start Last Admin Trade Name Freq PRN Reason Stop Dose Admin Acetaminophen 1,000 mg 04/15/23 06:00 Acetaminophen 500 Mg Tab PO 04/15/23 16:00 PREOP DALE Acetaminophen 1,000 mg 04/15/23 14:00 04/15/23 09:03 Acetaminophen 500 Mg Tab PO 05/15/23 13:59 1,000 mg TID DALE Administration Aspirin 81 mg 04/15/23 20:00 Aspirin E.C. 81 Mg Tabec PO 05/15/23 19:59 BID DALE Celecoxib 400 mg 04/15/23 06:00 04/15/23 09:04 Celecoxib 200 Mg Cap PO 04/15/23 16:00 400 mg PREOP DALE Administration Celecoxib 200 mg 04/15/23 20:00 Celecoxib 200 Mg Cap PO 05/15/23 19:59 BID DALE Docusate Sodium 100 mg 04/15/23 07:38 Docusate Sodium 100 Mg Cap PO 05/15/23 07:37 BID PRN PRN Constipation Ringer's Solution 1,000 mls @ 80 mls/hr 04/15/23 06:00 04/15/23 09:20 IV 05/14/23 23:59 80 mls/hr INFUSION DALE Administration Cefazolin Sodium/Dextrose 2 gm in 50 mls @ 100 mls/hr 04/15/23 06:00 Ancef Duplex IVPB 04/15/23 16:00 PREOP DALE Tranexamic Acid 1,000 mg/ 60 mls @ 360 mls/hr 04/15/23 06:00 Sodium Chloride IVPB 04/15/23 16:00 PREOP [facility] IV Miscellaneous Supplies 1 each 04/15/23 06:00 Iv Access IV 05/14/23 23:59 DIRECTED [facility] Ondansetron HCl 4 mg 04/15/23 07:38 Ondansetron 4 Mg/2 Ml Vial IVP 05/15/23 07:37 Q6H PRN PRN Nausea Oxycodone HCl 0 mg 04/15/23 07:38 Oxycodone 5 Mg Tab PO 05/15/23 07:37 Q3H PRN PRN Pain Polyethylene Glycol 17 gm 04/15/23 07:38 Polyethylene Glycol 3350 17 Gm Packet PO 05/15/23 07:37 BID PRN PRN Constipation Sodium Chloride 0 ml 04/15/23 06:00 Normal Saline Flush 10 Ml Syr IV 05/14/23 23:59 PRN PRN Sodium Chloride 0 ml 06/14/23 06:00 Normal Saline 10 Ml Vial IJ 05/14/23 23:59 DIRECTED PRN Sterile Water 0 ml 04/15/23 06:00 Water,Injection,Sterile 10 Ml Vial IJ 05/14/23 23:59 DIRECTED PRN PFSH Active Problems Active Problems: Problem Status Onset Code 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 Closed displaced fracture of right femoral neck with malunion S72.001P Post-menopausal bleeding N95.0 Trochanteric bursitis, right hip M70.61 Rotator cuff arthropathy of right shoulder M12.811 Right shoulder pain M25.511 Costochondritis M94.0 Viral URI with cough J06.9 Ambulatory dysfunction R26.2 Nail dystrophy L60.3 Blood loss anemia D50.0 Mild cognitive impairment G31.84 Periprosthetic fracture around internal prosthetic left knee joint, initial encounter 07/28/19 M97.12XA Peripheral neuropathy G62.9 Monocular diplopia of both eyes H53.2 Femur fracture, left S72.92XA S/p total knee replacement, 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 History of cataract extraction Z98.49 S/P rotator cuff repair Z98.890 History of ankle surgery Z98.890 H/O toe surgery Z98.890 Fracture of left hip requiring operative repair S72.002A Status post lumbar spine surgery for decompression of spinal cord Z98.890 H/O: hysterectomy Z90.710 S/P dilatation and curettage Z98.890 H/O total knee replacement Z96.659 Urinary frequency R35.0 Type 2 diabetes mellitus E11.9 Insomnia G47.00 TIA (transient ischemic attack) G45.9 GERD (gastroesophageal reflux disease) K21.9 Fibromyalgia M79.7 Depression F32.9 Low back pain M54.5 Lumbar stenosis without neurogenic claudication M48.061 Replacement of total knee joint 11/21/15 Sensorineural hearing loss, bilateral 11/27/16 H90.3 Restless leg syndrome 08/11/17 G25.81 Osteoarthritis of knee 10/06/13 M17.10 Migraine without aura and without status migrainosus, not intractable 06/15/17 G43.009 Memory loss 06/24/16 R41.3 Idiopathic peripheral neuropathy 06/24/16 G60.9 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 M51.24 Medical History Medical History Anemia, iron deficiency Asymmetrical sensorineural hearing loss Dysphagia H/O TIA (transient ischemic attack) and stroke Hiatal hernia Hypertension Macrocytosis Osteopenia Skin lesion Tobacco Smoking/Tobacco Use Status: Never Alcohol Alcohol Intake: current Alcohol intake frequency: a few times a week Alcohol type: wine Substance Use Substance use: Never Substance use type: does not use Vital Signs and Lab Results Vital Signs Most Recent Vital Signs in EMR: Most Recent Vital Signs Temp Pulse Resp BP Pulse Ox 36.4 C L 94 H 18 131/76 96 04/15/23 08:20 04/15/23 08:20 04/15/23 08:20 04/15/23 08:20 04/15/23 08:20 Lab Results Blood Type / Crossmatch: No Data to Display Complete Blood Count: White Blood Count 6.91 10^3/uL (4.4-10.8) 03/31/23 09:31 Red Blood Count 3.73 10^6/uL (3.93-5.22) L 03/31/23 09:31 Hemoglobin 11.6 g/dL (11.2-15.7) 03/31/23 09:31 Hematocrit 37.4 % (36.0-46.0) 03/31/23 09:31 Platelet Count 249 10^3/uL (130-400) 03/31/23 09:31 Complete Metabolic Panel: Sodium 140 mmol/L (136-145) 03/31/23 09:31 Potassium 4.7 mmol/L (3.5-5.1) 03/31/23 09:31 Chloride 103 mmol/L (98-107) 03/31/23 09:31 Carbon Dioxide 27.3 mmol/L (21.0-32.0) 03/31/23 09:31 BUN 36 mg/dL (7-18) H 03/31/23 09:31 Creatinine 1.3 mg/dL (0.55-1.02) H 04/07/23 14:25 Est GFR (CKD-EPI 2020) 40.80 (mL/min/1.73m2) 04/07/23 14:25 Calcium 9.7 mg/dL (8.5-10.1) 03/31/23 09:31 Glucose 149 mg/dL (74-106) H 03/31/23 09:31 Liver Function Panel: No Data to Display Coagulation Panel: No Data to Display Cardiac Panel: No Data to Display Arterial Blood Gas: No Data to Display Venous Blood Gas: No Data to Display Pancreas Panel: No Data to Display Thyroid Panel: No Data to Display Infectious Disease: No Data to Display Blood Cultures: No Data to Display Toxicology Panel: No Data to Display Imaging and Studies Imaging and Studies Study information below may be from another EMR and interpreted by another provider. Please see original notes in EMR for more complete details. EKG Summary: 07/25/2022: Exam: Resting ECG Reason for Exam: Hip fracture, pain Patient Location: E HR:72 bpm ECG Measurements Heart Rate 72 AXIS SC 142 P 28 QRSd 83 QRS -30 QT 397 T79 QTc 436 Conclusion Sinus rhythm Echocardiogram Summary: 04/23/2017: *STUDY CONCLUSIONS* Summary: 1. Left ventricle: The cavity size was normal. Wall thickness was increased in a pattern of mild LVH. Systolic function was hyperdynamic. The estimated ejection fraction was 65-70%. Wall motion was normal; there were no regional wall motion abnormalities. The outflow tract showed mild obstruction, 36 mmHg rest, 38 mmHg valsava. 2. Aortic valve: There was mild regurgitation. 3. Right ventricle: The cavity size was normal. Wall thickness was normal. Systolic function was normal. 4. Atrial septum: No defect or patent foramen ovale was identified. 5. Pulmonary arteries: Pulmonary systolic pressure was in the range of 20mm Hg to 30mm Hg. 6. Inferior vena cava: The vessel was normal in size. The respirophasic diameter changes were in the normal range (greater than or equal to 50%), consistent with normal central venous pressure. Carotid Artery Summary:: 06/23/2017: Exam(s) [id number] US:Carotid SYMPTOMS/DIAGNOSIS: RIGHT VISION LOSS, H53.121, TRANSIENT VISUAL LOSS, SHADE DRAWN OVER EYE, ? AMAUROSIS FUGAX CAROTID ULTRASOUND: A mild amount of calcific plaque is seen in the distal right common carotid artery and common carotid bulb. Minimal plaque is visible in the left common carotid bulb. The velocity measurements in the internal and common carotid arteries are within the normal range. There is mildly elevated systolic velocity in both external carotid arteries. The vertebral arteries show antegrade flow. IMPRESSION: Mild plaque in the common carotid bulbs. No significant internal carotid artery stenosis. Anesthesia Assessment and Plan Anesthesia History Personal History: No History of Anesthesia Complications Family History: No Family History of Anesthesia Complications Exercise Tolerance Exercise Tolerance: Metabolic Equivalents>4 Pertinent Negatives Pertinent Negatives: No Symptoms of GERD Cardiac & Pulmonary Exam Cardiac Exam: Normal S1/S2 Heart Sounds Pulmonary Exam: Clear Bilateral Breath Sounds Implantable Cardiac Device Does patient have a Pacemaker or an ICD?: No Airway Exam Known Difficult Airway: No Mallampati Class: 3 Mouth Opening: Narrow (< 3cm) Thyromental Distance: Greater than 3 cm Neck Range of Motion: Full ROM Neck Circumference: Normal Teeth Condition: Normal Dentition and Removable Dentures/Plates Lower ASA Classification ASA Score: ASA 3 Emergency Case?: No NPO Status NPO Status: NPO Clears >2 hours, Solids >8 hours Anesthesia Plan Resuscitation Status: Full Code Anesthesia Technique: General Anesthesia Airway Planned: Natural Airway Pain Management: Intrathecal Analgesia Monitors Used: Standard Monitors
[2023-04-15] MEDS: ceFAZolin 2 GM/50 ML BAG IVPB (11:10)
--- NOTE | 2023-04-15 12:25 | DI.RAD_ITS ---
Exam(s) XR HIP RT IN OR EXAM: XR HIP RT IN OR CLINICAL HISTORY: DISPLACED FRACTURE RIGHT FEMORAL NECK W/ MALUNION. TECHNIQUE: 2D digital imaging was performed. COMPARISON: CR XR HIP RT AP LAT ONLY from 03/16/2023 MR MR PELVIS WO/W from 04/07/2023 FINDINGS: Fluoroscopy was provided intraoperatively during right hip revision with placement of a hip prosthesi s. Please see procedure report for details. Total fluoroscopy time 39 seconds Radiation exposure index/cumulative dose: Kirstenr= 5.0911 mGy IMPRESSION: DATA REPOSITORY: RADIATION DOSE DELIVERED:
--- NOTE | 2023-04-15 12:59 | W.ANESPOSTOP ---
Postoperative Evaluation Date, Time and Location Date Performed: 04/15/23 Time Performed: 12:59 Patient Location: PACU Vital Signs Most Recent Imported Vital Signs: Most Recent Vital Signs Temp Pulse Resp BP Pulse Ox 36.4 C L 94 H 18 131/76 96 04/15/23 08:20 04/15/23 08:20 04/15/23 08:20 04/15/23 08:20 04/15/23 08:20 Pain Score Most Recent Pain Score: Most Recent Pain Score Pain Level 5 04/15/23 08:20 Assessment Mental Status: Awake (Alert & Oriented to Patient Baseline) Airway and Respiratory Function: Patent airway with normal (patient baseline) respiratory exam Cardiovascular Function: Hemodynamically Stable Hydration Status: Adequately Hydrated Nausea & Vomiting: No Nausea or Vomiting Pain: Pt. Denies Any Pain Peripheral Nerve Block: Patient did not receive a nerve block
--- NOTE | 2023-04-15 13:01 | W.PM.DSUDISC ---
Date of service: 04/15/23 Time of Service: 13:03 Discharge Plan Disposition Patient Disposition: Home W/Home Health Services Condition: Good Discharge Details Reason For Visit: R Hip Fx Malunion Admit Date/Time: 04/15/23 14:44 Admit Provider: Omar Hathaway Attending Provider: Omar Hathaway Primary Care Provider: Riky Gaitan Hospital Course Hospital Course: Patient was admitted to the medical/surgical floor following the procedure. The surgery was tolerated well without any notable medical, surgical, or anesthetic complications. Mobilization began postoperatively. [He][She] was voiding spontaneously. Vitals were stable. Physical therapy worked with the patient and was cleared for discharge home. No acute medical issues. Pain was controlled on oral regimen. Home Meds and New Rx's Prescriptions: Continued mirtazapine 15 mg tablet 30 mg PO HS CBD ointment topical Rx Instructions: 1ml for knee pain, prn Probiotic 20 billion cell capsule 30,000 cell PO DAILY pregabalin 25 mg capsule 25 mg PO BID Qty: 180 3RF clopidogrel [Plavix] 75 MG tablet 75 mg PO HS albuterol sulfate [ProAir HFA] 8.5 GM HFA aerosol inhaler 2 puff Inhalation PRN PRN duloxetine [Cymbalta] 30 mg capsule,delayed release(DR/EC) 60 mg PO HS atorvastatin [Lipitor] 10 MG tablet 10 mg PO QPM Qty: 30 0RF docusate sodium 100 mg capsule 100 mg PO BID acetaminophen 650 mg tablet extended release 650 mg PO Q6H PRN (Reason: Pain) Qty: 0 0RF calcium-magnesium 500-250 mg Tablet 4 tab PO DAILY tramadol 50 mg tablet 50 mg PO Q6H PRNQty: 20 0RF pantoprazole [Protonix] 20 MG tablet,delayed release (DR/EC) 40 mg PO BID duloxetine [Cymbalta] 30 mg Capsule,Delayed Release(Dr/Ec) 30 mg PO HS metformin 500 mg tablet 1,000 mg PO DAILY Farxiga 10 mg tablet 5 mg PO HS Discontinued celecoxib [Celebrex] 200 mg capsule 200 mg PO DAILY Discharge Instructions Additional Instructions: Total Hip Discharge Instructions Activity: The most important activity is to walk. You should try to take short walks a few times a day. You have no restrictions on movement or positioning, but do not try to force what you do. You will find some stiffness and weakness with hip flexion (lifting your knee). Do not try to strengthen this too early, continue to practice walking and stairs and this will come. - Outpatient physical therapy can be helpful to help return you to a normal gait and improve your flexibility and strength. This can start around 2 weeks. For some patients, it?s not necessary. Usually this is determined at the time of discharge or at the first post-operative visit. - You should wear the TRAY hose on both legs for 2 weeks. Dressing: Keep the surgical dressing in place for at least one week. After the first week it may be removed and replace with light gauze and tape or nothing. It may get wet after 3 days but avoid soaking the dressing. If it gets wet, just lightly pat dry. It is important to always keep some gauze between skin folds, especially when you are sitting. Spend some time with the wound exposed when you are lying flat as the incision does wrinkle onto itself. Medications: - You should take Tylenol as your primary pain control medications. - You have been prescribed a stronger pain medication Tramadol for breakthrough pain, take as needed as prescribed. - You have also been prescribed a stomach acid reduction agent Pantoprozole to help reduce stomach acid and reflux. - You have also been prescribed Decadron to help with post-operative nausea and pain. You will take this for two days starting tomorrow. - You will be taking Plavix for DVT prevention unless instructed otherwise. - If you have constipation you should take Colace or Miralax (both [id number]). It takes most people 3-4 days to have a bowel movement. Follow-up: 2 weeks If you have any acute concerns or questions, please do not hesitate to contact the office at [phone]. You may contact Dr. Hathaway with any questions after hours through the hospital at [phone] or on his cell phone at [phone]. 1. Encounter Date and Reason I certify that Aster Kumar was seen by Omar Hathaway MD on 04/16/23 and that I had a [id number] encounter with this patient that meets the physician face to face encounter requirements. 2. Clinical Findings Supporting Skilled Need and Homebound Status I certify that home health services are medically necessary, include either intermittent mcfp and/or physical/speech therapy, and that this patient is homebound in that absences from the home require considerable and taxing effort and are infrequent or of short duration, or are attributable to the need to receive medical care. [X] (a) Attached documentation from encounter provides clinical findings supporting skilled need and homebound status (including what assistance patient requires to leave the home). The encounter with the patient was in whole, or in part, for the following medical condition, which is the primary reason for home health care: R Hip Fx Malunion Long Term: Physical Therapy: Aster would benefit from home health PT for continued strengthening and gait training following right hip replacement surgery. She has no precautions or restrictions. Speech Therapy: Homebound: Aster is unable to leave her home unassisted due to weakness and gait abnormalities following hip replacement surgery. 3. Certification and Authentication I certify that I composed the above information based on my clinical judgement relating to this patient's medical condition and, if applicable, clinical findings communicated to me by the NPP or inpatient physician who performed the Home Health Referral. All further orders will be obtained through Dr. Hathaway Stand Alone Forms: Nursing Discharge Form Referrals: Omar Hathaway MD [ [facility] STAFF PHYSICIAN] - 04/30/23 11:30 am Activity:: Activity as Tolerated Equipment/Supplies:: Walker Diet:: As Tolerated DS: Diagnosis Discharge Diagnosis (1) Closed displaced fracture of right femoral neck with malunion: Status: Acute
[2023-04-15] MEDS: ceFAZolin 1 GM/50 ML BAG IVPB ×2 (15:49→23:15)
--- NOTE | 2023-04-15 15:56 | IN_ITS ---
Date of service: 04/15/23 Time of Service: 15:18 PT Notes Visit Reasons: R HIp Fx Malunion Physical Therapy Inpatient Initial Evaluation Date: 04/15/2023 Referring Doctor: SHYNAN Lowe PT Orders: PT CONSULT: Eval/treat. S/P Ortho surgery Precautions: Fall. Standard. Activity as tolerated. 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 She previously had ORIF using cannulated screws on 07/26/2022 due to a closed displaced fracture of the right femoral neck sustained from a fall. PMHX: Medical History? Anemia, iron deficiency Asymmetrical sensorineural hearing loss Dysphagia H/O TIA (transient ischemic attack) and stroke Hiatal hernia Hypertension Macrocytosis Osteopenia Skin lesion Social History/Home Situation: Lives with in a private home with 2 steps to enter through the garage, they have an alternate entrance with brick rikki without steps. Has been using the FWW for all mobility ADLs prior to surgery. Equipment Owned/DME: FWW, SPC Subjective: Feels like his left leg is shorter than her right. Reported no pain in the R hip at rest but complained of 5-6/10 with short distance in-room ambulation. Denies headache, chest pain, and lightheadedness throughout session. Objective: General Observation: Resting in bed. Mepilex Ag over surgical incision. TEDS to B legs. Mental Status: Alert and oriented as to person, place, time, and purpose. Able to pay attention, focus, and respond appropriately. Pain: As above Vital Signs: WNL as closely monitored by nursing staff ROM: Right Lower Extremity: Hip flexion WFL. Hip abduction WFL. Knee flexion WFL. Ankle dorsiflexion WFL. Ankle plantarflexion WFL. Left Lower Extremity: Hip flexion WFL. Hip abduction WFL. Knee flexion WFL. Ankle dorsiflexion WFL. Ankle plantarflexion WFL. Strength: Right Lower Extremity: Hip flexors 4-/5. Hip abductors 4-/5. Knee flexors 4-/5. Knee extensors 4-/5. Ankle dorsiflexors 4-/5. Ankle plantarflexors 4-/5. Left Lower Extremity: Hip flexors 4/5. Hip abductors 4/5. Knee flexors 5/5. Knee extensors 4/5. Ankle dorsiflexors 4/5. Ankle plantarflexors 4/5. Bed Mobility/Transfers: Supine to sit standby assist Sit to stand contact-guard assist Stand to sit standby assist Bed to toilet seat contact-guard assist with FWW Toilet seat to bedside chair contact-guard assist with FWW Gait: Instructed patient with level surface ambulation of 25 feet + 25 feet requiring contact guard assist. Pelvic dip on R. R LE appears shorter than L as evidenced by trunk lean to R and pelvic dip to R. Reported 5-6/10 pain in the R hip after short distance walk. Nurse Hyun and Nighat aware. Balance: Static Sitting: Normal Dynamic Sitting: Normal Static Standing: Fair Dynamic Standing: Fair Special Tests: Mobility Limitations Standardized Measure [facility] 6 clicks Basic Mobility Inpatient Short Form: Raw Score: 21 CMS Score: 29% deficit Informed Consent/Education: Patient was instructed in purpose of PT consult and plan of care. Agreeable to proceed with established PT POC to achieve personal goals. THERA ACT: reviewed exercises below to be done while seated on bedside chair: - Seated Quadricep Sets - 1 x daily - 7 x weekly - 1 sets - 10 reps - 5 hold - Seated Heel Slide - 1 x daily - 7 x weekly - 1 sets - 10 reps - 5 hold - Seated Ankle Pumps - 1 x daily - 7 x weekly - 1 sets - 10 reps - 5 hold Assessment: Patient presents with clinical signs and symptoms consistent with current/admitting diagnoses that have resulted to mobility limitations, gait ins tability, generalized weakness, and overall ADL decline as demonstrated by the following impairment level findings: 1. Decreased strength to R hip major muscle groups 2. Impaired standing balance 3. Impaired activity tolerance Impairments are contributing to the following functional limitations: 1. Decline in bed mobility skills 2. Decline in transfer skills 3. Difficulty with ambulation without assistive device 4. Increased completion time for mobility ADL performance 5. Increased risk for falls Patient is assessed as a 67429 moderate complexity based on the following: History: 82-year-old female with past medical history as indicated above Examination: Demonstrable impairment in strength, balance, and mobility level with underlying impairments and functional limitations as exhibited above as well as deficit score of 29% utilizing the [facility] Mobility Inpatient Short Form Presentation: Evoling Decision Makin moderate complexity Goals: Goals X1 week 1. Supine-Sit independent 2. Sit-Supine independent 3. Sit-Stand independent 4. Stand-Sit independent with FWW 5. Bed-Chair independent with FWW 6. Chair-Bed independent with FWW 7. Independent gait on level surface with use of FWW for at least 300 feet without report of pain nor dyspnea 8. Independent stair negotiation while holding onto B rails for at least 3 steps without report of pain nor dyspnea 9. Independent with home exercise program 10. Good static and dynamic standing balance/tolerance Plan of Care/Treatment Plan: -1-2x/day, 7 days/week x 1 week. -Plan of care has been reviewed with the PRODUCTION STATISTICAL CLERK providing the service under Physical Therapy direction. -Premedicate for pain. -Initiate Physical Therapy intervention for pain management as needed, strengthening, bed mobility, transfers, gait, stairs, balance training, and use of assistive device. DISCHARGE RECOMMENDATIONS: [] Home with no services [] [] Home with services [specify] [X] Home with outpatient PT. Home when medically cleared by orthopedic surgeon. Recommend outpatient PT services in order to optimize functional mobility outcomes and facilitate return to independent community ambulation using least restrictive device. [] SNF for continued rehabilitation [] [] [facility] [] [] SNF versus LTC based on ability to participate and progress [] TREATMENT CODE/TIME: 67984 x 26 minutes beginning at 15:15 PM. Thank you for the opportunity to participate in the care of this patient. Jessy Perez PT, DPT, CLT [facility] [place], [place]
[2023-04-15] MEDS: Pantoprazole 20 MG TABCR 40 MG PO (20:42)
[2023-04-15] MEDS: Atorvastatin 10 MG TAB PO (20:42)
[2023-04-15] MEDS: Docusate Sodium 100 MG CAP PO (20:46)
[2023-04-15] MEDS: Pregabalin 25 MG CAP PO (20:46)
--- NOTE | 2023-04-15 21:33 | W.PM.OP ---
Date of service: 04/15/23 Time of Service: 12:30 Operative Note Operative Note DATE OF PROCEDURE: 04/15/23 PRE-OP DIAGNOSIS: Right Hip Osteoarthritis and Femoral Neck Malunion POST-OP DIAGNOSIS: same Right Hip Avascular Necrosis PROCEDURE: Right Hip Hardware Removal and Anterior Total Hip Arthroplasty with Intraoperative Navigation SURGEON: Omar Hathaway RELIGION INSTRUCTOR: Silvestre Yepez ANESTHESIA TYPE: Spinal Refer to Anesthesia Record PATHOLOGY: none sent TOURNIQUET TIME: 0 COMPLICATIONS: None Patient was transported to: PACU Patient's condition: stable Implants: 1. Depuy Varney Acetabular Component, 48mm 2. Depuy Acetabular Liner, [id number] 3. Depuy Corail Short Neck Collared Femoral Stem, Size 11 4. Depuy Altrx Ceramic Femoral Head, Size 32+5mm Indications: I have seen Aster in clinic for symptoms of right hip pain. She had a previous minimally dipslaced femoral neck fracture which went onto a shortened, nonunion, confirmed with radiographic findings. Aster has exhausted nonoperative methods and was having significant limitations in daily function and desired better function and less pain. I discussed the technical details of a hip replacement with harware removal. I explained the risks of the procedure to include, but not limited to, bleeding, infection, pain, stiffness, fracture, damage to nerves and vessels, damage to muscles and tendons, loosening, instability, leg length inequality, need for repeat procedure, blood clot and cardiopulmonary demise. Despite these risks, Aster elected to proceed. Findings: 3 screws were removed without difficulty. The femoral head was removed but on doing so there was fragmentation and the appearance of avascular necrosis of the femoral head. A cementless dual mobility construct was implanted. Procedure Description: Aster was greeted in the preoperative holding area where the correct side was identified and marked. The consent was reviewed with the patient and signed. The history and physical was updated. All questions were answered. She was taken back to the operating room. A spinal anesthestic was then administered. The feet were wrapped with cast padding and Coban and then placed into the boot liners and then into the boots. Care was taken to protect the skin and make sure the heels were fully down and the boots were stable. The patient was then positioned onto the HANA table. Both legs were held in a neutral position. SCDs were applied. The patient was then slid down onto a peroneal post. Prophylactic antibiotics in the form of Cefazolin were administered. 1g of Tranxemic Acid was given intravenously within 30 minutes of incision. The right leg was then prepped with Chloraprep and draped in a standard fashion. A second prep with Chloraprep was performed prior to placement of a shower-curtain type drape with Iodine impregnated skin protection. A timeout to confirm correct identity, side and site, procedure, allergies, anesthesia, and medical concerns was performed. I began with the hardware removal. Using fluoroscopy, location of the screw heads was marked and the skin. Through a very small incision I utilized a Steinmann pin to cannulate the cannulated screws and then remove them. All 3 screws were removed without difficulty. Then, attention to the hip replacement was directed. An obliquely oriented incision was made starting lateral to the ASIS and running distal over the Tensor Fascia Asha (TFL) muscle belly toward the fibular head, approximately 10cm. The skin and soft tissue was dissected sharply, through Sydni?s fascia, and to the fascia of the TFL. With the fascia and superior border of the IT band identified, the fascia was incised with a new knife just above any perforators from the IT band. The TFL muscle belly was bluntly dissected away from the fascia and moved laterally. The fat between TFL and rectus was identified to ensure the dissection was not within the TFL. Blunt dissection created space between abductors and the capsule and retractor was placed over the lateral femoral neck. The fibers of the rectus femoris tendon were identified and these were freed from the anterior capsule. A second cobra retractor was placed around the medial femoral neck. The TFL was further retracted laterally to show the deep fascia. Careful dissection through this layer identified three main crossing vessels of the lateral femoral circumflex. These were cauterized in multiple locations and then cut without any noticeable bleeding. The TFL was further released bluntly from the deep fascia to expose anterior hip capsule and fat The Amado orthopaedic retractor was then placed beneath the TFL and against sartorius and medial soft tissues to protect and retract the soft tissues. A T-capsulotomy was then performed starting at the superior lateral acetabulum and moving distally to the intertrochanteric ridge. These capsular flaps were tagged with a No. 1 Ethibond and elevated from within. The capsular flaps were released to the shoulder of the lateral neck and to the lesser trochanter to give excellent visualization of the proximal femur. A neck osteotomy was performed using an oscillating saw based on preoperative templates. This cut started in the shoulder and of the lateral neck and exited medially. The saw was at all times directed medially to avoid injury to the greater trochanter. Gross traction was applied to the leg and the osteotomy opened. The femoral head had to be removed in piecemeal as it crumbled trying to extract it. Had the appearance of avascular necrosis. Traction was released after head removal. This was measured on the back table to determine the starting reamer size. Portions of the rectus obscuring visualization were minimally elevated off the superior acetabulum. An anterior retractor was placed over the anterior wall between capsule and labrum and attached to the Gripper retraction system. The femur was rotated to 90 degrees and medial capsule was fully released until the lesser trochanter was palpable and visible; the femur was returned to 30 degrees. A posterior retractor was placed similarly between capsule and labrum. This provided excellent visualization. The contents of the cotyloid fossa were removed with electrocautery and the labrum was removed with a knife. Acetabular reaming began with a 44mm reamer. This first reaming was directed anterior to posterior and medial to get down to the true floor. This was inspected and reamed until the true floor was reached. The anterior retractor was then released and entry and exit was provided by traction on the capsular flaps. I then reamed sequentially up to a 48mm reamer where good fit was obtained. The larger reamers were oriented based on anatomical reference of the anterior and lateral muñoz to ensure proper abduction and anteversion. Positioning and size was confirmed with the fluoroscopy. A 48mm Depuy Varney acetabular component was selected. The acetabulum was reamed around the periphery with the selected acetabular size to prevent a rim fit. The deep tissues were irrigated. The acetabular component was then impacted in a position of about 40-45 degrees of abduction and 15-20 degrees of anteversion, using the patient?s anatomy as the ultimate landmark. Fluoroscopy was used to confirm this. There was excellent immigration law specialist of the acetabular component and the inserting handle was removed. The acetabular liner, Depuy [id number] polyethylene liner, was inserted and lined up with the tines of the acetabular component. There was no soft tissue interposition. The liner was then impacted into position and confirmed to be well-seated. A portion of the cecelia-articular cocktail was then injected around the acetabulum into the capsule and periosteum. This cocktail consisted of 123mg of Ropivacaine, 0.25mg of Epinephrine, 0.04mg of Clonidine, and 15mg of Ketorolac, diluted to 50cc. The leg was rotated to 120 degrees. Any remaining medial capsule was released until the lesser trochanter was easily palpable. A retractor was placed medially. The lateral capsule was further released into the shoulder to allow access to the greater trochanter. A Zuñiga retractor was placed over the greater trochanter which allowed the trochanter to flip in front of the capsule for excellent exposure. The leg was brought down into maximal extension and 20 degrees of adduction while ensuring there was no impingement on the acetabulum. Any remnant capsule within the trochanter was released. Piriformis and obturator externis were identified and protected. There was excellent access to the proximal femur. The lateral neck remnant was removed with a rongeur. A blunt canal probe was used to identify the canal and trajectory for later broaching. A box osteotome initiated the broach course. A small curved rasp and a curved curette were used to work laterally. Broaching then began with a size 8 Corail broach. This was inserted manually around the trochanter and into the canal before mallet blows. The broach was seated to a few millimeters below the cut level based on the neck cut and the preoperative template. Sequential broaching was continued with the Lolaycise pneumatic broaching device until a tight fit was obtained with good rotational control of the femur. A trial short neck was inserted along with a +5 trial head. The leg was brought out of extension and adduction and then reduced with traction and internal rotation. The leg was stable anteriorly in a position of 30 degrees of extension and 90 degrees of external rotation. Fluoroscopy was used to ensure there was no fracture and the stem was seated well. Leg lengths were checked with an AP pelvis and pelvic reference points. [employer] navigation system was used to confirm appropriate positioning and leg length and offset. Once content with the desired offset and leg lengths, the leg was brought back into extension, external rotation and adduction. The periosteum and surrounding tissue was injected with remaining portion of the cecelia-articular cocktail. The proximal femur was irrigated as well as the deep tissues. The Depuy Corail short neck collared stem, size 11, was then manually inserted into the proximal femur making sure to control rotation. It was then malleted into position with light blows, giving breaks to allow bone expansion and decrease risk of fracture. The selected Depuy Altrx Ceramic Head, size 32+5mm, was then placed onto the clean and dry trunnion and secured with impaction onto the tapered fit. The leg was brought back out of extension and adduction and reduced with traction and internal rotation. Stability was confirmed with no shuck at 90 degrees of external rotation and 30 degrees of extension. No impingement through range of motion arc. Final x-ray images were obtained with fluoroscopy to confirm adequate positioning and no intraoperative fracture. The deep tissues were thoroughly irrigated with Surgiphor, betadine solution. This was allowed to sit in the wound for 3 minutes before being thoroughly irrigated out with normal saline. The capsule was then reapproximated with the previously placed Ethibond sutures. The TFL fascia was finally closed with a No. 2 Stratafix, barbed suture. Deep tissues were then reapproximated with 0 Vicryl and a running 2-0 Vicryl. The skin was closed with a running 4-0 Monocryl in a subcuticular fashion. This was reinforced with skin glue. A Mepilex silver dressing was applied. At the end of the case, all counts were correct. Aster was transferred to the hospital bed without difficulty and suffering no apparent complication. She has a good prognosis. Physical therapy will start today and without restrictions, weight-bearing as tolerated. Her routine Plavix will be used for DVT prophylaxis.
[2023-04-15] MEDS: Clopidogrel 75 MG TAB PO (23:15)
[2023-04-15] MEDS: DULoxetine 30 MG CAP 60 MG PO (23:15)
[2023-04-15] MEDS: Mirtazapine 15 MG TAB 30 MG PO (23:15)
[2023-04-15] MEDS: DULoxetine 30 MG CAP PO (23:15)
[2023-04-16 03:47] VITALS: BP 103/66; PULSE 76; RESP 16; TEMP 35.6
[2023-04-16] MEDS: Acetaminophen 500 MG TAB 1000 MG PO (07:20)
[2023-04-16 08:37] VITALS: BP 113/64; PULSE 86; RESP 18; TEMP 36.5; O2SAT 98
[2023-04-16] MEDS: Normal Saline Flush 10 ML SYR IV (09:02)
[2023-04-16] MEDS: ceFAZolin 1 GM/50 ML BAG IVPB (09:02)
[2023-04-16] MEDS: Dexamethasone 4 MG TAB PO (09:02)
[2023-04-16] MEDS: Docusate Sodium 100 MG CAP PO (09:03)
[2023-04-16] MEDS: Pregabalin 25 MG CAP PO (09:04)
[2023-04-16] MEDS: metFORMIN 500 MG TAB 1000 MG PO (09:04)
[2023-04-16] MEDS: Pantoprazole 20 MG TABCR 40 MG PO (09:04)
[2023-04-16] MEDS: Lactobacillus Acidophilus CAP 1 CAP PO (09:04)
--- NOTE | 2023-04-16 09:33 | PDOC.CMIN ---
Date of service: 04/16/23 Time of Service: 09:33 Care Management Initial Assmt Initial Assessment REASON FOR HOSPITALIZATION:: Right total hip replacement PREVIOUS FUNCTIONAL STATUS/SOCIAL/FAMILY SUPPORTS:: Aster lives in a single family home in [place] with her Anish. They have 2 sons and 5 grandchildren who all live out of state. One son lives near [place] and the other lives near [place]. Aster is independent at baseline and does not receive any community services. CURRENT FUNCTIONAL STATUS:: Aster was sitting up in a chair, fully dressed when CM met with her. She was pleasant and engaged easily with CM. Aster shared that her stay at [facility] has been wonderful. She stated she has had great care and asked for a way to recognize someone who went above and beyond. provided her with a Vianey award card. Aster will be discharged home later this morning and her will provide transportation. ADVANCE DIRECTIVES:: On file. Anish [facility]. Has patient been provided with info about the portal/API?: Yes Did the patient sign up for the portal?: Yes CODE STATUS:: Full Code INSURANCE COVERAGE / FINANCIAL ISSUES:: [employer] Medicare Replacement CURRENT HOME/COMMUNITY SERVICES/EQUIPMENT:: none currently PRIMARY CARE PHYSICIAN:: Riky Gaitan POTENTIAL DISCHARGE NEEDS:: follow up with orthopedic surgeon and PCP PATIENT/FAMILY EDUCATION NEEDS:: Review of discharge instructions, limitations, activity, follow up plan and Ask Me Three TRANSPORTATION:: via private vehicle with family. PLAN:: Aster will be discharged home with no new services. She will follow up with her community providers and plan of care as prescribed and transport with family. PFSH All Active Problems Tarlov cyst (Acute) Closed displaced fracture of right femoral neck with malunion (Acute) Post-menopausal bleeding (Acute) Trochanteric bursitis, right hip (Acute) DEPO MEDROL 01/26/23 Rotator cuff arthropathy of right shoulder (Acute) DEPO MEDROL 12/15/22 Right shoulder pain (Acute) Costochondritis (Acute) Viral URI with cough (Acute) Ambulatory dysfunction (Acute) Nail dystrophy (Acute) Blood loss anemia (Acute) Mild cognitive impairment (Acute) Periprosthetic fracture around internal prosthetic left knee joint, initial encounter (Acute 07/28/19) S/P ORIF 07/28/2019 Peripheral neuropathy (Acute) Monocular diplopia of both eyes (Acute) Femur fracture, left (Acute) S/p total knee replacement, bilateral (Acute) History of cataract extraction (Chronic) May 2018 at [facility], complicated by increased IOP S/P rotator cuff repair (Chronic) 2016 History of ankle surgery (Chronic) H/O toe surgery (Chronic) Fracture of left hip requiring operative repair (Chronic) 2011 Status post lumbar spine surgery for decompression of spinal cord (Chronic) L4-S1 decompression and fusion; 2000 H/O: hysterectomy (Chronic) S/P dilatation and curettage (Chronic) H/O total knee replacement (Chronic) Urinary frequency (Chronic) Type 2 diabetes mellitus (Chronic) Insomnia (Chronic) TIA (transient ischemic attack) (Chronic) GERD (gastroesophageal reflux disease) (Chronic) Fibromyalgia (Chronic) Depression (Chronic) Low back pain (Chronic) Lumbar stenosis without neurogenic claudication (Chronic) 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) Medical History Anemia, iron deficiency Asymmetrical sensorineural hearing loss Dysphagia H/O TIA (transient ischemic attack) and stroke Hiatal hernia Hypertension Macrocytosis Osteopenia Skin lesion Family History Mother Alzheimer disease Father Stroke Social History Smoking/Tobacco Use Status: Never Smoking risk assessment performed?: Yes Alcohol Intake: current Alcohol Intake frequency: a few times a week Alcohol type: wine Drug use: Never Substance use type: does not use Household members: spouse Housing: house Current gender identity: female Do you feel safe at home: Yes Do you feel safe in your relationship?: Yes Additional Social history: She was born in [place]. 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 She is to her second Demarco (since ~1989?). She has 2 stepsons. She drinks one glass of wine per week.
--- NOTE | 2023-04-16 09:38 | DSE_ITS ---
Date of service: 04/16/23 Time of Service: 07:40 DS: Diagnosis Discharge Diagnosis (1) Closed displaced fracture of right femoral neck with malunion: Status: Acute Discharge Plan Disposition Patient Disposition: Home W/Home Health Services Condition: Good Discharge Details Reason For Visit: R Hip Fx Malunion Admit Date/Time: 04/15/23 14:44 Admit Provider: Omar Hathaway Attending Provider: Omar Hathaway Primary Care Provider: Riky Gaitan Hospital Course Hospital Course: Patient was admitted to the medical/surgical floor following the procedure. The surgery was tolerated well without any notable medical, surgical, or anesthetic complications. Mobilization began postoperatively. [He][She] was voiding spontaneously. Vitals were stable. Physical therapy worked with the patient and was cleared for discharge home. No acute medical issues. Pain was controlled on oral regimen. Home Meds and New Rx's Prescriptions: Continued mirtazapine 15 mg tablet 30 mg PO HS CBD ointment topical Rx Instructions: 1ml for knee pain, prn Probiotic 20 billion cell capsule 30,000 cell PO DAILY pregabalin 25 mg capsule 25 mg PO BID Qty: 180 3RF clopidogrel [Plavix] 75 MG tablet 75 mg PO HS albuterol sulfate [ProAir HFA] 8.5 GM HFA aerosol inhaler 2 puff Inhalation PRN PRN duloxetine [Cymbalta] 30 mg capsule,delayed release(DR/EC) 60 mg PO HS atorvastatin [Lipitor] 10 MG tablet 10 mg PO QPM Qty: 30 0RF docusate sodium 100 mg capsule 100 mg PO BID acetaminophen 650 mg tablet extended release 650 mg PO Q6H PRN (Reason: Pain) Qty: 0 0RF calcium-magnesium 500-250 mg Tablet 4 tab PO DAILY tramadol 50 mg tablet 50 mg PO Q6H PRNQty: 20 0RF pantoprazole [Protonix] 20 MG tablet,delayed release (DR/EC) 40 mg PO BID duloxetine [Cymbalta] 30 mg Capsule,Delayed Release(Dr/Ec) 30 mg PO HS metformin 500 mg tablet 1,000 mg PO DAILY Farxiga 10 mg tablet 5 mg PO HS Discontinued celecoxib [Celebrex] 200 mg capsule 200 mg PO DAILY Discharge Instructions Additional Instructions: Total Hip Discharge Instructions Activity: The most important activity is to walk. You should try to take short walks a few times a day. You have no restrictions on movement or positioning, but do not try to force what you do. You will find some stiffness and weakness with hip flexion (lifting your knee). Do not try to strengthen this too early, continue to practice walking and stairs and this will come. - Outpatient physical therapy can be helpful to help return you to a normal gait and improve your flexibility and strength. This can start around 2 weeks. For some patients, it?s not necessary. Usually this is determined at the time of discharge or at the first post-operative visit. - You should wear the TRAY hose on both legs for 2 weeks. Dressing: Keep the surgical dressing in place for at least one week. After the first week it may be removed and replace with light gauze and tape or nothing. It may get wet after 3 days but avoid soaking the dressing. If it gets wet, just lightly pat dry. It is important to always keep some gauze between skin folds, especially when you are sitting. Spend some time with the wound exposed when you are lying flat as the incision does wrinkle onto itself. Medications: - You should take Tylenol as your primary pain control medications. - You have been prescribed a stronger pain medication Tramadol for breakthrough pain, take as needed as prescribed. - You have also been prescribed a stomach acid reduction agent Pantoprozole to help reduce stomach acid and reflux. - You have also been prescribed Decadron to help with post-operative nausea and pain. You will take this for two days starting tomorrow. - You will be taking Plavix for DVT prevention unless instructed otherwise. - If you have constipation you should take Colace or Miralax (both [id number]). It takes most people 3-4 days to have a bowel movement. Follow-up: 2 weeks If you have any acute concerns or questions, please do not hesitate to contact the office at [phone]. You may contact Dr. Hathaway with any questions after hours through the hospital at [phone] or on his cell phone at [phone]. 1. Encounter Date and Reason I certify that Aster Kumar was seen by Omar Hathaway MD on 04/16/23 and that I had a [id number] encounter with this patient that meets the physician face to face encounter requirements. 2. Clinical Findings Supporting Skilled Need and Homebound Status I certify that home health services are medically necessary, include either intermittent chcf and/or physical/speech therapy, and that this patient is homebound in that absences from the home require considerable and taxing effort and are infrequent or of short duration, or are attributable to the need to receive medical care. [X] (a) Attached documentation from encounter provides clinical findings supporting skilled need and homebound status (including what assistance patient requires to leave the home). The encounter with the patient was in whole, or in part, for the following medical condition, which is the primary reason for home health care: R Hip Fx Malunion Usp: Physical Therapy: Aster would benefit from home health PT for continued strengthening and gait training following right hip replacement surgery. She has no precautions or restrictions. Speech Therapy: Homebound: Aster is unable to leave her home unassisted due to weakness and gait abnormalities following hip replacement surgery. 3. Certification and Authentication I certify that I composed the above information based on my clinical judgement relating to this patient's medical condition and, if applicable, clinical findings communicated to me by the NPP or inpatient physician who performed the Home Health Referral. All further orders will be obtained through Dr. Hathaway Stand Alone Forms: Nursing Discharge Form Referrals: Omar Hathaway MD [ [facility] STAFF PHYSICIAN] - 04/30/23 11:30 am Activity:: Activity as Tolerated Equipment/Supplies:: Walker Diet:: As Tolerated Discharge Orders Discharge Orders: Discharge Order (Routine); Ordered 04/16/23 Ordered By: Omar Hathaway DS: Summary Time Spent with Patient providing and/or coordinating discharge services: Less than 30 minutes Status at Discharge Functional status at discharge: uses cane/walker Overall status at discharge: patient is progressing back to baseline Mental Status: mental status grossly normal Speech and Movement: speech and movement normal Mood: congruent mood Affect: normal affect Exam Narrative Exam Narrative: Sitting up in the chair. NAD. AAOx3. RLE dressing c/d/i. +ADF/APF/EHL/FHL SILT LFCN/DP/SP/Tib Psych Mental Status: mental status grossly normal Speech and Movement: speech and movement normal Mood: congruent mood Affect: normal affect DS: Data Vitals/I&O Vitals and I&O: Vital Signs Temperature 36.5 C 04/16/23 08:37 Temperature Source Tympanic 04/16/23 08:37 Pulse 86 04/16/23 08:37 Pulse Rhythm Regular 04/16/23 07:15 Respiratory Rate 18 04/16/23 08:37 Respiratory Effort Normal 04/16/23 07:15 Respiratory Depth Normal 04/16/23 07:15 Respiratory Pattern Normal 04/16/23 07:15 Blood Pressure 113/64 04/16/23 08:37 Pulse Oximetry 98 04/16/23 08:37 Respiratory End-tidal CO2 36 04/15/23 13:39 Oxygen Delivery Method Room Air 04/16/23 08:37 Oxygen Flow Rate 0 04/16/23 08:37 Pain Level 0 04/16/23 08:37 Comment Rn notified 04/15/23 19:10 Intake & Output 04/15/23 04/15/23 04/16/23 11:59 23:59 11:59 Intake Total 110 / 2130 2020 / 2130 1320 / 1320 Output Total 450 / 450 Balance 110 / 1680 1570 / 1680 1320 / 1320 Weight 72.3 kg Intake: IV 110 / 1310 1200 / 1310 900 / 900 Oral 820 / 820 420 / 420 Output: Urine 300 / 300 Estimated Blood Loss 150 / 150 Other: Urine Color Yellow Urine Appearance Clear Urine Odor Normal Emesis Description None Voiding Methods Toilet PFSH All Active Problems Tarlov cyst (Acute) Closed displaced fracture of right femoral neck with malunion (Acute) Post-menopausal bleeding (Acute) Trochanteric bursitis, right hip (Acute) DEPO MEDROL 01/26/23 Rotator cuff arthropathy of right shoulder (Acute) DEPO MEDROL 12/15/22 Right shoulder pain (Acute) Costochondritis (Acute) Viral URI with cough (Acute) Ambulatory dysfunction (Acute) Nail dystrophy (Acute) Blood loss anemia (Acute) Mild cognitive impairment (Acute) Periprosthetic fracture around internal prosthetic left knee joint, initial encounter (Acute 07/28/19) S/P ORIF 07/28/2019 Peripheral neuropathy (Acute) Monocular diplopia of both eyes (Acute) Femur fracture, left (Acute) S/p total knee replacement, bilateral (Acute) History of cataract extraction (Chronic) May 2018 at [facility] [place], complicated by increased IOP S/P rotator cuff repair (Chronic) 2016 History of ankle surgery (Chronic) H/O toe surgery (Chronic) Fracture of left hip requiring operative repair (Chronic) 2011 Status post lumbar spine surgery for decompression of spinal cord (Chronic) L4-S1 decompression and fusion; 2000 H/O: hysterectomy (Chronic) S/P dilatation and curettage (Chronic) H/O total knee replacement (Chronic) Urinary frequency (Chronic) Type 2 diabetes mellitus (Chronic) Insomnia (Chronic) TIA (transient ischemic attack) (Chronic) GERD (gastroesophageal reflux disease) (Chronic) Fibromyalgia (Chronic) Depression (Chronic) Low back pain (Chronic) Lumbar stenosis without neurogenic claudication (Chronic) 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) Medical History Anemia, iron deficiency Asymmetrical sensorineural hearing loss Dysphagia H/O TIA (transient ischemic attack) and stroke Hiatal hernia Hypertension Macrocytosis Osteopenia Skin lesion Family History Mother Alzheimer disease Father Stroke Social History Smoking/Tobacco Use Status: Never Smoking risk assessment performed?: Yes Alcohol Intake: current Alcohol Intake frequency: a few times a week Alcohol type: wine Drug use: Never Substance use type: does not use Household members: spouse Housing: house Current gender identity: female Do you feel safe at home: Yes Do you feel safe in your relationship?: Yes Additional Social history: She was born in [place]. 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 She is to her second Demarco (since ~1989?). She has 2 stepsons. She drinks one glass of wine per week. Time Spent with Patient Time Spent with Patient: <45 minutes Time was spent: obtaining and/or reviewing separately otained hiistory, counseling the patient and care coordination
--- NOTE | 2023-04-16 16:21 | PT.INTREAT ---
Date of service: 04/16/23 Time of Service: 09:25 PT Notes Visit Reasons: R Hip Fx Malunion Inpatient Physical Therapy Treatment Note [facility] Date: 04/16/23 PRECAUTIONS: Fall, standard, activity as tolerated SUBJECTIVE: Patient sitting in chair, agreeable to therapy. Reports she is going home and wants to make sure she can get in and out of bed before arranging to have a hospital bed delivered OBJECTIVE: PAIN: none at rest, up to about a 5, but totally manageable during ambulation BED MOBILITY/TRANSFERS Rolling L/R: independent Supine-sit: independent Sit-supine: independent Sit-stand: independent Stand-sit: independent Bed-Chair: independent Chair-bed: independent GAIT Assistive Device: front wheeled walker Weight bearing: full Assist: standby Distance: 300 feet Deviation: patient demonstrates slight hip dip left, rigid posture. Reports feeling as though right leg is longer than left. STAIRS: Ascends and descends 6 four inch stairs and 4 six inch stairs with bilateral railings ASSESSMENT: Patient tolerates therapy well PLAN: Patient to discharge home today TREATMENT CODE/TIME: 16812 Gait 11 minutes beginning at 9:25
--- NOTE | 2023-04-16 17:54 | PT.INDS ---
Date of service: 04/16/23 PT Notes Visit Reasons: R Hip Fx Malunion Physical Therapy Inpatient Discharge Summary Date: 04/16/2023 Dates of service: 04/15/2023 through 04/16/2023 This is a clinical summary of care provided for the duration of dates listed above. No charge was made in the completion of this documentation. Referring Doctor: SHYANN Lowe PT Orders: PT CONSULT: Eval/treat.? S/P Ortho surgery Precautions: Fall. Standard. Activity as tolerated. Patient Profile/Admitting Diagnosis:? Aster is an 82-year-old female with diagnoses of malunited closed displaced R femoral neck fracture and R trochnateric hip bursitis status post removal of R hip ORIF hardware with subsequent right anterior total hip arthroplasty on postoperative day 0.? She previously had ORIF using cannulated screws on 07/26/2022 due to a closed displaced fracture of the right femoral neck sustained from a fall.? PMHX: Medical History? Anemia, iron deficiency Asymmetrical sensorineural hearing loss Dysphagia H/O TIA (transient ischemic attack) and stroke Hiatal hernia Hypertension Macrocytosis Osteopenia Skin lesion Social History/Home Situation: Lives with in a private home with 2 steps to enter through the garage,? they have an alternate entrance with brick rikki without steps.? Has been using the FWW for all mobility ADLs prior to surgery. Equipment Owned/DME: FWW,? SPC Subjective: NT. See most recent HEALTH SCIENCE INSTRUCTOR notes. Objective: General Observation: NT. See most recent HEALTH SCIENCE INSTRUCTOR notes. Mental Status: NT. See most recent HEALTH SCIENCE INSTRUCTOR notes. Pain: NT. See most recent HEALTH SCIENCE INSTRUCTOR notes. Vital Signs: NT. See most recent HEALTH SCIENCE INSTRUCTOR notes. ROM: Right Lower Extremity: Hip flexion WFL. Hip abduction WFL. Knee flexion WFL. Ankle dorsiflexion WFL. Ankle plantarflexion WFL. Left Lower Extremity: Hip flexion WFL. Hip abduction WFL. Knee flexion WFL. Ankle dorsiflexion WFL. Ankle plantarflexion WFL. Strength: Right Lower Extremity: Hip flexors 4-/5. Hip abductors 4-/5. Knee flexors 4-/5. Knee extensors 4-/5. Ankle dorsiflexors 4-/5. Ankle plantarflexors 4-/5. Left Lower Extremity: Hip flexors 4/5. Hip abductors 4/5. Knee flexors 5/5. Knee extensors 4/5. Ankle dorsiflexors 4/5. Ankle plantarflexors 4/5. ED MOBILITY/TRANSFERS? Rolling L/R: independent Supine-sit: independent ? Sit-supine: independent? Sit-stand: independent? Stand-sit: independent? Bed-Chair: independent ? Chair-bed: independent ? GAIT? Assistive Device: front wheeled walker? Weight bearing: full Assist: standby? Distance:? 300 feet? Deviation: patient demonstrates slight hip dip left, rigid posture. Reports feeling as though right leg is longer than left.? Balance: Static Sitting: Normal Dynamic Sitting: Normal Static Standing: Fair Dynamic Standing: Fair Informed Consent/Education:? Patient was instructed in purpose of PT consult and plan of care. Agreeable to proceed with established PT POC to achieve personal goals. THERA ACT: reviewed exercises below to be done while seated on bedside chair: - Seated Quadricep Sets? - 1 x daily - 7 x weekly - 1 sets - 10 reps - 5 hold - Seated Heel Slide? - 1 x daily - 7 x weekly - 1 sets - 10 reps - 5 hold - Seated Ankle Pumps? - 1 x daily - 7 x weekly - 1 sets - 10 reps - 5 hold Assessment: Patient presents with clinical signs and symptoms consistent with current/admitting diagnoses that have resulted to mobility limitations, gait instability, generalized weakness, and overall ADL decline as demonstrated by the following impairment level findings: 1.? Decreased strength to R hip major muscle groups 2.? Impaired standing balance 3.? Impaired activity tolerance Impairments are contributing to the following functional limitations: 1.? Decline in bed mobility skills 2.? Decline in transfer skills 3.? Difficulty with ambulation without assistive device 4.? Increased completion time for mobility ADL performance 5.? Increased risk for falls Goals: Goals X1 week 1. Supine-Sit independent MET 2. Sit-Supine independent MET 3. Sit-Stand independent MET 4. Stand-Sit independent with FWW MET 5. Bed-Chair independent with FWW MET 6. Chair-Bed independent with FWW MET 7. Independent gait on level surface with use of FWW for at least 300 feet without report of pain nor dyspnea NOT MET 8. Independent stair negotiation while holding onto B rails for at least 3 steps without report of pain nor dyspnea NOT MET 9. Independent with home exercise program NOT MET 10. Good static and dynamic standing balance/tolerance v DISCHARGE RECOMMENDATIONS: [] ? Home with no services [] [] ? Home with services [specify] [X] ? Home with outpatient PT. Home when medically cleared by orthopedic surgeon.? Recommend outpatient PT services in order to optimize functional mobility outcomes and facilitate return to independent community ambulation using least restrictive device. [] ? SNF for continued rehabilitation [] [] ? Snf Care [] [] ? SNF versus LTC based on ability to participate and progress [] TREATMENT CODE/TIME: ND Thank you for the opportunity to participate in the care of this patient. Jessy Perez PT, DPT, CLT [facility] [place], [place]
== END 2023-04-16 10:57 | disposition home health service (06) ==
LOC: MS 15:01
PROVIDERS: Admitting Provider Student in an Organized Health Care Education/Training Program; PCP Family Medicine; Visit Provider Student in an Organized Health Care Education/Training Program
PROC: (CPT 27130; principal; 2023-04-15 11:00)
PROC: (CPT 27130; 2023-04-15 11:00)
DX: S72.001P Fracture of unspecified part of neck of right femur, subsequent encounter for closed fracture with malunion (principal); D50.9 Iron deficiency anemia, unspecified; R13.10 Dysphagia, unspecified; Z86.73 Personal history of transient ischemic attack (TIA), and cerebral infarction without residual deficits; K44.9 Diaphragmatic hernia without obstruction or gangrene; I10 Essential (primary) hypertension; D75.89 Other specified diseases of blood and blood-forming organs; G43.009 Migraine without aura, not intractable, without status migrainosus; H90.3 Sensorineural hearing loss, bilateral; F32.A Depression, unspecified; M79.7 Fibromyalgia; M51.24 Other intervertebral disc displacement, thoracic region; E11.42 Type 2 diabetes mellitus with diabetic polyneuropathy; G96.191 Perineural cyst; G31.84 Mild cognitive impairment of uncertain or unknown etiology; Z96.653 Presence of artificial knee joint, bilateral
CPT/HCPCS: 27130; 20985; C1776; 96365; 97116; 97162; 73501; G0378; J0690; J1100; J2001; J2250; J2371; J2405; J8540

== ENCOUNTER 2023-04-30 11:39 | Outpatient (CLI) | payer MEDICARE, SELFPAY ==
--- NOTE | 2023-04-30 11:30 | DI.RAD_ITS ---
Exam(s) XR HIP RT COMPLETE AP PELVIS EXAM: XR HIP RT COMPLETE AP PELVIS INDICATION: f/u R AYDIN and hardware removal. COMPARISON: XA XR HIP RT IN OR from 04/15/2023 TECHNIQUE: 2D digital imaging was performed. Three views. FINDINGS: There has been no change in the alignment of the right hip prosthesis. There are no abnormal surrou nding bony lucencies. 3 screws are again noted in the proximal right femur. DATA REPOSITORY: RADIATION DOSE DELIVERED:
== END 2023-04-30 11:40 | disposition home or self-care (01) ==
LOC: DIORS 11:40
PROVIDERS: PCP Family Medicine; Referring Provider Family Medicine; Visit Provider Student in an Organized Health Care Education/Training Program
DX: Z47.1 Aftercare following joint replacement surgery; Z96.641 Presence of right artificial hip joint
CPT/HCPCS: 73502

== ENCOUNTER → 2023-05-28 11:16 | Outpatient (BNVA) | payer MEDICARE, SELFPAY | PROVIDERS: PCP Family Medicine; Referring Provider Family Medicine; Visit Provider Student in an Organized Health Care Education/Training Program | DX: Z47.1 Aftercare following joint replacement surgery (principal); Z96.641 Presence of right artificial hip joint ==

== ENCOUNTER 2023-07-09 13:45 | Outpatient (CLI) | payer MEDICARE, SELFPAY ==
--- NOTE | 2023-07-09 12:06 | DI.RAD_ITS ---
Exam(s) XR HIP LT COMPLETE AP PELVIS EXAM: XR HIP LT COMPLETE AP PELVIS CLINICAL HISTORY: LEFT HIP PAIN. TECHNIQUE: 2D digital imaging was performed. COMPARISON: CR XR HIP RT COMPLETE AP PELVIS from 04/30/2023 FINDINGS: Two views. The right hip prosthesis appears stable. Three screws are again noted in the left femoral neck acros s healing subcapital fracture site. No obvious displacement. No significant hip joint space narrowi ng on the left side. Incidentally noted is abnormal density within the medullary cavity of the midshaft of the femur seen in the peripheral aspect. Also similar density noted in the soft tissues lateral to the femur at madisyn t level. Probably extravasated cement IMPRESSION: Stable appearance DATA REPOSITORY: RADIATION DOSE DELIVERED:
--- NOTE | 2023-07-09 12:06 | DI.RAD_ITS ---
Exam(s) XR KNEE LT 3V AP,LAT,MIGDALIA EXAM: XR KNEE LT 3V AP,LAT,MIGDALIA CLINICAL HISTORY: LEFT KNEE PAIN. TECHNIQUE: 2D digital imaging was performed of the left knee. Three images were obtained. AP, late ral and PA tunnel views were obtained. COMPARISON: CR XR KNEE LT 2V AP,LAT from 09/22/2022 FINDINGS: BONES: No acute fracture is present. No bony destructive lesion is seen. JOINTS: The knee is normally aligned. There are stable postsurgical changes of a left knee replacemen t. The orthopedic hardware appears stable. SOFT TISSUE: Atherosclerosis. IMPRESSION: Stable left knee. DATA REPOSITORY: RADIATION DOSE DELIVERED:
== END 2023-07-09 13:46 | disposition home or self-care (01) ==
LOC: DIORS 13:45
PROVIDERS: PCP Family Medicine; Referring Provider Family Medicine; Visit Provider Student in an Organized Health Care Education/Training Program
DX: Z47.1 Aftercare following joint replacement surgery; Z96.641 Presence of right artificial hip joint
CPT/HCPCS: 73562; 73502

== ENCOUNTER 2023-07-29 11:20 | Outpatient (REF) | payer MEDICARE, SELFPAY ==
[2023-07-29 17:02] LABS: HCT 38.7 % (36.0-46.0); HGB 11.6 g/dL (11.2-15.7); MCH 26.1 pg (27.0-33.0); MCV 87 fL (80-95); MPV 11.1 fL (8.0-11.0); Platelet Count 274 10^3/uL (130-400); RBC 4.44 10^6/uL (3.93-5.22); RDW 15.4 % (11.7-14.6); RDW-SD 49.9 fL; WBC 6.77 10^3/uL (4.4-10.8)
[2023-07-29 17:04] LABS: ALT 18 U/L (14-59); AST 13 U/L (15-37); Albumin 3.9 g/dL (3.4-5.0); Alkaline Phosphatase 106 U/L (46-116); Anion Gap 11.7 mmol/L (3-11); BUN 31 mg/dL (7-18); Bilirubin, Total 0.3 mg/dL (0.2-1.0); CO2 22.3 mmol/L (21.0-32.0); CREATININE 1.6 mg/dL (0.55-1.02); Calcium 9.6 mg/dL (8.5-10.1); Chloride 97 mmol/L (98-107); Ferritin 39 ng/mL (8-252); Glucose 239 mg/dL (74-106); Potassium 4.6 mmol/L (3.5-5.1); Sodium 131 mmol/L (136-145)
[2023-07-29 18:08] LABS: Hemoglobin A1C 8.6 % (<5.7)
== END 2023-07-29 11:21 | disposition home or self-care (01) ==
LOC: NCHCN 11:20
PROVIDERS: PCP Family Medicine; Visit Provider Family Medicine
DX: E11.9 Type 2 diabetes mellitus without complications (principal); I10 Essential (primary) hypertension; R06.02 Shortness of breath; G89.29 Other chronic pain
CPT/HCPCS: 80053; 85027; 82728; 83036

== ENCOUNTER → 2023-08-10 03:59 | Outpatient (CLI) | payer MEDICARE, SELFPAY ==
--- NOTE | 2023-08-10 | DI.CT_ITS ---
Exam(s) CT ABDOMEN PELVIS W EXAM: CT ABDOMEN PELVIS W CLINICAL HISTORY: ABDOMINAL DISTENSION, R14.0, SOB BENDING OVER. TECHNIQUE: Imaging Protocol: Axial computed tomography images with coronal and sagittal reformatted images were created and reviewed CONTRAST MATERIAL: Intravenous: Omnipaque 350 Contrast volume:100 ml Oral: yes COMPARISON: CT ABD PELVIS WO CONTRAST from 06/24/[address] CHEST PE CTA from 09/22/2022 FINDINGS: ABDOMEN: Lung Bases: Stable small nodule peripherally in the lingula. Small to moderate size hiatal hernia. Some contrast material is seen in the lower esophagus, consistent with reflux. Liver: Normal density. No measurable mass. Gallbladder and biliary tract: No radiodense calculus or dilation. Pancreas: Normal density, no abnormal calcifications or inflammatory process. Spleen: Normal. Kidneys: Normal size, contour and axis. No radiodense stones or obstructive uropathy. No suspicious m asses seen. Adrenal glands: No masses seen. Vasculature: Abdominal aorta non-dilated. Atherosclerotic changes. Soft tissues: Unremarkable. PELVIS: Bladder: No gross wall thickening. No calculi.No focal mass. Bowel:: Distended with large quantity of stool except for the rectosigmoid.. No obstruction. No hui wel wall thickening. Appendix not seen. Peritoneal cavity: No ascites, collection or mesenteric inflammatory response. Bones: Hardware in both hips. Degenerative changes in the spine. Bilateral L4 spondylolysis with gr paulino 1-2 spondylolisthesis. Reproductive organs: Within normal limits. Lymph nodes: Unremarkable. IMPRESSION:: Large quantity of stool distending the colon from the sigmoid through lower descending. Small hiatal hernia. Gastroesophageal reflux. RADIATION DOSE DELIVERED: Total DLP DATA REPOSITORY: All CT scans at this facility are submitted to the National Radiology Data Registry (NRDR) Dose Index Registry (DIR) with the [employer] (A[employer]). RADIATION OPTIMIZATION: All CT scans at this facility use at least one of these dose optimization te chniques: automated exposure control; mA and/or kV adjustment per patient size (includes targeted exa ms where dose is matched to clinical indication); or iterative reconstruction.
[2023-08-10] MEDS: Barium Sulfate 2% W/V-Berry Smoothie 450 ML BTL 900 ML PO (13:14)
[2023-08-10 13:21] LABS: HCT 37.2 % (36.0-46.0); MCH 25.6 pg (27.0-33.0); MCHC 29.6 % (32.0-36.0); MCV 87 fL (80-95); MPV 10.7 fL (8.0-11.0); Platelet Count 244 10^3/uL (130-400); RDW 15.7 % (11.7-14.6); RDW-SD 49.6 fL; WBC 9.19 10^3/uL (4.4-10.8)
[2023-08-10 13:38] LABS: ALT 19 U/L (14-59); AST 11 U/L (15-37); Albumin 3.7 g/dL (3.4-5.0); Alkaline Phosphatase 109 U/L (46-116); Anion Gap 11.1 mmol/L (3-11); BUN 23 mg/dL (7-18); Bilirubin, Total 0.3 mg/dL (0.2-1.0); CO2 23.9 mmol/L (21.0-32.0); CREATININE 1.5 mg/dL (0.55-1.02); Calcium 9.5 mg/dL (8.5-10.1); Chloride 103 mmol/L (98-107); Estimated GFR 34.36 (mL/min/1.73m2); Glucose 180 mg/dL (74-106); Potassium 4.2 mmol/L (3.5-5.1); Sodium 138 mmol/L (136-145); Total Protein 8.1 g/dL (6.4-8.2)
[2023-08-10] MEDS: Normal Saline - Diluent 50 ML VIAL IJ (14:43)
[2023-08-10] MEDS: Omnipaque 350 MG/ML 500 ML BTL-Imaging package IJ (14:43)
== END ==
PROVIDERS: PCP Family Medicine; Visit Provider Family Medicine
DX: E11.9 Type 2 diabetes mellitus without complications (principal); K21.9 Gastro-esophageal reflux disease without esophagitis; K44.9 Diaphragmatic hernia without obstruction or gangrene
CPT/HCPCS: 80053; 85027; 74177

== ENCOUNTER → 2023-08-11 09:51 | Outpatient (BNVA) | payer MEDICARE, SELFPAY | PROVIDERS: PCP Family Medicine; Visit Provider Psychiatry & Neurology Neurology | DX: G60.9 Hereditary and idiopathic neuropathy, unspecified (principal); G31.84 Mild cognitive impairment of uncertain or unknown etiology; E11.9 Type 2 diabetes mellitus without complications; G47.00 Insomnia, unspecified | CPT/HCPCS: 99214 ==

== ENCOUNTER → 2023-08-13 13:43 | Outpatient (BNVA) | payer MEDICARE, SELFPAY | PROVIDERS: PCP Family Medicine; Referring Provider Family Medicine; Visit Provider Student in an Organized Health Care Education/Training Program | DX: M16.52 Unilateral post-traumatic osteoarthritis, left hip (principal) | CPT/HCPCS: 20611; J1040 ==

== ENCOUNTER 2023-09-28 02:28 | Outpatient (RCR) | payer MEDICARE, SELFPAY ==
[2023-09-18] MEDS: Normal Saline Flush 10 ML SYR IVP (12:56)
[2023-09-18] MEDS: IRON SUCROSE COMPLEX 200 MG in Normal Saline 100 ML 110 MG IVPB (12:56)
[2023-09-22] MEDS: IRON SUCROSE COMPLEX 200 MG in Normal Saline 100 ML 110 MG IVPB (13:02)
[2023-09-22] MEDS: Normal Saline Flush 10 ML SYR IVP (13:06)
[2023-09-25] MEDS: IRON SUCROSE COMPLEX 200 MG in Normal Saline 100 ML 110 MG IVPB (13:16)
[2023-09-25] MEDS: Normal Saline Flush 10 ML SYR IVP (13:16)
[2023-09-28] MEDS: Normal Saline Flush 10 ML SYR IVP (10:54)
[2023-09-28] MEDS: IRON SUCROSE COMPLEX 200 MG in Normal Saline 100 ML 110 MG IVPB (10:54)
== END 2023-10-01 23:59 | disposition home or self-care (01) ==
LOC: INF 02:28
PROVIDERS: PCP Family Medicine; Visit Provider Nurse Practitioner Acute Care
DX: D50.9 Iron deficiency anemia, unspecified (principal)
CPT/HCPCS: 96365; J1756

== ENCOUNTER 2023-11-05 16:27 | Outpatient (REF) | payer MEDICARE, SELFPAY ==
[2023-11-05 20:09] LABS: Abs Immature Grans 0.03 10^3/uL (0.0-0.06); Absolute Basophil Count 0.06 10^3/uL (0.0-0.2); Absolute Eosinophil Count 0.91 10^3/uL (0.0-0.7); Absolute Lymphocyte Count 1.45 10^3/uL (1.2-3.4); Absolute Monocyte Count 0.71 10^3/uL (0.1-0.8); Absolute Neutrophil Count 4.89 10^3/uL (1.2-6.7); Basophils % 0.7; Eosinophils % 11.3; HCT 42.6 % (36.0-46.0); HGB 13.2 g/dL (11.2-15.7); Immature Grans % 0.4; MCH 29.3 pg (27.0-33.0); MCV 95 fL (80-95); MPV 11.9 fL (8.0-11.0); Monocytes % 8.8; Neutrophils % 60.8; Platelet Count 195 10^3/uL (130-400); RDW 18.5 % (11.7-14.6); RDW-SD 64.8 fL; WBC 8.05 10^3/uL (4.4-10.8)
[2023-11-05 20:43] LABS: ALT 21 U/L (14-59); AST 12 U/L (15-37); Albumin 4.2 g/dL (3.4-5.0); Alkaline Phosphatase 90 U/L (46-116); Anion Gap 9.1 mmol/L (3-11); BUN 33 mg/dL (7-18); Bilirubin, Total 0.2 mg/dL (0.2-1.0); CO2 26.9 mmol/L (21.0-32.0); CREATININE 1.7 mg/dL (0.55-1.02); Chloride 101 mmol/L (98-107); Estimated GFR 29.57 (mL/min/1.73m2); Ferritin 243 ng/mL (8-252); Glucose 147 mg/dL (74-106); Magnesium 2.3 mg/dL (1.8-2.4); Potassium 5.4 mmol/L (3.5-5.1); Sodium 137 mmol/L (136-145); Total Protein 7.9 g/dL (6.4-8.2)
== END 2023-11-05 16:28 | disposition home or self-care (01) ==
LOC: NCHCN 16:27
PROVIDERS: PCP Family Medicine; Visit Provider Family Medicine
DX: E11.9 Type 2 diabetes mellitus without complications (principal); R79.89 Other specified abnormal findings of blood chemistry
CPT/HCPCS: 80053; 82728; 83735; 85025

== ENCOUNTER → 2023-12-02 10:26 | Outpatient (BNVA) | payer MEDICARE, SELFPAY | PROVIDERS: PCP Family Medicine; Referring Provider Family Medicine; Visit Provider Podiatrist | DX: L60.3 Nail dystrophy (principal); B35.1 Tinea unguium; E11.9 Type 2 diabetes mellitus without complications; G60.9 Hereditary and idiopathic neuropathy, unspecified; E11.40 Type 2 diabetes mellitus with diabetic neuropathy, unspecified; I73.9 Peripheral vascular disease, unspecified; I79.8 Other disorders of arteries, arterioles and capillaries in diseases classified elsewhere; M79.674 Pain in right toe(s); M79.675 Pain in left toe(s); R09.89 Other specified symptoms and signs involving the circulatory and respiratory systems; R20.8 Other disturbances of skin sensation; L65.9 Nonscarring hair loss, unspecified; R23.4 Changes in skin texture | CPT/HCPCS: 11721 ==

== ENCOUNTER 2024-01-04 13:08 | Outpatient (CLI) | payer MEDICARE, SELFPAY ==
--- NOTE | 2024-01-04 16:06 | DI.RAD_ITS ---
Exam(s) XR LUMBAR SPINE AP, LAT EXAM: XR LUMBAR SPINE AP, LAT CLINICAL HISTORY: low back pain. TECHNIQUE: 2D digital imaging was performed of the lumbar spine. Two images were obtained. AP and lateral views were obtained. COMPARISON: No priors for comparison. FINDINGS: BONES: No fracture or destructive lesion. Endplate osteophytes are seen at multiple levels of the lum bar spine and lower thoracic spine. There is anterior wedging of T11 and T12 which appears old. The bones are osteopenic. There are degenerative changes of the facets from L3-4 through L5-S1. A right total hip replacement is partially imaged. DISKS: There is disc space narrowing at T12-L1, L4-L5 and L5-S1. Vacuum discs are also seen at these levels. ALIGNMENT: There is L4 spondylolysis. There is grade 2 spondylolisthesis of L4 on L5. SOFT TISSUE: Vascular calcifications are present. IMPRESSION: Marked degenerative changes in the lumbar spine. Grade 2 spondylolisthesis of L4 on L5 with L4 spond ylolysis. DATA REPOSITORY: RADIATION DOSE DELIVERED:
== END 2024-01-05 13:09 | disposition home or self-care (01) ==
LOC: DIORS 01-21 13:29
PROVIDERS: PCP Family Medicine; Visit Provider Student in an Organized Health Care Education/Training Program
DX: R29.898 Other symptoms and signs involving the musculoskeletal system (principal); M54.50 Low back pain, unspecified
CPT/HCPCS: 99213; 72100

== ENCOUNTER → 2024-01-18 04:29 | Outpatient (CLI) | payer MEDICARE, SELFPAY ==
--- NOTE | 2024-01-18 07:30 | DI.MRI_ITS ---
Exam(s) MR LUMBAR SPINE WO EXAM: MR LUMBAR SPINE WO CLINICAL HISTORY: PAIN,lumbar spinal stenosis, low ext weakness,r29.898,m48.061. TECHNIQUE: Multiplanar multisequence MRI of the Lumbar spine was performed. COMPARISON: MR MRI - LUMBAR SPINE WO CONTRAST from 09/19/2016 CR XR LUMBAR SPINE AP, LAT from 01/04/2024 FINDINGS: Conus medullaris is at normal level. There is no evidence of conus mass nor subjacent clumping of in trathecal nerve roots to suggest arachnoiditis. 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 This Tarlov cyst measures 2.6 by 1.7 by 1.7 cm, exhibiting minimal if any significant change when compared to 2016. It is again noted to be ass ociated with smooth erosion of the sacrum on the left side and central aspect of S2, unchanged.. Bones:There are no acute fractures nor ominous osseous lesions in the lumbar vertebral bodies and vis ualized sacrum. Mild anterior wedge deformities of T11 and T12 are noted, more so than 2016 but not acute. Significant anterolisthesis L4 upon L5 again noted. See below. With respect to the individual levels... T12-L1: Advanced disc space narrowing now evident. There is asymmetric left-sided annular bulging. There is narrowing of the exiting left neural foramen. No significant narrowing of the exiting right neural foramen. Mild facet arthropathy noted. L1-2: Mild decreased disc height. There is broad symmetrical annular bulging. No dominant disc courtney iation. Central canal dimensions are lower normal. The annular bulging extends into the bilateral e xiting neural foramina. There is mild bilateral foraminal stenosis. Minimal facet joint degenerativ e changes. L2-3: Preserved disc height. Broad annular bulging which is relatively symmetrical without a dominan t disc herniation. Central canal dimensions are lower normal. There is mild left-sided foraminal st enosis. No right-sided foraminal stenosis. Minimal facet joint degenerative changes. L3-4: Relatively preserved disc height. Absence of posterior osseous elements. Mild central canal s tenosis. Annular bulging but no disc herniation. Moderate degenerative changes in the facet joints evident. No foraminal stenosis. L4-5: Again noted is surgical absence of posterior osseous elements at this level and anterolisthesis L4 upon L5 again noted. There is approximately 1.2 cm anterior slippage L4 upon L5 with significant disc height loss at this level again noted and pseudo herniation of the annulus again noted. There is moderate central spinal canal stenosis at this level. Lateral recesses are carried forward. Ther e is also significant bilateral foraminal stenosis as the exiting nerve roots are impinged between th e overlying L4 pedicles and the subjacent pseudo herniation of the L4-5 annulus. The amount of henrry ening of the exiting nerve roots at this level is similar to previous of 2016. L5-S1: This level exhibits chronic disc space narrowing, similar to previous. Broad symmetrical kusum lar bulging without a dominant disc herniation and central canal dimensions are lower normal at this level. There are degenerative changes in the facet joints. Mild foraminal stenosis on the right raeann e again noted. Lesser foraminal stenosis on the left side. Soft tissues: paraspinal soft tissues appear unremarkable. IMPRESSION: 1. Relatively stable appearance of the lumbar spine when compared to prior MRI scan of 2016. Again n oted is evidence of prior decompression surgery at the lower 3 levels and unchanged anterolisthesis o f L4 upon L5 with significant bilateral foraminal stenosis at this level and impingement of the bilat eral exiting nerve roots between the overlying L4 pedicles and subjacent pseudo herniation of the L4- 5 annulus, similar to the previous study. 2. Other findings as above with relative stability when compared to the 2016 study. 3. 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 This is again noted be associa camille with smooth erosion of the bone of the sacral canal. DATA REPOSITORY:
== END ==
PROVIDERS: PCP Family Medicine; Visit Provider Student in an Organized Health Care Education/Training Program
DX: M48.061 Spinal stenosis, lumbar region without neurogenic claudication
CPT/HCPCS: 72148

== ENCOUNTER → 2024-01-29 12:53 | Outpatient (BNVA) | payer MEDICARE, SELFPAY | PROVIDERS: PCP Family Medicine; Referring Provider Podiatrist; Visit Provider Physical Therapy Assistant | DX: I73.9 Peripheral vascular disease, unspecified (principal) | CPT/HCPCS: 93922 ==

== ENCOUNTER → 2024-02-08 09:57 | Outpatient (BNVA) | payer MEDICARE, SELFPAY | PROVIDERS: PCP Family Medicine; Visit Provider Psychiatry & Neurology Neurology | DX: G60.9 Hereditary and idiopathic neuropathy, unspecified (principal); G31.84 Mild cognitive impairment of uncertain or unknown etiology; G47.00 Insomnia, unspecified | CPT/HCPCS: 99213 ==

== ENCOUNTER 2024-02-08 17:03 | Outpatient (REF) | payer MEDICARE, SELFPAY ==
[2024-02-08 21:59] LABS: Ferritin 98 ng/mL (8-252)
== END 2024-02-08 17:04 | disposition home or self-care (01) ==
LOC: NCHCN 17:03
PROVIDERS: PCP Family Medicine; Visit Provider Family Medicine
DX: D50.9 Iron deficiency anemia, unspecified (principal)
CPT/HCPCS: 82728

== ENCOUNTER → 2024-03-02 10:05 | Outpatient (BNVA) | payer MEDICARE, SELFPAY | PROVIDERS: PCP Family Medicine; Referring Provider Family Medicine; Visit Provider Podiatrist | DX: L60.3 Nail dystrophy (principal); B35.1 Tinea unguium; G60.9 Hereditary and idiopathic neuropathy, unspecified; E11.40 Type 2 diabetes mellitus with diabetic neuropathy, unspecified; I73.9 Peripheral vascular disease, unspecified | CPT/HCPCS: 11719; 11720; 11721 ==

== ENCOUNTER → 2024-03-17 15:00 | Outpatient (CLI) | payer MEDICARE, SELFPAY ==
--- NOTE | 2024-03-17 15:40 | DI.RAD_ITS ---
Exam(s) XR CHEST 2V PA LATERAL EXAM: XR CHEST 2V PA LATERAL CLINICAL HISTORY: R05.9 cough. TECHNIQUE: 2D digital imaging was performed. COMPARISON: CR XR PORTABLE CHEST AP from 09/22/2022 FINDINGS: 2 views: Heart size is normal. The mediastinum is not widened. Right lung is clear. Slightly increased markings in the left lung retrocardiac region which have juancarlos earance of probably vessels. However, these appear more prominent than on the prior study of Allen r 2021. No pleural effusions. No pulmonary edema. Evidence of previous surgery right shoulder. IMPRESSION: Mild increased markings left lower lobe retrocardiac region. Fluid early developing infiltrate. Rig ht lung is clear. DATA REPOSITORY: RADIATION DOSE DELIVERED:
== END ==
PROVIDERS: PCP Family Medicine; Visit Provider Physician Assistant Medical
DX: R05.9 Cough, unspecified (principal); R91.8 Other nonspecific abnormal finding of lung field
CPT/HCPCS: 71046

== ENCOUNTER 2024-05-04 10:32 | Outpatient (CLI) | payer MEDICARE, SELFPAY ==
--- NOTE | 2024-05-04 06:00 | DI.RAD_ITS ---
Exam(s) XR PAIN CLINIC LUMBAR SP 2V EXAM: XR PAIN CLINIC LUMBAR SP 2V CLINICAL HISTORY: Dx: Lumbar Radiculopathy TECHNIQUE: 2D and realtime digital imaging was performed. CONTRAST MATERIAL: Refer to procedure report. COMPARISON: No exams were available for comparison FINDINGS: Fluoroscopy was provided for Dr. Hanks during the performance of a caudal epidural steroid injection. Please refer to the procedure report for complete details. Ka,r=7.74 mGy IMPRESSION: RADIATION DOSE DELIVERED: 0.0 0.0 0
[2024-05-04 10:37] VITALS: BP 120/62; PULSE 88; RESP 20; TEMP 36.7; O2SAT 98
[2024-05-04 11:09] VITALS: PULSE 90; RESP 22; O2SAT 95
[2024-05-04] MEDS: Omnipaque 240 MG/ML 50 ML BTL IJ (11:32)
[2024-05-04] MEDS: Nerve Block Tray 1 EACH MC (11:32)
[2024-05-04] MEDS: methylPREDNISolone ACETATE 80 MG/ML VIAL IJ (11:32)
--- NOTE | 2024-05-04 12:32 | PDOC.PAIN_ITS ---
Date of service: 05/04/24 Time of Service: 12:34 Pain Managment Procedure Note Procedure Note Procedure Note: PROCEDURE NOTE CAUDAL EPIDURAL STEROID INJECTION Date of Service: May 04, 2024 Patient:Aster Brooks? Provider:? Sanya Victoria DO, MPH Aster Kumar has been [facility] to the [facility] for caudal epidural steroid injection.? Pre-operative diagnosis: Lumbosacral Radiculopathy Post-operative diagnosis: Same Pre-Procedure Pain: VAS= 8/10. COMMENTS: I previously evaluated her in the office. Hem A1c was 6.5 on 02/08/24 Chariswas interviewed and the medical record was reviewed.? There were no medical, pharmacologic, radiographic or other structural contraindications to attempting fluoroscopically guided epidural steroid injection.? Risks and expected side effects as well as potential benefit of the procedure were reviewed with Charis, and the patient's voiced concerns were addressed.? The printed consent form was signed.? Standard time-out procedure was performed. hCaris was placed in the prone position on the fluoroscopy table and automated blood pressure cuff and pulse oximeter applied.? The skin entry point for entering/approaching the epidural space by a caudal approach through the sacral hiatus ed identified with surgical skin marking.? Following thorough chlorhexidine preparation of the skin and draping and 1% lidocaine infiltration of the skin entry point and subcutaneous tissues, a 17 gauge Touhy needle was placed under fluoroscopic guidance? into the epidural space. Needle tip placement and depth were aided and confirmed by fluoroscopy in the lateral and AP position. There was no paresthesia or return of blood or CSF through the needle. 1 cc of Omnipaque 240 was injected with clear epidural spread confirmed with fluoroscopy. An Arrow 19G radio-opaque epidural catheter was advanced into the epidural space to the L5-S1 level and 2 cc of Omnipaque 240 was injected with clear epidural spread. 80 mg of Depo-Medrol was? injected. There was no unusual discomfort expressed by Aster. The needle and catheter were then flushed with 1 cc of 1% Lidocaine and they were removed together without difficulty (49 cc of Omnipaque was wasted). Aster was observed and was without hemodynamic, neurologic, or allergic reactions.? Fluoroscopic images were digitally archived. Aster's vital signs were stable throughout the procedure and were as recorded in the docflowsheet by the nursing staff.? If given, dosages of intravenous drugs for anxiolysis and analgesia were documented in MAR. Follow up plans and appointments were discussed with Aster.? Post procedure instruction was given as documented in nursing documentation and having met discharge criteria, [facility]. ? COMMENTS: No apparent complications.? Post-procedure pain: VAS= 0/10. If the patient receives at least 50% improvement in pain and/or function for at least 3 months, this procedure can be repeated. I personally completed the entire procedure. SANYA VICTORIA DO, MPH ABPM[employer]R - Subspecialty board certification in Pain Medicine [facility]
== END 2024-05-04 10:33 | disposition home or self-care (01) ==
LOC: PC 10:32
PROVIDERS: PCP Family Medicine; Visit Provider Preventive Medicine Occupational Medicine
DX: M54.17 Radiculopathy, lumbosacral region (principal); M54.50 Low back pain, unspecified
CPT/HCPCS: 62323; 72100; J1010; Q9967

== ENCOUNTER 2024-05-31 03:13 | Outpatient (RCR) | payer MEDICARE, SELFPAY ==
[2024-05-31] MEDS: FERUMOXYTOL 510 MG in Normal Saline 50 ML 134 MG IVPB (13:12)
[2024-05-31] MEDS: Normal Saline Flush 10 ML SYR IVP (13:12)
== END 2024-06-01 23:59 | disposition home or self-care (01) ==
LOC: INF 03:13
PROVIDERS: PCP Family Medicine; Visit Provider Family Medicine
DX: D50.9 Iron deficiency anemia, unspecified (principal)
CPT/HCPCS: 96365; Q0138

== ENCOUNTER 2024-06-06 11:03 | Outpatient (CLI) | payer MEDICARE, SELFPAY ==
--- NOTE | 2024-06-06 10:45 | DI.RAD_ITS ---
Exam(s) XR KNEE LT 4V AP,LAT,MIGDALIA,PAT EXAM: XR KNEE LT 4V AP,LAT,MIGDALIA,PAT CLINICAL HISTORY: left knee pain. TECHNIQUE: 2D digital imaging was performed. Three views. COMPARISON: CR XR KNEE LT 3V AP,LAT,MIGDALIA from 07/09/2023 CR XR HIP LT COMPLETE AP PELVIS from 07/09/2023 FINDINGS: BONES: Revised knee prosthesis again noted. No change in alignment. Surrounding bone appear stable. No acute fracture is present. No bony destructive lesion is seen. JOINTS: The knee is normally aligned. No joint effusion is seen. SOFT TISSUE: Normal. IMPRESSION: Stable postoperative appearance. DATA REPOSITORY: RADIATION DOSE DELIVERED:
--- NOTE | 2024-06-06 10:45 | DI.RAD_ITS ---
Exam(s) XR HIP LT COMPLETE AP PELVIS EXAM: XR HIP LT COMPLETE AP PELVIS CLINICAL HISTORY: left hip pain. TECHNIQUE: 2D digital imaging was performed. Two views. COMPARISON: CR XR HIP LT COMPLETE AP PELVIS from 07/09/2023 FINDINGS: BONES: 3 screws are again noted in the proximal left femur. No acute fracture is present. No bony de structive lesion is seen. JOINTS: No dislocation present. Stable appearance of right hip prosthesis. Mild degenerative romano es of the left hip. SOFT TISSUE: Heterotopic calcifications the mid shaft of the femur. IMPRESSION: Stable postoperative appearance. DATA REPOSITORY: RADIATION DOSE DELIVERED:
== END 2024-06-06 11:04 | disposition home or self-care (01) ==
LOC: DIORS 11:04
PROVIDERS: PCP Family Medicine; Referring Provider Family Medicine; Visit Provider Physician Assistant
DX: M97.12XA Periprosthetic fracture around internal prosthetic left knee joint, initial encounter (principal); S72.002A Fracture of unspecified part of neck of left femur, initial encounter for closed fracture; T84.84XA Pain due to internal orthopedic prosthetic devices, implants and grafts, initial encounter; W19.XXXA Unspecified fall, initial encounter
CPT/HCPCS: 99213; 73502; 73564

== ENCOUNTER 2024-06-07 01:42 | Outpatient (RCR) | payer MEDICARE, SELFPAY ==
[2024-06-07] MEDS: Normal Saline Flush 10 ML SYR IVP (13:13)
[2024-06-07] MEDS: FERUMOXYTOL 510 MG in Normal Saline 50 ML 134 MG IVPB (13:19)
== END 2024-07-02 23:59 | disposition home or self-care (01) ==
LOC: INF 01:42
PROVIDERS: PCP Family Medicine; Visit Provider Family Medicine
DX: D50.9 Iron deficiency anemia, unspecified (principal)
CPT/HCPCS: 96365; Q0138

== ENCOUNTER 2024-06-07 15:19 | Outpatient (REF) | payer MEDICARE, SELFPAY ==
--- NOTE | 2024-06-07 09:45 | SKI_PTH ---
PATIENT: Aster Kumar LOC: [facility]#:[id number] AGE/SX: 83/F ROOM: RE06/07/[address]: Riky Gaitan : 1940 BED: DIS: 06/07/2024 SPEC #: [id number] RECD: 06/07/24 15:22 STATUS: BETTY REQ #: [id number] SABINO: 06/07/24 09:[address]: Riky Gaitan DEPT: Surgical Specimen RECD BY: Kristal Kaba Tissues: 1 - SKIN BIOPSY(SHAVE/PUNCH) Procedures: SKIN LEVEL 4 Comments: [id number]
== END 2024-06-07 15:20 | disposition home or self-care (01) ==
LOC: NCHCN 15:19
PROVIDERS: PCP Family Medicine; Visit Provider Family Medicine
DX: D18.01 Hemangioma of skin and subcutaneous tissue (principal)
CPT/HCPCS: 88305

== ENCOUNTER 2024-06-22 01:09 | Outpatient (CLI) | payer MEDICARE, SELFPAY ==
--- NOTE | 2024-06-22 08:00 | DI.NM_ITS ---
Exam(s) NM BONE SCAN 3 PHASE EXAM: NM BONE SCAN 3 PHASE CLINICAL HISTORY: PAIN, ?LOOSENING of prosthetic device,t84,xa. TECHNIQUE: Injected Dose: 27.7 mCi Tc-99m MDP COMPARISON: CR XR CHEST 2V PA LATERAL from 03/17/2024 CR XR KNEE LT 4V AP,LAT,MIGDALIA,PAT from 06/06/[address] LOWER EXTREMITY LT WO from 06/22/2024 FINDINGS: Perfusion: Symmetric. Blood Pool: Mildly increased activity seen posteriorly at the proximal tibia. Delayed: Abnormally intense activity seen adjacent to the tibial component of the revised total knee prosthesis at the metaphyseal region. No abnormal activity at the at the tip of the tibial component . Mildly increased activity seen at the medial distal left femur around the femoral component of the prosthesis. A linear lucency was seen on the CT in the femoral shaft. There is no corresponding ab normal labeling on bone scan. A right knee prosthesis and right hip prosthesis are also present which show do not show significantl y increased abnormal labeling. There is increased activity of the right shoulder consistent with deg enerative changes seen on recent chest x-ray. Increased activity also noted in mid and lower thoraci c spine. There are significant degenerative changes noted on recent chest x-ray. IMPRESSION: Findings consistent with loosening at the proximal portion of the tibial component of the left knee p rosthesis. DATA REPOSITORY:
--- NOTE | 2024-06-22 11:11 | DI.CT_ITS ---
Exam(s) CT LOWER EXTREMITY LT WO EXAM: CT LOWER EXTREMITY LT WO CLINICAL HISTORY: PAIN, ?LOOSENING prosthetic device,t84.xa. TECHNIQUE: Imaging Protocol: Axial computed tomography images with coronal and sagittal reformatted images were created and reviewed. CONTRAST MATERIAL: Intravenous: Omnipaque 350 Contrast volume:structured data in ml Contrast route:IV - COMPARISON: CR,XR XR KNEE LT 2V AP,LAT from 07/28/2019 CR XR FEMUR LT from 08/17/2019 CR XR KNEE LT 3V AP,LAT,MIGDALIA from 11/26/[address] LOWER EXTREMITY RT WO from 03/31/2023 CR XR KNEE LT 3V AP,LAT,MIGDALIA from 07/09/2023 XR PAIN CLINIC LUMBAR SP 2V from 05/04/2024 CR XR KNEE LT 4V AP,LAT,MIGDALIA,PAT from 06/06/2024 CR XR HIP LT COMPLETE AP PELVIS from 06/06/2024 FINDINGS: Bones: There is no evidence of fracture or dislocation. No cellulitic or osteomyelitic changes are identified. No lytic or sclerotic lesions are identified. Three screws are noted in the left femoral neck. No abnormal surrounding lucencies. The long femoral stem shows a large amount of surrounding cement. T here is an obliquely oriented lucency seen through the cement but not through the cortex. Joints: Total knee prosthesis creates artifact. Soft Tissues: Intramuscular calcifications seen in the thigh. Vascular calcifications. IMPRESSION: No definite evidence of loosening of the revised knee prosthesis. Linear lucency near the femoral stem seen within the cement but not the cortex. This is not visible on plain film. Findings could represent a fracture. RADIATION DOSE DELIVERED: Total DLP DATA REPOSITORY: All CT scans at this facility are submitted to the National Radiology Data Registry (NRDR) Dose Index Registry (DIR) with the [employer] (ACR). RADIATION OPTIMIZATION: All CT scans at this facility use at least one of these dose optimization te chniques: automated exposure control; mA and/or kV adjustment per patient size (includes targeted exa ms where dose is matched to clinical indication); or iterative reconstruction.
[2024-06-22 11:39] LABS: C-Reactive Protein < 0.50 mg/dL (<or=0.5)
[2024-06-22 11:45] LABS: ESR 23 mm/hr (0-30)
== END 2024-06-22 01:29 ==
LOC: DI 01:09
PROVIDERS: PCP Family Medicine; Visit Provider Student in an Organized Health Care Education/Training Program
DX: T84.84XA Pain due to internal orthopedic prosthetic devices, implants and grafts, initial encounter (principal); Z96.652 Presence of left artificial knee joint; X58.XXXA Exposure to other specified factors, initial encounter
CPT/HCPCS: 85652; 73700; 78315; 86140

== ENCOUNTER → 2024-07-06 10:28 | Outpatient (BNVA) | payer MEDICARE, SELFPAY | PROVIDERS: PCP Family Medicine; Referring Provider Family Medicine; Visit Provider Podiatrist | DX: L60.3 Nail dystrophy (principal); B35.1 Tinea unguium; I70.203 Unspecified atherosclerosis of native arteries of extremities, bilateral legs; E11.40 Type 2 diabetes mellitus with diabetic neuropathy, unspecified; G60.9 Hereditary and idiopathic neuropathy, unspecified | CPT/HCPCS: 11055; 11719; 11720 ==

== ENCOUNTER → 2024-08-08 10:45 | Outpatient (BNVA) | payer MEDICARE, SELFPAY | PROVIDERS: PCP Family Medicine; Visit Provider Psychiatry & Neurology Neurology | DX: G60.9 Hereditary and idiopathic neuropathy, unspecified (principal); G31.84 Mild cognitive impairment of uncertain or unknown etiology | CPT/HCPCS: 99214 ==

== ENCOUNTER 2024-08-24 12:13 | Outpatient (REF) | payer MEDICARE, SELFPAY ==
[2024-08-24 14:45] LABS: Abs Immature Grans 0.03 10^3/uL (0.0-0.06); Absolute Basophil Count 0.07 10^3/uL (0.0-0.2); Absolute Eosinophil Count 0.17 10^3/uL (0.0-0.7); Absolute Lymphocyte Count 1.39 10^3/uL (1.2-3.4); Absolute Monocyte Count 0.65 10^3/uL (0.1-0.8); Absolute Neutrophil Count 5.39 10^3/uL (1.2-6.7); Basophils % 0.9 %; Eosinophils % 2.2 %; HCT 42.6 % (36.0-46.0); HGB 13.5 g/dL (11.2-15.7); Immature Grans % 0.4 %; Lymphocytes % 18.1 %; MCH 32.1 pg (27.0-33.0); MCHC 31.7 % (32.0-36.0); MCV 101 fL (80-95); MPV 11.1 fL (8.0-11.0); Monocytes % 8.4 %; Platelet Count 206 10^3/uL (130-400); RDW 13.3 % (11.7-14.6); RDW-SD 50.5 fL
[2024-08-24 15:11] LABS: ALT 21 U/L (14-59); AST 17 U/L (15-37); Albumin 3.9 g/dL (3.4-5.0); Alkaline Phosphatase 88 U/L (46-116); Anion Gap 11.5 mmol/L (3-11); BUN 35 mg/dL (7-18); Bilirubin, Total 0.37 mg/dL (0.2-1.0); CO2 23.5 mmol/L (21.0-32.0); CREATININE 1.7 mg/dL (0.55-1.02); Calculated LDL 84 mg/dL (<100); Chloride 103 mmol/L (98-107); Cholesterol 202 mg/dL (<200); Estimated GFR 29.39 (mL/min/1.73m2); Ferritin 185 ng/mL (8-252); Glucose 138 mg/dL (74-106); HDL Cholesterol 77 mg/dL (40-60); Potassium 5.3 mmol/L (3.5-5.1); Sodium 138 mmol/L (136-145); Total Protein 7.8 g/dL (6.4-8.2); Triglyceride 207 mg/dL (<150)
[2024-08-24 15:12] LABS: Bilirubin Negative (Negative); Blood Negative (Negative); Clarity Clear (Clear); Glucose >=1000 mg/dL (Negative); Ketones Negative (Negative); Leukocyte Esterase Negative (Negative); Nitrite Negative (Negative); Specific Gravity 1.015 (1.005-1.025); Urobilinogen 0.2 mg/dL (Up to 0.2); pH 5.5 (5-8)
[2024-08-24 15:27] LABS: Microalb ug/mg Crea 46.5 ug/mg Cr
[2024-08-24 15:54] LABS: Bacteria Negative HPF (Negative); C & S Indicated? No; Casts Negative LPF (Negative); Crystals Negative HPF (Negative); Epithelial Cells Rare HPF (Negative); Mucus Negative (Negative); RBC Negative HPF (0-2); WBC 0-2 HPF (0-5)
== END 2024-08-24 12:14 | disposition home or self-care (01) ==
LOC: NCHCN 12:13
PROVIDERS: PCP Family Medicine; Visit Provider Family Medicine
DX: E11.9 Type 2 diabetes mellitus without complications (principal)
CPT/HCPCS: 80053; 80061; 81003; 81015; 82043; 82570; 82728; 85025

== ENCOUNTER 2024-08-31 14:24 | Outpatient (CLI) | payer MEDICARE, SELFPAY ==
[2024-08-31 14:43] VITALS: BP 156/89; PULSE 81; RESP 20; TEMP 36.6; O2SAT 96
[2024-08-31 15:03] VITALS: O2SAT 93
[2024-08-31 15:05] VITALS: BP 149/90; PULSE 90; PULSE 91; RESP 18; O2SAT 94
[2024-08-31 15:06] VITALS: PULSE 90; RESP 26; O2SAT 93
[2024-08-31 15:10] VITALS: PULSE 91; RESP 17; O2SAT 94
--- NOTE | 2024-08-31 15:17 | DI.RAD_ITS ---
Exam(s) XR PAIN CLINIC LUMBAR SP 2V EXAM: XR PAIN CLINIC LUMBAR SP 2V CLINICAL HISTORY: DX:Lumbar Radiculopathy. TECHNIQUE: Fluoroscopy was provided for the referring physician for guidance with performing pain cl inic injection procedure. COMPARISON: No exams were available for comparison FINDINGS: Please see procedure note for details. Fluoro time: 24.4 seconds RADIATION DOSE DELIVERED: Ka,r=11.14 mGy
[2024-08-31] MEDS: methylPREDNISolone ACETATE 80 MG/ML VIAL IJ (15:23)
[2024-08-31] MEDS: Nerve Block Tray 1 EACH MC (15:23)
[2024-08-31] MEDS: Omnipaque 240 MG/ML 50 ML BTL IJ (15:23)
--- NOTE | 2024-08-31 15:28 | PDOC.PAIN_ITS ---
Date of service: 08/31/24 Time of Service: 15:28 Pain Managment Procedure Note Procedure Note Procedure Note: PROCEDURE NOTE CAUDAL EPIDURAL STEROID INJECTION Date of Service: August 31, 2024 Patient:Aster Brooks? Provider:? Sanya Victoria DO, MPH Aster Kumar has been referred to the [facility] for caudal epidural steroid injection.? Pre-operative diagnosis: Lumbosacral Radiculopathy, ICD-10 M54.17 Post-operative diagnosis: Same Pre-Procedure Pain: VAS= 7/10. COMMENTS: She last had this procedure on 05/04/2024 and had >50% pain improvement for >3 months. Chariswas interviewed and the medical record was reviewed.? There were no medical, pharmacologic, radiographic or other structural contraindications to attempting fluoroscopically guided epidural steroid injection.? Risks and expected side effects as well as potential benefit of the procedure were reviewed with Charis, and the patient's voiced concerns were addressed.? The printed consent form was signed.? Standard time-out procedure was performed. Charis was placed in the prone position on the fluoroscopy table and automated blood pressure cuff and pulse oximeter applied.? The skin entry point for entering/approaching the epidural space by a caudal approach through the sacral hiatus ed identified with surgical skin marking.? Following thorough chlorhexidine preparation of the skin and draping and 1% lidocaine infiltration of the skin entry point and subcutaneous tissues, a 17 gauge Touhy needle was placed under fluoroscopic guidance? into the epidural space. Needle tip placement and depth were aided and confirmed by fluoroscopy in the lateral and AP position. There was no paresthesia or return of blood or CSF through the needle. 1 cc of Omnipaque 240 was injected with clear epidural spread confirmed with fluoroscopy. An Arrow 19G radio-opaque epidural catheter was advanced into the epidural space to the L5-S1 level and 2 cc of Omnipaque 240 was injected with clear epidural spread. 80 mg of Depo-Medrol was? injected. There was no unusual discomfort expressed by Aster. The needle and catheter were then flushed with 1 cc of 1% Lidocaine and they were removed together without difficulty (49 cc of Omnipaque was wasted). Aster was observed and was without hemodynamic, neurologic, or allergic reactions.? Fluoroscopic images were digitally archived. Aster's vital signs were stable throughout the procedure and were as recorded in the docflowsheet by the nursing staff.? If given, dosages of intravenous drugs for anxiolysis and analgesia were documented in MAR. Follow up plans and appointments were discussed with Aster.? Post procedure instruction was given as documented in nursing documentation and having met discharge criteria, Aster [facility] from the [facility]. ? COMMENTS: No apparent complications.? Post-procedure pain: VAS= 4/10. If the patient receives at least 50% improvement in pain and/or function for at least 3 months, this procedure can be repeated. I personally completed the entire procedure. SANYA VICTORIA DO, MPH ABPM&R - Subspecialty board certification in Pain Medicine [facility]
== END 2024-08-31 14:25 | disposition home or self-care (01) ==
LOC: PC 14:24
PROVIDERS: PCP Family Medicine; Visit Provider Preventive Medicine Occupational Medicine
DX: M54.50 Low back pain, unspecified (principal); M54.17 Radiculopathy, lumbosacral region
CPT/HCPCS: 62323; 72100; J1010; Q9967

== ENCOUNTER → 2024-11-09 09:00 | Outpatient (BNVA) | payer MEDICARE, SELFPAY | PROVIDERS: PCP Family Medicine; Referring Provider Family Medicine; Visit Provider Podiatrist | DX: L60.3 Nail dystrophy (principal); B35.1 Tinea unguium; E11.9 Type 2 diabetes mellitus without complications; G60.9 Hereditary and idiopathic neuropathy, unspecified; I73.89 Other specified peripheral vascular diseases; R09.89 Other specified symptoms and signs involving the circulatory and respiratory systems; R20.8 Other disturbances of skin sensation; L65.9 Nonscarring hair loss, unspecified; R23.8 Other skin changes; L53.8 Other specified erythematous conditions; L60.2 Onychogryphosis | CPT/HCPCS: 11719; 11720 ==

== ENCOUNTER 2024-11-28 17:59 | Outpatient (REF) | payer MEDICARE, SELFPAY ==
[2024-11-28 17:53] LABS: HCT 40.5 % (36.0-46.0); HGB 12.7 g/dL (11.2-15.7); MCH 33.1 pg (27.0-33.0); MCHC 31.4 % (32.0-36.0); MCV 106 fL (80-95); MPV 11.3 fL (8.0-11.0); Platelet Count 203 10^3/uL (130-400); RBC 3.84 10^6/uL (3.93-5.22); RDW 13.2 % (11.7-14.6); RDW-SD 51.8 fL; WBC 7.55 10^3/uL (4.4-10.8)
[2024-11-28 18:13] LABS: Anion Gap 10.6 mmol/L (3-11); BUN 34 mg/dL (7-18); CO2 25.4 mmol/L (21.0-32.0); CREATININE 1.7 mg/dL (0.55-1.02); Calcium 9.8 mg/dL (8.5-10.1); Chloride 103 mmol/L (98-107); Estimated GFR 29.39 (mL/min/1.73m2); Ferritin 130 ng/mL (8-252); Glucose 161 mg/dL (74-106); Potassium 5.1 mmol/L (3.5-5.1); Sodium 139 mmol/L (136-145)
== END 2024-11-28 18:00 | disposition home or self-care (01) ==
LOC: NCHCN 17:59
PROVIDERS: PCP Family Medicine; Visit Provider Family Medicine
DX: N18.4 Chronic kidney disease, stage 4 (severe) (principal)
CPT/HCPCS: 80048; 85027; 82728

== ENCOUNTER 2024-12-08 12:34 | Outpatient (REF) | payer MEDICARE, SELFPAY ==
[2024-12-08 14:43] LABS: Anion Gap 8.3 mmol/L (3-11); BUN 24 mg/dL (7-18); CO2 26.7 mmol/L (21.0-32.0); CREATININE 1.2 mg/dL (0.55-1.02); Calcium 9.8 mg/dL (8.5-10.1); Chloride 103 mmol/L (98-107); Estimated GFR 44.64 (mL/min/1.73m2); Glucose 170 mg/dL (74-106); Potassium 5.5 mmol/L (3.5-5.1); Sodium 138 mmol/L (136-145)
== END 2024-12-08 12:35 | disposition home or self-care (01) ==
LOC: NCHCN 12:34
PROVIDERS: PCP Family Medicine; Visit Provider Family Medicine
DX: N18.4 Chronic kidney disease, stage 4 (severe) (principal)
CPT/HCPCS: 80048

== ENCOUNTER 2024-12-14 10:11 | Outpatient (CLI) | payer MEDICARE, SELFPAY ==
[2024-12-14 10:26] VITALS: BP 139/59; PULSE 72; RESP 20; TEMP 36.7; O2SAT 100
[2024-12-14 10:59] VITALS: PULSE 76; O2SAT 98
[2024-12-14 11:00] VITALS: BP 157/79; PULSE 76; PULSE 77; RESP 25; O2SAT 97
[2024-12-14 11:01] VITALS: PULSE 77; PULSE 78; RESP 21; O2SAT 97
[2024-12-14 11:10] VITALS: PULSE 77; RESP 23; O2SAT 98
[2024-12-14 11:15] VITALS: BP 143/88; PULSE 79
--- NOTE | 2024-12-14 11:15 | DI.RAD_ITS ---
Exam(s) XR PAIN CLINIC LUMBAR SP 2V EXAM: XR PAIN CLINIC LUMBAR SP 2V CLINICAL HISTORY: Dx: Lumbar Radiculopathy. TECHNIQUE: Fluoroscopy was provided for the referring physician for guidance with performing pain cl inic injection procedure. COMPARISON: No exams were available for comparison FINDINGS: Please see procedure note for details. Fluoro time: 72.9 seconds RADIATION DOSE DELIVERED: Ka,r=27.28 mGy
[2024-12-14] MEDS: Nerve Block Tray 1 EACH MC (11:18)
[2024-12-14] MEDS: methylPREDNISolone ACETATE 80 MG/ML VIAL IJ (11:18)
[2024-12-14] MEDS: Omnipaque 240 MG/ML 50 ML BTL IJ (11:19)
--- NOTE | 2024-12-15 15:58 | PDOC.PAIN_ITS ---
Date of service: 12/14/24 Time of Service: 11:30 Pain Managment Procedure Note Procedure Note Procedure Note: PROCEDURE NOTE CAUDAL EPIDURAL STEROID INJECTION Date of Service: December 14, 2024 Patient:Aster Brooks? Provider:? Sanya Victoria DO, MPH Aster Kumar has been referred to the [facility] for caudal epidural steroid injection.? Pre-operative diagnosis: Lumbosacral Radiculopathy, ICD-10 M54.17 Post-operative diagnosis: Same Pre-Procedure Pain: VAS= 7/10. COMMENTS: Last caudal was 08/31/2024 and she had >3 months of >50% pain improvement. Chariswas interviewed and the medical record was reviewed.? There were no medical, pharmacologic, radiographic or other structural contraindications to attempting fluoroscopically guided epidural steroid injection.? Risks and expected side effects as well as potential benefit of the procedure were reviewed with Charis, and the patient's voiced concerns were addressed.? The printed consent form was signed.? Standard time-out procedure was performed. Charis was placed in the prone position on the fluoroscopy table and automated blood pressure cuff and pulse oximeter applied.? The skin entry point for entering/approaching the epidural space by a caudal approach through the sacral hiatus ed identified with surgical skin marking.? Following thorough chlorhexidine preparation of the skin and draping and 1% lidocaine infiltration of the skin entry point and subcutaneous tissues, a 17 gauge Touhy needle was placed under fluoroscopic guidance? into the epidural space. Needle tip placement and depth were aided and confirmed by fluoroscopy in the lateral and AP position. There was no paresthesia or return of blood or CSF through the needle. 1 cc of Omnipaque 240 was injected with clear epidural spread confirmed with fluoroscopy. An Arrow 19G radio-opaque epidural catheter was advanced into the epidural space to the L5-S1 level and 2 cc of Omnipaque 240 was injected with clear epidural spread. 80 mg of Depo-Medrol was? injected. There was no unusual discomfort expressed by Aster. The needle and catheter were then flushed with 1 cc of 1% Lidocaine and they were removed together without difficulty (49 cc of Omnipaque was wasted). Aster was observed and was without hemodynamic, neurologic, or allergic reactions.? Fluoroscopic images were digitally archived. Aster's vital signs were stable throughout the procedure and were as recorded in the docflowsheet by the nursing staff.? If given, dosages of intravenous drugs for anxiolysis and analgesia were documented in MAR. Follow up plans and appointments were discussed with Aster.? Post procedure instruction was given as documented in nursing documentation and having met discharge criteria, Aster was [facility] from the [facility]. ? COMMENTS: No apparent complications.? Post-procedure pain: VAS= 1/10. If the patient receives at least 50% improvement in pain and/or function for at least 3 months, this procedure can be repeated. I personally completed the entire procedure. SANYA VICTORIA DO, MPH ABPM&R - Subspecialty board certification in Pain Medicine [facility]
== END 2024-12-14 10:12 | disposition home or self-care (01) ==
LOC: PC 10:12
PROVIDERS: PCP Family Medicine; Visit Provider Preventive Medicine Occupational Medicine
DX: M54.50 Low back pain, unspecified (principal); M54.17 Radiculopathy, lumbosacral region
CPT/HCPCS: 62323; 72100; J1010; Q9967

== ENCOUNTER 2025-01-25 08:46 | Emergency (ER) | payer MEDICARE, SELFPAY ==
[2025-01-25 08:52] VITALS: BP 179/111; PULSE 81; RESP 14; TEMP 36.6; O2SAT 96
--- NOTE | 2025-01-25 09:00 | DI.CT_ITS ---
Exam(s) CT HEAD WO EXAM: CT HEAD WO CLINICAL HISTORY: headache, vision changes. TECHNIQUE: Imaging Protocol: Axial computed tomography images with coronal and sagittal reformatted images were created and reviewed COMPARISON: CT CT HEAD WO from 11/26/2020 FINDINGS: Ventricles and Extra axial spaces: Normal in size and morphology for the patient's age. Hemorrhage: None. Cerebral parenchyma: No evidence of acute infarct or mass. Geju-fo-uuiejkoh atrophy. Mild white ma tter changes of small vessel disease. Midline shift: None. Brainstem/Cerebellum: Normal. Calvarium: Breast doses frontalis interna. Visualized Paranasal sinuses:Complete opacification of the left maxillary sinus none with expansion. Opacification of some right-sided ethmoid sinuses as well as the left frontal sinus. Findings appea r worse when compared with the previous exam. Mastoids: Clear. Soft Tissues: Unremarkable. ORBITS: Unremarkable. PITUITARY: Not enlarged. IMPRESSION: No acute intracranial process. Severe left maxillary sinus disease. The left frontal sinus is also opacified. Findings called to Getachew Brooks, ER provider. RADIATION DOSE DELIVERED: Total DLP DATA REPOSITORY: All CT scans at this facility are submitted to the National Radiology Data Registry (NRDR) Dose Index Registry (DIR) with the [employer] (ACR). RADIATION OPTIMIZATION: All CT scans at this facility use at least one of these dose optimization te chniques: automated exposure control; mA and/or kV adjustment per patient size (includes targeted exa ms where dose is matched to clinical indication); or iterative reconstruction.
--- NOTE | 2025-01-25 09:02 | ED.GENADUL_ITS ---
Discharge Plan Disposition Patient Disposition: Home Condition: Stable Discharge Details Clinical Impression: Fall, Concussion syndrome Primary Care Provider: Riky Gaitan ED Provider: Getachew Brooks Home Meds and New Rx's Prescriptions: Continued mirtazapine 15 mg tablet 30 mg PO HS CBD ointment 1 ml topical 2XD Rx Instructions: 1ml for knee pain, prn ketoconazole 2 % cream 1 applic topical DAILY 90 Days Qty: 60 3RF Rx Instructions: Apply to toenails once daily Probiotic 20 billion cell capsule 30,000 cell PO DAILY acetaminophen 650 mg tablet extended release 1,300 mg PO Q6H PRN (Reason: Pain) urea 40 % cream 1 applic topical BID mecobalamin (vitamin B12) 1,000 mcg tablet,disintegrating 1,000 mcg sublingual DAILY Rx Instructions: place tablet under tongue and allow to dissolve for at least30 secs before swallowing polyethylene glycol 3350 8.5 gram powder in packet 8.5 g PO DAILY PRN pregabalin 50 mg capsule 50 mg PO BID Qty: 180 1RF clopidogrel [Plavix] 75 MG tablet 75 mg PO HS albuterol sulfate [ProAir HFA] 8.5 GM HFA aerosol inhaler 2 puff Inhalation PRN PRN duloxetine [Cymbalta] 30 mg capsule,delayed release(DR/EC) 60 mg PO HS atorvastatin [Lipitor] 10 MG tablet 10 mg PO QPM Qty: 30 0RF docusate sodium 100 mg capsule 100 mg PO BID calcium-magnesium 500-250 mg Tablet 4 tab PO DAILY tramadol 50 mg tablet 50 mg PO Q6H PRNQty: 20 0RF pantoprazole [Protonix] 20 MG tablet,delayed release (DR/EC) 40 mg PO BID duloxetine [Cymbalta] 30 mg Capsule,Delayed Release(Dr/Ec) 30 mg PO HS metformin 500 mg tablet 1,000 mg PO DAILY Discharge Instructions Instructions: Preventing falls in adults, Post-Concussion Syndrome ED Additional Instructions: You were seen in the emergency department for your fall with right-sided head injury about a week ago on Plavix. There is no evidence of intracranial bleeding, and right shoulder pain there is no fracture here, I do not feel you have any severe injuries from this. Please take Tylenol as needed for pain, if your condition worsens or you are having further neurologic changes please follow-up with Dr. Brooks for possible outpatient MRI or return to the emergency department for emergent concerns. Referrals: Riky Gaitan MD [Primary Care Provider] - Discharge Data Discharge Date/Time-TO BE ENTERED AT DEPARTURE: 01/25/25 11:39 HPI General Date/Time Provider Initiated Documentation: 01/25/25 09:00 . HPI Narrative: 84 year-old female presents to ED today by POV/ambulating with a chief complaint of fall one week ago striking the R side of her head, on Plavix. Quality described as mild headache, some L shoulder pain as well, endorses vision changes since then, no radiation to LOC, nausea/vomiting, weakness, slurred speech, subsequent falls. Severity is described as mild to moderate. Palliating factors include nothing specific attempted. Provoking factors include nothing specific. Patient not anticoagulated. Related Data Home Medications ?Medication ?Instructions ?Recorded ?Confirmed albuterol sulfate 90 mcg/actuation 2 puff inhalation PRN PRN 11/13/15 01/25/25 aerosol inhaler (ProAir HFA) clopidogrel 75 mg tablet (Plavix) 75 mg PO HS 11/13/15 01/25/25 pantoprazole 20 mg tablet,delayed 40 mg PO BID 04/03/17 01/25/25 release (Protonix) atorvastatin 10 mg tablet (Lipitor) 10 mg PO QPM #30 tabs 12/07/17 01/25/25 docusate sodium 100 mg capsule 100 mg PO BID 07/08/18 01/25/25 duloxetine 30 mg capsule,delayed 30 mg PO HS 07/28/19 01/25/25 release (Cymbalta) lactobacillus comb no.10 20 30,000 cell PO DAILY 11/15/19 01/25/25 billion cell capsule (Probiotic) metformin 500 mg tablet 1,000 mg PO DAILY 03/20/20 01/25/25 duloxetine 30 mg capsule,delayed 60 mg PO HS 11/13/20 01/25/25 release (Cymbalta) CBD 1 ml topical 2XD 12/14/22 01/25/25 mirtazapine 15 mg tablet 30 mg PO HS 12/14/22 01/25/25 calcium-magnesium 500 mg-250 mg 4 tab PO DAILY 04/14/23 01/25/25 tablet tramadol 50 mg tablet 50 mg PO Q6H PRN #20 tabs 04/16/23 01/25/25 polyethylene glycol 3350 8.5 gram 8.5 g PO DAILY PRN 05/11/23 01/25/25 oral powder packet acetaminophen 650 mg 1,300 mg PO Q6H PRN Pain 05/28/23 01/25/25 tablet,extended release ketoconazole 2 % topical cream 1 applic topical DAILY 3 months 08/26/23 01/25/25 #60 grams urea 40 % topical cream 1 applic topical BID 02/08/24 01/25/25 mecobalamin (vitamin B12) 1,000 1,000 mcg sublingual DAILY 11/04/24 01/25/25 mcg disintegrating tablet,sublingual pregabalin 50 mg capsule 50 mg PO BID #180 caps 12/19/24 01/25/25 Previous Rx's ?Medication ?Instructions ?Recorded atorvastatin 10 mg tablet (Lipitor) 10 mg PO QPM #30 tabs 12/07/17 tramadol 50 mg tablet 50 mg PO Q6H PRN #20 tabs 04/16/23 ketoconazole 2 % topical cream 1 applic topical DAILY 3 months 08/26/23 #60 grams pregabalin 50 mg capsule 50 mg PO BID #180 caps 12/19/24 Allergies Allergy/AdvReac Type Severity Reaction Status Date / Time glucosamine AdvReac Intermediate Other (See Unverified 01/25/25 09:02 Comment) NSAIDS (Non-Steroidal AdvReac Intermediate Other (See Verified 01/25/25 09:02 Anti-Inflamma Comment) codeine AdvReac Mild Other (See Unverified 01/25/25 09:02 Comment) naproxen AdvReac Mild Other (See Unverified 01/25/25 09:02 Comment) General Stated Complaint: HeadInjury ESEQUIEL: 3 Review of Systems All systems reviewed & are unremarkable except as noted in HPI and below Exam Narrative Exam Narrative: GENERAL APPEARANCE: Well-nourished, non-toxic, awake and alert, atraumatic, no acute distress. SKIN: Warm, pink, dry, intact, without rashes/lesions/ulcerations. HEAD: Normocephalic, atraumatic-no scalp hematoma, normal hair distribution for gender/age. EYES: Normal conjunctiva, no exudates on lids/lashes, EOMs intact without nystagmus, vision grossly intact, visual arias intact ENT: Nares patent, no circumoral cyanosis, no facial swelling NECK: Supple, trachea midline, painless cervical ROM, no midline vertebral tenderness/crepitus/step-offs LUNGS/CHEST: Lungs CTA bilaterally, non-labored respirations, normal A/P diameter, symmetrical expansion, no chest wall deformity HEART (CV/PV): Regular rate and rhythm without murmur, no peripheral edema, no JVD. ABDOMEN: Soft, non-distended, no guarding. MSK: Normal ROM, no swelling/deformity to bilateral UEs or LEs, moving all extremities without weakness, no cyanosis, spine midline without tenderness, normal curvature. NEURO: Mental Status AAOx4 - alert to person, place, time, events No facial droop, no forehead involvement, no dysmetria with cerebellar testing Motor: No focal weakness - strength 5/5 in bilateral UEs and LEs, proximal and distal, symmetric. Sensory: sensation intact to light touch globally. Gait baseline, patient able to ambulate in and out of ED PSYCH: euthymic, cooperative, pleasant, appropriate speech Course Vital Signs Vital signs: Vital Signs Temperature 36.6 C 01/25/25 08:52 Pulse 81 01/25/25 08:52 Respiratory Rate 14 01/25/25 08:52 Blood Pressure 179/111 H 01/25/25 08:52 Pulse Oximetry 96 01/25/25 08:52 Temperature 36.6 C 01/25/25 08:52 Temperature Source Oral 01/25/25 08:52 Pulse 81 01/25/25 08:52 Respiratory Rate 14 01/25/25 08:52 Blood Pressure 179/111 H 01/25/25 08:52 Blood Pressure Position Sitting 01/25/25 08:52 Pulse Oximetry 96 01/25/25 08:52 Oxygen Delivery Method Room Air 01/25/25 08:52 Oxygen Flow Rate 0 01/25/25 08:52 Pain Level 6 01/25/25 08:52 Medical Decision Making This dictation utilizes [id number] dictation software and may contain unedited grammatical errors. 84 year-old female presents to ED today by POV/ambulating with a chief complaint of fall one week ago striking the R side of her head, on Plavix. Quality de scribed as mild headache, some L shoulder pain as well, endorses vision changes since then, no radiation to LOC, nausea/vomiting, weakness, slurred speech, subsequent falls. Severity is described as mild to moderate. Palliating factors include nothing specific attempted. Provoking factors include nothing specific. Patients' medical history: History of TIA, CKD, T2DM, PVD, ambulatory dysfunction. Family and social history: Noncontributory. Pertinent exam findings / vital signs include neuro intact, no dysmetria, vision grossly intact, visual arias intact, no scalp hematoma or other signs of trauma, right shoulder pain without crepitus or swelling or deformity, slight limited range of motion due to pain. Differential / pathologies of concern include headache, right shoulder pain or fracture, unlikely ICH. Diagnostic studies of: -CT head without contrast, XR right shoulder-no acute findings, chronic findings in the right shoulder. Interventions of: -None. ED Course/Assessment/Plan: 84-year-old female with gait abnormality at baseline fell last week on Plavix striking her right side of her head has been having headaches since then, CT is negative likely concussion syndrome, also hurt her right shoulder has chronic loose body and chronic rotator cuff tear, no acute findings here, I counseled her on using Tylenol as needed at home, icing her shoulder and seeking orthopedic follow-up for any acute complications, strict return criteria for any worsening neurologic status. Findings not consistent with ICH, neurovascular compromise, fracture or instability of right shoulder. Disposition of fall, concussion syndrome. Patient verbalized understanding of the plan and return to ED criteria and engaged in shared decision making. Medical Records Medical records reviewed: Yes I reviewed the patient's medical records. Imaging Data Radiologic Study: Attestation: I personally reviewed and interpreted this imaging study as follows: Imaging: CT Scan Radiologist's impression: EXAM: CT HEAD WO CLINICAL HISTORY: headache, vision changes. TECHNIQUE: Imaging Protocol: Axial computed tomography images with coronal and sagittal reformatted images were created and reviewed COMPARISON: CT CT HEAD WO from 11/26/2020 FINDINGS: Ventricles and Extra axial spaces: Normal in size and morphology for the patient's age. Hemorrhage: None. Cerebral parenchyma: No evidence of acute infarct or mass. [id number] atrophy. Mild white matter changes of small vessel disease. Midline shift: None. Brainstem/Cerebellum: Normal. Calvarium: Breast doses frontalis interna. Visualized Paranasal sinuses:Complete opacification of the left maxillary sinus none with expansion. Opacification of some right-sided ethmoid sinuses as well as the left frontal sinus. Findings appear worse when compared with the previous exam. Mastoids: Clear. Soft Tissues: Unremarkable. ORBITS: Unremarkable. PITUITARY: Not enlarged. IMPRESSION: No acute intracranial process. Severe left maxillary sinus disease. The left frontal sinus is also opacified. Findings called to Getachew Brooks, ER provider. Radiologic Study #2: Attestation: I personally reviewed and interpreted this imaging study as follows: Imaging: X-Ray Radiologist's impression: EXAM: XR SHOULDER RT COMPLETE 2+V CLINICAL HISTORY: R shoulder pain. TECHNIQUE: 2D digital imaging was performed. Five views. COMPARISON: CR XR SHOULDER RT COMPLETE 2+V from 12/15/2022 FINDINGS: BONES: No acute fracture is present. No bony destructive lesion is seen. Metallic anchor noted in humeral head. Prominent spur at the tip of the acromion. JOINTS: No dislocation present. Severe degenerative changes of the glenohumeral joint. Prominent periarticular spurring. Narrowing of the subacromial space consistent with chronic rotator cuff tear. Smoothly marginated bony density noted beneath AC joint. This is noted on prior exams. SOFT TISSUE: Normal. IMPRESSION: Severe degenerative changes and evidence of chronic rotator cuff tear. Joint space loose body. Quality:SDOH Health Related Social Needs: No Data to Display PFSH All Active Problems (Updated 01/25/25 @ 11:21 by SHYANN Knapp) Concussion syndrome (Acute) Fall (Acute) CKD stage 3 due to type 2 diabetes mellitus (Acute) Painful orthopaedic hardware (Acute) Lumbar post-laminectomy syndrome (Acute) Lumbar spinal stenosis (Acute) Impacted cerumen, right ear (Acute) Atherosclerosis of artery of both lower extremities (Acute) Pain, joint, foot, right (Acute) Lower extremity weakness (Acute) PVD (peripheral vascular disease) (Chronic) Diabetes mellitus with neuropathy (Acute) Onychomycosis (Acute) Osteoarthritis of left hip (Acute) Hypertension (Chronic) Post-menopausal bleeding (Acute) Ambulatory dysfunction (Acute) Nail dystrophy (Acute) Blood loss anemia (Acute) Mild cognitive impairment (Acute) Monocular diplopia of both eyes (Acute) Urinary frequency (Chronic) Type 2 diabetes mellitus (Chronic) Insomnia (Chronic) GERD (gastroesophageal reflux disease) (Chronic) Fibromyalgia (Chronic) Depression (Chronic) Lumbar stenosis without neurogenic claudication (Chronic) Sensorineural hearing loss, bilateral (Chronic 11/27/16) Restless leg syndrome (Chronic 08/11/17) Osteoarthritis of knee (Chronic 10/06/13) Migraine without aura and without status migrainosus, not intractable (Chronic 06/15/17) Memory loss (Chronic 06/24/16) Idiopathic peripheral neuropathy (Chronic 06/24/16) 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 (Chronic) Medical History Tarlov cyst Trochanteric bursitis, right hip DEPO MEDROL 01/26/23 Asymmetrical sensorineural hearing loss Rotator cuff arthropathy of right shoulder DEPO MEDROL 12/15/22 Costochondritis H/O TIA (transient ischemic attack) and stroke Macrocytosis Hiatal hernia Osteopenia Skin lesion Dysphagia Anemia, iron deficiency Femur fracture, left TIA (transient ischemic attack) Surgical History History of total right hip replacement (04/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) Closed displaced fracture of right femoral neck with malunion S/P cannulated screw fixation: 07/26/2022 Hardware removal: 04/15/2023 Periprosthetic fracture around internal prosthetic left knee joint, initial encounter (07/28/19) S/P ORIF 07/28/2019 S/p total knee replacement, bilateral History of cataract extraction May 2018 at [facility] [place], complicated by increased IOP S/P rotator cuff repair 2016 History of ankle surgery H/O toe surgery Fracture of left hip requiring operative repair 2011 Status post lumbar spine surgery for decompression of spinal cord L4-S1 decompression and fusion; 2000 H/O: hysterectomy S/P dilatation and curettage H/O total knee replacement Replacement of total knee joint (11/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 EVANS; right; right TKA cleaned out in 2018 due to infection Family History Mother Alzheimer disease Father Stroke Social History Smoking/Tobacco Use Status: Never Smoking risk assessment performed?: Yes Alcohol Intake: current Alcohol Intake frequency: a few times a week Alcohol type: wine Drug use: Never Substance use type: does not use Household members: spouse Housing: house Current gender identity: female Do you feel safe at home: Yes Do you feel safe in your relationship?: Yes Additional Social history: She was born in [place]. 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 She is to her second Demarco (since ~1989?). She has 2 stepsons. She drinks one glass of wine per week.
--- NOTE | 2025-01-25 10:30 | DI.RAD_ITS ---
Exam(s) XR SHOULDER RT COMPLETE 2+V EXAM: XR SHOULDER RT COMPLETE 2+V CLINICAL HISTORY: R shoulder pain. TECHNIQUE: 2D digital imaging was performed. Five views. COMPARISON: CR XR SHOULDER RT COMPLETE 2+V from 12/15/2022 FINDINGS: BONES: No acute fracture is present. No bony destructive lesion is seen. Metallic anchor noted in hu meral head. Prominent spur at the tip of the acromion. JOINTS: No dislocation present. Severe degenerative changes of the glenohumeral joint. Prominent pe riarticular spurring. Narrowing of the subacromial space consistent with chronic rotator cuff tear. Smoothly marginated bony density noted beneath AC joint. This is noted on prior exams. SOFT TISSUE: Normal. IMPRESSION: Severe degenerative changes and evidence of chronic rotator cuff tear. Joint space loose body. DATA REPOSITORY: RADIATION DOSE DELIVERED:
[2025-01-25 11:00] VITALS: BP 165/70; PULSE 70; RESP 16; TEMP 36.4; O2SAT 96
[2025-01-25 11:01] VITALS: PULSE 71; O2SAT 95
[2025-01-25 11:10] VITALS: PULSE 73; O2SAT 95
== END 2025-01-25 11:39 | disposition home or self-care (01) ==
PROVIDERS: Emergency Provider Physician Assistant; PCP Family Medicine
DX: F07.81 Postconcussional syndrome (principal); M25.511 Pain in right shoulder; E11.22 Type 2 diabetes mellitus with diabetic chronic kidney disease; N18.30 Chronic kidney disease, stage 3 unspecified; I10 Essential (primary) hypertension; E11.40 Type 2 diabetes mellitus with diabetic neuropathy, unspecified; Z86.73 Personal history of transient ischemic attack (TIA), and cerebral infarction without residual deficits; Z79.02 Long term (current) use of antithrombotics/antiplatelets
CPT/HCPCS: 99284; 70450; 73030

== ENCOUNTER → 2025-02-06 10:40 | Outpatient (BNVA) | payer MEDICARE, SELFPAY | PROVIDERS: PCP Family Medicine; Referring Provider Family Medicine; Visit Provider Podiatrist | DX: L60.3 Nail dystrophy (principal); B35.1 Tinea unguium; E11.9 Type 2 diabetes mellitus without complications; G60.9 Hereditary and idiopathic neuropathy, unspecified; I73.89 Other specified peripheral vascular diseases; R09.89 Other specified symptoms and signs involving the circulatory and respiratory systems; R20.8 Other disturbances of skin sensation; L65.9 Nonscarring hair loss, unspecified; R23.8 Other skin changes; L60.2 Onychogryphosis | CPT/HCPCS: 11719; 11720 ==

== ENCOUNTER → 2025-02-08 10:16 | Outpatient (BNVA) | payer MEDICARE, SELFPAY | PROVIDERS: PCP Family Medicine; Visit Provider Psychiatry & Neurology Neurology | DX: G60.9 Hereditary and idiopathic neuropathy, unspecified (principal); G31.84 Mild cognitive impairment of uncertain or unknown etiology; G47.00 Insomnia, unspecified; F07.81 Postconcussional syndrome; E11.9 Type 2 diabetes mellitus without complications; I10 Essential (primary) hypertension | CPT/HCPCS: 99214 ==

== ENCOUNTER 2025-02-13 15:17 | Outpatient (REF) | payer MEDICARE, SELFPAY ==
[2025-02-13 21:31] LABS: Anion Gap 14.4 mmol/L (3-11); BUN 23 mg/dL (7-18); CO2 21.6 mmol/L (21.0-32.0); CREATININE 1.4 mg/dL (0.55-1.02); Calcium 9.6 mg/dL (8.5-10.1); Chloride 103 mmol/L (98-107); Estimated GFR 36.87 (mL/min/1.73m2); Glucose 128 mg/dL (74-106); Sodium 139 mmol/L (136-145)
== END 2025-02-13 15:18 | disposition home or self-care (01) ==
LOC: NCHCN 15:17
PROVIDERS: PCP Family Medicine; Visit Provider Family Medicine
DX: N18.4 Chronic kidney disease, stage 4 (severe) (principal)
CPT/HCPCS: 80048

== ENCOUNTER 2025-03-21 16:22 | Outpatient (REF) | payer MEDICARE, SELFPAY ==
[2025-03-21 21:17] LABS: Anion Gap 9.2 mmol/L (3-11); BUN 25 mg/dL (7-18); CO2 28.8 mmol/L (21.0-32.0); CREATININE 1.4 mg/dL (0.55-1.02); Calcium 9.9 mg/dL (8.5-10.1); Chloride 102 mmol/L (98-107); Estimated GFR 36.87 (mL/min/1.73m2); Glucose 139 mg/dL (74-106); Potassium 5.1 mmol/L (3.5-5.1); Sodium 140 mmol/L (136-145)
== END 2025-03-21 16:23 | disposition home or self-care (01) ==
LOC: NCHCN 16:22
PROVIDERS: PCP Family Medicine; Visit Provider Family Medicine
DX: I10 Essential (primary) hypertension (principal)
CPT/HCPCS: 80048

== ENCOUNTER → 2025-04-17 11:19 | Outpatient (BNVA) | payer MEDICARE, SELFPAY | PROVIDERS: PCP Family Medicine; Referring Provider Family Medicine; Visit Provider Psychiatry & Neurology Neurology | DX: G60.9 Hereditary and idiopathic neuropathy, unspecified (principal); G31.84 Mild cognitive impairment of uncertain or unknown etiology; G47.00 Insomnia, unspecified; F07.81 Postconcussional syndrome | CPT/HCPCS: 99214 ==

== ENCOUNTER → 2025-04-25 14:03 | Outpatient (BNVA) | payer MEDICARE, SELFPAY | PROVIDERS: PCP Family Medicine; Referring Provider Family Medicine; Visit Provider Student in an Organized Health Care Education/Training Program | DX: M12.811 Other specific arthropathies, not elsewhere classified, right shoulder (principal); W18.09XA Striking against other object with subsequent fall, initial encounter; Y93.89 Activity, other specified; Z91.81 History of falling; E11.59 Type 2 diabetes mellitus with other circulatory complications; I10 Essential (primary) hypertension; N18.30 Chronic kidney disease, stage 3 unspecified | CPT/HCPCS: 99214; 20610; J1010 ==

== ENCOUNTER 2025-05-12 09:17 | Outpatient (CLI) | payer MEDICARE, SELFPAY ==
[2025-05-12 09:50] VITALS: BP 93/77; PULSE 83; RESP 18; TEMP 37; O2SAT 96
[2025-05-12 10:20] VITALS: PULSE 81; RESP 16; O2SAT 94
[2025-05-12 10:30] VITALS: PULSE 83; RESP 16; O2SAT 94
[2025-05-12] MEDS: Omnipaque 240 MG/ML 50 ML BTL IJ (10:32)
[2025-05-12] MEDS: Nerve Block Tray 1 EACH MC (10:32)
[2025-05-12] MEDS: methylPREDNISolone ACETATE 80 MG/ML VIAL IJ (10:32)
--- NOTE | 2025-05-12 10:34 | PDOC.PAIN_ITS ---
Date of service: 05/12/25 Time of Service: 10:35 Pain Managment Procedure Note Procedure Note Procedure Note: PROCEDURE NOTE CAUDAL EPIDURAL STEROID INJECTION Date of Service: May 12, 2025 Patient:Aster Brooks? Provider:? Sanya Victoria DO, MPH Aster Kumar has been referred to the [facility] for caudal epidural steroid injection.? Pre-operative diagnosis: Lumbosacral Radiculopathy, ICD-10 M54.17 Post-operative diagnosis: Same Pre-Procedure Pain: VAS= 7/10. COMMENTS: She last had this procedure on 12/14/2024 with >3 months of >50% pain relief. Her pain has slowly returned. Chariswas interviewed and the medical record was reviewed.? There were no medical, pharmacologic, radiographic or other structural contraindications to attempting fluoroscopically guided epidural steroid injection.? Risks and expected side effects as well as potential benefit of the procedure were reviewed with Charis, and the patient's voiced concerns were addressed.? The printed consent form was signed.? Standard time-out procedure was performed. Charis was placed in the prone position on the fluoroscopy table and automated blood pressure cuff and pulse oximeter applied.? The skin entry point for entering/approaching the epidural space by a caudal approach through the sacral hiatus ed identified with surgical skin marking.? Following thorough chlorhexidine preparation of the skin and draping and 1% lidocaine infiltration of the skin entry point and subcutaneous tissues, a 17 gauge Touhy needle was placed under fluoroscopic guidance? into the epidural space. Needle tip placement and depth were aided and confirmed by fluoroscopy in the lateral and AP position. There was no paresthesia or return of blood or CSF through the needle. 1 cc of Omnipaque 240 was injected with clear epidural spread confirmed with fluoroscopy. An Arrow 19G radio-opaque epidural catheter was advanced into the epidural space to the L5-S1 level and 2 cc of Omnipaque 240 was injected with clear epidural spread. 80 mg of Depo-Medrol was? injected. There was no unusual discomfort expressed by Aster. The needle and catheter were then flushed with 1 cc of 1% Lidocaine and they were removed together without difficulty (49 cc of Omnipaque was wasted). Aster was observed and was without hemodynamic, neurologic, or allergic reactions.? Fluoroscopic images were digitally archived. Aster's vital signs were stable throughout the procedure and were as recorded in the docflowsheet by the nursing staff.? If given, dosages of intravenous drugs for anxiolysis and analgesia were documented in MAR. Follow up plans and appointments were discussed with Aster.? Post procedure instruction was given as documented in nursing documentation and having met discharge criteria, Aster [facility]. ? COMMENTS: No apparent complications.? Post-procedure pain: VAS= 6/10. If the patient receives at least 50% improvement in pain and/or function for at least 3 months, this procedure can be repeated. I personally completed the entire procedure. SANYA VICTORIA DO, MPH ABPM&R - Subspecialty board certification in Pain Medicine [facility] Coding Conscious Sedation used for procedure: No CPT Codes: Inj Spine L/S w/Imaging - 00887 ([id number] ~G) Additional Codes: Date of Service (54789) Date of service: 05/12/25 Diagnoses: Lumbar radiculopathy
[2025-05-12 10:36] VITALS: BP 135/75; PULSE 83
--- NOTE | 2025-05-12 10:40 | DI.RAD_ITS ---
Exam(s) XR PAIN CLINIC LUMBAR SP 2V EXAM: XR PAIN CLINIC LUMBAR SP 2V CLINICAL HISTORY: DX: Lumbar Radiculopathy. TECHNIQUE: Fluoroscopy was provided for the referring physician for guidance with performing pain clinic injection procedure. COMPARISON: No exams were available for comparison FINDINGS: Please see procedure note for details. Fluoro time: 38.5 seconds RADIATION DOSE DELIVERED: Ka,r=11.8 mGy
== END 2025-05-12 09:18 | disposition home or self-care (01) ==
LOC: PC 09:17
PROVIDERS: PCP Family Medicine; Visit Provider Preventive Medicine Occupational Medicine
DX: M54.50 Low back pain, unspecified (principal); M54.17 Radiculopathy, lumbosacral region
CPT/HCPCS: 62323; 72100; J1010; Q9967

== ENCOUNTER → 2025-06-05 10:17 | Outpatient (BNVA) | payer MEDICARE, SELFPAY | PROVIDERS: PCP Family Medicine; Referring Provider Family Medicine; Visit Provider Podiatrist | DX: L60.3 Nail dystrophy (principal); B35.1 Tinea unguium; E11.9 Type 2 diabetes mellitus without complications; G60.9 Hereditary and idiopathic neuropathy, unspecified; I73.89 Other specified peripheral vascular diseases; R09.89 Other specified symptoms and signs involving the circulatory and respiratory systems; R20.8 Other disturbances of skin sensation; L65.9 Nonscarring hair loss, unspecified; R23.8 Other skin changes; L60.2 Onychogryphosis | CPT/HCPCS: 11719; 11720 ==

== ENCOUNTER 2025-06-20 14:22 | Outpatient (CLI) | payer MEDICARE, SELFPAY ==
--- NOTE | 2025-06-20 13:52 | DI.RAD_ITS ---
Exam(s) XR FOOT RT COMPLETE EXAM: XR FOOT RT COMPLETE CLINICAL HISTORY: pt c/o fallen arch and new onset ft shape change,RT FOOT PAIN,LOWER EXT. TECHNIQUE: 2D digital imaging was performed. Three views. COMPARISON: CR XR FOOT LT COMPLETE from 06/20/2025 FINDINGS: BONES: No acute fracture is present. No bony destructive lesion is seen. Heel spurs. JOINTS: No dislocation present. Moderate narrowing of the 1st MTP joint and periarticular spurring. Minimal degenerative changes elsewhere. No significant hallux valgus. SOFT TISSUE: Normal. IMPRESSION: First MTP joint degenerative changes and heel spurs. DATA REPOSITORY: RADIATION DOSE DELIVERED:
--- NOTE | 2025-06-20 13:52 | DI.RAD_ITS ---
Exam(s) XR FOOT LT COMPLETE EXAM: XR FOOT LT COMPLETE CLINICAL HISTORY: Comparison xray; c/o acute changes in R foot,LOWER EXT WEAKNESS,R29.898.. TECHNIQUE: 2D digital imaging was performed. Three views. COMPARISON: CR LEFT FOOT COMPLETE from 08/14/2008 CR XR FOOT LT COMPLETE from 11/26/2020 FINDINGS: BONES: No acute fracture is present. No bony destructive lesion is seen. Postsurgical changes at the 1st metatarsal head and base of the 1st proximal phalanx are again noted without significant change from 2007. There is an accessory navicular which is not well profiled on the current exam. JOINTS: No dislocation present. Flattening of the plantar arch. SOFT TISSUE: Normal. IMPRESSION: Stable postsurgical changes at the 1st MTP joint. Pes planus. DATA REPOSITORY: RADIATION DOSE DELIVERED:
== END 2025-06-20 14:42 ==
LOC: DI 14:23
PROVIDERS: PCP Family Medicine; Visit Provider Podiatrist
DX: M25.571 Pain in right ankle and joints of right foot (principal); R29.898 Other symptoms and signs involving the musculoskeletal system; Z01.89 Encounter for other specified special examinations; L60.3 Nail dystrophy; B35.1 Tinea unguium; E11.9 Type 2 diabetes mellitus without complications; G60.9 Hereditary and idiopathic neuropathy, unspecified; I73.89 Other specified peripheral vascular diseases; M76.821 Posterior tibial tendinitis, right leg; M21.42 Flat foot [pes planus] (acquired), left foot; M21.41 Flat foot [pes planus] (acquired), right foot
CPT/HCPCS: 99214; 73630

== ENCOUNTER 2025-07-28 14:01 | Outpatient (REF) | payer MEDICARE, SELFPAY ==
[2025-07-29 11:35] LABS: Campylobacter PCR Negative (Negative); Shiga Toxin PCR Negative (Negative); Shigella/Enteroinvasive Ecoli Negative (Negative)
== END 2025-07-28 14:02 | disposition home or self-care (01) ==
LOC: NCHCN 14:01
PROVIDERS: PCP Family Medicine; Visit Provider Family Medicine
DX: R19.7 Diarrhea, unspecified (principal)
CPT/HCPCS: 87015; 87269; 87272; 87505; 83630

== ENCOUNTER 2025-08-17 20:57 | Outpatient (REF) | payer MEDICARE, SELFPAY ==
[2025-08-17 21:13] LABS: HCT 36.6 % (36.0-46.0); HGB 11.4 g/dL (11.2-15.7); MCH 31.0 pg (27.0-33.0); MCHC 31.1 % (32.0-36.0); MCV 100 fL (80-95); MPV 11.2 fL (8.0-11.0); Platelet Count 224 10^3/uL (130-400); RBC 3.68 10^6/uL (3.93-5.22); RDW 13.2 % (11.7-14.6); RDW-SD 48.3 fL; WBC 6.19 10^3/uL (4.4-10.8)
[2025-08-17 21:54] LABS: ALT 20 U/L (14-59); AST 9 U/L (15-37); Albumin 3.6 g/dL (3.4-5.0); Alkaline Phosphatase 73 U/L (46-116); Anion Gap 12.1 mmol/L (3-11); BUN 30 mg/dL (7-18); Bilirubin, Total 0.2 mg/dL (0.2-1.0); CO2 22.9 mmol/L (21.0-32.0); Calcium 9.1 mg/dL (8.5-10.1); Chloride 100 mmol/L (98-107); Estimated GFR 40.30 (mL/min/1.73m2); Ferritin 61 ng/mL (8-252); Glucose 143 mg/dL (74-106); Magnesium 1.8 mg/dL (1.8-2.4); Potassium 4.9 mmol/L (3.5-5.1); Sodium 135 mmol/L (136-145); Total Protein 7.0 g/dL (6.4-8.2)
== END 2025-08-17 20:58 | disposition home or self-care (01) ==
LOC: NCHCN 20:57
PROVIDERS: PCP Family Medicine; Visit Provider Family Medicine
DX: D50.9 Iron deficiency anemia, unspecified (principal)
CPT/HCPCS: 80053; 85027; 82728; 83735

== ENCOUNTER → 2025-08-21 14:31 | Outpatient (BNVA) | payer MEDICARE, SELFPAY | PROVIDERS: PCP Family Medicine; Referring Provider Family Medicine; Visit Provider Student in an Organized Health Care Education/Training Program | DX: M97.12XA Periprosthetic fracture around internal prosthetic left knee joint, initial encounter (principal); S72.002A Fracture of unspecified part of neck of left femur, initial encounter for closed fracture; T84.84XA Pain due to internal orthopedic prosthetic devices, implants and grafts, initial encounter; W19.XXXA Unspecified fall, initial encounter | CPT/HCPCS: 99213 ==

== ENCOUNTER → 2025-08-22 13:36 | Outpatient (BNVA) | payer MEDICARE, SELFPAY | PROVIDERS: PCP Family Medicine; Referring Provider Family Medicine; Visit Provider Podiatrist | DX: L60.3 Nail dystrophy (principal); B35.1 Tinea unguium; E11.42 Type 2 diabetes mellitus with diabetic polyneuropathy; M76.821 Posterior tibial tendinitis, right leg; I73.89 Other specified peripheral vascular diseases; M21.41 Flat foot [pes planus] (acquired), right foot; M21.42 Flat foot [pes planus] (acquired), left foot; Z79.84 Long term (current) use of oral hypoglycemic drugs | CPT/HCPCS: 99213 ==

== ENCOUNTER 2025-09-01 00:47 | Outpatient (RCR) | payer MEDICARE, SELFPAY ==
[2025-08-25] MEDS: IRON SUCROSE COMPLEX 200 MG in Normal Saline 100 ML 440 MG IVPB (12:42)
[2025-08-25] MEDS: Normal Saline Flush 10 ML SYR IVP (12:42)
[2025-08-29] MEDS: IRON SUCROSE COMPLEX 200 MG in Normal Saline 100 ML 440 MG IVPB (10:54)
[2025-08-29] MEDS: Normal Saline Flush 10 ML SYR IVP (10:55)
[2025-09-01] MEDS: IRON SUCROSE COMPLEX 200 MG in Normal Saline 100 ML 440 MG IVPB (10:57)
[2025-09-01] MEDS: Normal Saline Flush 10 ML SYR IVP (10:57)
== END 2025-09-01 23:59 | disposition home or self-care (01) ==
LOC: INF 00:47
PROVIDERS: PCP Family Medicine; Visit Provider Family Medicine
DX: D50.9 Iron deficiency anemia, unspecified (principal)
CPT/HCPCS: 96365; J1756

== ENCOUNTER 2025-09-21 13:08 | Outpatient (CLI) | payer MEDICARE, SELFPAY ==
[2025-09-21 13:19] VITALS: BP 100/66; PULSE 79; RESP 20; TEMP 37; O2SAT 100
[2025-09-21 13:43] VITALS: PULSE 82; RESP 19; O2SAT 95
[2025-09-21 13:44] VITALS: BP 167/77; PULSE 81; PULSE 83; RESP 20; O2SAT 96
[2025-09-21 13:46] VITALS: BP 161/73; PULSE 81; PULSE 82; RESP 23; O2SAT 95
[2025-09-21 13:50] VITALS: PULSE 82; PULSE 83; RESP 14; O2SAT 96
--- NOTE | 2025-09-21 13:52 | PDOC.PAIN ---
Date of service: 09/21/25 Time of Service: 13:53 Pain Managment Procedure Note Procedure Note Procedure Note: PROCEDURE NOTE LUMBAR EPIDURAL STEROID INJECTION Date of Service: September 21, 2025 Patient:[place]? Provider: Sanya Hanks DO, MPH Aster Kumar has been referred to the [facility] for a lumbar epidural steroid injection. Pre-operative diagnosis: Lumbosacral Radiculopathy ICD-10 M54.16 Post-operative diagnosis: Same Pre-Procedure Pain: VAS= 5 /10 Comments: She has been off of the Plavix for 7 days. Last Hem A1c on 08/17/25 was 6.7. She will restart the Plavix tomorrow. Aster was interviewed and the medical record was reviewed.? There were no medical, pharmacologic, radiographic or other structural contraindications to attempting fluoroscopically guided Lumbar epidural steroid injection.? Risks, potential side effects, indications, and potential benefits of the procedure were reviewed with Aster.? Questions and concerns were addressed.? After it was clear that Aster was fully informed about the procedure, the printed consent form was signed by the patient and myself.? Aster was placed in the prone position on the fluoroscopy table and automated blood pressure cuff and pulse oximeter applied. The skin entry point for entering/approaching the epidural space for the lumbar epidural steroid injection was marked. Following thorough chlorhexadine preparation of the skin and draping and 1% lidocaine infiltration of the skin entry point and subcutaneous tissues, an 18 gauge Touhy needle was placed and advanced under fluoroscopic guidance and with loss of resistance technique into the L5-S1 epidural space. Needle tip placement and depth were aided and confirmed by fluoroscopy. There was no paresthesia or return of blood or CSF through the needle. 1 mls of Omnipaque 240 was injected with clear epidural spread confirmed with fluoroscopy. 80 mg of Depo-Medrol was? injected. This was followed by 1 ml of preservative-free normal saline to flush the steroid out of the needle. There was no unusual discomfort expressed by Aster. The needle was withdrawn without difficulty. (49 mls of Omnipaque was wasted) Aster was observed and was without hemodynamic, neurologic, or allergic reactions.? Fluoroscopic images were digitally archived. Aster's vital signs were stable throughout the procedure and were as recorded in nursing records. Follow up plans and appointments were discussed with Aster. Post procedure instruction was given as documented in nursing records and having met discharge criteria Aster was discharged from the [facility]. COMMENTS: No apparent complications. Post-procedure pain: VAS= 5/10. Aster to contact [facility] as needed. If at least 50% improvement in pain and/or function for at least 3 months is achieved, this procedure can be repeated. I personally performed this entire procedure. SANYA HANKS DO, MPH ABPMR-subspecialty board certification in Pain Medicine [facility] Coding Conscious Sedation used for procedure: No CPT Codes: Inj Spine L/S w/Imaging - [id number] ([id number] ~G) Additional Codes: Date of Service () Diagnoses: Lumbar radiculopathy
--- NOTE | 2025-09-21 13:55 | DI.RAD_ITS ---
Exam(s) XR PAIN CLINIC LUMBAR SP 2V EXAM: XR PAIN CLINIC LUMBAR SP 2V CLINICAL HISTORY: DX: Lumbar Radiculopathy. TECHNIQUE: Fluoroscopy was provided for the referring physician for guidance with performing pain clinic injection procedure. COMPARISON: No exams were available for comparison FINDINGS: Please see procedure note for details. Fluoro time: 23.7 seconds RADIATION DOSE DELIVERED: Ka,r=10.12 mGy
[2025-09-21] MEDS: Epidural Tray 1 EACH MC (13:58)
[2025-09-21] MEDS: Omnipaque 240 MG/ML 50 ML BTL IJ (13:58)
[2025-09-21] MEDS: methylPREDNISolone ACETATE 40 MG/ML VIAL IJ (13:58)
== END 2025-09-21 13:09 | disposition home or self-care (01) ==
LOC: PC 13:08
PROVIDERS: PCP Family Medicine; Visit Provider Preventive Medicine Occupational Medicine
DX: M54.50 Low back pain, unspecified (principal); M54.16 Radiculopathy, lumbar region
CPT/HCPCS: 62323; 72100; J1010; Q9967

== ENCOUNTER → 2025-10-09 11:06 | Outpatient (BNVA) | payer MEDICARE, SELFPAY | PROVIDERS: PCP Family Medicine; Referring Provider Family Medicine; Visit Provider Podiatrist | DX: L60.3 Nail dystrophy (principal); B35.1 Tinea unguium; L84 Corns and callosities; E11.42 Type 2 diabetes mellitus with diabetic polyneuropathy; I73.89 Other specified peripheral vascular diseases; R09.89 Other specified symptoms and signs involving the circulatory and respiratory systems; R20.8 Other disturbances of skin sensation; L65.9 Nonscarring hair loss, unspecified; R23.4 Changes in skin texture; L85.8 Other specified epidermal thickening; M79.671 Pain in right foot; L60.2 Onychogryphosis | CPT/HCPCS: 11055; 11721 ==